=== PATIENT | female | born 1970 | race African-American/Black ===

== ENCOUNTER 2021-07-09 10:40 | Emergency (ER) | payer BC, SELFPAY ==
--- NOTE | ~2021-07-09 | XR_ITS ---
EXAMINATION: XR foot RT min 3V EXAM DATE: 07/09/2021 12:35 INDICATION: Right foot infection, medial pain. Pedicure 2 weeks ago. TECHNIQUE: Right foot dorsoplantar, lateral and oblique projections obtained and reviewed. There is no prior study for comparison. FINDINGS: Right metatarsal bones unremarkable. There are no bony erosions identified. There is mil d to moderate 1st metatarsophalangeal and interphalangeal primary osteoarthritis. There are no acute fractures or dislocations identified. There is no subcutaneous gas. There is soft tissue swelling ov er the foot and ankle. There are no radiopaque foreign bodies. IMPRESSION: 1. Right foot exam without acute osseous findings. 2. Soft tissue swelling. Reviewed, dictated and finalized at location A. 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
[2021-07-09 11:32] VITALS: BP 145/102; PULSE 76; RESP 18; TEMP 36.5; O2SAT 97
--- NOTE | 2021-07-09 12:27 | PC.NURSE ---
Patient to radiology.
[2021-07-09 12:55] LABS: Basophils Absolute Auto 0.1 K/mm3 (0.0-0.1); Basophils Percent Auto 1.1 % (0.2-1.2); Eosinophils Absolute Auto 0.2 K/mm3 (0-0.3); Eosinophils Percent Auto 2.8 % (0-4.4); Hemoglobin 15.2 g/dL (12.0-15.0); Immature Granulocyte Absolute 0.01 K/mm3 (0.00-0.031); Immature Granulocyte Percent A 0.2 % (0-0.5); Lymphocytes Absolute Auto 2.15 K/mm3 (0.9-3.2); Lymphocytes Percent Auto 40.3 % (18.3-44.2); Mean Corpuscular HGB Conc 36.2 g/dl (32-36); Mean Corpuscular Hemoglobin 36.9 pg (26-34); Mean Corpuscular Volume 101.9 fl (80-100); Mean Platelet Volume 10.5 fl (7.4-10.4); Monocytes Absolute Auto 0.3 K/mm3 (0.1-0.6); Monocytes Percent Auto 5.1 % (2.6-8.5); Neutrophils Absolute Auto 2.7 K/mm3 (1.3-6.7); Neutrophils Percent Auto 50.5 % (45.5-73.1); Platelet Count Result 171 k/mm3 (150-375); Red Blood Count 4.12 M/mm3 (4.2-5.4); Red Cell Distribution Width 12.2 % (11.5-14.5); White Blood Count 5.3 K/mm3 (4.5-10.0)
[2021-07-09 13:08] LABS: Alanine Aminotransferase 41 U/L (4-35); Albumin Level 4.4 g/dL (3.5-5.1); Alkaline Phosphatase 147 U/L (38-126); Anion Gap 14 mmol/L (8-16); Aspartate Amino Transferase 59 U/L (14-36); Bilirubin,Total 0.5 mg/dL (0.2-1.3); Blood Urea Nitrogen 3 mg/dL (7-17); Calcium 9.3 mg/dL (8.4-10.2); Carbon Dioxide 21 mmol/L (22-30); Chloride 101 mmol/L (98-107); Estimated CRCL calculation 113 ml/min; Estimated Glomerular Filt Rate > 60; Glucose 325 mg/dL (65-110); Potassium 3.5 mmol/L (3.4-5.0); Sodium 136 mmol/L (137-145); Uric Acid 9.3 mg/dL (2.5-7.5)
[2021-07-09 13:42] LABS: Add Urine Microscopic? YES; Appearance Urine Cloudy (Clear); Bacteria Urine Trace /hpf; Bilirubin Urine Negative (Negative); Blood Urine Negative (Negative); Color Urine Yellow (Yellow); Glucose Urine UA 3+ mg/dL (Negative); Ketones Urine Negative (Negative); Leukocyte Esterase Ur Negative LEU/UL (Negative); Mucus Urine Rare /lpf; Nitrate Urine Negative (Negative); Protein Urine Negative (Negative); Specific Grav Ur 1.015 (1.001-1.035); Squamous Epithelial Cell Urine Many /hpf (Few); Urobilinogen Urine Negative mg/dL (<2.0)
[2021-07-09 14:49] VITALS: BP 126/64; PULSE 74; RESP 16; TEMP 36.1; O2SAT 100
--- NOTE | 2021-07-09 15:23 | ED.GENADULT ---
HPI - General Adult General Chief complaint: Wound/Laceration Stated complaint: Infected foot. Time Seen by Provider: 07/09/21 11:44 Source: patient Mode of arrival: ambulatory Limitations: no limitations History of Present Illness HPI narrative: Patient is a 50-year-old female with medical history significant for diabetes type 2. Patient reports that she has had swelling and erythema in her right great toe since just before last Friday. Patient reports that she was seen at the urgent care last Friday and started on Keflex. Patient reports that she was told that if the swelling did not resolve by today that she needs to be reevaluated. Patient reports the redness and swelling has actually greatly improved. She does want to make sure that there are not any concerns. She reports very mild discomfort to the area. Patient reports she has not taken her home medications but denies any fever, chills, nausea, vomiting or abdominal pain. Related Data Home Medications Medication Instructions Recorded Confirmed folic acid 20 mg capsule 20 mg PO DAILY 11/22/19 06/26/21 furosemide 20 mg tablet 20 mg PO QAM 11/22/19 06/26/21 magnesium 250 mg tablet 250 mg PO BID tablet 11/22/19 06/26/21 multivitamin 1 cap PO DAILY 11/22/19 06/26/21 thiamine HCl (vitamin B1) 100 mg 100 mg PO DAILY 11/22/19 06/26/21 tablet pantoprazole 40 mg tablet,delayed tablet PO 06/26/21 06/26/21 release Allergies Allergy/AdvReac Type Severity Reaction Status Date / Time NSAIDS (Non-Steroidal Allergy Severe LIVER Verified 06/26/21 13:20 Anti-Inflamma CIRRHOSIS morphine Allergy Unknown Unknown Verified 06/26/21 13:20 Opioids - Morphine Analogues AdvReac Itching Verified 06/26/21 13:20 Review of Systems Review of Systems: CONSTITUTIONAL: Denies fever, chills, or sweats. EYES: Denies visual changes, redness, or discharge. ENT: Denies rhinorrhea, congestion, sore throat, or otalgia. CARDIOVASCULAR: Denies chest pain, palpitations, or edema. RESPIRATORY: Denies cough or dyspnea. GASTROINTESTINAL: Denies abdominal pain, nausea, vomiting, or diarrhea. GENITOURINARY: Denies dysuria or hematuria. SKIN: Denies rash or itching. MUSCULOSKELETAL: Reports swelling to right great denies back pain or myalgia. NEUROLOGIC: Denies headache, numbness, dizziness, or weakness. PSYCHIATRIC: Denies anxiety or depression. [facility] Past Medical History Medical History (Updated 07/09/21 @ 14:55 by Eloisa Gonzales PA-C) Alcohol use disorder Alcoholic liver disease Avascular necrosis (~2004) Rt hip Cervical cancer Chronic right hip pain COPD (chronic obstructive pulmonary disease) Mixed hyperlipidemia Peripheral neuropathy Tobacco use disorder Tobacco use disorder, severe, dependence Type 2 diabetes mellitus with diabetic neuropathy Surgical History Surgical History (Updated 06/26/21 @ 17:18 by Maria Del Carmen Lou NP) H/O esophagogastroduodenoscopy History of hip replacement (~2004) History of radical hysterectomy 2008 Social History Social History (Updated 06/26/21 @ 17:14 by Maria Del Carmen Lou NP) Smoking packs per day: 1 Smoking cigarettes per day: 20.0 Smoking status: Current every day smoker Tobacco type: cigarettes Additional smoking assessment comments: Started smoking at age 17 Alcohol intake: current Exam Narrative: GENERAL: Well-appearing, well-nourished, and in no acute distress. HEAD: Normocephalic, atraumatic. EYES: PERRLA and EOMI. CHEST: Clear to auscultation. No respiratory distress. No wheezes rales or rhonchi HEART: Regular rate and rhythm. No murmur heard. Normal peripheral pulses. EXTREMITIES: Swelling and erythema to right great toe MTP. No drainage or fluctuance noted. SKIN: Warm, dry, no rash. NEURO: No focal deficits. Alert and oriented x3. PSYCH: Normal mood and affect. Course Vital Signs Vital signs: Vital Signs Temperature 97.7 F 07/09/21 11:32 Pulse Rate 76 07/09/21 11:32 Respiratory Rate 18 07/09/21
[2021-07-09 15:32] LABS: Erythrocyte Sedimentation Rate 39 mm/hr (0-20)
== END 2021-07-09 15:20 | disposition home or self-care (01) ==
PROVIDERS: Physician Assistant; Emergency Provider Emergency Medicine; PCP Family Medicine
DX: M10.9 Gout, unspecified (principal); E11.42 Type 2 diabetes mellitus with diabetic polyneuropathy; J44.9 Chronic obstructive pulmonary disease, unspecified; E78.2 Mixed hyperlipidemia; K70.9 Alcoholic liver disease, unspecified; M87.9 Osteonecrosis, unspecified; F17.210 Nicotine dependence, cigarettes, uncomplicated; Z85.41 Personal history of malignant neoplasm of cervix uteri; Z96.649 Presence of unspecified artificial hip joint; Z79.84 Long term (current) use of oral hypoglycemic drugs
CPT/HCPCS: 36415; 73630; 80053; 81001; 84550; 85025; 85652; 86140; 99283

== ENCOUNTER 2022-01-09 10:49 | Emergency (ER) | payer BC, SELFPAY ==
--- NOTE | ~2022-01-09 | XR_ITS ---
EXAMINATION: XR hip RT min 2V DATE: 01/09/2022 11:45 INDICATION: Right hip pain. Fall. TECHNIQUE: 2 views of right hip were obtained. COMPARISON: Right hip radiographs 10/23/2005, 01/03/2005, CT abdomen and pelvis 06/22/2019 FINDINGS: There is a right hip hemiarthroplasty. There is lucency about the stem of the femoral compo nent with change in position from the postoperative radiograph, consistent with loosening. There is a fracture of right inferior pubic ramus. There is severe right hip osteoarthritis. Surgical clips ove rlie the pelvis. IMPRESSION: 1. Acute fracture of right inferior pubic ramus. 2. Right hip hemiarthroplasty with loosening of the femoral component. 3. Severe right hip osteoarthritis. Reviewed, dictated and finalized at location A.
[2022-01-09 11:15] VITALS: BP 109/57; PULSE 89; RESP 16; TEMP 36.1; O2SAT 100
--- NOTE | 2022-01-09 13:18 | ED.FALL ---
HPI - Fall General Chief Complaint: Fall Stated Complaint: fall/r hip pain Time Seen by Provider: 01/09/22 11:57 Source: patient Mode of arrival: ambulatory Limitations: no limitations History of Present Illness HPI Narrative: This is a 51 year old female who presents for evaluation of right hip pain. Patient states she accidentally slipped and fell down 4 steps 2 days ago. SHe states she fell onto her right hip. He denies hitting her head or LOC. She denies neck pain and back pain. She has been taking ibuprofen for her pain . She states her pain is improving. Her pain is located to her right groin. She denies leg weakness, numbness or tingling. She reports having right partial hip replacement [address] Caraballo. SHe has been told that she needs right hip revision. MD complaint: fall Onset (ago): day(s) (2) Fall from: standing Place fall occurred: home Loss of consciousness: none Related Data Home Medications Medication Instructions Recorded Confirmed folic acid 20 mg capsule 20 mg PO DAILY 11/22/19 06/26/21 furosemide 20 mg tablet 20 mg PO QAM 11/22/19 06/26/21 magnesium 250 mg tablet 250 mg PO BID 11/22/19 06/26/21 multivitamin 1 cap PO DAILY 11/22/19 06/26/21 thiamine HCl (vitamin B1) 100 mg 100 mg PO DAILY 11/22/19 06/26/21 tablet pantoprazole 40 mg tablet,delayed tablet PO 06/26/21 06/26/21 release Allergies Allergy/AdvReac Type Severity Reaction Status Date / Time NSAIDS (Non-Steroidal Allergy Severe LIVER Verified 01/09/22 11:27 Anti-Inflamma CIRRHOSIS morphine Allergy Unknown Unknown Verified 01/09/22 11:27 Opioids - Morphine Analogues AdvReac Itching Verified 01/09/22 11:27 Review of Systems Review of Systems: All systems reviewed & are unremarkable except as noted in HPI and below Constitutional: Constitutional: Denies chills and Denies fatigue ENT: Denies dizziness Cardiovascular: Cardiovascular: Denies chest pain Respiratory: Respiratory: Denies chest congestion and Reports wheezing Gastrointestinal: Gastrointestinal: Denies abdominal pain, Denies bloating and Denies constipation Musculoskeletal: Musculoskeletal: Denies back pain Neurologic: Denies numbness and Denies weakness [facility] Past Medical History Medical History Alcohol use disorder Alcoholic liver disease Avascular necrosis (~2004) Rt hip Cervical cancer Chronic right hip pain COPD (chronic obstructive pulmonary disease) Mixed hyperlipidemia Peripheral neuropathy Tobacco use disorder Tobacco use disorder, severe, dependence Type 2 diabetes mellitus with diabetic neuropathy Surgical History Surgical History H/O esophagogastroduodenoscopy History of hip replacement (~2004) History of radical hysterectomy 2008 Social History Social History (Updated 06/26/21 @ 17:14 by Maria Del Carmen Lou NP) Smoking packs per day: 1 Smoking cigarettes per day: 20.0 Smoking status: Current every day smoker Tobacco type: cigarettes Additional smoking assessment comments: Started smoking at age 17 Alcohol intake: current Exam Const: General: alert Orientation/consciousness: patient oriented x3 Limitations: no limitations HENMT: Head: normal to inspection Ears: external ears normal Face and sinus: normal facial exam Eyes: EOM: EOMs intact bilaterally Neck: Neck: normal visual inspection Chest: Chest palpation & inspection: normal inspection of the chest Resp: Effort & Inspection: normal respiratory effort, not labored, no retractions, not tachypneic and no use of accessory muscles Auscultation: wheezes Cardio: Rate: regular rate Rhythm: regular rhythm Heart sounds: no murmurs GI: GI Palp: Yes Soft to palpation, No Tenderness to palpation present (GI), No Guarding due to palpation present (GI) and No Rigid due to palpation Auscultation: normal bowel sounds Skin: General skin exam:
== END 2022-01-09 13:47 | disposition home or self-care (01) ==
PROVIDERS: Emergency Provider General Practice; PCP Family Medicine
DX: S32.591A Other specified fracture of right pubis, initial encounter for closed fracture (principal); J44.9 Chronic obstructive pulmonary disease, unspecified; E78.2 Mixed hyperlipidemia; E11.42 Type 2 diabetes mellitus with diabetic polyneuropathy; Z96.641 Presence of right artificial hip joint; F17.210 Nicotine dependence, cigarettes, uncomplicated; Z79.84 Long term (current) use of oral hypoglycemic drugs; M16.11 Unilateral primary osteoarthritis, right hip; W10.9XXA Fall (on) (from) unspecified stairs and steps, initial encounter
CPT/HCPCS: 73502; 99283

== ENCOUNTER 2022-02-01 08:18 | Outpatient (CLI) | payer BC, SELFPAY ==
--- NOTE | ~2022-02-01 | CT_ITS ---
EXAMINATION: CT hip RT wo con DATE: 02/01/2022 08:44 INDICATION: Painful prosthesis post right hip arthroplasty. TECHNIQUE: High resolution computed tomography (CT) of the right hip was performed without intravenou s contrast. Additional sagittal and coronal reconstructions were performed. Automated exposure contro l and iterative reconstruction technique were employed. The dose-length product was 285.18 mGy-cm. COMPARISON: Right hip radiographs dated 01/09/2022 and 10/23/[address] abdomen and pelvis dated 2018 and 04/23/2017 FINDINGS: Again seen are postoperative changes of a resurfacing type bipolar right hip hemiarthroplasty. Chroni c loosening and with subsidence of the femoral head component. There is been however no interval todd ge in positioning of the arthroplasty component when compared with CT dated 04/11/2017. Chronic osteoly sis and remodeling of the cephalad aspect of the right glenoid which also has not significantly esteban ed since 2017. Subacute nondisplaced fracture at the junction of the right superior pubic ramus and t he right acetabulum with subtle linear lucent fracture line extending into the anterior acetabulum. T here is subtle callus formation about the fracture consistent with early changes of healing additiona l minimally displaced subacute fracture with additional minimal callus formation at the central aspec t of the right inferior pubic ramus. Minimal right hip joint effusion. IMPRESSION: 1. Non to minimally displaced subacute fractures of the right superior and inferior pubic rami, the f ormer with intra-articular extension to involve the anterior right acetabulum. 2. Stable appearance of a resurfacing type bipolar right hip hemiarthroplasty with chronic loosening and subsidence and secondary osteolysis and remodeling of the cephalad right acetabulum. Reviewed, dictated and finalized at location B. IMPRESSION: 1. Non to minimally displaced subacute fractures of the right superior and infe rior pubic rami, the former with intra-articular extension to involve the anter ior right acetabulum. 2. Stable appearance of a resurfacing type bipolar right hip hemiarthroplasty w ith chronic loosening and subsidence and secondary osteolysis and remodeling of the cephalad right acetabulum.
== END 2022-02-01 08:19 | disposition home or self-care (01) ==
PROVIDERS: PCP Family Medicine; Visit Provider Orthopaedic Surgery
DX: S32.591A Other specified fracture of right pubis, initial encounter for closed fracture (principal); T84.84XA Pain due to internal orthopedic prosthetic devices, implants and grafts, initial encounter
CPT/HCPCS: 73700

== ENCOUNTER 2022-06-20 11:38 | Outpatient (CLI) | payer BC, SELFPAY ==
[2022-06-20 19:40] LABS: Basophils Absolute Auto 0.1 K/mm3 (0.0-0.1); Eosinophils Absolute Auto 0.1 K/mm3 (0-0.3); Eosinophils Percent Auto 2.7 % (0-4.4); Hematocrit 44.7 % (37.0-47.0); Hemoglobin 15.1 g/dL (12.0-15.0); Immature Granulocyte Absolute 0.02 K/mm3 (0.00-0.031); Immature Granulocyte Percent A 0.4 % (0-0.5); Lymphocytes Absolute Auto 1.76 K/mm3 (0.9-3.2); Lymphocytes Percent Auto 34.2 % (18.3-44.2); Mean Corpuscular HGB Conc 33.8 g/dl (32-36); Mean Corpuscular Hemoglobin 36.7 pg (26-34); Mean Corpuscular Volume 108.5 fl (80-100); Mean Platelet Volume 12.2 fl (7.4-10.4); Monocytes Absolute Auto 0.4 K/mm3 (0.1-0.6); Monocytes Percent Auto 7.8 % (2.6-8.5); Neutrophils Absolute Auto 2.8 K/mm3 (1.3-6.7); Neutrophils Percent Auto 53.9 % (45.5-73.1); Platelet Count Result 122 k/mm3 (150-375); Red Blood Count 4.12 M/mm3 (4.2-5.4); Red Cell Distribution Width 13.2 % (11.5-14.5); White Blood Count 5.1 K/mm3 (4.5-10.0)
[2022-06-20 19:44] LABS: Alanine Aminotransferase 73 U/L (6-35); Albumin Level 4.5 g/dL (3.5-5.1); Alkaline Phosphatase 167 U/L (38-126); Anion Gap 15 mmol/L (8-16); Aspartate Amino Transferase 112 U/L (14-36); Bilirubin,Total 1.1 mg/dL (0.2-1.3); Blood Urea Nitrogen 6 mg/dL (7-17); Calcium 9.4 mg/dL (8.4-10.2); Carbon Dioxide 25 mmol/L (22-30); Chloride 102 mmol/L (98-107); Cholesterol 291 mg/dL (0-200); Estimated Glomerular Filt Rate > 60; Glucose 155 mg/dL (65-110); HDL Direct 35 mg/dL; Magnesium 1.6 mg/dL (1.6-2.3); Potassium 4.4 mmol/L (3.4-5.0); Sodium 142 mmol/L (137-145); Triglycerides 189 mg/dL (<150); Uric Acid 6.9 mg/dL (2.5-7.5)
[2022-06-20 19:56] LABS: LDL Cholesterol Direct 188 mg/dL
[2022-06-20 20:03] LABS: Hemoglobin A1C 7.1 % (<5.7)
[2022-06-20 20:05] LABS: Creatinine Urine 139.3 mg/dL
[2022-06-20 20:06] LABS: MALB Creatinine Ratio 31.4 mg/g (0-30); Microalbumin Urine Random 43.8 mg/L (0-16.7)
[2022-06-20 20:14] LABS: Platelet Estimate Decreased (Adequate); Schistocytes None Seen (NORMAL)
[2022-06-20 20:15] LABS: Macrocytosis 1+ (NORMAL)
[2022-06-20 20:41] LABS: Vitamin D 25 Hydroxy < 12.8 ng/mL
== END 2022-06-20 11:39 | disposition home or self-care (01) ==
LOC: ANHGOSHLAB 11:41
PROVIDERS: PCP Family Medicine; Visit Provider Nurse Practitioner Family
DX: E78.2 Mixed hyperlipidemia (principal); E78.5 Hyperlipidemia, unspecified; Z00.00 Encounter for general adult medical examination without abnormal findings; E11.9 Type 2 diabetes mellitus without complications; E55.9 Vitamin D deficiency, unspecified; M79.676 Pain in unspecified toe(s)
CPT/HCPCS: 36415; 80053; 80061; 82043; 82306; 83036; 83735; 84443; 84550; 85025

== ENCOUNTER 2023-01-16 15:32 | Outpatient (CLI) | payer OTHER, SELFPAY ==
[2023-01-16 16:52] LABS: Hematocrit 38.2 % (37.0-47.0); Mean Corpuscular Hemoglobin 35.4 pg (26-34); Mean Corpuscular Volume 104.1 fl (80-100); Mean Platelet Volume 11.9 fl (7.4-10.4); Platelet Count Result 119 k/mm3 (150-375); Red Blood Count 3.67 M/mm3 (4.2-5.4); Red Cell Distribution Width 13.8 % (11.5-14.5); White Blood Count 4.1 K/mm3 (4.5-10.0)
[2023-01-16 17:05] LABS: INR 1.3; Prothrombin Time 16.5 Seconds (11.1-14.7)
[2023-01-16 17:08] LABS: Alanine Aminotransferase 69 U/L (6-35); Albumin Level 4.2 g/dL (3.5-5.1); Alkaline Phosphatase 123 U/L (38-126); Anion Gap 10 mmol/L (8-16); Aspartate Amino Transferase 116 U/L (14-36); Bilirubin,Total 1.1 mg/dL (0.2-1.3); Blood Urea Nitrogen 8 mg/dL (7-17); Calcium 9.1 mg/dL (8.4-10.2); Carbon Dioxide 26 mmol/L (22-30); Chloride 107 mmol/L (98-107); Estimated Glomerular Filt Rate > 60; Glucose 124 mg/dL (65-110); Potassium 4.5 mmol/L (3.4-5.0); Sodium 143 mmol/L (137-145)
[2023-01-27 13:53] LABS: Alpha Fetoprotein Tumor Marker 11.3 ng/mL (<6.1)
== END 2023-01-16 15:33 | disposition home or self-care (01) ==
LOC: ANHLAB 15:33
PROVIDERS: PCP Family Medicine; Visit Provider Nurse Practitioner Family
DX: K74.60 Unspecified cirrhosis of liver (principal)
CPT/HCPCS: 36415; 80053; 82105; 85027; 85610

== ENCOUNTER 2023-01-24 07:30 | Outpatient (CLI) | payer OTHER, SELFPAY ==
--- NOTE | ~2023-01-24 | US_ITS ---
US abdomen limited INDICATION: Cirrhosis PROCEDURE: Realtime right upper abdominal ultrasound. COMPARISON: No prior studies for comparison. FINDINGS: The pancreas is normal without focal mass or pancreatic ductal dilation. Liver echotexture is increased, consistent with fatty infiltration. Liver surface is nodular, suspicious for cirrhosis . Liver is enlarged. There is normal directional flow in the portal vein. The gallbladder is normal without stones, gallbladder wall thickening or pericholecystic fluid. Comm on bile duct measures 5 mm. No sonographic Zazueta's sign. IMPRESSION: 1: Cirrhosis of the liver with hepatomegaly. Reviewed, dictated and finalized at location []
== END 2023-01-24 07:31 | disposition home or self-care (01) ==
LOC: ANHIMG 07:33
PROVIDERS: PCP Nurse Practitioner Family; Visit Provider Nurse Practitioner Family
DX: K74.60 Unspecified cirrhosis of liver (principal)
CPT/HCPCS: 76705

== ENCOUNTER 2023-03-18 20:30 | Inpatient (IN) | payer OTHER, SELFPAY ==
[2023-03-18] VITALS (26 sets, daily range): BP systolic 128–163; BP diastolic 68–92; PULSE 76–179; RESP 13–26; TEMP 37.1; O2SAT 82–100
--- NOTE | 2023-03-18 20:32 | ECG_ITS ---
Measurements Intervals Athena Rate: 180 P: MI: 0 QRS: -49 QRSD: 98 T: 88 QT: 258 QTc: 447 Interpretive Statements SUPRAVENTRICULAR TACHYCARDIA LEFT ANTERIOR FASCICULAR BLOCK [QRS AXIS <= -45, QR IN I, RS IN II] LEFT VENTRICULAR HYPERTROPHY AND ST-T CHANGE [VOLTAGE CRITERIA PLUS ST/T ABNORMALITY] ABNORMAL ECG NO PREVIOUS ECG AVAILABLE FOR COMPARISON Electronically Signed On 03-19-2023 9:19:22 CDT by Kirill Barakat M.D.
[2023-03-18 20:50] LABS: Basophils Percent Auto 0.7 % (0.2-1.2); Eosinophils Absolute Auto 0.1 K/mm3 (0-0.3); Hematocrit 38.2 % (37.0-47.0); Hemoglobin 13.3 g/dL (12.0-15.0); Immature Platelet Fraction Pct 5.2 % (0.9-11.2); Lymphocytes Absolute Auto 1.61 K/mm3 (0.9-3.2); Lymphocytes Percent Auto 28.9 % (18.3-44.2); Mean Corpuscular HGB Conc 34.8 g/dl (32-36); Mean Corpuscular Hemoglobin 35.8 pg (26-34); Mean Corpuscular Volume 102.7 fl (80-100); Mean Platelet Volume 10.9 fl (7.4-10.4); Monocytes Absolute Auto 0.6 K/mm3 (0.1-0.6); Monocytes Percent Auto 9.9 % (2.6-8.5); Neutrophils Absolute Auto 3.3 K/mm3 (1.3-6.7); Neutrophils Percent Auto 58.5 % (45.5-73.1); Platelet Count Result 114 k/mm3 (150-375); Red Blood Count 3.72 M/mm3 (4.2-5.4); Red Cell Distribution Width 14.2 % (11.5-14.5); White Blood Count 5.6 K/mm3 (4.5-10.0)
[2023-03-18 20:58] LABS: INR 1.3; Prothrombin Time 16.6 Seconds (11.1-14.7)
[2023-03-18 21:00] LABS: Alanine Aminotransferase 46 U/L (6-35); Albumin Level 4.3 g/dL (3.5-5.1); Alkaline Phosphatase 214 U/L (38-126); Anion Gap 12 mmol/L (8-16); Aspartate Amino Transferase 97 U/L (14-36); Bilirubin,Total 3.2 mg/dL (0.2-1.3); Blood Urea Nitrogen 7 mg/dL (7-17); Calcium 9.1 mg/dL (8.4-10.2); Carbon Dioxide 22 mmol/L (22-30); Chloride 103 mmol/L (98-107); Estimated CRCL calculation 148 ml/min; Estimated Glomerular Filt Rate > 60; Glucose 259 mg/dL (65-110); Potassium 4.2 mmol/L (3.4-5.0); Sodium 137 mmol/L (137-145)
[2023-03-18] MEDS: ADENOSINE IV SOLN 6 MG/2 ML VIAL (21:07)
[2023-03-18 21:12] LABS: Troponin I 0.012 ng/mL (0.000-0.034)
[2023-03-18 21:38] LABS: Ethanol < 10 mg/dL (<10)
[2023-03-18 21:46] LABS: Amphetamine Screen Urine Negative (Negative); Barbiturate Screen Urine Negative (Negative); Benzodiazepines Screen Urine Negative (Negative); Cannabinoid Screen Urine Negative (Negative); Cocaine Screen Urine Negative (Negative); Methadone Screen Urine Negative (Negative); Opiate Screen Urine Negative (Negative); Phencyclidine Screen Urine Negative (Negative)
[2023-03-18] MEDS: ADENOSINE IV SOLN 6 MG/2 ML VIAL IV PUSH ×2 (22:24→22:27)
[2023-03-18] MEDS: dilTIAZem 100 MG/100 ML 100 MG/100 ML BAG IV CONT (22:27)
--- NOTE | 2023-03-18 22:37 | PC.NURSE ---
22:20 pt went bacck in SVT. notified 22:24 adensine given rapid ivp with at bedside 22:26 pt is back into NSR w/o ectopy noted. 22:30 dilt gtts started at 5ml/hr
--- NOTE | 2023-03-18 23:07 | PM.IMHP ---
H&P: HPI History of Present Illness Date/Time: 03/18/23 23:07 Chief Complaint: palpitations Narrative: This is a 52-year-old female with past medical history significant for COPD/ emphysema, tobacco dependence, patient smokes 1-1 and half packs of cigarettes daily, type 2 diabetes mellitus, orally controlled, alcohol dependence, cervical CA, liver cirrhosis, Peripheral neuropathy. patient presents to the emergency room due to palpitations this happened while at rest the day before patient had been binge drinking had 4 beers and 2 shots, patient denies any chest pain, no dizziness, no lightheadedness, no syncope or near syncope, she has a chronic cough, no sputum production, no fevers no rigors no chills, no nausea, no vomiting, no diarrhea, no abdominal pain, she normally has ankle swelling of bilateral lower extremities. patient states that she used her boyfriend's blood pressure machine to check her blood pressure and noticed that her heart rate was 180 try very since at home to make it go away had some water tried to rest however did not subside. In emergency room patient was found to have a heart rate of 160 was given Adenosine, which improved her heart rate to the 60s however after 1 hour it went back to 160s patient was started on Cardizem drip. Review of Systems Review of Systems: palpitations Constitutional: Constitutional: Denies chills, Denies daytime sleepiness, Denies fatigue, Denies fever(s), Denies malaise, Denies night sweats, Denies poor appetite and Denies weakness Eyes: Eyes: Denies change in vision ENT: Denies dysphagia, Denies vertigo, Denies dizziness and Denies odynophagia Cardiovascular: Cardiovascular: Denies chest pain, Denies syncope, Reports irregular heart rhythm, Denies leg edema, Denies lightheadedness, Denies radiating jaw, neck or arm pain, Reports palpitations, Denies orthopnea and Denies paroxysmal nocturnal dyspnea Respiratory: Respiratory: Reports cough, Denies excessive phlegm production and Denies dyspnea Gastrointestinal: Gastrointestinal: Denies abdominal pain, Denies dyspepsia, Denies heartburn, Denies diarrhea, Denies nausea and Denies vomiting Genitourinary: Genitourinary: Denies dysuria Musculoskeletal: Musculoskeletal: Denies myalgias, Denies neck pain and Denies numbness Integumentary/Breasts: Skin/Breast: Denies rash Neurologic: Denies focal weakness and Denies Sensory deficit (Neuro) Psychiatric: Psychiatric: Reports no additional psychiatric complaints and Reports as per HPI Endocrine: Endocrine: Denies cold intolerance, Denies fatigue, Denies flushing, Denies heat intolerance, Denies polyphagia, Denies polydipsia and Denies palpitations Hematologic/Lymphatic: Hematologic/Lymphatic: Reports no additional hematologic/lymphatic complaints and Reports as per HPI Allergic/Immunologic: Allergic/Immunologic: Reports no additional allergic/immunologic complaints and Reports as per HPI PMFSH Past Medical History Medical History (Updated 03/19/23 @ 03:42 by Mo Boyd MD) Alcohol use disorder Alcoholic liver disease Anxiety Avascular necrosis (~2004) Rt hip Cervical cancer Chronic right hip pain Cirrhosis of liver COPD (chronic obstructive pulmonary disease) Elevated AFP High cholesterol Mixed hyperlipidemia Peripheral neuropathy Tobacco use disorder Tobacco use disorder, severe, dependence Type 2 diabetes mellitus with diabetic neuropathy UTI (urinary tract infection) Vision changes Surgical History Surgical History H/O esophagogastroduodenoscopy History of ear surgery History of hip replacement (~2004) History of radical hysterectomy 2008 Family History Family History (Updated 03/19/23 @ 01:05 by Aleah Huggins RN) Other Unknown family medical history Social History Social History Smoking packs per day: 1.5 Smoking ciga
[2023-03-18] MEDS: SODIUM CHLORIDE 0.9% IV 1,000 ML 999 ML IV CONT (23:46)
[2023-03-19] VITALS (16 sets, daily range): BP systolic 130–166; BP diastolic 57–67; PULSE 64–76; RESP 12–20; TEMP 36–36.9; O2SAT 94–100; BMI 27.3
--- NOTE | 2023-03-19 00:03 | PC.NURSE ---
pt is resting. pt is still on the dilt gtts. pt is in NSR w/o no ectopy noted. abc are wnl nad. airway is patent,spontaneous and self maintained. pt denies pain,c/p and palpations. pt is waiting on room placement
--- NOTE | 2023-03-19 00:44 | ADMGEN ---
This patient, Rodríguez Alfaro, was admitted to IMU Room 210-01. Patient/family oriented to hospital policies and general routines including ID bracelet, bed and alarms, visiting hours, pain management, procedures, bathroom and other care routines, personal items, smoking policy, room service/diet, and visiting hours. Information on how to activate the Rapid Response Team has been discussed. Patient/Family are encouraged to report perceived risks to care and to ask questions if they do not understand what they are told or what they should do.
--- NOTE | 2023-03-19 01:12 | ED.ARRPALP ---
HPI - Arrhythmia/Palpitations General Chief Complaint: Arrhythmia/Palpitations Stated Complaint: my hear is racing, my heart rate is high Time Seen by Provider: 03/18/23 21:01 History of Present Illness HPI narrative: 52-year-old female with history of alcohol use disorder presents with sudden onset palpitations starting around 3 PM earlier, she has never had symptoms like this before. Related Data Home Medications Medication Instructions Recorded Confirmed thiamine HCl (vitamin B1) 100 mg 100 mg PO DAILY 11/22/19 03/19/23 tablet albuterol sulfate 90 mcg/actuation 1 inh inhalation Q4H PRN Shortness 03/19/23 03/19/23 aerosol inhaler (ProAir HFA) Of Breath Or Wheezing mecobalamin (vitamin B12) 1,000 1,000 mcg PO DAILY 03/19/23 03/19/23 mcg chewable tablet (B12 Active) Allergies Allergy/AdvReac Type Severity Reaction Status Date / Time NSAIDS (Non-Steroidal Allergy Severe LIVER Verified 03/18/23 20:39 Anti-Inflamma CIRRHOSIS morphine Allergy Unknown Unknown Verified 03/18/23 20:39 Opioids - Morphine Analogues AdvReac Itching Verified 03/18/23 20:39 Review of Systems Review of Systems: CONST: No fever. HEENT: No sore throat C/V: Palpitations RESP: No cough GI: No abdominal pain : No dysuria. M/S: No joint pain. SKIN: No rash. NEURO: [No headache or focal numbness or weakness] PSYCH: [No depression] PMFSH Past Medical History Medical History (Updated 03/19/23 @ 03:42 by Mo Boyd MD) Alcohol use disorder Alcoholic liver disease Anxiety Avascular necrosis (~2004) Rt hip Cervical cancer Chronic right hip pain Cirrhosis of liver COPD (chronic obstructive pulmonary disease) Elevated AFP High cholesterol Mixed hyperlipidemia Peripheral neuropathy Tobacco use disorder Tobacco use disorder, severe, dependence Type 2 diabetes mellitus with diabetic neuropathy UTI (urinary tract infection) Vision changes Surgical History Surgical History H/O esophagogastroduodenoscopy History of ear surgery History of hip replacement (~2004) History of radical hysterectomy 2009 Family History Family History (Updated 03/19/23 @ 01:05 by Aleah Huggins RN) Other Unknown family medical history Social History Social History Smoking packs per day: 1.5 Smoking cigarettes per day: 30.0 Years smoked: 30 Smoking pack-years: 45.00 Smoking status: Current every day smoker Tobacco type: cigarettes Additional smoking assessment comments: Started smoking at age 17 Alcohol intake: current Drinks per week: 35 Substance use: never Substance use type: does not use Lack of Transportation: No Lack of Food: Never True Current Housing: I Have Housing Concerned About Future Housing: No Difficulty Paying Gas/Electric Bills: No Difficulty Paying for Meds: No Currently Unemployed: No Education: High School Diploma/GED Difficulty w/ Childcare or Family Care: No Living arrangements: with family Occupation/Education: occupation Gender identity (if verbalized by the patient): Female Spiritual care concerns: No Agree to blood products: Yes Exam Narrative: EXAMINATION OF ORGAN SYSTEMS/BODY AREAS: Constitutional: Vital signs per nursing GENERAL: Appears anxious and uncomfortable in bed HEAD: Normal with no signs of head trauma. EYES: EOMI, conjunctiva normal ENT: Hearing grossly intact LUNGS: Nonlabored breathing. HEART: Tachycardic ABD: [Soft], [nontender to palpation] EXT: Normal range of motion SKIN: [No rashes or lesions.] NEURO: [Alert and oriented x 3. No gross focal sensory or strength deficits.] PSYCH: Anxious affect Course Vital Signs Vital signs: Vital Signs Temperature 98.7 F 03/18/23 20:40 Pulse Rate 179 H 03/18/23 20:40 Respiratory Rate 18 03/18/23 20:40 Blood Pressure 137/82 03/18/23 20:40
--- NOTE | 2023-03-19 06:00 | ECHO_ITS ---
Patient Info Name: Rodríguez Alfaro Age: 52 years : 1970 Gender: Female Ht: 72 in Wt: 200 lbs BSA: 2.16 m2 HR: 64 bpm BP: 145 / 63 mmHg Heart Rhythm: Sinus Rhythm Technical Quality: Good Exam Date: 03/19/2023 8:49 AM Exam Location: [facility] Patient Status: Inpatient Admit Date: 03/18/2023 Staff Ordering Physician: Amy Lopez MD Principal Biostatistician: Haley Becerril RDCS Attending Provider: Mo Boyd MD Exam Type: CA echo doppler color flow Study Info Indications - SVT Complete two-dimensional, color flow and Doppler transthoracic echocardiogram is performed. Summary 1. Complete two-dimensional, color flow and Doppler transthoracic echocardiogram is performed. 2. There is moderately increased left ventricular wall thickness. 3. Left ventricular chamber dimension is normal. 4. Left ventricular systolic function is normal, estimated at 65-70%. 5. The left ventricular diastolic function is grade II diastolic dysfunction. 6. There is mild mitral valve regurgitation. 7. There is mild tricuspid valve regurgitation. 8. There is mild pulmonic regurgitation. 9. The aortic root size at the sinus of Valsalva is mildly dilated. Left Ventricle Left ventricular chamber dimension is normal. Left ventricular systolic function is normal, estimated at 65-70%. There is moderately increased left ventricular wall thickness. The left ventricular diastolic function is grade II diastolic dysfunction. Right Ventricle Right ventricular chamber dimension is normal. Right ventricular systolic function is normal. Left Atria Left atrial chamber dimension is normal. Right Atria Right atrial chamber dimension is normal. Atrial Septum Intact interatrial septum visualized by color flow imaging. Aortic Valve The aortic valve is trileaflet. There is mild aortic valve sclerosis. There is no aortic valve stenosis. There is trace aortic valve regurgitation. Pulmonic Valve The pulmonic valve is normal. There is no pulmonic valve stenosis. There is mild pulmonic regurgitation. Mitral Valve The mitral valve has normal leaflets. There is no mitral valve stenosis. There is mild mitral valve regurgitation. Tricuspid Valve The tricuspid valve leaflets are normal. There is no significant tricuspid valve stenosis. There is mild tricuspid valve regurgitation. No pulmonary hypertension, estimated pulmonary arterial systolic pressure is 25 mmHg. Pericardium/Pleural The pericardium appears normal. There is no pericardial effusion. Inferior Vena Cava Normal inferior vena cava with >50% collapse upon inspiration consistent with normal right atrial pressure, 10 mmHg. Aorta The aortic root size at the sinus of Valsalva is mildly dilated. The abdominal aorta size is normal. There is mild aortic atherosclerosis. Left Ventricular Outflow Tract Name Value Normal LVOT 2D LVOT Diameter 2.1 cm LVOT Doppler LVOT Peak Gradient 5 mmHg LVOT Mean Gradient 3 mmHg LVOT VTI 28 cm LVOT VTI/AV VTI Ratio 0.8 LVOT Stroke Volume 95 ml LVOT CO
--- NOTE | 2023-03-19 06:43 | PC.NURSE ---
New order received from Dr. Boyd to [facility] Diltiazem.
[2023-03-19] MEDS: GABAPENTIN 100 MG CAPSULE 200 MG PO ×2 (06:47→14:36)
[2023-03-19] MEDS: chlordiazePOXIDE (*CRX) 25 MG CAPSULE 50 MG PO ×2 (06:47→12:45)
[2023-03-19 07:58] LABS: Glucose Point of Care 123 mg/dl (65-105)
[2023-03-19] MEDS: CHOLECALCIFEROL 1,000 UNITS TABLET 5000 UNITS PO (08:26)
[2023-03-19] MEDS: THIAMINE HCL 100 MG TABLET PO (08:27)
[2023-03-19] MEDS: FOLIC ACID 1 MG TABLET PO (08:27)
[2023-03-19] MEDS: CYANOCOBALAMIN 1,000 MCG TABLET 1000 MCG PO (08:27)
[2023-03-19] MEDS: ATORVASTATIN 20 MG TABLET PO (08:27)
[2023-03-19] MEDS: ENOXAPARIN 40 MG/0.4 ML SYRINGE SUB-Q (08:32)
--- NOTE | 2023-03-19 11:38 | PM.IMPN ---
Progress Note: A&P Assessment and Plan (1) SVT (supraventricular tachycardia): Code(s): I47.1 - Supraventricular tachycardia Status: Acute Assessment and Plan: admit to IMU on Cardizem drip cardiology consult supportive care (2) Atopic dermatitis: Code(s): L20.9 - Atopic dermatitis, unspecified Status: Acute Assessment and Plan: local care (3) Cirrhosis of liver: Code(s): K74.60 - Unspecified cirrhosis of liver Status: Acute Assessment and Plan: unchanged (4) Peripheral neuropathy: Qualifiers: Peripheral neuropathy type: polyneuropathy, unspecified Qualified Code(s): G62.9 - Polyneuropathy, unspecified Code(s): G62.9 - Polyneuropathy, unspecified Status: Acute Assessment and Plan: unchanged (5) Type 2 diabetes mellitus with diabetic neuropathy: Qualifiers: Diabetes mellitus custodial insulin use: without terminal supervisor use Qualified Code(s): E11.40 - Type 2 diabetes mellitus with diabetic neuropathy, unspecified Code(s): E11.40 - Type 2 diabetes mellitus with diabetic neuropathy, unspecified Status: Acute Assessment and Plan: seemingly diet control as patient on no meds (6) Chronic right hip pain: Code(s): M25.551 - Pain in right hip; G89.29 - Other chronic pain Status: Acute Assessment and Plan: Tylenol p.r.n. (7) COPD (chronic obstructive pulmonary disease): Qualifiers: COPD type: unspecified COPD Qualified Code(s): J44.9 - Chronic obstructive pulmonary disease, unspecified Code(s): J44.9 - Chronic obstructive pulmonary disease, unspecified Status: Chronic Assessment and Plan: stable (8) Tobacco dependence: Code(s): F17.200 - Nicotine dependence, unspecified, uncomplicated Status: Acute Assessment and Plan: nicotine patch as needed (9) Alcohol dependence: Code(s): F10.20 - Alcohol dependence, uncomplicated Status: Acute Assessment and Plan: referral to 12 step program in the outpatient setting [place] protocol as needed Subjective Date/time seen: 03/19/23 11:38 Interval history: Doing well Exam Narrative: patient is laying in a stretcher Const: General: comfortable ( well-appearing), no acute distress, well developed, alert, awake and average body habitus Nutritional Appearance: average body habitus Orientation/consciousness: patient oriented x3 HENMT: Head: normal to inspection, normocephalic and atraumatic Ears: hearing grossly normal bilaterally Face/Nose/Sinus: normal facial exam Face and sinus: normal facial exam Eyes: General: appearance normal, both eyes and all related structures Pupils: Equal, round and reactive pupils present EOM: EOMs intact bilaterally Neck: Neck: full ROM, no lymphadenopathy and no JVD Thyroid: thyroid normal Lymphatic: no lymphadenopathy noted Resp: Effort & Inspection: normal respiratory effort and able to speak in complete sentences Auscultation: clear to auscultation bilaterally Cardio: Jugular venous distension: no JVD Rate: regular rate Rhythm: regular rhythm Heart sounds: S1 normal heart sound present and S2 normal heart sound present : General: Yes deferred Skin: Rashes: no rashes Wounds: no wounds Neuro: General: patient oriented x3 and CN's II-XI intact bilaterally Cranial nerves: Yes CN's II-XII intact bilaterally and Yes Equal, round and reactive pupils present Cognition (Neuro): normal cognition Speech: normal speech Gait exam (Neuro): Normal gait present Motor exam (neuro): 5/5 motor strength present throughout Sensory Exam: No Sensory deficit (Neuro) Extrem: General: normal to inspection, full ROM, no joint enlargement and no pedal edema Objective Data Vital Signs Vital Signs: Vital Signs - 24 hr 03/18/23 20:40 03/18/23 20:50 03/18/23 21:03 Temperature 98.7 F 98.8 F Pulse Rate 179 H 172 H 175 H R
[2023-03-19 12:00] LABS: Glucose Point of Care 111 mg/dl (65-105)
--- NOTE | 2023-03-19 15:59 | PM.DS ---
DS: Admitting Diagnosis Discharge Date 03/19/23 Admitting Diagnosis svt DS: Discharge Diagnosis Discharge Diagnosis (1) SVT (supraventricular tachycardia): Code(s): I47.1 - Supraventricular tachycardia Status: Acute Assessment and Plan: admit to IMU on Cardizem drip cardiology consult supportive care (2) Atopic dermatitis: Code(s): L20.9 - Atopic dermatitis, unspecified Status: Acute Assessment and Plan: local care (3) Cirrhosis of liver: Code(s): K74.60 - Unspecified cirrhosis of liver Status: Acute Assessment and Plan: unchanged (4) Peripheral neuropathy: Qualifiers: Peripheral neuropathy type: polyneuropathy, unspecified Qualified Code(s): G62.9 - Polyneuropathy, unspecified Code(s): G62.9 - Polyneuropathy, unspecified Status: Acute Assessment and Plan: unchanged (5) Type 2 diabetes mellitus with diabetic neuropathy: Qualifiers: Diabetes mellitus usp insulin use: without intermodal customer service use Qualified Code(s): E11.40 - Type 2 diabetes mellitus with diabetic neuropathy, unspecified Code(s): E11.40 - Type 2 diabetes mellitus with diabetic neuropathy, unspecified Status: Acute Assessment and Plan: seemingly diet control as patient on no meds (6) Chronic right hip pain: Code(s): M25.551 - Pain in right hip; G89.29 - Other chronic pain Status: Acute Assessment and Plan: Tylenol p.r.n. (7) COPD (chronic obstructive pulmonary disease): Qualifiers: COPD type: unspecified COPD Qualified Code(s): J44.9 - Chronic obstructive pulmonary disease, unspecified Code(s): J44.9 - Chronic obstructive pulmonary disease, unspecified Status: Chronic Assessment and Plan: stable (8) Tobacco dependence: Code(s): F17.200 - Nicotine dependence, unspecified, uncomplicated Status: Acute Assessment and Plan: nicotine patch as needed (9) Alcohol dependence: Code(s): F10.20 - Alcohol dependence, uncomplicated Status: Acute Assessment and Plan: referral to 12 step program in the outpatient setting [facility] protocol as needed DS: Summary Hospital Course Hospital Course: admitted for brief episode of svt, workup negative. Has hx of this as well, ? related to etoh. Patient received cardizem gtt briefly, echo ok. Will dc on low dose bb and she can fu with her pcp for holter monitor as outpatient. Time Spent with Patient Time attestation: Total time spent providing and/or coordinating discharge services: Exam Narrative: patient is laying in a stretcher Const: General: comfortable ( well-appearing), no acute distress, well developed, alert, awake and average body habitus Nutritional Appearance: average body habitus Orientation/consciousness: patient oriented x3 HENMT: Head: normal to inspection, normocephalic and atraumatic Ears: hearing grossly normal bilaterally Face/Nose/Sinus: normal facial exam Face and sinus: normal facial exam Eyes: General: appearance normal, both eyes and all related structures Pupils: Equal, round and reactive pupils present EOM: EOMs intact bilaterally Neck: Neck: full ROM, no lymphadenopathy and no JVD Thyroid: thyroid normal Lymphatic: no lymphadenopathy noted Resp: Effort & Inspection: normal respiratory effort and able to speak in complete sentences Auscultation: clear to auscultation bilaterally Cardio: Jugular venous distension: no JVD Rate: regular rate Rhythm: regular rhythm Heart sounds: S1 normal heart sound present and S2 normal heart sound present : General: Yes deferred Skin: Rashes: no rashes Wounds: no wounds Neuro: General: patient oriented x3 and CN's II-XI intact bilaterally Cranial nerves: Yes CN's II-XII intact bilaterally and Yes Equal, round and reactive pupils present Cognition (Neuro): normal cognition Speech: normal speech Gait exam (Neuro
--- NOTE | 2023-03-19 21:04 | ECG_ITS ---
Measurements Intervals [place] Rate: 87 P: -37 MA: 128 QRS: -41 QRSD: 102 T: 48 QT: 352 QTc: 425 Interpretive Statements SINUS RHYTHM MARKED LEFT AXIS DEVIATION [QRS AXIS < -30] INCOMPLETE RIGHT BUNDLE BRANCH BLOCK [90+ ms QRS DURATION, TERMINAL R IN V1/V2, 40+ ms S IN I/aVL/V4/V5/V6] MODERATE VOLTAGE CRITERIA FOR LVH, CONSIDER NORMAL VARIANT [MEETS CRITERIA IN ONE OF: R(aVL), S(V1), R(V5), R(V5/V6)+S(V1)] COMPARED TO ECG 03/18/2023 20:35:12 SINUS RHYTHM NOW PRESENT INCOMPLETE RIGHT BUNDLE-BRANCH BLOCK NOW PRESENT Electronically Signed On 03-21-2023 8:50:01 CDT by Aris Jauregui M.D.
== END 2023-03-19 16:34 | disposition home or self-care (01) | DRG 201 ==
LOC: ANHED 22:04 → ANHIMU 03-19 00:10
PROVIDERS: Admitting Provider Internal Medicine; Emergency Provider Emergency Medicine; PCP Nurse Practitioner Family; Visit Provider Chiropractor
DX: I47.1 Supraventricular tachycardia (principal); E11.42 Type 2 diabetes mellitus with diabetic polyneuropathy; K74.60 Unspecified cirrhosis of liver; E78.2 Mixed hyperlipidemia; F17.210 Nicotine dependence, cigarettes, uncomplicated; F10.20 Alcohol dependence, uncomplicated; F41.9 Anxiety disorder, unspecified; G89.29 Other chronic pain; J43.9 Emphysema, unspecified; L20.9 Atopic dermatitis, unspecified; M25.551 Pain in right hip; Y90.0 Blood alcohol level of less than 20 mg/100 ml; Z85.41 Personal history of malignant neoplasm of cervix uteri; Z79.84 Long term (current) use of oral hypoglycemic drugs
CPT/HCPCS: 36415; 80053; 80307; 82948; 84443; 84484; 85025; 85055; 85610; 85730; 93005; 93306; 96374; 96375; 99285; A9270; J0153; J1650; J7030

== ENCOUNTER 2023-04-15 13:55 | Emergency (ER) | payer OTHER, SELFPAY ==
[2023-04-15 13:59] VITALS: BP 153/80; PULSE 73; RESP 14; TEMP 36.6; O2SAT 100
[2023-04-15 14:17] LABS: Basophils Percent Auto 0.8 % (0.2-1.2); Eosinophils Absolute Auto 0.2 K/mm3 (0-0.3); Eosinophils Percent Auto 3.1 % (0-4.4); Hematocrit 35.7 % (37.0-47.0); Hemoglobin 12.3 g/dL (12.0-15.0); Immature Granulocyte Absolute 0.01 K/mm3 (0.00-0.031); Immature Granulocyte Percent A 0.2 % (0-0.5); Immature Platelet Fraction Pct 6.7 % (0.9-11.2); Lymphocytes Absolute Auto 1.71 K/mm3 (0.9-3.2); Lymphocytes Percent Auto 35.8 % (18.3-44.2); Mean Corpuscular HGB Conc 34.5 g/dl (32-36); Mean Corpuscular Hemoglobin 35.8 pg (26-34); Mean Corpuscular Volume 103.8 fl (80-100); Mean Platelet Volume 11.2 fl (7.4-10.4); Monocytes Absolute Auto 0.4 K/mm3 (0.1-0.6); Monocytes Percent Auto 7.5 % (2.6-8.5); Neutrophils Absolute Auto 2.5 K/mm3 (1.3-6.7); Neutrophils Percent Auto 52.6 % (45.5-73.1); Red Blood Count 3.44 M/mm3 (4.2-5.4); Red Cell Distribution Width 13.6 % (11.5-14.5); White Blood Count 4.8 K/mm3 (4.5-10.0)
[2023-04-15 14:26] LABS: Alanine Aminotransferase 55 U/L (6-35); Albumin Level 4.2 g/dL (3.5-5.1); Alkaline Phosphatase 169 U/L (38-126); Anion Gap 13 mmol/L (8-16); Aspartate Amino Transferase 136 U/L (14-36); Bilirubin,Total 3.5 mg/dL (0.2-1.3); Blood Urea Nitrogen 9 mg/dL (7-17); Calcium 9.1 mg/dL (8.4-10.2); Carbon Dioxide 19 mmol/L (22-30); Chloride 106 mmol/L (98-107); Estimated CRCL calculation 96 ml/min; Estimated Glomerular Filt Rate > 60; Glucose 146 mg/dL (65-110); Lipase 827 U/L (23-300); Potassium 3.8 mmol/L (3.4-5.0); Sodium 138 mmol/L (137-145)
[2023-04-15 14:34] LABS: Platelet Count Result 83 k/mm3 (150-375)
== END 2023-04-15 14:15 | disposition left against medical advice (07) ==
PROVIDERS: Emergency Provider Preventive Medicine Aerospace Medicine; PCP Nurse Practitioner Family
DX: R11.2 Nausea with vomiting, unspecified (principal)
CPT/HCPCS: 36415; 80053; 83690; 85025; 85055; 99199

== ENCOUNTER 2023-05-07 16:01 | Outpatient (CLI) | payer OTHER, SELFPAY ==
--- NOTE | ~2023-05-07 | MR_ITS ---
MRI of the abdomen: Clinical indication: Cirrhosis. Technique: Coronal SSFSE ARC, WATER:coronal LAVA-FLEX, Coronal 2D FIESTA FatSat, Axial SSFSE BH ARC, Axial 3D DualEcho BH, Axial SSFSE-IR, Axial DWI b=500, Axial 2D FIESTA FatSat, pre and dynamic postco ntrast Axial LAVA ARC, postcontrast Coronal In and Opposed phase LAVA FLEX. Following intravenous adm inistration of 20 cc MultiHance gadolinium, T1-weighted fat-sat imaging was performed in the axial an d coronal planes. Findings: Questionable small gallstones. The common bile duct is nondilated. No filling defects are s een within the CBD. No evidence of intrahepatic biliary ductal dilatation. The pancreatic duct is nor mal in size. Liver demonstrates a somewhat nodular contour, compatible with cirrhotic change. No focal parenchymal lesion identified. The spleen, pancreas, adrenals, kidneys appear normal. The aorta and the paraaort ic regions appear normal. No ascites. Fat-containing ventral hernia noted. No suspicious postcontrast enhancement identified. Impression: Probable cirrhotic change of the liver, as detailed above. No focal hepatic mass seen. Fat-containing ventral hernia. Questionable small gallstones. Reviewed, dictated and finalized at location M. Impression: Probable cirrhotic change of the liver, as detailed above. No focal hepatic mas s seen. Fat-containing ventral hernia. Questionable small gallstones.
== END 2023-05-07 16:02 | disposition home or self-care (01) ==
PROVIDERS: PCP Family Medicine; Visit Provider Nurse Practitioner Family
DX: R77.2 Abnormality of alphafetoprotein (principal); K43.9 Ventral hernia without obstruction or gangrene; R93.5 Abnormal findings on diagnostic imaging of other abdominal regions, including retroperitoneum
CPT/HCPCS: 74183; A9577

== ENCOUNTER 2023-09-03 13:32 | Outpatient (CLI) | payer OTHER, SELFPAY ==
[2023-09-03 19:26] LABS: Basophils Percent Auto 0.8 % (0.2-1.2); Eosinophils Absolute Auto 0.1 K/mm3 (0-0.3); Eosinophils Percent Auto 2.7 % (0-4.4); Hematocrit 29.9 % (37.0-47.0); Hemoglobin 10.3 g/dL (12.0-15.0); Immature Granulocyte Absolute 0.01 K/mm3 (0.00-0.031); Immature Granulocyte Percent A 0.3 % (0-0.5); Immature Platelet Fraction Pct 8.5 % (0.9-11.2); Lymphocytes Absolute Auto 1.31 K/mm3 (0.9-3.2); Lymphocytes Percent Auto 34.7 % (18.3-44.2); Mean Corpuscular HGB Conc 34.4 g/dl (32-36); Mean Corpuscular Hemoglobin 36.7 pg (26-34); Mean Corpuscular Volume 106.4 fl (80-100); Mean Platelet Volume 11.9 fl (7.4-10.4); Monocytes Absolute Auto 0.3 K/mm3 (0.1-0.6); Monocytes Percent Auto 8.8 % (2.6-8.5); Neutrophils Percent Auto 52.7 % (45.5-73.1); Platelet Count Result 86 k/mm3 (150-375); Red Blood Count 2.81 M/mm3 (4.2-5.4); Red Cell Distribution Width 16.9 % (11.5-14.5); White Blood Count 3.8 K/mm3 (4.5-10.0)
[2023-09-03 19:49] LABS: Alanine Aminotransferase 42 U/L (6-35); Albumin Level 3.7 g/dL (3.5-5.1); Alkaline Phosphatase 238 U/L (38-126); Anion Gap 10 mmol/L (8-16); Aspartate Amino Transferase 96 U/L (14-36); Bilirubin,Total 2.4 mg/dL (0.2-1.3); Blood Urea Nitrogen 8 mg/dL (7-17); Calcium 8.9 mg/dL (8.4-10.2); Carbon Dioxide 21 mmol/L (22-30); Chloride 110 mmol/L (98-107); Estimated Glomerular Filt Rate > 60; Glucose 130 mg/dL (65-110); Potassium 4.1 mmol/L (3.4-5.0); Sodium 141 mmol/L (137-145)
[2023-09-03 20:09] LABS: Anisocytosis 2+ (NORMAL); Macrocytosis 1+ (NORMAL); Platelet Estimate Decreased (Adequate); Schistocytes None Seen (NORMAL)
[2023-09-03 21:14] LABS: Hemoglobin A1C 5.6 % (<5.7)
== END 2023-09-03 13:33 | disposition home or self-care (01) ==
LOC: ANHGOSHLAB 13:34
PROVIDERS: PCP Family Medicine; Visit Provider Nurse Practitioner Family
DX: E11.9 Type 2 diabetes mellitus without complications (principal); F10.20 Alcohol dependence, uncomplicated
CPT/HCPCS: 36415; 80053; 83036; 85025; 85055

== ENCOUNTER 2023-09-25 05:41 | Inpatient (IN) | payer OTHER, SELFPAY ==
[2023-09-25] VITALS (11 sets, daily range): BP systolic 137–197; BP diastolic 51–71; PULSE 72–91; RESP 14–20; TEMP 36.6–37.1; O2SAT 96–100; BMI 27.8
--- NOTE | 2023-09-25 07:15 | ED.GIBLEED ---
HPI - GI Bleed General Chief complaint: GI Bleed Stated complaint: nausea, fever and black stools Time Seen by Provider: 09/25/23 06:55 History of Present Illness HPI Narrative: Patient is a 52-year-old female with history of alcoholic liver cirrhosis here with flu-like symptoms and coffee-ground emesis and tarry stools. She notes that yesterday she began feeling which she was coming down with a sickness. Her symptoms at that time and included some nausea, body aches, generalized fatigue. She additionally had some subjective fever. She notes that yesterday she had minimal p.o. intake and had multiple episodes of coffee-ground emesis. She then began having some dark Tarry stools which were loose in consistency. She continues to occasionally drink alcohol, her last drink was approximately 2 days ago, history of alcohol withdrawal, no history of alcohol withdrawal seizures. She does feel as though she has been having some tremors consistent with mild alcohol withdrawal. No active chest pain. No abdominal pain. No cough or congestion. Last upper endoscopy was about 1-2 years ago, history of gastritis, no varices. No prior colonoscopies. She was previously taking pantoprazole, has ran out of refills. Does take ibuprofen with consistency given a prior bad hip replacement. Related Data Home Medications Medication Instructions Recorded Confirmed mecobalamin (vitamin B12) 1,000 1,000 mcg PO DAILY 03/19/23 09/03/23 mcg chewable tablet (B12 Active) multivitamin 1 tablet PO DAILY 09/03/23 09/03/23 Allergies Allergy/AdvReac Type Severity Reaction Status Date / Time NSAIDS (Non-Steroidal Allergy Severe LIVER Verified 09/03/23 12:55 Anti-Inflamma CIRRHOSIS morphine Allergy Unknown Unknown Verified 09/03/23 12:55 Opioids - Morphine Analogues AdvReac Itching Verified 09/03/23 12:55 Review of Systems Review of Systems: All systems reviewed & are unremarkable except as noted in HPI and below PMFSH Past Medical History Medical History Alcohol use disorder Alcoholic liver disease Anxiety Avascular necrosis (~2004) Rt hip Cervical cancer Chronic right hip pain Cirrhosis of liver COPD (chronic obstructive pulmonary disease) Elevated AFP High cholesterol Mixed hyperlipidemia Peripheral neuropathy Tobacco use disorder Tobacco use disorder, severe, dependence Type 2 diabetes mellitus with diabetic neuropathy UTI (urinary tract infection) Vision changes Surgical History Surgical History H/O esophagogastroduodenoscopy History of ear surgery History of hip replacement (~2004) History of radical hysterectomy 2008 Family History Family History Other Unknown family medical history Social History Social History (Updated 09/03/23 @ 13:00 by Simran Lyon) Social History: Caffeine-Soda Smoking packs per day: 1.5 Smoking cigarettes per day: 30.0 Years smoked: 30 Smoking pack-years: 45.00 Smoking status: Current every day smoker Tobacco type: cigarettes Additional smoking assessment comments: Started smoking at age 17 Alcohol intake: current Drinks per week: 35 Substance use: never Substance use type: does not use Lack of Transportation: No Lack of Food: Never True Current Housing: I Have Housing Concerned About Future Housing: No Difficulty Paying Gas/Electric Bills: No Difficulty Paying for Meds: No Currently Unemployed: No Education: High School Diploma/GED Difficulty w/ Childcare or Family Care: No Living arrangements: with family Occupation/Education: occupation Gender identity (if verbalized by the patient): Female Spiritual care concerns: No Agree to blood products: Yes Exam Narrative: GENERAL: Well-appearing, well-nourished, and in no acute distress. HEAD: Normocephalic, atraumatic. EYES: PERRLA and E
[2023-09-25] MEDS: SODIUM CHLORIDE 0.9% IV 1,000 ML 999 ML IV CONT (07:28)
[2023-09-25 07:29] LABS: Basophils Percent Auto 0.8 % (0.2-1.2); Eosinophils Absolute Auto 0.1 K/mm3 (0-0.3); Hemoglobin 9.4 g/dL (12.0-15.0); Immature Granulocyte Absolute 0.01 K/mm3 (0.00-0.031); Immature Granulocyte Percent A 0.2 % (0-0.5); Immature Platelet Fraction Pct 6.3 % (0.9-11.2); Lymphocytes Absolute Auto 1.22 K/mm3 (0.9-3.2); Lymphocytes Percent Auto 23.6 % (18.3-44.2); Mean Corpuscular HGB Conc 34.8 g/dl (32-36); Mean Corpuscular Hemoglobin 35.9 pg (26-34); Mean Corpuscular Volume 103.1 fl (80-100); Mean Platelet Volume 11.5 fl (7.4-10.4); Monocytes Absolute Auto 0.4 K/mm3 (0.1-0.6); Monocytes Percent Auto 6.9 % (2.6-8.5); Neutrophils Absolute Auto 3.5 K/mm3 (1.3-6.7); Neutrophils Percent Auto 67.5 % (45.5-73.1); Platelet Count Result 68 k/mm3 (150-375); Red Blood Count 2.62 M/mm3 (4.2-5.4); Red Cell Distribution Width 15.6 % (11.5-14.5); White Blood Count 5.2 K/mm3 (4.5-10.0)
[2023-09-25] MEDS: ONDANSETRON INJ 4 MG/2 ML VIAL IV PUSH (07:29)
[2023-09-25] MEDS: PANTOPRAZOLE SODIUM IV 40 MG VIAL 80 MG IV PUSH (07:29)
[2023-09-25 07:37] LABS: Alanine Aminotransferase 41 U/L (6-35); Albumin Level 3.6 g/dL (3.5-5.1); Alkaline Phosphatase 177 U/L (38-126); Anion Gap 9 mmol/L (8-16); Aspartate Amino Transferase 113 U/L (14-36); Blood Urea Nitrogen 26 mg/dL (7-17); Calcium 9.2 mg/dL (8.4-10.2); Carbon Dioxide 25 mmol/L (22-30); Chloride 107 mmol/L (98-107); Estimated CRCL calculation 96 ml/min; Estimated Glomerular Filt Rate > 60; Glucose 161 mg/dL (65-110); Lipase 390 U/L (23-300); Potassium 4.6 mmol/L (3.4-5.0); Sodium 141 mmol/L (137-145)
[2023-09-25 07:40] LABS: INR 1.7; Prothrombin Time 20.7 Seconds (11.1-14.7)
[2023-09-25 07:49] LABS: Hypochromasia 1+ (NORMAL); Platelet Estimate Decreased (Adequate); Schistocytes None Seen (NORMAL); Target Cells 1+ (NORMAL)
[2023-09-25 07:59] LABS: Lactic Acid Reflex 2.4 mmol/L (0.7-2.0)
[2023-09-25] MEDS: LORazepam INJ (*CRX) 2 MG/ML VIAL 1 MG IV PUSH (09:27)
[2023-09-25 09:40] LABS: Influenza A QL RT-PCR Negative (Negative); Influenza B QL RT-PCR Negative (Negative); RSV RNA, RT-PCR Negative (Negative); SARS-CoV-2 RNA PCR Negative (Negative)
[2023-09-25 10:44] LABS: Reflex Lactic Acid Yes or No Add Lactic
[2023-09-25] MEDS: MAGNESIUM SULF 2 GM/WATER 50ML 2 GM/50 ML BAG IVPB (11:05)
[2023-09-25 11:22] LABS: Lactic Acid 1.5 mmol/L (0.7-2.0)
[2023-09-25] MEDS: PANTOPRAZOLE SODIUM IV 80 MG in SODIUM CHLORIDE 0.9% IV 500 ML 50 MG IV CONT (11:39)
[2023-09-25 12:19] LABS: Glucose Point of Care 123 mg/dl (65-105)
--- NOTE | 2023-09-25 14:15 | PM.IMHP ---
H&P: HPI History of Present Illness Date/Time: 09/25/23 14:15 Chief Complaint: Abdominal pain, vomiting, and dark stools. Narrative: This is a 52-year-old female smoker with history of alcohol abuse, cirrhosis, hypertension, hyperlipidemia, and type 2 diabetes mellitus who presented to the emergency department via private vehicle from home for evaluation of abdominal pain, vomiting, and dark stools. The patient provides the following history. She gives a 24 hour history of epigastric abdominal discomfort, nausea, vomiting (suspected coffee-ground emesis), and loose, dark, and tarry stools x2. She had an upper endoscopy done within the last couple of years and reports gastritis but no known history of esophageal varices. She drinks a pt of vodka a day. She also takes ibuprofen on a consistent basis due to pain in her hip which has been ongoing since a replacement. She has not had alcohol for 2 days due to her nausea and vomiting reports having mild tremors at this time. Vital signs have been stable since arrival. Labs were significant for a hemoglobin of 9.4, platelets 68, PT 20.7, INR 1.7, PTT 43, BUN 26, lactic acid 2.4, total bilirubin 5.0, AST 113, ALT 41, alkaline phosphatase 177, lipase 390. She is being admitted in this setting for close monitoring and endoscopy per GI. At the time my evaluation she is resting comfortably. She is on scheduled chlordiazepoxide and has lorazepam p.r.n. and denies having any significant symptoms of withdrawal at this time. She has not had any episodes of emesis or dark stool since admission. Review of Systems Review of Systems: Twelve systems were reviewed and are negative except for as per HPI. [facility] Past Medical History Medical History Alcohol use disorder Alcoholic liver disease Anxiety Avascular necrosis of bone of right hip Cervical cancer Chronic obstructive pulmonary disease Chronic right hip pain Cirrhosis of liver Depression Elevated AFP Mixed hyperlipidemia Peripheral neuropathy Suicide attempt Tobacco use disorder Type 2 diabetes mellitus with diabetic neuropathy Surgical History Surgical History History of ear surgery History of esophagogastroduodenoscopy History of radical hysterectomy (2008) For cervical cancer. History of total right hip arthroplasty (2004) Secondary to avascular necrosis. Family History Family History Other Adopted Unknown family medical history Social History Social History Social History: Surrogate medical decision maker: Charis Alfaro, mother. Code status: Smoking packs per day: 1 Smoking cigarettes per day: 20.0 Years smoked: 35 Smoking pack-years: 35.00 Smoking status: Current every day smoker Tobacco type: cigarettes Additional smoking assessment comments: Started smoking at age 17 Alcohol intake: current Drinks per week: 20 Substance use: never Substance use type: does not use Do You Feel Safe in your Home?: Yes Lack of Transportation: No Lack of Food: Never True Current Housing: I Have Housing Concerned About Future Housing: No Difficulty Paying Gas/Electric Bills: No Difficulty Paying for Meds: No Currently Unemployed: YES Education: High School Diploma/GED Difficulty w/ Childcare or Family Care: No Living arrangements: with family Occupation/Education: occupation Spiritual care concerns: No Agree to blood products: Yes Meds Home Medications and Allergies Home Medications Medication Instructions Recorded Confirmed Type blood-glucose meter (Blood Glucose #1 ea 03/20/21 09/25/23 Rx Monitoring kit) blood sugar diagnostic (Truetest #100 ea 06/20/22 09/25/23 Rx Test Strips) lancets #100 ea 06/20/22 09/25/23 Rx mecobalamin (vitamin B12
[2023-09-25] MEDS: PHYTONADIONE 5 MG TABLET 10 MG PO (15:02)
[2023-09-25 15:11] LABS: Hematocrit 24.4 % (37.0-47.0); Hemoglobin 8.4 g/dL (12.0-15.0)
[2023-09-25 15:19] LABS: Fibrinogen 221 mg/dl (215-510); Magnesium 1.6 mg/dL (1.6-2.3)
[2023-09-25 15:23] LABS: D Dimer 2.32 ug/mL (<0.48)
--- NOTE | 2023-09-25 17:25 | ADMGEN ---
This patient, Rodríguez Alfaro, was admitted to IMU Room 204-01 on 09/25/23 at 1602. Patient/family oriented to hospital policies and general routines including ID bracelet, bed and alarms, visiting hours, pain management, procedures, bathroom and other care routines, personal items, smoking policy, room service/diet, and visiting hours. Information on how to activate the Rapid Response Team has been discussed. Patient/Family are encouraged to report perceived risks to care and to ask questions if they do not understand what they are told or what they should do.
[2023-09-25] MEDS: GABAPENTIN 100 MG CAPSULE 200 MG PO ×2 (17:40→23:40)
[2023-09-25 18:15] LABS: Glucose Point of Care 111 mg/dl (65-105)
[2023-09-25 18:30] LABS: Iron 164 ug/dL (37-170)
[2023-09-25 18:44] LABS: Percent Iron Saturation 93 % (20-50)
[2023-09-25 18:59] LABS: Hepatitis B Surface Antigen Negative (Negative)
[2023-09-25 19:04] LABS: HAV RESULT Negative (Negative); Hepatitis B Core IgM Result Negative (Negative)
[2023-09-25 19:16] LABS: Hepatitis C Virus Antibody Negative (Negative)
[2023-09-25 19:39] LABS: Folic Acid 4.6 ng/mL (2.76->20)
[2023-09-25 20:21] LABS: Hematocrit 25.3 % (37.0-47.0); Hemoglobin 8.6 g/dL (12.0-15.0)
[2023-09-25 21:31] LABS: Hepatitis A Antibody IgM 0.27 s/c; Hepatitis B Surface Antigen 0.03 S/C
[2023-09-25 21:32] LABS: Hepatitis B Core Antibody, IgM 0.05 S/C; Hepatitis C Virus Antibody 0.07 S/C
[2023-09-25 23:44] LABS: Glucose Point of Care 136 mg/dl (65-105)
[2023-09-26] VITALS (24 sets, daily range): BP systolic 114–155; BP diastolic 55–80; PULSE 58–81; RESP 12–20; TEMP 36.2–37.3; O2SAT 93–100
[2023-09-26] MEDS: chlordiazePOXIDE (*CRX) 25 MG CAPSULE PO ×5 (00:03→23:53)
[2023-09-26] MEDS: ACETAMINOPHEN 325 MG TABLET 650 MG PO (00:03)
[2023-09-26 03:18] LABS: Hematocrit 24.7 % (37.0-47.0); Hemoglobin 8.4 g/dL (12.0-15.0)
[2023-09-26] MEDS: GABAPENTIN 100 MG CAPSULE 200 MG PO ×4 (05:21→23:53)
[2023-09-26 06:51] LABS: Glucose Point of Care 127 mg/dl (65-105)
[2023-09-26 08:36] LABS: Basophils Percent Auto 0.8 % (0.2-1.2); Eosinophils Absolute Auto 0.1 K/mm3 (0-0.3); Eosinophils Percent Auto 3.2 % (0-4.4); Hematocrit 23.2 % (37.0-47.0); Hemoglobin 7.9 g/dL (12.0-15.0); Immature Granulocyte Absolute 0.01 K/mm3 (0.00-0.031); Immature Granulocyte Percent A 0.3 % (0-0.5); Immature Platelet Fraction Pct 7.3 % (0.9-11.2); Lymphocytes Absolute Auto 1.52 K/mm3 (0.9-3.2); Lymphocytes Percent Auto 40.4 % (18.3-44.2); Mean Corpuscular HGB Conc 34.1 g/dl (32-36); Mean Corpuscular Hemoglobin 35.9 pg (26-34); Mean Corpuscular Volume 105.5 fl (80-100); Mean Platelet Volume 11.9 fl (7.4-10.4); Monocytes Absolute Auto 0.3 K/mm3 (0.1-0.6); Monocytes Percent Auto 7.4 % (2.6-8.5); Neutrophils Absolute Auto 1.8 K/mm3 (1.3-6.7); Neutrophils Percent Auto 47.9 % (45.5-73.1); Platelet Count Result 54 k/mm3 (150-375); Red Cell Distribution Width 15.3 % (11.5-14.5); White Blood Count 3.8 K/mm3 (4.5-10.0)
[2023-09-26 08:41] LABS: INR 1.7; Prothrombin Time 20.5 Seconds (11.1-14.7)
[2023-09-26 08:42] LABS: Partial Thromboplastin Time 42.1 SECONDS (22.3-36.8)
[2023-09-26 09:01] LABS: Alanine Aminotransferase 38 U/L (6-35); Albumin Level 3.1 g/dL (3.5-5.1); Alkaline Phosphatase 118 U/L (38-126); Anion Gap 6 mmol/L (8-16); Aspartate Amino Transferase 118 U/L (14-36); Blood Urea Nitrogen 23 mg/dL (7-17); Calcium 8.5 mg/dL (8.4-10.2); Carbon Dioxide 27 mmol/L (22-30); Chloride 104 mmol/L (98-107); Estimated CRCL calculation 76 ml/min; Estimated Glomerular Filt Rate > 60; Glucose 125 mg/dL (65-110); Magnesium 1.5 mg/dL (1.6-2.3); Potassium 4.1 mmol/L (3.4-5.0); Sodium 137 mmol/L (137-145)
[2023-09-26 09:06] LABS: Anisocytosis 1+ (NORMAL); Macrocytosis 1+ (NORMAL); Platelet Estimate Decreased (Adequate); Target Cells 1+ (NORMAL)
[2023-09-26 09:07] LABS: Schistocytes None Seen (NORMAL)
[2023-09-26] MEDS: FUROSEMIDE 20 MG TABLET PO (09:40)
[2023-09-26] MEDS: ATORVASTATIN 20 MG TABLET PO (09:41)
[2023-09-26] MEDS: THIAMINE HCL 100 MG TABLET PO (09:41)
[2023-09-26] MEDS: CYANOCOBALAMIN 1,000 MCG TABLET 1000 MCG PO (09:42)
[2023-09-26] MEDS: METOPROLOL TARTRATE 12.5 MG TABLET PO ×2 (09:42→17:02)
[2023-09-26] MEDS: MAGNESIUM SULFATE 3GM/D5W100ML 3 GM/100 ML BAG IVPB (09:50)
[2023-09-26] MEDS: PANTOPRAZOLE SODIUM IV 40 MG VIAL IV PUSH ×2 (10:07→20:07)
[2023-09-26] MEDS: TUBING, BLOOD PLUM PUMP TUBING 1 EACH XX (10:07)
[2023-09-26] MEDS: PHYTONADIONE 5 MG TABLET PO (10:21)
--- NOTE | 2023-09-26 11:38 | PM.IMPN ---
Progress Note: A&P Assessment and Plan (1) Acute GI bleeding: Code(s): K92.2 - Gastrointestinal hemorrhage, unspecified Status: Acute (2) Macrocytic anemia: Code(s): D53.9 - Nutritional anemia, unspecified Status: Acute (3) Coagulopathy: Code(s): D68.9 - Coagulation defect, unspecified Status: Acute (4) Thrombocytopenia: Code(s): D69.6 - Thrombocytopenia, unspecified Status: Acute (5) Hypomagnesemia: Code(s): E83.42 - Hypomagnesemia Status: Acute (6) Alcoholic hepatitis: Code(s): K70.10 - Alcoholic hepatitis without ascites Status: Acute (7) Alcoholic cirrhosis: Qualifiers: Ascites presence: unspecified Qualified Code(s): K70.30 - Alcoholic cirrhosis of liver without ascites Code(s): K70.30 - Alcoholic cirrhosis of liver without ascites Status: Acute (8) Alcohol dependence: Qualifiers: Substance use status: alcohol-induced mood disorder Qualified Code(s): F10.24 - Alcohol dependence with alcohol-induced mood disorder Code(s): F10.20 - Alcohol dependence, uncomplicated Status: Acute (9) Tobacco dependence: Code(s): F17.200 - Nicotine dependence, unspecified, uncomplicated Status: Acute Plan EGD pending today by GI Continue octreotide drip and IV pantoprazole Noted pancytopenia with decreasing platelets. Transfuse 1 unit PRBCs due to drop below 8 with suspected active bleed Nicotine patch in place. Patient not in active alcohol withdrawal at time of assessment. IV magnesium ordered Scheduled Librium and p.r.n. Ativan Additional dose of vitamin K given this morning for INR 1.7 Time Spent With Patient Time with patient: Greater than 35 minutes Subjective Date/time seen: 09/26/23 11:38 Interval history: This is a 52-year-old female patient with history of chronic alcohol abuse admitted to the hospital due to emesis and black stools. Hemoccult positive. Patient was admitted pending EGD by Gastroenterology. She also has a past history of cirrhosis anxiety depression peripheral neuropathy type 2 diabetes. Hemoglobin and hematocrit were checked throughout the night slowly decreasing and hemoglobin was 7.9 this morning dropping nearly 2 points since arrival. Ordered 1 unit PRBCs. Patient received 10 mg of vitamin K oral yesterday for elevated INR. INR is still 1.7 this morning. Ordered additional 5 mg vitamin K oral. Platelets noted to be significantly decreased at 54 this morning which has also been trending down since admission. Patient denies history of alcohol withdrawal. She is on octreotide drip. Pantoprazole has been ordered 40 mg IV push BID. Patient notes some nausea but no vomiting. No additional BM since arrival. Review of Systems Review of Systems: All systems reviewed & are unremarkable except as noted in HPI and below Exam Narrative: General: Chronically ill-appearing female in the semi-Warren position in bed. HEENT: Normocephalic, atraumatic. PERRL, EOMI. Scleral icterus noted. Conjunctiva mildly injected. Moist mucous membranes. Neck: Supple. No JVD Respiratory: Lungs are clear to auscultation bilaterally. Cardiovascular: Regular rate and rhythm with S1-S2. Gastrointestinal: Abdomen is soft, protuberant, nontender to palpation. No guarding or rebound tenderness. Skin: Warm and dry. She has jaundice. Telangiectasias noted on the chest and throughout the face. Extremities: No cyanosis, clubbing, or significant edema. Radial and pedal pulses intact. Neurological: Alert and oriented x4. Cranial nerves 2-12 are grossly intact. No tremors. No asterixis. No tongue fasciculations. No gross focal deficits to casual conversation. Psychiatric: Pleasant and cooperative with appropriate mood and affect. Objective Data Vital Signs Vital Signs: Vital Signs - 24 hr 09/25/23 15:23 09/25/23 16:02 09/25/23 18:00 Temperature 36.6 C Pulse Rate 80 77
[2023-09-26] MEDS: SODIUM CHLORIDE 0.9% IV 250 ML 30 ML IV CONT (12:41)
--- NOTE | 2023-09-26 14:06 | PC.NURSE ---
Patient off the unit to EGD with blood products running. RN aware
[2023-09-26] MEDS: LACTATED RINGERS 1,000 ML 150 ML IV CONT (14:16)
[2023-09-26 14:21] LABS: Glucose Point of Care 143 mg/dl (65-105)
--- NOTE | 2023-09-26 14:30 | WPDGICN ---
Assessment and Plan Assessment and plan (1) Acute GI bleeding: Code(s): K92.2 - Gastrointestinal hemorrhage, unspecified Status: Acute Assessment and Plan: will proceed with urgent EGD, she could have EV, ulcer, etc history of cirrhosis and still active drinker started on iv octreotide, protonix, abx (2) Melena: Code(s): K92.1 - Melena Status: Acute Assessment and Plan: monitor for more signs fo bleeding getting blood transfusion (3) Cirrhosis of liver: Code(s): K74.60 - Unspecified cirrhosis of liver Status: Acute Assessment and Plan: alcohol related unfortunately still drinking high risk for withdrawal, ciwa protocol thiamine, nutrition support MELD score 21 she was referred to see hepatology in [facility] but she has not made an appointment yet (4) Alcoholic hepatitis: Code(s): K70.10 - Alcoholic hepatitis without ascites Status: Acute (5) Thrombocytopenia: Code(s): D69.6 - Thrombocytopenia, unspecified Status: Acute (6) Coagulopathy: Code(s): D68.9 - Coagulation defect, unspecified Status: Acute (7) Acute blood loss anemia: Code(s): D62 - Acute posthemorrhagic anemia Status: Acute (8) Alcohol dependence: Qualifiers: Substance use status: alcohol-induced mood disorder Qualified Code(s): F10.24 - Alcohol dependence with alcohol-induced mood disorder Code(s): F10.20 - Alcohol dependence, uncomplicated Status: Acute (9) Alcohol withdrawal: Qualifiers: Complication of substance-induced condition: uncomplicated Qualified Code(s): F10.930 - Alcohol use, unspecified with withdrawal, uncomplicated Code(s): F10.939 - Alcohol use, unspecified with withdrawal, unspecified Status: Acute GI Consult Note Consult date/time: 09/26/23 14:30 Reason for consult: cirrhosis, melena HPI: Rodríguez Alfaro is a 52 year old female with hx of history of diabetes, hyperlipidemia, COPD, peripheral neuropathy, and alcoholic cirrhosis. We have seen her in the office several months ago because of cirrhosis, unfortunately she is still keep drinking about 4 beers with 1/2 pint vodka daily. Last EGD about 2 years ago with small EV, no bleeding, no paracentesis. Here with new onset of epigastric abdominal discomfort, nausea and coffee-ground emesis with loose, dark, and tarry stools x2. She has not had alcohol for 2 days due to her nausea and vomiting reports having mild tremors at this time. Labs were significant for a hemoglobin of 9.4 (baseline 12), platelets 68, PT 20.7, INR 1.7, PTT 43, BUN 26, lactic acid 2.4, total bilirubin 5.0, AST 113, ALT 41, alkaline phosphatase 177, lipase 390. She is getting blood transfusion, octreotide gtt and protonix. NPO for EGD. Review of Systems Constitutional: Constitutional: Reports weakness Eyes: Eyes: Denies blurry vision ENT: Reports Normal hearing present Cardiovascular: Cardiovascular: Denies chest pain Respiratory: Respiratory: Denies cough Gastrointestinal: Gastrointestinal: Reports melena, Reports nausea, Reports vomiting and Reports hematemesis Genitourinary: Genitourinary: Denies flank pain Musculoskeletal: Musculoskeletal: Denies neck pain Integumentary/Breasts: Skin/Breast: Denies rash Neurologic: Denies Abnormal speech present Psychiatric: Psychiatric: Denies behavioral changes [facility] Past Medical History Medical History (Updated 09/26/23 @ 14:38 by Chalino Hess MD) Acute blood loss anemia Alcohol use disorder Alcoholic liver disease Anxiety Avascular necrosis of bone of right hip Cervical cancer Chronic obstructive pulmonary disease Chronic right hip pain Cirrhosis of liver Depression Elevated AFP Melena Mixed hyperlipidemia Peripheral neuropathy Suicide attempt Tobacco use disorder Type 2 diabetes mellitus with diabetic neuropathy Surgical History Surgical History (Reviewed 09/26/23 @ 00:31
--- NOTE | 2023-09-26 14:54 | WPDANESEPPF ---
Anes - Initial Pre Proc Eval Procedure: Operation Date: 09/26/23 15:30 Proposed Procedures p Esophagogastroduodenoscopy - Chalino Hess MD Date/Time: 09/26/23 14:54 Surgeon: Umesh Gonzáles MD Pre Op Diagnosis: gi bleed,liver cirrhosis Patient Data Age: 52 Gender: F Height: 1.85 m Weight: 95.5 kg Last Vital Signs Temp 97.9 F 09/26/23 14:13 Pulse 58 L 09/26/23 14:13 Resp 18 09/26/23 14:13 BP 134/74 09/26/23 14:13 Pulse Ox 100 09/26/23 14:13 O2 Del Method Room Air 09/26/23 14:13 Allergies Allergy/AdvReac Type Severity Reaction Status Date / Time NSAIDS (Non-Steroidal Allergy Severe LIVER Verified 09/25/23 11:10 Anti-Inflamma CIRRHOSIS morphine Allergy Unknown Unknown Verified 09/25/23 11:10 Opioids - Morphine Analogues AdvReac Itching Verified 09/25/23 11:10 Home Medications Medication Instructions Recorded Confirmed Type blood-glucose meter (Blood Glucose #1 ea 03/20/21 09/25/23 Rx Monitoring kit) blood sugar diagnostic (Truetest #100 ea 06/20/22 09/25/23 Rx Test Strips) lancets #100 ea 06/20/22 09/25/23 Rx mecobalamin (vitamin B12) 1,000 1,000 mcg PO DAILY 03/19/23 09/25/23 History mcg chewable tablet (B12 Active) folic acid 1 mg tablet 1 mg PO DAILY #90 tabs 06/09/23 09/25/23 Rx albuterol sulfate 90 mcg/actuation 1 inh inhalation Q4H PRN Shortness 09/03/23 09/25/23 Rx aerosol inhaler (ProAir HFA) Of Breath Or Wheezing #6.7 grams atorvastatin 20 mg tablet 20 mg PO DAILY #90 tabs 09/03/23 09/25/23 Rx furosemide 20 mg tablet 20 mg PO QAM #90 tabs 09/03/23 09/25/23 Rx gabapentin 100 mg capsule 200 mg PO .4x/day nerve pain #240 09/03/23 09/25/23 Rx caps metformin 500 mg tablet,extended 1,000 mg PO DAILY #180 tabs 09/03/23 09/25/23 Rx release 24 hr metoprolol tartrate 25 mg tablet 12.5 mg PO BID #90 tabs 09/03/23 09/25/23 Rx thiamine HCl (vitamin B1) 100 mg 100 mg PO DAILY #90 tabs 09/03/23 09/25/23 Rx tablet Laboratory Tests 09/25/23 09/25/23 09/25/23 07:21 07:22 15:02 WBC RBC Hgb 8.4 L g/dL (12.0-15.0) Hct 24.4 L % (37.0-47.0) MCV MCH MCHC RDW Plt Count MPV Immature Gran % (Auto) Neut % (Auto) Lymph % (Auto) Smith % (Auto) Eos % (Auto) Baso % (Auto) Lymph # (Auto) Smith # (Auto) Eos # (Auto) Baso # (Auto) Abs Immat Gran (auto) Absolute Neuts (auto) Absolute Nucleated RBC Nucleated RBC % Platelet Estimate % Immature Plt Fraction Anisocytosis Macrocytosis Target Cells Schistocytes PT INR APTT Fibrinogen 221 mg/dl (215-510) D-Dimer 2.32 H ug/mL (<0.48) Sodium Potassium Chloride Carbon Dioxide Anion Gap BUN Creatinine Estim Creat Clear Calc Estimated GFR Glucose POC Capillary Glucose Calcium Magnesium 1.6 mg/dL (1.6-2.3) Iron 164 ug/dL (37-170) TIBC 177 L ug/dL (261-462) % Saturation 93 H % (20-50) Ferritin 1520.00 H ng/mL (11.1-264) Total Bilirubin AST ALT Alkaline Phosphatase Total Protein Albumin Vitamin B12 814.0 pg/mL (239-931) Folate 4.6 ng/mL (2.76->20) TSH (Reflex) 0.900 uIU/mL (0.465-4.68) Hepatitis A IgM Ab Negative (Negative) Hep Bs Antigen Negative (Negative) Hep B Core IgM Ab Negative (Negative) Hepatitis C Ab Screen Negative (Ne
[2023-09-26 16:13] LABS: Glucose Point of Care 163 mg/dl (65-105)
[2023-09-26 17:42] LABS: Hematocrit 28.3 % (37.0-47.0); Hemoglobin 9.7 g/dL (12.0-15.0)
[2023-09-27] VITALS: BP 123/59; PULSE 60; PULSE 62; RESP 18; O2SAT 99
[2023-09-27] MEDS: ACETAMINOPHEN 325 MG TABLET 650 MG PO (00:30)
[2023-09-27 01:37] VITALS: PULSE 62
[2023-09-27 04:00] VITALS: BP 125/57; PULSE 65; PULSE 66; RESP 18; TEMP 36.8; O2SAT 96
[2023-09-27 05:03] LABS: Basophils Percent Auto 0.7 % (0.2-1.2); Eosinophils Absolute Auto 0.1 K/mm3 (0-0.3); Eosinophils Percent Auto 3.1 % (0-4.4); Hematocrit 25.6 % (37.0-47.0); Hemoglobin 8.6 g/dL (12.0-15.0); Immature Granulocyte Absolute 0.01 K/mm3 (0.00-0.031); Immature Granulocyte Percent A 0.2 % (0-0.5); Immature Platelet Fraction Pct 9.3 % (0.9-11.2); Lymphocytes Absolute Auto 1.28 K/mm3 (0.9-3.2); Mean Corpuscular HGB Conc 33.6 g/dl (32-36); Mean Corpuscular Hemoglobin 34.5 pg (26-34); Mean Corpuscular Volume 102.8 fl (80-100); Mean Platelet Volume 11.7 fl (7.4-10.4); Monocytes Absolute Auto 0.3 K/mm3 (0.1-0.6); Neutrophils Absolute Auto 2.8 K/mm3 (1.3-6.7); Platelet Count Result 56 k/mm3 (150-375); Red Blood Count 2.49 M/mm3 (4.2-5.4); Red Cell Distribution Width 17.3 % (11.5-14.5); White Blood Count 4.6 K/mm3 (4.5-10.0)
[2023-09-27 05:12] LABS: Alanine Aminotransferase 43 U/L (6-35); Albumin Level 3.2 g/dL (3.5-5.1); Alkaline Phosphatase 114 U/L (38-126); Anion Gap 3 mmol/L (8-16); Aspartate Amino Transferase 115 U/L (14-36); Blood Urea Nitrogen 21 mg/dL (7-17); Calcium 8.2 mg/dL (8.4-10.2); Carbon Dioxide 27 mmol/L (22-30); Chloride 106 mmol/L (98-107); Estimated CRCL calculation 76 ml/min; Estimated Glomerular Filt Rate > 60; Glucose 138 mg/dL (65-110); Magnesium 1.7 mg/dL (1.6-2.3); Potassium 3.7 mmol/L (3.4-5.0); Sodium 136 mmol/L (137-145)
[2023-09-27] MEDS: GABAPENTIN 100 MG CAPSULE 200 MG PO (05:14)
[2023-09-27] MEDS: chlordiazePOXIDE (*CRX) 25 MG CAPSULE PO (05:14)
[2023-09-27 05:15] LABS: INR 1.7; Prothrombin Time 20.5 Seconds (11.1-14.7)
[2023-09-27 05:16] LABS: Partial Thromboplastin Time 42.2 SECONDS (22.3-36.8)
[2023-09-27 05:27] VITALS: PULSE 67
[2023-09-27 08:00] VITALS: BP 111/61; PULSE 60; RESP 18; TEMP 36.5; O2SAT 95
[2023-09-27 08:56] LABS: IFOB Positive Control Positive; Immunochemical Fecal Occult Bl Negative (N)
--- NOTE | 2023-09-27 10:29 | PM.DS ---
DS: Admitting Diagnosis Discharge Date 09/27/2023 Admitting Diagnosis Acute GI bleeding, macrocytic anemia, coagulopathy, thrombocytopenia, hypomagnesemia, alcoholic hepatitis, alcoholic cirrhosis, alcohol dependence, tobacco dependence DS: Discharge Diagnosis Discharge Diagnosis (1) Acute GI bleeding: Code(s): K92.2 - Gastrointestinal hemorrhage, unspecified Status: Acute (2) Macrocytic anemia: Code(s): D53.9 - Nutritional anemia, unspecified Status: Acute (3) Coagulopathy: Code(s): D68.9 - Coagulation defect, unspecified Status: Acute (4) Thrombocytopenia: Code(s): D69.6 - Thrombocytopenia, unspecified Status: Acute (5) Hypomagnesemia: Code(s): E83.42 - Hypomagnesemia Status: Acute (6) Alcoholic hepatitis: Code(s): K70.10 - Alcoholic hepatitis without ascites Status: Acute (7) Alcoholic cirrhosis: Qualifiers: Ascites presence: unspecified Qualified Code(s): K70.30 - Alcoholic cirrhosis of liver without ascites Code(s): K70.30 - Alcoholic cirrhosis of liver without ascites Status: Acute (8) Alcohol dependence: Qualifiers: Substance use status: alcohol-induced mood disorder Qualified Code(s): F10.24 - Alcohol dependence with alcohol-induced mood disorder Code(s): F10.20 - Alcohol dependence, uncomplicated Status: Acute (9) Tobacco dependence: Code(s): F17.200 - Nicotine dependence, unspecified, uncomplicated Status: Acute DS: Summary Hospital Course Hospital Course: This is a 52-year-old female patient admitted for suspected GI bleed. Patient had been vomiting what appeared to be brown coffee-grounds as well as dark stools. She has a history of liver cirrhosis. Platelets and H&H decreased after admission. She received 1 unit PRBC transfusion. She also received vitamin K due to increased INR as result of her liver failure. Patient underwent EGD with findings of gastritis without evidence of bleed. She was able to advance her diet without nausea or vomiting. This morning labs have remained stable and occult stool sample is negative. Patient only complaint currently is right shoulder pain. I instructed her that she should take Tylenol due to liver dysfunction should take aspirin or NSAIDs due to coagulopathy and gastritis. Prescription for a few doses of tramadol written for severe pain only. Patient instructed to follow up with her liver specialist due to coagulopathy and low platelets. Status at Discharge Cognitive/behavioral status at discharge: Awake alert oriented and pleasant Functional status at discharge: independent ambulation Overall status at discharge: patient is progressing back to baseline Time Spent with Patient Time attestation: Total time spent providing and/or coordinating discharge services: 35 minutes Time spent: Greater than 30 minutes Exam Narrative: General: Chronically ill-appearing female in the semi-Warren position in bed. HEENT: Normocephalic, atraumatic. PERRL, EOMI. Scleral icterus noted. Conjunctiva mildly injected. Moist mucous membranes. Neck: Supple. No JVD Respiratory: Lungs are clear to auscultation bilaterally. Cardiovascular: Regular rate and rhythm with S1-S2. Gastrointestinal: Abdomen is soft, protuberant, nontender to palpation. No guarding or rebound tenderness. Skin: Warm and dry. She has jaundice. Telangiectasias noted on the chest and throughout the face. Extremities: No cyanosis, clubbing, or significant edema. Radial and pedal pulses intact. Neurological: Alert and oriented x4. Cranial nerves 2-12 are grossly intact. No tremors. No asterixis. No tongue fasciculations. No gross focal deficits to casual conversation. Psychiatric: Pleasant and cooperative with appropriate mood and affect. DS: Data Data Completed and Pending Labs on day of discharge: Labs from last 24 hours 09/27/23 09/27/23 09/26/23 07:00
== END 2023-09-27 10:54 | disposition home or self-care (01) | DRG 253 ==
LOC: ANHED 14:47 → ANHIMU 15:33
PROVIDERS: Internal Medicine Gastroenterology; Physician Assistant; Admitting Provider Internal Medicine; Emergency Provider Student in an Organized Health Care Education/Training Program; PCP Family Medicine; Visit Provider Nurse Practitioner
PROC: 0DJ08ZZ Inspection of Upper Intestinal Tract, Via Natural or Artificial Opening Endoscopic (ICD-10-PCS; CPT 43235; principal; 2023-09-26 15:30)
DX: K92.2 Gastrointestinal hemorrhage, unspecified (principal); D68.9 Coagulation defect, unspecified; K29.70 Gastritis, unspecified, without bleeding; E11.42 Type 2 diabetes mellitus with diabetic polyneuropathy; D53.9 Nutritional anemia, unspecified; D69.6 Thrombocytopenia, unspecified; E83.42 Hypomagnesemia; K70.10 Alcoholic hepatitis without ascites; K70.30 Alcoholic cirrhosis of liver without ascites; F10.24 Alcohol dependence with alcohol-induced mood disorder; F17.200 Nicotine dependence, unspecified, uncomplicated; J44.9 Chronic obstructive pulmonary disease, unspecified; E78.2 Mixed hyperlipidemia; D61.818 Other pancytopenia; D62 Acute posthemorrhagic anemia; Z96.649 Presence of unspecified artificial hip joint; Z20.822 Contact with and (suspected) exposure to COVID-19; Z90.710 Acquired absence of both cervix and uterus; Z85.41 Personal history of malignant neoplasm of cervix uteri; F10.239 Alcohol dependence with withdrawal, unspecified; G25.2 Other specified forms of tremor
CPT/HCPCS: 36415; 36430; 80053; 80074; 82274; 82607; 82728; 82746; 82948; 83540; 83550; 83605; 83690; 83735; 84443; 85014; 85018; 85025; 85055; 85380; 85384; 85610; 85730; 86850; 86900; 86901; 86920; 87637; 96361; 96374; 96375; 99285; A9270; C9113; J0696; J2001; J2060; J2354; J2405; J2704; J3411; J3475; J7030; J7040; J7050; J7120; P9016

== ENCOUNTER 2024-06-01 20:10 | Inpatient (IN) | payer OTHER, SELFPAY ==
[2024-06-01] VITALS (9 sets, daily range): BP systolic 97–118; BP diastolic 41–52; PULSE 66–72; RESP 14–18; TEMP 36.5–36.6; O2SAT 89–100
--- NOTE | ~2024-06-01 | US_ITS ---
EXAM: ABDOMEN ULTRASOUND HISTORY: cirrhosis, r/o portal vein thrombosis COMPARISON: 01/24/2023 FINDINGS: LIVER: The liver parenchyma is heterogeneous and increased in echogenicity. The liver is nodular in contour. Trace perihepatic fluid is present. The main portal vein is patent demonstrating hepatofugal flow. The left hepatic vein is patent demonstrating hepatofugal flow. GALLBLADDER: Layering sludge is identified within the gallbladder. No gallbladder wall thickening or pericholecystic fluid. BILE DUCTS: Common bile duct measures 5.5mm. PANCREAS: Limited evaluation of the pancreas secondary to overlying bowel gas SPLEEN: The spleen is heterogeneous in echogenicity and markedly increased in size measuring 16cm in longitudinal dimension. RIGHT KIDNEY: 13 cm. In length. No hydronephrosis or bulky renal calculi. LEFT KIDNEY: 12.3cm in length. No hydronephrosis or renal calculi. VASCULATURE : The abdominal aorta is nonaneurysmal. The IVC is patent. IMPRESSION: The portal vein (and left hepatic vein) demonstrates reversal of flow, without a filling defect to villaseñor ggest thrombus. Nodular contour to the liver with marked splenomegaly, consistent with patient's history of cirrhosis . Layering sludge within an otherwise unremarkable gallbladder Reviewed, dictated and finalized at location A. IMPRESSION: The portal vein (and left hepatic vein) demonstrates reversal of flow, without a filling defect to suggest thrombus. Nodular contour to the liver with marked splenomegaly, consistent with patient' s history of cirrhosis. Layering sludge within an otherwise unremarkable gallbladder
--- NOTE | ~2024-06-01 | XR_ITS ---
EXAMINATION: XR chest 2V DATE: 06/01/2024 21:04 INDICATION: Shortness of breath TECHNIQUE: frontal and lateral views of the chest were obtained. COMPARISON: Chest CT dated 06/11/2017 FINDINGS: Oblique bandlike opacity consistent with discoid atelectasis/scarring along one of the major fissures which projects over the lower lungs on the lateral projection. No definitive correlate on the fronta l projection to suggest whether this is left-sided or right-sided. No other airspace opacities, pulmo nary edema, pleural effusion or pneumothorax. The cardiomediastinal silhouette is within normal limit s for AP technique. Mild to moderate thoracic spondylosis. IMPRESSION: 1. Discoid atelectasis/scarring present along one of the major fissures, unclear whether left or righ t-sided no other acute cardiopulmonary disease. Reviewed, dictated and finalized at location A. IMPRESSION: 1. Discoid atelectasis/scarring present along one of the major fissures, unclea r whether left or right-sided no other acute cardiopulmonary disease.
--- NOTE | 2024-06-01 20:24 | ECG_ITS ---
Test Date: 2024-06-01 20:33:17 Measurements Intervals [place] Rate: 72 P: -57 [place]: 136 QRS: -31 QRSD: 103 T: 56 QT: 436 QTc: 480 Interpretive Statements SINUS RHYTHM WITH SINUS ARRHYTHMIA LEFT ANTERIOR FASCICULAR BLOCK PATTERN CONSISTENT WITH PULMONARY DISEASE MINIMAL VOLTAGE CRITERIA FOR LVH, CONSIDER NORMAL VARIANT [MEETS CRITERIA IN ONE OF: R(aVL), S(V1), R(V5), R(V5/V6)+S(V1)] ABNORMAL ECG No previous ECG available for comparison Electronically Signed On 06-02-2024 10:19:06 CDT by Kirill Barakat M.D.
--- NOTE | 2024-06-01 20:49 | ED_ITS ---
HPI - Dizziness General Chief Complaint: Dizziness Stated Complaint: dizziness Time Seen by Provider: 06/01/24 20:41 History of Present Illness HPI Narrative: Pt presents with dizziness prasanna she is going to pass out when she stands for the last few days. Pt has cirrhosis and has edema to her legs and had her diuretic increase recently and her PCP is concerned she may be dehydrated. Pt denies CP or fever or cough. Pt is a little SOB. Pt says he LE edema is chronic and unchanged. Pt has no Hx of CHF. Related Data Home Medications Medication Instructions Recorded Confirmed mecobalamin (vitamin B12) 1,000 1,000 mcg PO DAILY 03/19/23 05/31/24 mcg chewable tablet (B12 Active) fluticasone 100 mcg-salmeterol 50 1 inh inhalation Q12H 02/05/24 05/31/24 mcg/dose blistr powdr for inhalation (Advair Diskus) Allergies Allergy/AdvReac Type Severity Reaction Status Date / Time NSAIDS (Non-Steroidal Allergy Severe LIVER Verified 04/01/24 09:24 Anti-Inflamma CIRRHOSIS morphine AdvReac Itching Verified 06/01/24 20:11 Review of Systems Review of Systems: All systems reviewed & are unremarkable except as noted in HPI and below PMFSH Past Medical History Medical History Acute blood loss anemia Alcohol use disorder Alcoholic liver disease Anxiety Avascular necrosis of bone of right hip Cervical cancer Chronic obstructive pulmonary disease Chronic right hip pain Cirrhosis of liver Cold extremities Depression Elevated AFP Melena Mixed hyperlipidemia Peripheral neuropathy Subacromial bursitis Suicide attempt Tobacco use disorder Type 2 diabetes mellitus with diabetic neuropathy Surgical History Surgical History History of ear surgery History of esophagogastroduodenoscopy History of radical hysterectomy (2008) For cervical cancer. History of total right hip arthroplasty (2004) Secondary to avascular necrosis. Family History Family History Other Adopted Unknown family medical history Social History Social History Social History: Surrogate medical decision maker: Charis Alfaro, mother. Code status: Smoking packs per day: 1 Smoking cigarettes per day: 20.0 Years smoked: 35 Smoking pack-years: 35.00 Smoking status: Current every day smoker Tobacco type: cigarettes Additional smoking assessment comments: Started smoking at age 17 Alcohol intake: current Drinks per week: 20 Substance use: never Substance use type: does not use Do You Feel Safe in your Home?: Yes Lack of Transportation: No Lack of Food: Never True Current Housing: I Have Housing Concerned About Future Housing: No Difficulty Paying Gas/Electric Bills: No Difficulty Paying for Meds: No Currently Unemployed: YES Education: High School Diploma/GED Difficulty w/ Childcare or Family Care: No Living arrangements: with family Occupation/Education: occupation Spiritual care concerns: No Agree to blood products: Yes Exam Const: General: healthy appearing and no acute distress Nutritional Appearance: well nourished Orientation/consciousness: patient oriented x3 Limitations: no limitations Eyes: Conjunctivae: conjunctival abnormality (jaundiced) bilateral EOM: EOMs intact bilaterally Chest: Chest palpation & inspection: normal inspection of the chest Resp: Effort & Inspection: normal respiratory effort Auscultation: crackles Cardio: Rate: regular rate Rhythm: regular rhythm GI: Inspection: distended Auscultation: normal bowel sounds Rectal Exam: normal sphincter tone and heme positive stool Skin: General skin exam: jaundice Rashes: no rashes Wounds: no wounds Neuro: General: patient oriented x3, moves all extremities, no meningeal signs, no focal motor deficits and CN's II-XI intact bilaterally Cranial nerves: Yes Nystagmus not present Speech: normal speech Extrem: General: edema Psych: Mental Status: mental status grossly normal Affect: normal affect Attitude: cooperative Course Vital Signs Vital signs: Vital Signs Temperature 97.7 F 06/01/24 20:22 Pulse Rate 72 06/01/24 20:22 Respiratory Rate 16 06/01/24 20:22 Blood Pressure 97/41 L 06/01/24 20:22 Pulse Oximetry 89 L 06/01/24 20:22 Oxygen Delivery Room Air 06/01/24 20:22 Temperature 97.7 F 06/01/24 20:22 Pulse Rate 68 06/01/24 21:16 Respiratory Rate 18 06/01/24 21:16 Blood Pressure 116/46 L 06/01/24 20:50 Pulse Oximetry 100 06/01/24 20:50 Oxygen Delivery Room Air 06/01/24 20:49 MDM - Dizziness MDM Narrative Medical decision making narrative: Pt presents with diziness when standing. Pt had diuretic dose increase recently and may be dehydrated. could also be anemic. Pt has cirrhosis. will check labs and orthostatics and cxr and bnp to make sure not chf. will give neb and bolus of IV fluids. Pt BUN and cr are up so is a little dry will give a bouls of fluids. Pt quite anemic and heme positiv on rectal. will transfuse [address]bc. discussed with Dr Barrera will consult in am. discussed with dr rubi will admit to IMU Differential Diagnosis Differential diagnosis: Likely orthostatic hypotension and other (chf, anemia, electrolyte abnormality.) Lab Data 06/01/24 20:40 06/01/24 20:40 Labs: Lab Results 06/01/24 Range/Units 20:40 WBC 3.3 L (4.5-10.0) K/mm3 RBC 1.52 L (4.2-5.4) M/mm3 Hgb 6.3 L* (12.0-15.0) g/dL Hct 18.5 L* (37.0-47.0) % MCV 121.7 H (80-100) fl MCH 41.4 H (26-34) pg MCHC 34.1 (32-36) g/dl RDW 15.9 H (11.5-14.5) % Plt Count 51 L (150-375) k/mm3 MPV 11.9 H (7.4-10.4) fl Immature Gran % (Auto) Not Reportable Neut % (Auto) Not Reportable Lymph % (Auto) Not Reportable Russell % (Auto) Not Reportable Eos % (Auto) Not Reportable Baso % (Auto) Not Reportable Lymph # (Auto) Not Reportable Russell # (Auto) Not Reportable Eos # (Auto) Not Reportable Baso # (Auto) Not Reportable Abs Immat Gran (auto) Not Reportable Absolute Neuts (auto) Not Reportable Absolute Nucleated RBC Not Reportable Total Counted 100 Neutrophils % (Manual) 55 (46-73) % Band Neutrophils % 5 (0-6) % Lymphocytes % (Manual) 28 (18-44) % Monocytes % (Manual) 10 H (3-9) % Eosinophils % (Manual) 1 (0-4) % Basophils % (Manual) 1 (0-1) % Nucleated RBC % Not Reportable Abs Neuts (Manual) 1.98 (1.7-7.2) K/mm3 Abs Lymphs (Manual) 0.92 L (1.1-4.5) K/mm3 Abs Monocytes (Manual) 0.33 (0.1-0.90) K/mm3 Absolute Eos (Manual) 0.03 (0.02-0.50) K/mm3 Abs Basophils (Manual) 0.03 (0.0-0.1) K/mm3 Platelet Estimate Decreased (Adequate) % Immature Plt Fraction 7.5 (0.9-11.2) % Hypochromasia 1+ Target Cells 1+ Ovalocytes 1+ Acanthocytes (Spur) 1+ Schistocytes None seen Sodium 132 L (137-145) mmol/L Potassium 4.1 (3.4-5.0) mmol/L Chloride 102 (98-107) mmol/L Carbon Dioxide 17 L (22-30) mmol/L Anion Gap 13 H (4-12) mmol/L BUN 38 H D (7-17) mg/dL Creatinine 2.10 H (0.7-1.0) mg/dL Estim Creat Clear Calc 34 ml/min Estimated GFR 30 L (59 - ) Glucose 118 H (65-110) mg/dL Calcium 8.5 (8.4-10.2) mg/dL Total Bilirubin 8.3 H (0.2-1.3) mg/dL AST 79 H (14-36) U/L ALT 41 H (6-35) U/L Alkaline Phosphatase 131 H (38-126) U/L NT-Pro-B Natriuret Pep 785 H (19.9-100) pg/mL Total Protein 8.0 (6.3-8.2) g/dL Albumin 3.0 L (3.5-5.1) g/dL Discharge Plan Discharge Clinical Impression: GI (gastrointestinal bleed), Anemia, Acute dehydration, Cirrhosis Patient Disposition: Still a Patient Condition: Improved Prescriptions: No Action (DME) blood-glucose meter [Blood Glucose Monitoring] Kit See Rx Instructions .Route Qty: 1 0RF Rx Instructions: daily metformin 500 mg tablet extended release 24 hr 1,000 mg PO DAILY Qty: 180 1RF Rx Instructions: NEEDS APPOINTMENT FOR FURTHER REFILLS thiamine HCl (vitamin B1) 100 mg tablet 100 mg PO DAILY Qty: 90 2RF metoprolol tartrate 25 mg tablet 12.5 mg PO BID Qty: 90 2RF albuterol sulfate 90 mcg/actuation HFA aerosol inhaler 1 inh INHALATION Q4H PRN (Reason: Shortness Of Breath Or Wheezing) Qty: 9 2RF atorvastatin 20 mg tablet 20 mg PO DAILY Qty: 90 2RF (DME) Truetest Test Strips Strip 0 .ROUTE .MEDSUPPLY Qty: 100 1RF Rx Instructions: Use one strip bid to check glucose (DME) lancets Misc See Rx Instructions .ROUTE .MEDSUPPLY Qty: 100 1RF Rx Instructions: Use to check Blood Sugar up to 4 times a day folic acid 1 mg tablet 1 mg PO DAILY Qty: 90 3RF fluticasone propion-salmeterol [Advair Diskus] 100-50 mcg/dose blister with device 1 inh inhalation Q12H mecobalamin (vitamin B12) [B12 Active] 1,000 mcg Tablet,Chewable 1,000 mcg PO DAILY pantoprazole [Protonix] 40 mg tablet,delayed release (DR/EC) 40 mg PO QAM 56 Days Qty: 56 0RF furosemide 20 mg tablet 20 mg PO QAM Qty: 90 1RF gabapentin 300 mg capsule See Rx Instructions .ROUTE .COMPLEX Qty: 180 2RF Dose Instruction: TAKE 1 CAPSULE BY MOUTH EVERY 5 HOURS FOR NERVE PAIN Rx Instructions: TAKE 1 CAPSULE BY MOUTH EVERY 5 HOURS FOR NERVE PAIN tramadol 50 mg tablet 50 mg PO Q8H PRN (Reason: pain) Qty: 30 0RF spironolactone 100 mg tablet 100 mg PO DAILY Qty: 90 0RF Follow-up/Referrals: Chuckie Talley MD [Primary Care Provider] -
[2024-06-01 20:54] LABS: Immature Platelet Fraction Pct 7.5 % (0.9-11.2); Mean Corpuscular HGB Conc 34.1 g/dl (32-36); Mean Corpuscular Hemoglobin 41.4 pg (26-34); Mean Corpuscular Volume 121.7 fl (80-100); Mean Platelet Volume 11.9 fl (7.4-10.4); Platelet Count Result 51 k/mm3 (150-375); Red Blood Count 1.52 M/mm3 (4.2-5.4); Red Cell Distribution Width 15.9 % (11.5-14.5); White Blood Count 3.3 K/mm3 (4.5-10.0)
[2024-06-01] MEDS: IPRATROPIUM 0.5 MG/ALBUTEROL SULFATE 2.5 MG AMPUL.NEB 3 ML INHALATION (21:06)
[2024-06-01 21:08] LABS: Alanine Aminotransferase 41 U/L (6-35); Alkaline Phosphatase 131 U/L (38-126); Anion Gap 13 mmol/L (4-12); Aspartate Amino Transferase 79 U/L (14-36); Bilirubin,Total 8.3 mg/dL (0.2-1.3); Blood Urea Nitrogen 38 mg/dL (7-17); Calcium 8.5 mg/dL (8.4-10.2); Carbon Dioxide 17 mmol/L (22-30); Chloride 102 mmol/L (98-107); Estimated CRCL calculation 34 ml/min; Estimated Glomerular Filt Rate 30; Glucose 118 mg/dL (65-110); Potassium 4.1 mmol/L (3.4-5.0); Sodium 132 mmol/L (137-145)
[2024-06-01 21:17] LABS: NT Pro B Type Natriuretic Pept 785 pg/mL (19.9-100)
[2024-06-01 21:19] LABS: Hemoglobin 6.3 g/dL (12.0-15.0)
[2024-06-01 21:20] LABS: Hematocrit 18.5 % (37.0-47.0)
[2024-06-01 21:24] LABS: Platelet Estimate Decreased (Adequate); Total Cells Counted 100
[2024-06-01 21:25] LABS: Band Neutrophils Percent 5 % (0-6); Basophils Absolute Manual 0.03 K/mm3 (0.0-0.1); Basophils Percent Manual 1 % (0-1); Eosinophils Absolute Manual 0.03 K/mm3 (0.02-0.50); Eosinophils Percent Manual 1 % (0-4); Lymphocytes Absolute Manual 0.92 K/mm3 (1.1-4.5); Lymphocytes Percent Manual 28 % (18-44); Monocytes Absolute Manual 0.33 K/mm3 (0.1-0.90); Monocytes Percent Manual 10 % (3-9); Neutrophils Absolute Manual 1.98 K/mm3 (1.7-7.2); Neutrophils Percent Manual 55 % (46-73)
[2024-06-01 21:26] LABS: Acanthocytes 1+; Hypochromasia 1+; Ovalocytes 1+; Schistocytes None Seen
[2024-06-01 21:27] LABS: Target Cells 1+
--- NOTE | 2024-06-01 21:46 | P.HP_ITS ---
H&P: HPI History of Present Illness Date/Time: 06/01/24 21:46 Chief Complaint: dizziness Narrative: This is a 53-year-old female with past medical history significant for alcohol dependence, tobacco dependence, hepatic cirrhosis, COPD/emphysema, type diabetes mellitus, patient presents to the emergency room with complaints of dizziness, denies any melena, bright red blood per rectum no coffee-ground emesis or hematemesis states that has had good appetite noted worsening bilateral lower extremity edema, no fevers no rigors no chills no cough no sputum production. Preliminary workup was significant for hemoglobin of 6.3 hematocrit of 18 MCV 126, patient drinks 2 beers a day and 3 shots has cut down from 1 pt and 4 beers a day smokes 1 pack of cigarettes daily. EXAMINATION: XR chest 2V DATE: 06/01/2024 21:04 INDICATION: Shortness of breath TECHNIQUE: frontal and lateral views of the chest were obtained. COMPARISON: Chest CT dated 06/11/2017 FINDINGS: Oblique bandlike opacity consistent with discoid atelectasis/scarring along one of the major fissures which projects over the lower lungs on the lateral projection. No definitive correlate on the frontal projection to suggest whether this is left-sided or right-sided. No other airspace opacities, pulmonary edema, pleural effusion or pneumothorax. The cardiomediastinal silhouette is within normal limits for AP technique. Mild to moderate thoracic spondylosis. IMPRESSION: 1. Discoid atelectasis/scarring present along one of the major fissures, unclear whether left or right-sided no other acute cardiopulmonary disease. Review of Systems Review of Systems: Dizziness, bilateral lower extremity swelling PMFSH Past Medical History Medical History Acute blood loss anemia Alcohol use disorder Alcoholic liver disease Anxiety Avascular necrosis of bone of right hip Cervical cancer Chronic obstructive pulmonary disease Chronic right hip pain Cirrhosis of liver Cold extremities Depression Elevated AFP Melena Mixed hyperlipidemia Peripheral neuropathy Subacromial bursitis Suicide attempt Tobacco use disorder Type 2 diabetes mellitus with diabetic neuropathy Surgical History Surgical History History of ear surgery History of esophagogastroduodenoscopy History of radical hysterectomy (2008) For cervical cancer. History of total right hip arthroplasty (2004) Secondary to avascular necrosis. Family History Family History Other Adopted Unknown family medical history Social History Social History Social History: Surrogate medical decision maker: Charis Alfaro, mother. Code status: Smoking packs per day: 1 Smoking cigarettes per day: 20.0 Years smoked: 30 Smoking pack-years: 30.00 Smoking status: Current every day smoker Tobacco type: cigarettes Additional smoking assessment comments: Started smoking at age 17 Alcohol intake: current Drinks per week: 30 Substance use: never Substance use type: does not use Do You Feel Safe in your Home?: Yes Lack of Transportation: No Lack of Food: Never True Current Housing: I Have Housing Concerned About Future Housing: No Difficulty Paying Gas/Electric Bills: No Difficulty Paying for Meds: No Currently Unemployed: No Education: High School Diploma/GED Difficulty w/ Childcare or Family Care: No Living arrangements: with family Occupation/Education: occupation Spiritual care concerns: No Agree to blood products: Yes Meds Home Medications and Allergies Home Medications Medication Instructions Recorded Confirmed Type mecobalamin (vitamin B12) 1,000 1,000 mcg PO DAILY 03/19/23 06/01/24 History mcg chewable tablet (B12 Active) folic acid 1 mg tablet 1 mg PO DAILY #90 tabs 06/09/23 06/01/24 Rx metformin 500 mg tablet,extended 1,000 mg PO DAILY #180 tabs 09/03/23 06/01/24 Rx release 24 hr metoprolol tartrate 25 mg tablet 12.5 mg PO BID #90 tabs 09/03/23 06/01/24 Rx thiamine HCl (vitamin B1) 100 mg 100 mg PO DAILY #90 tabs 09/03/23 06/01/24 Rx tablet fluticasone 100 mcg-salmeterol 50 1 inh inhalation Q12H 02/05/24 06/01/24 History mcg/dose blistr powdr for inhalation (Advair Diskus) albuterol sulfate 90 mcg/actuation 1 inh inhalation Q4H PRN Shortness 03/03/24 06/01/24 Rx aerosol inhaler Of Breath Or Wheezing #9 grams atorvastatin 20 mg tablet 20 mg PO DAILY #90 tabs 03/03/24 06/01/24 Rx spironolactone 100 mg tablet 100 mg PO DAILY #90 tabs 05/31/24 06/01/24 Rx furosemide 20 mg tablet 40 mg PO QAM 06/01/24 06/01/24 History gabapentin 300 mg capsule 600 mg PO QID 06/01/24 06/01/24 History tramadol 50 mg tablet 50 mg PO Q8H PRN Pain (Scale Score 06/01/24 06/01/24 History 4-6) venlafaxine 37.5 mg 37.5 mg PO HS 06/01/24 06/01/24 History capsule,extended release 24 hr fluticasone 250 mcg-salmeterol 50 1 inh inhalation DAILY 06/02/24 06/02/24 Hi story mcg/dose blistr powdr for inhalation (Advair Diskus) Allergies Allergy/AdvReac Type Severity Reaction Status Date / Time NSAIDS (Non-Steroidal Allergy Severe LIVER Verified 04/01/24 09:24 Anti-Inflamma CIRRHOSIS morphine AdvReac Itching Verified 06/01/24 20:11 Vital Signs Vital Signs - 24 hr 06/01/24 20:22 06/01/24 20:49 06/01/24 20:50 Temperature 97.7 F Pulse Rate 72 71 Respiratory Rate 16 14 Blood Pressure 97/41 L 116/46 L Pulse Oximetry 89 L 100 Oxygen Delivery Room Air Room Air 06/01/24 21:06 06/01/24 21:16 Temperature Pulse Rate 70 68 Respiratory Rate 18 18 Blood Pressure Pulse Oximetry Oxygen Delivery Exam Narrative: patient is sitting Const: General: cooperative, comfortable, no acute distress, well developed, alert, awake, ill appearing and edematous Nutritional Appearance: average body habitus Orientation/consciousness: patient oriented x3 HENMT: Head: normal to inspection, normocephalic and atraumatic Ears: hearing grossly normal bilaterally Face/Nose/Sinus: normal facial exam Face and sinus: normal facial exam Eyes: General: appearance normal, both eyes and all related structures Sclera: scleral abnormality bilateral other ( icterus) Pupils: Equal, round and reactive pupils present EOM: EOMs intact bilaterally Neck: Neck: full ROM, no lymphadenopathy and no JVD Thyroid: thyroid normal Lymphatic: no lymphadenopathy noted Resp: Effort & Inspection: normal respiratory effort and able to speak in complete sentences Auscultation: clear to auscultation bilaterally Cardio: Jugular venous distension: no JVD Rate: regular rate Rhythm: regular rhythm Heart sounds: S1 normal heart sound present and S2 normal heart sound present GI: GI Palp: Yes Soft to palpation and Yes No hepatosplenomegaly present : General: Yes deferred Skin: Rashes: rashes noted Wounds: no wounds Other: patient has a rash in upper trunk face and limbs Neuro: General: patient oriented x3 and CN's II-XI intact bilaterally Cranial nerves: Yes CN's II-XII intact bilaterally and Yes Equal, round and reactive pupils present Cognition (Neuro): normal cognition Speech: normal speech Gait exam (Neuro): Normal gait present Motor exam (neuro): 5/5 motor strength present throughout Extrem: General: edema ( 3+) bilateral and pedal edema H&P: Results Labs Labs: Short CBC 06/01/24 Range/Units 20:40 WBC 3.3 L (4.5-10.0) K/mm3 Hgb 6.3 L* (12.0-15.0) g/dL Hct 18.5 L* (37.0-47.0) % Plt Count 51 L (150-375) k/mm3 BMP 06/01/24 20:40 Sodium 132 L Potassium 4.1 Chloride 102 Carbon Dioxide 17 L BUN 38 H D Creatinine 2.10 H Glucose 118 H Calcium 8.5 Liver Function 06/01/24 Range/Units 20:40 Total Bilirubin 8.3 H (0.2-1.3) mg/dL AST 79 H (14-36) U/L ALT 41 H (6-35) U/L Alkaline Phosphatase 131 H (38-126) U/L Albumin 3.0 L (3.5-5.1) g/dL Assessment and Plan Assessment and plan (1) Acute on chronic anemia: Code(s): D64.9 - Anemia, unspecified Status: Acute Assessment and Plan: admit to IMU occult blood was positive transfuse as needed GI consult (2) Cirrhosis of liver: Code(s): K74.60 - Unspecified cirrhosis of liver Status: Acute Assessment and Plan: patient is still a daily alcohol drinker (3) Atopic dermatitis: Code(s): L20.9 - Atopic dermatitis, unspecified Status: Acute Assessment and Plan: local care (4) Tobacco dependence: Code(s): F17.200 - Nicotine dependence, unspecified, uncomplicated Status: Acute Assessment and Plan: nicotine patch as needed (5) Alcohol dependence: Qualifiers: Substance use status: alcohol-induced mood disorder Qualified Code(s): F10.24 - Alcohol dependence with alcohol-induced mood disorder Code(s): F10.20 - Alcohol dependence, uncomplicated Status: Acute Assessment and Plan: CIWA as needed (6) Alcoholic cirrhosis: Qualifiers: Ascites presence: unspecified Qualified Code(s): K70.30 - Alcoholic cirrhosis of liver without ascites Code(s): K70.30 - Alcoholic cirrhosis of liver without ascites Status: Acute Assessment and Plan: patient has cut down her daily intake of alcohol (7) Chronic obstructive pulmonary disease: Code(s): J44.9 - Chronic obstructive pulmonary disease, unspecified Status: Acute Assessment and Plan: not actively wheezing Hospitalist MIPS Advance Care Plan I have confirmed that the patient's Advanced Care Plan is present, code status is documented, or surrogate decision maker is listed in patient medical record.: Yes Medication Reconciliation I have utilized all available resources to obtain, update and review the patien ts current medications (includes all prescriptions, OTC, herbals, cannabis, and nutritional supplements).: Yes
[2024-06-01] MEDS: SODIUM CHLORIDE 0.9% IV 1,000 ML 999 ML IV CONT (21:53)
[2024-06-01] MEDS: PANTOPRAZOLE SODIUM IV 40 MG VIAL IV PUSH (22:40)
--- NOTE | 2024-06-01 22:55 | PC.NURSE ---
Report called to DUNIA Heck. All questions answered. Anthony chief ophthalmic technician to transport pt to IMU via stretcher.
--- NOTE | 2024-06-01 23:35 | ADMGEN ---
This patient, Rodríguez Alfaro, was admitted to IMU Room 203-01. Patient/family oriented to hospital policies and general routines including ID bracelet, bed and alarms, visiting hours, pain management, procedures, bathroom and other care routines, personal items, smoking policy, room service/diet, and visiting hours. Information on how to activate the Rapid Response Team has been discussed. Patient/Family are encouraged to report perceived risks to care and to ask questions if they do not understand what they are told or what they should do.
[2024-06-02] VITALS (29 sets, daily range): BP systolic 98–119; BP diastolic 43–55; PULSE 63–100; RESP 18–20; TEMP 36.6–37.2; O2SAT 90–100
[2024-06-02] MEDS: SODIUM CHLORIDE 0.9% IV 250 ML 30 ML IV CONT (00:04)
[2024-06-02] MEDS: traMADol HCL (*CRX) 50 MG TABLET PO ×2 (01:11→12:29)
[2024-06-02 07:37] LABS: Glucose Point of Care 96 mg/dl (65-105)
[2024-06-02] MEDS: METOPROLOL TARTRATE 12.5 MG TABLET PO ×2 (07:59→20:26)
[2024-06-02] MEDS: FOLIC ACID 1 MG TABLET PO (07:59)
[2024-06-02] MEDS: CYANOCOBALAMIN 1,000 MCG TABLET 1000 MCG PO (07:59)
[2024-06-02] MEDS: GABAPENTIN 300 MG CAPSULE PO ×4 (07:59→20:26)
[2024-06-02] MEDS: THIAMINE HCL 100 MG TABLET PO (08:00)
--- NOTE | 2024-06-02 08:32 | P.CONGI_ITS ---
I have reviewed our nurse practitioner's note, examined the patient and pertinent laboratory data. We have discussed the plan extensively and agreed with was stated in the note. She reports she started feeling dizzy which started on Friday. She had an EGD with Dr. Long in September for coffee-ground emesis with gastritis and portal hypertension with no visible active bleeding. She is known to have alcoholic cirrhosis and was actively drinking beer and hard liquor until 48 hours ago. She presented to the ER room 06/01/2024 with complaints of feeling weak and dizzy. In the ER she was found to have a hemoglobin of 6.3, Heme positive stool and has received 2 units of PRBC. He was also found to be severely thrombocytopenic, with 51,000 platelets per cubic mm, and in this morning's control her platelet count is 45,000. He does not have overt GI bleeding. In addition, her anemia is macrocytic and her iron studies are normal. Even though she might eventually need a colonoscopy because of heme-positive stools and her age, her extremely low platelet count is risk factor for complications, including post biopsy bleeding or splenic rupture during colonoscopy maneuvers. Indeed, she is having epistaxis episodes secondary to nausea and retching. Will opt for conservative management at this moment and prescribe ondansetron on a p.r.n. basis. Importantly, the patient has worsening kidney function, Cr 2.1 at admission and 1.5 today. However in Februrary it was 0.9. Diuretics stopped and will administer Albumin 1 g/kg per day x 2 days, and monitor daily creatinine. Patient's volume status should be monitored daily. If it is not corrected after 48 hours will consider prednisone for the management of alcoholic hepatitis, for which she has evidence,and criteria for treatment given her current MELD score > 20. Suggest checking metabolic profile and CBC daily. Assessment and Plan Assessment and plan (1) Acute on chronic anemia: Code(s): D64.9 - Anemia, unspecified Status: Acute (2) Alcohol dependence: Qualifiers: Substance use status: alcohol-induced mood disorder Qualified Code(s): F10.24 - Alcohol dependence with alcohol-induced mood disorder Code(s): F10.20 - Alcohol dependence, uncomplicated Status: Acute Assessment and Plan: CIWA as needed (3) Alcoholic cirrhosis: Qualifiers: Ascites presence: unspecified Qualified Code(s): K70.30 - Alcoholic cirrhosis of liver without ascites Code(s): K70.30 - Alcoholic cirrhosis of liver without ascites Status: Acute Plan 1. Acute on Chronic Macrocytic Anemia/heme positive stool: Last EGD 09/26/2023 showed moderate gastritis with portal hypertensive changes, no mucosal bleeding or ulcers. Presented with dizziness and weakness starting Friday. Denies any visible blood in stools, melena, hematochezia, abdominal pain, nausea, vomiting, or bleeding. Hgb 6.3 on admission, previous hgb 09/2023 was 8.6. History of alcoholic cirrhosis-actively drinking. Has eceived 2 units PRBC with no follow hgb at this time. heme positive for blood in ER. Never has had colonoscopy. No signs or current GI bleed at this time. Will need to rule GI blood loss in setting of acute anemia and heme positive stool- This anemia is likely multifactorial due to secondary to cirrhosis as well. - Will arrange colonoscopy tomorrow to evaluate for source of bleeding if platelets and INR are stable - Repeat CBC to ensure counts have improved along with ferritin, iron, b12 and folate - Monitor for signs of active bleeding - Monitor H&H, transfuse as needed - Add PPI BID IV 2. Alcoholic cirrhosis/Elevated Liver Enzymes/Pancytopenia/Coagulopathy/Portal Gastropathy/Peripheral Edema: History of alcoholic cirrhosis. Last saw plant accountant Opal Benjamin in December/January 10- at [facility], was supposed to follow up for liver scan but delayed due to COVID. Currently drinking 2 beers and 3-4 shots per night, last drink Friday, has cut down from 4 beers per night. No history of ascites, paracentesis or SBP. No history of variceal bleeding. She is on metoprolol. Has peripheral edema and on Lasix 40 mg and Spironolactone 100 mg. MELD score 32 which is risk for high mortality rate. - Audit Consultant on importance of alcohol cessation - CIWA protocol - Thiamine, folic acid, and MVI daily recommended - Continue diuretics once kidneys improve - Monitor K with spironolactone - Abd US with doppler to rule out portal vein thrombosis and HCC - AFP for HCC screening. This report may have been done utilizing a voice recognition system. Attempts have been made to correct errors. However, there may be uncorrected grammatical, spelling, and recognition errors present. GI Consult Note Consult date/time: 06/02/24 08:32 Reason for consult: GI bleed HPI: This is a pleasant 53 year old female with a past medical history of diabetes, hyperlipidemia, COPD, peripheral neuropathy, and alcoholic cirrhosis. She presented to the ER room 06/01/2024 with complaints of feeling weak and dizzy. GI consulted for anemia and heme positive stool. In the ER she was found to have a hemoglobin of 6.3 and has received 2 units of PRBC. Hemoccult stool was positive in the ER. She reports she started feeling dizzy which started on Friday. She had an EGD with Dr. Long in September for coffee-ground emesis with gastritis and portal hypertension with no visible active bleeding. She has never had a colonoscopy. She has cut down on her alcohol intake from 4 beers a night to 2 beers and 3-4 shots a night. Her last drink was Friday night. She has never needed fluid drained off her belly before. She has had shortness of breath and fatigue since shortly after having COVID in May. She gets short of breath and has no energy when doing activities such as washing dishes. She has had swelling in her legs for a long time, but has been increasing more prominent on the left. She takes furosemide 40 mg and spironolactone 100 mg for the swelling prescribed by her plant accountant at [facility], which she saw in December. She last saw Opal Benjamin, a liver doctor, in December or January. She takes tramadol for pain and occasional Tylenol. She does not take any ibup rofen, Motrin, or naproxen. She does not have any stents in her heart or a pacemaker. She denies any chest pain. No cardiac history.Denies having recent imaging of the liver. Patient denies any change in bowel habits, constipation, diarrhea, melena, hematochezia, or abdominal pain. Patient denies any dysphagia, odynophagia, GERD, early satiety, weight loss, fevers, or appetite loss. Patient denies any visible blood in stools, black stools. She denies any nausea, vomiting, hematemesis, coffee grounds. She denies any abdominal pain or abdominal distention. She is adopted, unknown family history. Denies any recent hospital admissions. ENDOSCOPY HISTORY: EGD: 09/26/2023 (Dr. Long) for melena and anemia Moderate gastritis with portal hypertensive changes with no mucosal bleeding or ulcers COLONOSCOPY: Never had LABS AND STOOL STUDIES: WBC 3.3, HGB 6.3, HCT 18.5, MCV 121.7, platelets 74414, INR 1.7 Na 132, K 4.1, BUN 38, creatinine 2.10 Total bilirubin 8.3, AST 79, ALT 41, Alkaline Phosphate 131 Albumin 3.0 Stool study positive for blood MELD 3.0: 32 IMAGING: No recent GI imaging available This report may have been done utilizing a voice recognition system. Attempts have been made to correct errors. However, there may be uncorrected grammatical, spelling, and recognition errors present. [facility] Past Medical History Medical History Acute blood loss anemia Alcohol use disorder Alcoholic liver disease Anxiety Avascular necrosis of bone of right hip Cervical cancer Chronic obstructive pulmonary disease Chronic right hip pain Cirrhosis of liver Cold extremities Depression Elevated AFP Melena Mixed hyperlipidemia Peripheral neuropathy Subacromial bursitis Suicide attempt Tobacco use disorder Type 2 diabetes mellitus with diabetic neuropathy Surgical History Surgical History History of ear surgery History of esophagogastroduodenoscopy History of radical hysterectomy (2008) For cervical cancer. History of total right hip arthroplasty (2004) Secondary to avascular necrosis. Family History Family History Other Adopted Unknown family medical history Social History Social History Social History: Surrogate medical decision maker: Charis Alfaro, mother. Code status: Smoking packs per day: 1 Smoking cigarettes per day: 20.0 Years smoked: 30 Smoking pack-years: 30.00 Smoking status: Current every day smoker Tobacco type: cigarettes Additional smoking assessment comments: Started smoking at age 17 Alcohol intake: current Drinks per week: 30 Substance use: never Substance use type: does not use Do You Feel Safe in your Home?: Yes Lack of Transportation: No Lack of Food: Never True Current Housing: I Have Housing Concerned About Future Housing: No Difficulty Paying Gas/Electric Bills: No Difficulty Paying for Meds: No Currently Unemployed: No Education: High School Diploma/GED Difficulty w/ Childcare or Family Care: No Living arrangements: with family Occupation/Education: occupation Spiritual care concerns: No Agree to blood products: Yes Meds Home Medications and Allergies Home Medications Medication Instructions Recorded Confirmed Type mecobalamin (vitamin B12) 1,000 1,000 mcg PO DAILY 03/19/23 06/01/24 History mcg chewable tablet (B12 Active) folic acid 1 mg tablet 1 mg PO DAILY #90 tabs 06/09/23 06/01/24 Rx metformin 500 mg tablet,extended 1,000 mg PO DAILY #180 tabs 09/03/23 06/01/24 Rx release 24 hr metoprolol tartrate 25 mg tablet 12.5 mg PO BID #90 tabs 09/03/23 06/01/24 Rx thiamine HCl (vitamin B1) 100 mg 100 mg PO DAILY #90 tabs 09/03/23 06/01/24 Rx tablet fluticasone 100 mcg-salmeterol 50 1 inh inhalation Q12H 02/05/24 06/01/24 H istory mcg/dose blistr powdr for inhalation (Advair Diskus) albuterol sulfate 90 mcg/actuation 1 inh inhalation Q4H PRN Shortness 03/03/24 06/01/24 Rx aerosol inhaler Of Breath Or Wheezing #9 grams atorvastatin 20 mg tablet 20 mg PO DAILY #90 tabs 03/03/24 06/01/24 Rx spironolactone 100 mg tablet 100 mg PO DAILY #90 tabs 05/31/24 06/01/24 Rx furosemide 20 mg tablet 40 mg PO QAM 06/01/24 06/01/24 History gabapentin 300 mg capsule 600 mg PO QID 06/01/24 06/01/24 History tramadol 50 mg tablet 50 mg PO Q8H PRN Pain (Scale Score 06/01/24 06/01/24 History 4-6) venlafaxine 37.5 mg 37.5 mg PO HS 06/01/24 06/01/24 History capsule,extended release 24 hr fluticasone 250 mcg-salmeterol 50 inhalation 10/23/24 History mcg/dose blistr powdr for inhalation (Advair Diskus) Allergies Allergy/AdvReac Type Severity Reaction Status Date / Time NSAIDS (Non-Steroidal Allergy Severe LIVER Verified 04/01/24 09:24 Anti-Inflamma CIRRHOSIS morphine AdvReac Itching Verified 06/01/24 20:11 Vital Signs Vital Signs - 24 hr 06/01/24 20:22 06/01/24 20:49 06/01/24 20:50 Temperature 97.7 F Pulse Rate 72 71 Respiratory Rate 16 14 Blood Pressure 97/41 L 116/46 L Pulse Oximetry 89 L 100 Oxygen Delivery Room Air Room Air 06/01/24 21:06 06/01/24 21:16 06/01/24 21:59 Temperature Pulse Rate 70 68 69 Respiratory Rate 18 18 Blood Pressure 111/51 L Pulse Oximetry Oxygen Delivery 06/01/24 21:59 06/01/24 22:00 06/01/24 22:42 Temperature Pulse Rate 71 72 69 Respiratory Rate 16 Blood Pressure 111/48 L 100/44 L 113/52 L Pulse Oximetry 99 Oxygen Delivery 06/01/24 23:25 06/01/24 23:49 06/02/24 00:25 Temperature 97.9 F 97.9 F Pulse Rate 66 66 68 Respiratory Rate 18 20 Blood Pressure 118/47 L 116/49 L Pulse Oximetry 90 96 Oxygen Delivery 06/02/24 00:00 06/02/24 00:42 06/02/24 01:42 Temperature 97.8 F 98.1 F Pulse Rate 68 69 100 Respiratory Rate 20 20 Blood Pressure 107/47 L 103/48 L Pulse Oximetry 99 100 Oxygen Delivery 06/02/24 02:00 06/02/24 02:42 06/02/24 03:21 Temperature 98.2 F 98.5 F Pulse Rate 64 67 70 Respiratory Rate 20 18 Blood Pressure 98/43 L 104/47 L Pulse Oximetry 100 98 Oxygen Delivery 06/02/24 03:38 06/02/24 03:48 06/02/24 03:48 Temperature 98.2 F Pulse Rate 72 70 70 Respiratory Rate 18 18 Blood Pressure 105/51 L Pulse Oximetry 98 98 Oxygen Delivery Room Air 06/02/24 03:48 06/02/24 04:38 06/02/24 05:28 Temperature 98.2 F 98.3 F Pulse Rate 70 75 74 Respiratory Rate 18 18 Blood Pressure 105/51 L 101/46 L Pulse Oximetry 98 97 Oxygen Delivery 06/02/24 05:38 06/02/24 06:38 06/02/24 06:43 Temperature 98.2 F 98.9 F 98.8 F Pulse Rate 82 72 70 Respiratory Rate 18 18 20 Blood Pressure 119/55 L 109/46 L 107/49 L Pulse Oximetry 90 93 Oxygen Delivery 06/02/24 07:51 06/02/24 07:59 06/02/24 08:30 Temperature 99.0 F Pulse Rate 72 74 Respiratory Rate 18 Blood Pressure 107/46 L Pulse Oximetry 93 93 Oxygen Delivery Room Air Exam Const: General: comfortable and no acute distress Eyes: Other: Scleral icterus noted Neck: Neck: No no JVD Resp: Effort & Inspection: normal respiratory effort Cardio: Rate: regular rate Rhythm: regular rhythm GI: GI Palp: Yes Soft to palpation, No Tenderness to palpation present (GI) and Yes Hernia present ventral (This is reducible and nontender) 3-10 cm Auscultation: normal bowel sounds Other: No ascites noted. Skin: Other: She is jaundice with scleral icterus Neuro: Speech: normal speech Extrem: General: edema bilateral (Bilateral 1+ peripheral edema up to her knees) Psych: Mental Status: mental status grossly normal Affect: normal affect Results Labs 06/02/24 08:33 06/02/24 08:33 Labs: Short CBC 06/01/24 Range/Units 20:40 WBC 3.3 L (4.5-10.0) K/mm3 Hgb 6.3 L* (12.0-15.0) g/dL Hct 18.5 L* (37.0-47.0) % Plt Count 51 L (150-375) k/mm3 BMP 06/01/24 20:40 Sodium 132 L Potassium 4.1 Chloride 102 Carbon Dioxide 17 L BUN 38 H D Creatinine 2.10 H Glucose 118 H Calcium 8.5 Liver Function 06/01/24 Range/Units 20:40 Total Bilirubin 8.3 H (0.2-1.3) mg/dL AST 79 H (14-36) U/L ALT 41 H (6-35) U/L Alkaline Phosphatase 131 H (38-126) U/L Albumin 3.0 L (3.5-5.1) g/dL
[2024-06-02 08:50] LABS: Basophils Percent Auto 1.2 % (0.2-1.2); Eosinophils Absolute Auto 0.1 K/mm3 (0-0.3); Eosinophils Percent Auto 1.5 % (0-4.4); Hematocrit 21.6 % (37.0-47.0); Hemoglobin 7.3 g/dL (12.0-15.0); Immature Granulocyte Absolute 0.04 K/mm3 (0.00-0.031); Immature Granulocyte Percent A 1.2 % (0-0.5); Immature Platelet Fraction Pct 7.3 % (0.9-11.2); Lymphocytes Absolute Auto 0.97 K/mm3 (0.9-3.2); Lymphocytes Percent Auto 28.3 % (18.3-44.2); Mean Corpuscular HGB Conc 33.8 g/dl (32-36); Mean Corpuscular Hemoglobin 37.2 pg (26-34); Mean Corpuscular Volume 110.2 fl (80-100); Mean Platelet Volume 11.8 fl (7.4-10.4); Monocytes Absolute Auto 0.5 K/mm3 (0.1-0.6); Monocytes Percent Auto 13.7 % (2.6-8.5); Neutrophils Absolute Auto 1.9 K/mm3 (1.3-6.7); Neutrophils Percent Auto 54.1 % (45.5-73.1); Platelet Count Result 45 k/mm3 (150-375); Red Blood Count 1.96 M/mm3 (4.2-5.4); White Blood Count 3.4 K/mm3 (4.5-10.0)
[2024-06-02 09:09] LABS: Alanine Aminotransferase 37 U/L (6-35); Albumin Level 2.7 g/dL (3.5-5.1); Alkaline Phosphatase 135 U/L (38-126); Anion Gap 8 mmol/L (4-12); Aspartate Amino Transferase 69 U/L (14-36); Bilirubin Indirect 4.5 mg/dL (0-1.1); Bilirubin,Total 7.9 mg/dL (0.2-1.3); Blood Urea Nitrogen 37 mg/dL (7-17); Calcium 8.1 mg/dL (8.4-10.2); Carbon Dioxide 20 mmol/L (22-30); Chloride 106 mmol/L (98-107); Estimated CRCL calculation 47 ml/min; Estimated Glomerular Filt Rate 44; Glucose 105 mg/dL (65-110); Magnesium 1.2 mg/dL (1.6-2.3); Potassium 4.5 mmol/L (3.4-5.0); Sodium 134 mmol/L (137-145)
[2024-06-02 09:21] LABS: Anisocytosis 1+; Macrocytosis 1+ (NORMAL); Platelet Estimate Decreased (Adequate); Schistocytes None Seen
[2024-06-02 10:06] LABS: Iron 109 ug/dL (37-170)
[2024-06-02 10:15] LABS: Percent Iron Saturation 54 % (20-50)
[2024-06-02 10:35] LABS: INR 2.6; Prothrombin Time 28.8 Seconds (11.1-14.7)
[2024-06-02] MEDS: PANTOPRAZOLE SODIUM IV 40 MG VIAL IV PUSH ×2 (10:49→20:26)
[2024-06-02 11:16] LABS: Folic Acid 13.6 ng/mL (2.76->20); Vitamin B12 > 1000.0 pg/mL (239-931)
[2024-06-02 11:59] LABS: Glucose Point of Care 115 mg/dl (65-105)
--- NOTE | 2024-06-02 14:52 | P.PNIM_ITS ---
Progress Note: A&P Assessment and Plan (1) Acute on chronic anemia: Code(s): D64.9 - Anemia, unspecified Status: Acute Assessment and Plan: Patient presents with dizziness and found to have Hgb 6.3. She denies any acute blood loss. Rectal exam in ED showing heme positive stools. She has chronic anemia with Hgb running in 8 range. Suspect acute blood loss with underlying chronic anemia from her cirrhosis. She was transfused 2U PRBCs. GI consulted. PPI added. (2) WILLY (acute kidney injury): Code(s): N17.9 - Acute kidney failure, unspecified Status: Acute Assessment and Plan: Patient has a normal baseline Cr. Cr 2.1 on admission. She states her doctor just increased her Lasix and Spironolactone a few days prior to admission. She has metabolic acidosis but potassium okay. Better with IV fluids. Could be related to dehydration and/or meds and/or HoTN (causing the dizziness). Consider hepatorenal syndrome. Albumin given. Follow (3) Alcoholic cirrhosis: Qualifiers: Ascites presence: unspecified Qualified Code(s): K70.30 - Alcoholic cirrhosis of liver without ascites Code(s): K70.30 - Alcoholic cirrhosis of liver without ascites Status: Acute Assessment and Plan: LFTs noted. TB 8.3. Plt count chronically low at 40-50 range. INR 2.6. Albumin 3. Vascular US showing portal vein (and left hepatic vein) demonstrating reversal of flow, without a filling defect to suggest thrombus. Also with nodular contour to the liver with marked splenomegaly, consistent with patient's history of cirrhosis. Layering sludge within an otherwise unremarkable gallbladder. GI following She is current with [facility] Hepatology Alcohol cessation is extremely important (4) Alcohol dependence: Qualifiers: Substance use status: alcohol-induced mood disorder Qualified Code(s): F10.24 - Alcohol dependence with alcohol-induced mood disorder Code(s): F10.20 - Alcohol dependence, uncomplicated Status: Acute Assessment and Plan: Patient continues to drink alcholol. She denies hx of withdrawals. Start CIWA protocol. Continue Thiamine and Folate (5) Chronic obstructive pulmonary disease: Code(s): J44.9 - Chronic obstructive pulmonary disease, unspecified Status: Acute Assessment and Plan: Stable. Not actively wheezing Continue Advair (6) Tobacco dependence: Code(s): F17.200 - Nicotine dependence, unspecified, uncomplicated Status: Acute Assessment and Plan: Patieint was educated about the benefits of smoking cessation. Plan DVT prophylaxis - SCDs. Code status - full Subjective Date/time seen: 06/02/24 14:52 Interval history: 53yo female with alcohol abuse, tobacco abuse, cirrhosis, COPD, and DM here for dizziness. Assuming care. Chart reviewed. She slept okay. no CP or SOB. +HEREDIA. Nausea with vomiting this morning. She noted blood in the emesis but she felt it was related to posterior bleeding. no epistaxis. Exam Narrative: AF 98.5 106/49 63 20 96% ra Gen - NARD HEENT - scleral icterus Chest - CTA bilaterally, nml RR CV - RRR S1/S2. Tele showing no significant dysrhythmias. Abd - Soft, obese, hepatosplenomegaly Ext - 1+ pedal edema Neuro - Alert and appropriate Psych - Nml mood and affect Skin - Warm and dry. Patches of dry skin noted. Objective Data Vital Signs Vital Signs: Vital Signs - 24 hr 06/01/24 20:22 06/01/24 20:49 06/01/24 20:50 Temperature 97.7 F Pulse Rate 72 71 Respiratory Rate 16 14 Blood Pressure 97/41 L 116/46 L Pulse Oximetry 89 L 100 Oxygen Delivery Room Air Room Air 06/01/24 21:06 06/01/24 21:16 06/01/24 21:59 Temperature Pulse Rate 70 68 69 Respiratory Rate 18 18 Blood Pressure 111/51 L Pulse Oximetry Oxygen Delivery 06/01/24 21:59 06/01/24 22:00 06/01/24 22:42 Temperature Pulse Rate 71 72 69 Respiratory Rate 16 Blood Pressure 111/48 L 100/44 L 113/52 L Pulse Oximetry 99 Oxygen Delivery 06/01/24 23:25 06/01/24 23:49 06/02/24 00:25 Temperature 97.9 F 97.9 F Pulse Rate 66 66 68 Respiratory Rate 18 20 Blood Pressure 118/47 L 116/49 L Pulse Oximetry 90 96 Oxygen Delivery 06/02/24 00:00 06/02/24 00:42 06/02/24 01:42 Temperature 97.8 F 98.1 F Pulse Rate 68 69 100 Respiratory Rate 20 20 Blood Pressure 107/47 L 103/48 L Pulse Oximetry 99 100 Oxygen Delivery 06/02/24 02:00 06/02/24 02:42 06/02/24 03:21 Temperature 98.2 F 98.5 F Pulse Rate 64 67 70 Respiratory Rate 20 18 Blood Pressure 98/43 L 104/47 L Pulse Oximetry 100 98 Oxygen Delivery 06/02/24 03:38 06/02/24 03:48 06/02/24 03:48 Temperature 98.2 F Pulse Rate 72 70 70 Respiratory Rate 18 18 Blood Pressure 105/51 L Pulse Oximetry 98 98 Oxygen Delivery Room Air 06/02/24 03:48 06/02/24 04:38 06/02/24 05:28 Temperature 98.2 F 98.3 F Pulse Rate 70 75 74 Respiratory Rate 18 18 Blood Pressure 105/51 L 101/46 L Pulse Oximetry 98 97 Oxygen Delivery 06/02/24 05:38 06/02/24 06:38 06/02/24 06:43 Temperature 98.2 F 98.9 F 98.8 F Pulse Rate 82 72 70 Respiratory Rate 18 18 20 Blood Pressure 119/55 L 109/46 L 107/49 L Pulse Oximetry 90 93 Oxygen Delivery 06/02/24 07:51 06/02/24 07:59 06/02/24 08:30 Temperature 99.0 F Pulse Rate 72 74 Respiratory Rate 18 Blood Pressure 107/46 L Pulse Oximetry 93 93 Oxygen Delivery Room Air 06/02/24 08:00 06/02/24 10:00 06/02/24 11:49 Temperature 98.5 F Pulse Rate 76 66 63 Respiratory Rate 20 Blood Pressure 106/49 L Pulse Oximetry 96 Oxygen Delivery 06/02/24 12:00 Temperature Pulse Rate 63 Respiratory Rate Blood Pressure Pulse Oximetry Oxygen Delivery Intake/Output Intake/Output: Intake & Output 05/30/24 05/31/24 06/01/24 06/02/24 23:59 23:59 23:59 23:59 Intake Total 1180 Output Total 700 Balance 480 Meds/Results Medications: Active Medications Generic Name Dose Route Start Last Admin Trade Name Freq PRN Reason Stop Dose Admin Albuterol 1 puff 06/02/24 00:15 Albuterol Sulfate (*Sp) Aerosol 1 Puff INHALATION Q4HRT PRN Shortness Of Breath Or Wheezing Bisacodyl 20 mg 06/02/24 16:00 Bisacodyl 5 Mg Tablet Ec PO 06/02/24 16:01 ONCE ONE Cyanocobalamin 1,000 mcg 06/02/24 09:00 06/02/24 07:59 Cyanocobalamin 1,000 Mcg Tablet PO 07/02/24 08:59 1,000 mcg DAILY SRINIVASA Administration Folic Acid 1 mg 06/02/24 09:00 06/02/24 07:59 Folic Acid 1 Mg Tablet PO 1 mg DAILY SRINIVASA Administration Gabapentin 300 mg 06/02/24 09:00 06/02/24 12:27 Gabapentin 300 Mg Capsule PO 300 mg QID SRINIVASA Administration Magnesium Citrate 300 ml 06/03/24 03:00 Magnesium Citrate 300 Ml Btl PO 06/03/24 03:01 ONCE ONE Metoprolol Tartrate 12.5 mg 06/02/24 09:00 06/02/24 07:59 Metoprolol Tartrate 12.5 Mg Tablet PO 12.5 mg Q12HR SRINIVASA Administration Miscellaneous Information 0 each 06/02/24 00:01 06/02/24 10:41 Advair Clarify [facility] External Med Records Shows Pt Takes 250/50 XX 07/02/24 00:00 Not Given CLARIFY SRINIVASA Non-Formulary Medication 1 inhalation 06/02/24 00:15 Fluticasone Propion-Salmeterol [Advair Diskus] INHALATION 07/02/24 00:14 Q12H SRINIVASA Ondansetron HCl 4 mg 06/02/24 14:35 Ondansetron Hcl Odt 4 Mg Tablet PO Q6H PRN Nausea And Vomiting Pantoprazole Sodium 40 mg 06/02/24 09:00 06/02/24 10:49 Pantoprazole Sodium Iv 40 Mg Vial IV PUSH 40 mg Q12HR SRINIVASA Administration Polyethylene Glycol 238 gm 06/02/24 16:00 Polyethylene Glycol 3350 238 Gm Bottle PO 06/02/24 16:01 ONCE ONE Thiamine HCl 100 mg 06/02/24 09:00 06/02/24 08:00 Thiamine Hcl 100 Mg Tablet PO 100 mg DAILY SRINIVASA Administration Tramadol HCl 50 mg 06/02/24 00:15 06/02/24 12:29 Tramadol Hcl (*Crx) 50 Mg Tablet PO 50 mg Q8H PRN Administration Pain (Scale Score 4-6) Venlafaxine HCl 37.5 mg 06/02/24 21:00 Venlafaxine Hcl Xr 37.5 Mg Cap PO HS SRINIVASA Radiology Results: ITS Impressions Chest X-Ray 06/01/24 21:06 IMPRESSION: 1. Discoid atelectasis/scarring present along one of the major fissures, unclear whether left or right-sided no other acute cardiopulmonary disease. Vascular Ultrasound 06/02/24 11:59 IMPRESSION: The portal vein (and left hepatic vein) demonstrates reversal of flow, without a filling defect to suggest thrombus. Nodular contour to the liver with marked splenomegaly, consistent with patient's history of cirrhosis. Layering sludge within an otherwise unremarkable gallbladder Labs Labs: Laboratory Results - last 24 hr 06/01/24 06/01/24 06/02/24 20:40 22:11 07:32 WBC 3.3 L RBC 1.52 L Hgb 6.3 L* Hct 18.5 L* MCV 121.7 H MCH 41.4 H MCHC 34.1 RDW 15.9 H Plt Count 51 L MPV 11.9 H Immature Gran % (Auto) Not Reportable Neut % (Auto) Not Reportable Lymph % (Auto) Not Reportable [place] % (Auto) Not Reportable Eos % (Auto) Not Reportable Baso % (Auto) Not Reportable Lymph # (Auto) Not Reportable [place] # (Auto) Not Reportable Eos # (Auto) Not Reportable Baso # (Auto) Not Reportable Abs Immat Gran (auto) Not Reportable Absolute Neuts (auto) Not Reportable Absolute Nucleated RBC Not Reportable Total Counted 100 Neutrophils % (Manual) 55 Band Neutrophils % 5 Lymphocytes % (Manual) 28 Monocytes % (Manual) 10 H Eosinophils % (Manual) 1 Basophils % (Manual) 1 Nucleated RBC % Not Reportable Abs Neuts (Manual) 1.98 Abs Lymphs (Manual) 0.92 L Abs Monocytes (Manual) 0.33 Absolute Eos (Manual) 0.03 Abs Basophils (Manual) 0.03 Platelet Estimate Decreased % Immature Plt Fraction 7.5 Hypochromasia 1+ Anisocytosis Macrocytosis Target Cells 1+ Ovalocytes 1+ Acanthocytes (Spur) 1+ Schistocytes None seen PT INR Sodium 132 L Potassium 4.1 Chloride 102 Carbon Dioxide 17 L Anion Gap 13 H BUN 38 H D Creatinine 2.10 H Estim Creat Clear Calc 34 Estimated GFR 30 L Glucose 118 H POC Capillary Glucose 96 Calcium 8.5 Phosphorus Magnesium Iron TIBC % Saturation Ferritin Total Bilirubin 8.3 H Indirect Bilirubin AST 79 H ALT 41 H Alkaline Phosphatase 131 H NT-Pro-B Natriuret Pep 785 H Total Protein 8.0 Albumin 3.0 L Vitamin B12 Folate Blood Type B Positive Antibody Screen Negative Crossmatch See Detail 06/02/24 06/02/24 06/02/24 08:29 08:33 10:17 WBC 3.4 L RBC 1.96 L Hgb 7.3 L Hct 21.6 L MCV 110.2 H D MCH 37.2 H D MCHC 33.8 RDW TNP Plt Count 45 L MPV 11.8 H Immature Gran % (Auto) 1.2 H Neut % (Auto) 54.1 Lymph % (Auto) 28.3 [place] % (Auto) 13.7 H Eos % (Auto) 1.5 Baso % (Auto) 1.2 Lymph # (Auto) 0.97 [place] # (Auto) 0.5 Eos # (Auto) 0.1 Baso # (Auto) 0.0 Abs Immat Gran (auto) 0.04 H Absolute Neuts (auto) 1.9 Absolute Nucleated RBC 0.000 Total Counted Neutrophils % (Manual) Band Neutrophils % Lymphocytes % (Manual) Monocytes % (Manual) Eosinophils % (Manual) Basophils % (Manual) Nucleated RBC % 0.0 Abs Neuts (Manual) Abs Lymphs (Manual) Abs Monocytes (Manual) Absolute Eos (Manual) Abs Basophils (Manual) Platelet Estimate Decreased % Immature Plt Fraction 7.3 Hypochromasia Anisocytosis 1+ Macrocytosis 1+ Target Cells Ovalocytes Acanthocytes (Spur) Schistocytes None seen PT 28.8 H INR 2.6 Sodium 134 L Potassium 4.5 Chloride 106 Carbon Dioxide 20 L Anion Gap 8 BUN 37 H Creatinine 1.50 H Estim Creat Clear Calc 47 Estimated GFR 44 L Glucose 105 POC Capillary Glucose Calcium 8.1 L Phosphorus 4.0 Magnesium 1.2 L Iron 109 TIBC 203 L % Saturation 54 H Ferritin 823.00 H Total Bilirubin 7.9 H Indirect Bilirubin 4.5 H AST 69 H ALT 37 H Alkaline Phosphatase 135 H NT-Pro-B Natriuret Pep Total Protein 8.0 Albumin 2.7 L Vitamin B12 > 1000.0 H Folate 13.6 Blood Type Antibody Screen Crossmatch 06/02/24 11:44 WBC RBC Hgb Hct MCV MCH MCHC RDW Plt Count MPV Immature Gran % (Auto) Neut % (Auto) Lymph % (Auto) [place] % (Auto) Eos % (Auto) Baso % (Auto) Lymph # (Auto) [place] # (Auto) Eos # (Auto) Baso # (Auto) Abs Immat Gran (auto) Absolute Neuts (auto) Absolute Nucleated RBC Total Counted Neutrophils % (Manual) Band Neutrophils % Lymphocytes % (Manual) Monocytes % (Manual) Eosinophils % (Manual) Basophils % (Manual) Nucleated RBC % Abs Neuts (Manual) Abs Lymphs (Manual) Abs Monocytes (Manual) Absolute Eos (Manual) Abs Basophils (Manual) Platelet Estimate % Immature Plt Fraction Hypochromasia Anisocytosis Macrocytosis Target Cells Ovalocytes Acanthocytes (Spur) Schistocytes PT INR Sodium Potassium Chloride Carbon Dioxide Anion Gap BUN Creatinine Estim Creat Clear Calc Estimated GFR Glucose POC Capillary Glucose 115 H Calcium Phosphorus Magnesium Iron TIBC % Saturation Ferritin Total Bilirubin Indirect Bilirubin AST ALT Alkaline Phosphatase NT-Pro-B Natriuret Pep Total Protein Albumin Vitamin B12 Folate Blood Type Antibody Screen Crossmatch
[2024-06-02] MEDS: ONDANSETRON HCL ODT 4 MG TABLET PO (15:10)
[2024-06-02 16:20] LABS: Glucose Point of Care 150 mg/dl (65-105)
[2024-06-02] MEDS: ALBUMIN HUMAN 25% 25 GM/100 ML 100 ML IVPB ×3 (18:12→22:41)
[2024-06-02] MEDS: SODIUM CHLORIDE 0.9% IV 250 ML 10 ML (18:13)
[2024-06-02] MEDS: VENLAFAXINE HCL XR 37.5 MG CAP PO (20:26)
[2024-06-02] MEDS: chlordiazePOXIDE (*CRX) 25 MG CAPSULE PO (20:28)
[2024-06-03] VITALS (20 sets, daily range): BP systolic 107–129; BP diastolic 45–72; PULSE 64–76; RESP 16–24; TEMP 36.6–37; O2SAT 91–100
[2024-06-03 00:11] LABS: Glucose Point of Care 113 mg/dl (65-105)
[2024-06-03 05:09] LABS: Basophils Percent Auto 0.8 % (0.2-1.2); Eosinophils Absolute Auto 0.1 K/mm3 (0-0.3); Eosinophils Percent Auto 1.9 % (0-4.4); Immature Granulocyte Absolute 0.03 K/mm3 (0.00-0.031); Immature Granulocyte Percent A 1.1 % (0-0.5); Immature Platelet Fraction Pct 8.9 % (0.9-11.2); Lymphocytes Absolute Auto 0.85 K/mm3 (0.9-3.2); Lymphocytes Percent Auto 32.6 % (18.3-44.2); Mean Corpuscular HGB Conc 33.9 g/dl (32-36); Mean Corpuscular Hemoglobin 36.9 pg (26-34); Mean Corpuscular Volume 109.1 fl (80-100); Mean Platelet Volume 11.6 fl (7.4-10.4); Monocytes Absolute Auto 0.5 K/mm3 (0.1-0.6); Monocytes Percent Auto 17.2 % (2.6-8.5); Neutrophils Absolute Auto 1.2 K/mm3 (1.3-6.7); Neutrophils Percent Auto 46.4 % (45.5-73.1); Nucleated Red Blood Cells Perc 0.8 % (0.0-0.2); Platelet Count Result 42 k/mm3 (150-375); Red Blood Count 1.76 M/mm3 (4.2-5.4); White Blood Count 2.6 K/mm3 (4.5-10.0)
[2024-06-03 05:29] LABS: Alanine Aminotransferase 33 U/L (6-35); Albumin Level 3.2 g/dL (3.5-5.1); Alkaline Phosphatase 98 U/L (38-126); Anion Gap 6 mmol/L (4-12); Aspartate Amino Transferase 63 U/L (14-36); Bilirubin,Total 10.4 mg/dL (0.2-1.3); Blood Urea Nitrogen 34 mg/dL (7-17); Calcium 8.5 mg/dL (8.4-10.2); Carbon Dioxide 22 mmol/L (22-30); Chloride 105 mmol/L (98-107); Estimated CRCL calculation 58 ml/min; Estimated Glomerular Filt Rate 57; Glucose 91 mg/dL (65-110); Magnesium 1.2 mg/dL (1.6-2.3); Phosphorus 3.5 mg/dL (2.5-4.5); Potassium 4.1 mmol/L (3.4-5.0); Sodium 133 mmol/L (137-145)
[2024-06-03 05:46] LABS: Hemoglobin 6.5 g/dL (12.0-15.0)
[2024-06-03 05:47] LABS: Hematocrit 19.2 % (37.0-47.0); Platelet Estimate Decreased (Adequate)
[2024-06-03 05:48] LABS: Anisocytosis 1+; Burr Cells 1+; Macrocytosis 1+ (NORMAL); Schistocytes Rare
[2024-06-03] MEDS: SODIUM CHLORIDE 0.9% IV 250 ML 30 ML IV CONT (08:47)
[2024-06-03] MEDS: METOPROLOL TARTRATE 12.5 MG TABLET PO ×2 (08:49→20:24)
[2024-06-03] MEDS: FOLIC ACID 1 MG TABLET PO (08:49)
[2024-06-03] MEDS: THIAMINE HCL 100 MG TABLET PO (08:49)
[2024-06-03] MEDS: GABAPENTIN 300 MG CAPSULE PO ×3 (08:49→20:25)
[2024-06-03] MEDS: CYANOCOBALAMIN 1,000 MCG TABLET 1000 MCG PO (08:49)
[2024-06-03] MEDS: TUBING, BLOOD PLUM PUMP TUBING 1 EACH XX (08:53)
[2024-06-03] MEDS: PANTOPRAZOLE SODIUM IV 40 MG VIAL IV PUSH ×2 (08:53→20:26)
[2024-06-03] MEDS: MAGNESIUM SULF 2 GM/WATER 50ML 2 GM/50 ML BAG IVPB (08:54)
[2024-06-03] MEDS: ALBUMIN HUMAN 25% 25 GM/100 ML 100 ML IVPB ×3 (16:46→20:23)
--- NOTE | 2024-06-03 16:46 | P.PNIM_ITS ---
Progress Note: A&P Assessment and Plan (1) Acute on chronic anemia: Code(s): D64.9 - Anemia, unspecified Status: Acute Assessment and Plan: Patient presents with dizziness and found to have Hgb 6.3. She denies any acute blood loss. Rectal exam in ED showing heme positive stools. She has chronic anemia with Hgb running in 8 range. Suspect acute blood loss with underlying chronic anemia from her cirrhosis. She was transfused 2U PRBCs. GI consulted. Hgb climbed to 7.3 but now back down to 6.5 this morning. 1U PRBC ordered. Now having epistaxis. Continue PPI. Monitor HH and transfuse as needed. GI following (2) WILLY (acute kidney injury): Code(s): N17.9 - Acute kidney failure, unspecified Status: Acute Assessment and Plan: Patient has a normal baseline Cr. Cr 2.1 on admission. She states her doctor just increased her Lasix and Spironolactone a few days prior to admission. She also had metabolic acidosis but potassium okay. Could be related to dehydration and/or meds and/or HoTN (causing the dizziness). Consider hepatorenal syndrome as well. Cr better at 1.2 with IV fluids and blood transfusion. Albumin x3 bags and repeated again today. Potassium remains normal and metabolic acidosis resolved. Follow. (3) Alcoholic cirrhosis: Qualifiers: Ascites presence: unspecified Qualified Code(s): K70.30 - Alcoholic cirrhosis of liver without ascites Code(s): K70.30 - Alcoholic cirrhosis of liver without ascites Status: Acute Assessment and Plan: LFTs noted. TB 8.3. Plt count chronically low at 40-50K range (In Sep, plt count 50-60K range). INR 2.6. Albumin 3.2. She is current with [facility]. MELD 32 on admission. Vascular US showing portal vein (and left hepatic vein) demonstrating reversal of flow, without a filling defect to suggest thrombus. Also with nodular contour to the liver with marked splenomegaly, consistent with patient's history of cirrhosis. Layering sludge within an otherwise unremarkable gallbladder. GI following. Concern for acute alcoholic hepatitis with AST 2x >ALT and elevated INR, bili and ferritin but with leukopenia but also may be her baseline. Steroids being considered. Alcohol cessation is extremely important (4) Alcohol dependence: Qualifiers: Substance use status: alcohol-induced mood disorder Qualified Code(s): F10.24 - Alcohol dependence with alcohol-induced mood disorder Code(s): F10.20 - Alcohol dependence, uncomplicated Status: Acute Assessment and Plan: Patient continues to drink alcholol. She denies hx of withdrawals. CIWA running 3-7 range over the past 24 hours. Ativan and Librium available as needed for elevated CIWA Continue CIWA protocol. Continue Thiamine and Folate (5) Chronic obstructive pulmonary disease: Code(s): J44.9 - Chronic obstructive pulmonary disease, unspecified Status: Acute Assessment and Plan: Stable. Not actively wheezing Continue Advair (6) Tobacco dependence: Code(s): F17.200 - Nicotine dependence, unspecified, uncomplicated Status: Acute Assessment and Plan: Patieint was educated about the benefits of smoking cessation. Plan DVT prophylaxis - SCDs. Code status - full Diet - clear liquids; advance per GI instructions Subjective Date/time seen: 06/03/24 16:46 Interval history: 53yo female with alcohol abuse, tobacco abuse, cirrhosis, COPD, and DM here for dizziness. Epistaxis this morning. No CP or abd pain. No SOB. Nausea and vomiting this morning but no hematemesis. Exam Narrative: AF 98.3 129/54 76 20 100% ra Gen - NARD Chest - bibasilar inspiratory crackles. nml RR CV - RRR S1/S2. Tele showing no significant dysrhythmias. Abd - Soft, obese, hepatosplenomegaly Ext - 1-2+ pedal edema Neuro - Alert and appropriate Psych - Nml mood and affect Skin - Warm and dry. Patches of dry skin noted. Objective Data Vital Signs Vital Signs: Vital Signs - 24 hr 06/02/24 18:00 06/02/24 19:52 06/02/24 20:26 Temperature 98.1 F Pulse Rate 63 63 65 Pulse Rate [Pedal (Dorsalis Pedis)] Respiratory Rate 18 Blood Pressure 102/47 L Pulse Oximetry 92 Oxygen Delivery 06/02/24 20:00 06/02/24 20:00 06/02/24 20:00 Temperature Pulse Rate 65 Pulse Rate [Pedal (Dorsalis Pedis)] 64 Respiratory Rate Blood Pressure Pulse Oximetry Oxygen Delivery Room Air 06/02/24 23:53 06/02/24 23:53 06/03/24 00:00 Temperature 98.3 F Pulse Rate 67 Pulse Rate [Pedal (Dorsalis Pedis)] 67 Respiratory Rate 18 Blood Pressure 109/46 L Pulse Oximetry 94 Oxygen Delivery Room Air 06/03/24 00:00 06/03/24 04:00 06/03/24 04:00 Temperature Pulse Rate 64 Pulse Rate [Pedal (Dorsalis Pedis)] 69 Respiratory Rate Blood Pressure Pulse Oximetry Oxygen Delivery Room Air 06/03/24 04:00 06/03/24 04:00 06/03/24 07:45 Temperature 98.5 F 98.6 F Pulse Rate 68 68 70 Pulse Rate [Pedal (Dorsalis Pedis)] Respiratory Rate 18 16 Blood Pressure 107/54 L 109/45 L Pulse Oximetry 97 93 Oxygen Delivery 06/03/24 08:28 06/03/24 08:49 06/03/24 08:57 Temperature 98.0 F 98.0 F Pulse Rate 70 70 71 Pulse Rate [Pedal (Dorsalis Pedis)] Respiratory Rate 18 18 Blood Pressure 112/46 L 111/49 L Pulse Oximetry 98 91 Oxygen Delivery 06/03/24 09:24 06/03/24 09:57 06/03/24 10:57 Temperature 97.8 F 98.0 F 98.2 F Pulse Rate 73 68 69 Pulse Rate [Pedal (Dorsalis Pedis)] Respiratory Rate 20 24 H 20 Blood Pressure 109/72 107/47 L 116/46 L Pulse Oximetry 98 100 94 Oxygen Delivery 06/03/24 08:00 06/03/24 10:00 06/03/24 11:58 Temperature 98.0 F Pulse Rate 71 68 69 Pulse Rate [Pedal (Dorsalis Pedis)] Respiratory Rate 20 Blood Pressure 114/45 L Pulse Oximetry 94 Oxygen Delivery 06/03/24 12:00 06/03/24 15:49 06/03/24 14:00 Temperature 98.3 F Pulse Rate 68 76 73 Pulse Rate [Pedal (Dorsalis Pedis)] Respiratory Rate 20 Blood Pressure 129/54 L Pulse Oximetry 100 Oxygen Delivery Intake/Output Intake/Output: Intake & Output 05/31/24 06/01/24 06/02/24 06/03/24 23:59 23:59 23:59 23:59 Intake Total 1580 1240 Output Total 700 450 Balance 880 790 Meds/Results Medications: Active Medications Generic Name Dose Route Start Last Admin Trade Name Freq PRN Reason Stop Dose Admin Albuterol 1 puff 06/02/24 00:15 Albuterol Sulfate (*Sp) Aerosol 1 Puff INHALATION Q4HRT PRN Shortness Of Breath Or Wheezing Chlordiazepoxide HCl 25 mg 06/02/24 14:53 06/02/24 20:28 Chlordiazepoxide (*Crx) 25 Mg Capsule PO 25 mg Q6H PRN Administration Withdrawal Cyanocobalamin 1,000 mcg 06/02/24 09:00 06/03/24 08:49 Cyanocobalamin 1,000 Mcg Tablet PO 07/02/24 08:59 1,000 mcg DAILY SRINIVASA Administration Folic Acid 1 mg 06/02/24 09:00 06/03/24 08:49 Folic Acid 1 Mg Tablet PO 1 mg DAILY SRINIVASA Administration Gabapentin 300 mg 06/02/24 09:00 06/03/24 16:03 Gabapentin 300 Mg Capsule PO Not Given QID SRINIVASA Albumin Human 100 mls @ 60 mls/hr 06/03/24 17:00 Albutein IVPB 06/03/24 22:39 Q2H SRINIVASA Lorazepam 2 mg 06/02/24 14:53 Lorazepam Inj (*Crx) 2 Mg/Ml Vial IV PUSH Q2H PRN CIWA > 15 Metoprolol Tartrate 12.5 mg 06/02/24 09:00 06/03/24 08:49 Metoprolol Tartrate 12.5 Mg Tablet PO 12.5 mg Q12HR SRINIVASA Administration Miscellaneous Information 0 each 06/02/24 00:01 06/02/24 10:41 Advair Clarify [facility] External Med Records Shows Pt Takes 250/50 XX 07/02/24 00:00 Not Given CLARIFY SRINIVASA Non-Formulary Medication 1 inhalation 06/02/24 00:15 Fluticasone Propion-Salmeterol [Advair Diskus] INHALATION 07/02/24 00:14 Q12H SRINIVASA Ondansetron HCl 4 mg 06/02/24 14:35 06/02/24 15:10 Ondansetron Hcl Odt 4 Mg Tablet PO 4 mg Q6H PRN Administration Nausea And Vomiting Pantoprazole Sodium 40 mg 06/02/24 09:00 06/03/24 08:53 Pantoprazole Sodium Iv 40 Mg Vial IV PUSH 40 mg Q12HR SRINIVASA Administration Thiamine HCl 100 mg 06/02/24 09:00 06/03/24 08:49 Thiamine Hcl 100 Mg Tablet PO 100 mg DAILY SRINIVASA Administration Tramadol HCl 50 mg 06/02/24 00:15 06/02/24 12:29 Tramadol Hcl (*Crx) 50 Mg Tablet PO 50 mg Q8H PRN Administration Pain (Scale Score 4-6) Venlafaxine HCl 37.5 mg 06/02/24 21:00 06/02/24 20:26 Venlafaxine Hcl Xr 37.5 Mg Cap PO 37.5 mg HS SRINIVASA Administration Radiology Results: ITS Impressions Chest X-Ray 06/01/24 21:06 IMPRESSION: 1. Discoid atelectasis/scarring present along one of the major fissures, unclear whether left or right-sided no other acute cardiopulmonary disease. Vascular Ultrasound 06/02/24 11:59 IMPRESSION: The portal vein (and left hepatic vein) demonstrates reversal of flow, without a filling defect to suggest thrombus. Nodular contour to the liver with marked splenomegaly, consistent with patient's history of cirrhosis. Layering sludge within an otherwise unremarkable gallbladder Labs Labs: Laboratory Results - last 24 hr 06/01/24 06/03/24 06/03/24 22:11 00:09 04:34 WBC 2.6 L RBC 1.76 L Hgb 6.5 L* Hct 19.2 L* MCV 109.1 H MCH 36.9 H MCHC 33.9 RDW TNP Plt Count 42 L MPV 11.6 H Immature Gran % (Auto) 1.1 H Neut % (Auto) 46.4 Lymph % (Auto) 32.6 [place] % (Auto) 17.2 H Eos % (Auto) 1.9 Baso % (Auto) 0.8 Lymph # (Auto) 0.85 L [place] # (Auto) 0.5 Eos # (Auto) 0.1 Baso # (Auto) 0.0 Abs Immat Gran (auto) 0.03 Absolute Neuts (auto) 1.2 L Absolute Nucleated RBC 0.020 H Nucleated RBC % 0.8 H Platelet Estimate Decreased % Immature Plt Fraction 8.9 Anisocytosis 1+ Macrocytosis 1+ [place] Cells 1+ Schistocytes Rare Sodium 133 L Potassium 4.1 Chloride 105 Carbon Dioxide 22 Anion Gap 6 BUN 34 H Creatinine 1.20 H Estim Creat Clear Calc 58 Estimated GFR 57 L Glucose 91 POC Capillary Glucose 113 H Calcium 8.5 Phosphorus 3.5 Magnesium 1.2 L Total Bilirubin 10.4 H AST 63 H ALT 33 Alkaline Phosphatase 98 Total Protein 8.0 Albumin 3.2 L Blood Type B Positive Antibody Screen Negative Crossmatch See Detail
[2024-06-03] MEDS: SODIUM CHLORIDE 0.9% IV 250 ML 10 ML (16:47)
--- NOTE | 2024-06-03 17:29 | WPDGIPROGNO ---
Progress Note: A&P Assessment and Plan (1) WILLY (acute kidney injury): Code(s): N17.9 - Acute kidney failure, unspecified Status: Acute Assessment and Plan: The patient has ETOH cirrhosis, and severe pancytopenia of multifactorial origin. However, thrombocytopenia is out of proportion to what we expect for her degree of liver dysfunction. 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 However, kidney function seems to be improving with intravenous albumin and packed red blood cell transfusions. She is currently receiving her 2nd dose of albumin 75 g. This dose is less than the recommended, i.e., 1 gram/kilogram/d (in her case it would be almost 100 mg, the maximum dose) to avoid excess volume, given the fact that she is already receiving blood transfusions. This kidney injury is most likely pre renal secondary to recent diuretic use and increased dose and lack of oral intake. Does not have significant ascites to fullfill criteria for hepatorenal syndrome. Her recent increase in bilirubin level (10.9) is of concern, although blood transfusions may be also contributing to this. 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 Therefore, will closely follow up her creatinine and if the trend is favorable, we will start corticosteroids tomorrow, Prednisone 40 mg q.d.. we will apply the Lille score at days 4 and 7 to see if it is worth continuing for the recommended time of 4 weeks. Above all, alcohol cessation is the mainstay of the management. In addition, adequate caloric intake is also important in this setting. (2) Acute on chronic anemia: Code(s): D64.9 - Anemia, unspecified Status: Acute (3) Alcohol use disorder: Status: Acute (4) Alcoholic liver disease: Code(s): K70.9 - Alcoholic liver disease, unspecified Status: Acute Subjective Date/time seen: 06/03/24 17:30 Interval history: no evidence of GI bleeding, however hemoglobin went down to 6.9. 1 unit of packed red blood cells received. Objective Data Vital Signs Vital Signs: Vital Signs - 24 hr 06/02/24 18:00 06/02/24 19:52 06/02/24 20:26 Temperature 98.1 F Pulse Rate 63 63 65 Pulse Rate [Pedal (Dorsalis Pedis)] Respiratory Rate 18 Blood Pressure 102/47 L Pulse Oximetry 92 Oxygen Delivery 06/02/24 20:00 06/02/24 20:00 06/02/24 20:00 Temperature Pulse Rate 65 Pulse Rate [Pedal (Dorsalis Pedis)] 64 Respiratory Rate Blood Pressure Pulse Oximetry Oxygen Delivery Room Air 06/02/24 23:53 06/02/24 23:53 06/03/24 00:00 Temperature 98.3 F Pulse Rate 67 Pulse Rate [Pedal (Dorsalis Pedis)] 67 Respiratory Rate 18 Blood Pressure 109/46 L Pulse Oximetry 94 Oxygen Delivery Room Air 06/03/24 00:00 06/03/24 04:00 06/03/24 04:00 Temperature Pulse Rate 64 Pulse Rate [Pedal (Dorsalis Pedis)] 69 Respiratory Rate Blood Pressure Pulse Oximetry Oxygen Delivery Room Air 06/03/24 04:00 06/03/24 04:00 06/03/24 07:45 Temperature 98.5 F 98.6 F Pulse Rate 68 68 70 Pulse Rate [Pedal (Dorsalis Pedis)] Respiratory Rate 18 16 Blood Pressure 107/54 L 109/45 L Pulse Oximetry 97 93 Oxygen Delivery 06/03/24 08:28 06/03/24 08:49 06/03/24 08:57 Temperature 98.0 F 98.0 F Pulse Rate 70 70 71 Pulse Rate [Pedal (Dorsalis Pedis)] Respiratory Rate 18 18 Blood Pressure 112/46 L 111/49 L Pulse Oximetry 98 91 Oxygen Delivery 06/03/24 09:24 06/03/24 09:57 06/03/24 10:57 Temperature 97.8 F 98.0 F 98.2 F Pulse Rate 73 68 69 Pulse Rate [Pedal (Dorsalis Pedis)] Respiratory Rate 20 24 H 20 Blood Pressure 109/72 107/47 L 116/46 L Pulse Oximetry 98 100 94 Oxygen Delivery 06/03/24 08:00 06/03/24 10:00 06/03/24 11:58 Temperature 98.0 F Pulse Rate 71 68 69 Pulse Rate [Pedal (Dorsalis Pedis)] Respiratory Rate 20 Blood Pressure 114/45 L Pulse Oximetry 94 Oxygen Delivery 06/03/24 12:00 06/03/24 15:49 06/03/24 14:00 Temperature 98.3 F Pulse Rate 68 76 73 Pulse Rate [Pedal (Dorsalis Pedis)] Respiratory Rate 20 Blood Pressure 129/54 L Pulse Oximetry 100 Oxygen Delivery 06/03/24 16:00 06/03/24 17:03 Temperature Pulse Rate 72 Pulse Rate [Pedal (Dorsalis Pedis)] 72 Respiratory Rate Blood Pressure Pulse Oximetry Oxygen Delivery Intake/Output Intake/Output: Intake & Output 05/31/24 06/01/24 06/02/24 06/03/24 23:59 23:59 23:59 23:59 Intake Total 1580 1240 Output Total 700 450 Balance 880 790 Meds/Results Medications: Active Medications Generic Name Dose Route Start Last Admin Trade Name Freq PRN Reason Stop Dose Admin Albuterol 1 puff 06/02/24 00:15 Albuterol Sulfate (*Sp) Aerosol 1 Puff INHALATION Q4HRT PRN Shortness Of Breath Or Wheezing Chlordiazepoxide HCl 25 mg 06/02/24 14:53 06/02/24 20:28 Chlordiazepoxide (*Crx) 25 Mg Capsule PO 25 mg Q6H PRN Administration Withdrawal Cyanocobalamin 1,000 mcg 06/02/24 09:00 06/03/24 08:49 Cyanocobalamin 1,000 Mcg Tablet PO 07/02/24 08:59 1,000 mcg DAILY SRINIVASA Administration Folic Acid 1 mg 06/02/24 09:00 06/03/24 08:49 Folic Acid 1 Mg Tablet PO 1 mg DAILY SRINIVASA Administration Gabapentin 300 mg 06/02/24 09:00 06/03/24 16:46 Gabapentin 300 Mg Capsule PO 300 mg QID SRINIVASA Administration Albumin Human 100 mls @ 60 mls/hr 06/03/24 17:00 06/03/24 16:46 Albutein IVPB 06/03/24 22:39 60 mls/hr Q2H SRINIVASA Administration Lorazepam 2 mg 06/02/24 14:53 Lorazepam Inj (*Crx) 2 Mg/Ml Vial IV PUSH Q2H PRN CIWA > 15 Metoprolol Tartrate 12.5 mg 06/02/24 09:00 06/03/24 08:49 Metoprolol Tartrate 12.5 Mg Tablet PO 12.5 mg Q12HR SRINIVASA Administration Ondansetron HCl 4 mg 06/02/24 14:35 06/02/24 15:10 Ondansetron Hcl Odt 4 Mg Tablet PO 4 mg Q6H PRN Administration Nausea And Vomiting Pantoprazole Sodium 40 mg 06/02/24 09:00 06/03/24 08:53 Pantoprazole Sodium Iv 40 Mg Vial IV PUSH 40 mg Q12HR SRINIVASA Administration Fluticasone/Salmeterol 2 puff 06/03/24 20:00 Fluticasone/Salmeterol 115-21 Mcg Inhaler 1 Puff INHALATION Q12HRT SRINIVASA Thiamine HCl 100 mg 06/02/24 09:00 06/03/24 08:49 Thiamine Hcl 100 Mg Tablet PO 100 mg DAILY SRINIVASA Administration Tramadol HCl 50 mg 06/02/24 00:15 06/02/24 12:29 Tramadol Hcl (*Crx) 50 Mg Tablet PO 50 mg Q8H PRN Administration Pain (Scale Score 4-6) Venlafaxine HCl 37.5 mg 06/02/24 21:00 06/02/24 20:26 Venlafaxine Hcl Xr 37.5 Mg Cap PO 37.5 mg HS SRINIVASA Administration Radiology Results: ITS Impressions Chest X-Ray 06/01/24 21:06 IMPRESSION: 1. Discoid atelectasis/scarring present along one of the major fissures, unclear whether left or right-sided no other acute cardiopulmonary disease. Vascular Ultrasound 06/02/24 11:59 IMPRESSION: The portal vein (and left hepatic vein) demonstrates reversal of flow, without a filling defect to suggest thrombus. Nodular contour to the liver with marked splenomegaly, consistent with patient's history of cirrhosis. Layering sludge within an otherwise unremarkable gallbladder Labs Labs: Laboratory Results - last 24 hr 06/01/24 06/03/24 06/03/24 22:11 00:09 04:34 WBC 2.6 L RBC 1.76 L Hgb 6.5 L* Hct 19.2 L* MCV 109.1 H MCH 36.9 H MCHC 33.9 RDW TNP Plt Count 42 L MPV 11.6 H Immature Gran % (Auto) 1.1 H Neut % (Auto) 46.4 Lymph % (Auto) 32.6 [place] % (Auto) 17.2 H Eos % (Auto) 1.9 Baso % (Auto) 0.8 Lymph # (Auto) 0.85 L [place] # (Auto) 0.5 Eos # (Auto) 0.1 Baso # (Auto) 0.0 Abs Immat Gran (auto) 0.03 Absolute Neuts (auto) 1.2 L Absolute Nucleated RBC 0.020 H Nucleated RBC % 0.8 H Platelet Estimate Decreased % Immature Plt Fraction 8.9 Anisocytosis 1+ Macrocytosis 1+ Mg Cells 1+ Schistocytes Rare Sodium 133 L Potassium 4.1 Chloride 105 Carbon Dioxide 22 Anion Gap 6 BUN 34 H Creatinine 1.20 H Estim Creat Clear Calc 58 Estimated GFR 57 L Glucose 91 POC Capillary Glucose 113 H Calcium 8.5 Phosphorus 3.5 Magnesium 1.2 L Total Bilirubin 10.4 H AST 63 H ALT 33 Alkaline Phosphatase 98 Total Protein 8.0 Albumin 3.2 L Blood Type B Positive Antibody Screen Negative Crossmatch See Detail
[2024-06-03 18:46] LABS: Hematocrit 21.3 % (37.0-47.0); Hemoglobin 7.4 g/dL (12.0-15.0)
[2024-06-03] MEDS: VENLAFAXINE HCL XR 37.5 MG CAP PO (20:25)
[2024-06-03] MEDS: FLUTICASONE/SALMETEROL 115-21 MCG INHALER 1 PUFF 2 PUFF INHALATION (20:39)
[2024-06-04] VITALS (21 sets, daily range): BP systolic 112–138; BP diastolic 47–52; PULSE 61–87; RESP 18–24; TEMP 36.4–36.9; O2SAT 92–100
[2024-06-04 01:08] LABS: Hemoglobin 7.2 g/dL (12.0-15.0)
[2024-06-04 01:09] LABS: Hematocrit 20.6 % (37.0-47.0)
[2024-06-04 05:10] LABS: Eosinophils Percent Auto 0.7 % (0-4.4); Immature Granulocyte Absolute 0.05 K/mm3 (0.00-0.031); Immature Granulocyte Percent A 1.7 % (0-0.5); Immature Platelet Fraction Pct 7.2 % (0.9-11.2); Lymphocytes Absolute Auto 0.79 K/mm3 (0.9-3.2); Mean Corpuscular HGB Conc 34.7 g/dl (32-36); Mean Corpuscular Hemoglobin 36.6 pg (26-34); Mean Corpuscular Volume 105.8 fl (80-100); Mean Platelet Volume 11.9 fl (7.4-10.4); Monocytes Absolute Auto 0.4 K/mm3 (0.1-0.6); Neutrophils Absolute Auto 1.6 K/mm3 (1.3-6.7); Neutrophils Percent Auto 55.6 % (45.5-73.1); Red Blood Count 1.91 M/mm3 (4.2-5.4); White Blood Count 2.9 K/mm3 (4.5-10.0)
[2024-06-04 05:14] LABS: Hematocrit 20.2 % (37.0-47.0)
[2024-06-04 05:24] LABS: Alanine Aminotransferase 32 U/L (6-35); Albumin Level 3.6 g/dL (3.5-5.1); Alkaline Phosphatase 75 U/L (38-126); Anion Gap 9 mmol/L (4-12); Aspartate Amino Transferase 58 U/L (14-36); Bilirubin,Total 12.9 mg/dL (0.2-1.3); Blood Urea Nitrogen 29 mg/dL (7-17); Calcium 8.9 mg/dL (8.4-10.2); Carbon Dioxide 22 mmol/L (22-30); Chloride 105 mmol/L (98-107); Estimated CRCL calculation 76 ml/min; Estimated Glomerular Filt Rate > 60; Glucose 106 mg/dL (65-110); Magnesium 1.5 mg/dL (1.6-2.3); Phosphorus 3.1 mg/dL (2.5-4.5); Potassium 4.5 mmol/L (3.4-5.0); Sodium 136 mmol/L (137-145)
[2024-06-04 05:31] LABS: Platelet Count Result 41 k/mm3 (150-375)
[2024-06-04 05:32] LABS: Anisocytosis 1+; Hypochromasia 1+; Platelet Estimate Decreased (Adequate)
[2024-06-04 05:33] LABS: Burr Cells 1+; Macrocytosis 1+ (NORMAL); Schistocytes None Seen; Target Cells 1+
[2024-06-04] MEDS: FLUTICASONE/SALMETEROL 115-21 MCG INHALER 1 PUFF 2 PUFF INHALATION ×2 (06:56→20:58)
--- NOTE | 2024-06-04 07:11 | WPDGIPROGNO ---
Progress Note: A&P Assessment and Plan (1) Alcoholic hepatitis: Code(s): K70.10 - Alcoholic hepatitis without ascites Status: Acute Plan The patient's creatinine normalized with albumin administration. Given the severity of her picture (MELD > 20) corticosteroids are indicated. Prednisone 40 mg/d started. Will follow daily albumin, creatinine and INR to calculate Lille score at days 4 and 7 (best indicator of futility for steroids in alcoholic hepatitis). Will continue to follow. Subjective Date/time seen: 06/04/24 07:11 Objective Data Vital Signs Vital Signs: Vital Signs - 24 hr 06/03/24 07:45 06/03/24 08:28 06/03/24 08:49 Temperature 98.6 F 98.0 F Pulse Rate 70 70 70 Pulse Rate [Pedal (Dorsalis Pedis)] Respiratory Rate 16 18 Blood Pressure 109/45 L 112/46 L Pulse Oximetry 93 98 Oxygen Delivery 06/03/24 08:57 06/03/24 09:24 06/03/24 09:57 Temperature 98.0 F 97.8 F 98.0 F Pulse Rate 71 73 68 Pulse Rate [Pedal (Dorsalis Pedis)] Respiratory Rate 18 20 24 H Blood Pressure 111/49 L 109/72 107/47 L Pulse Oximetry 91 98 100 Oxygen Delivery 06/03/24 10:57 06/03/24 08:00 06/03/24 10:00 Temperature 98.2 F Pulse Rate 69 71 68 Pulse Rate [Pedal (Dorsalis Pedis)] Respiratory Rate 20 Blood Pressure 116/46 L Pulse Oximetry 94 Oxygen Delivery 06/03/24 11:58 06/03/24 12:00 06/03/24 15:49 Temperature 98.0 F 98.3 F Pulse Rate 69 68 76 Pulse Rate [Pedal (Dorsalis Pedis)] Respiratory Rate 20 20 Blood Pressure 114/45 L 129/54 L Pulse Oximetry 94 100 Oxygen Delivery 06/03/24 14:00 06/03/24 16:00 06/03/24 16:00 Temperature Pulse Rate 73 72 Pulse Rate [Pedal (Dorsalis Pedis)] 72 Respiratory Rate Blood Pressure Pulse Oximetry Oxygen Delivery 06/03/24 18:00 06/03/24 19:42 06/03/24 20:24 Temperature 98.2 F Pulse Rate 69 72 70 Pulse Rate [Pedal (Dorsalis Pedis)] Respiratory Rate 20 Blood Pressure 110/47 L Pulse Oximetry 95 Oxygen Delivery 06/03/24 20:00 06/03/24 20:00 06/03/24 20:00 Temperature Pulse Rate 69 Pulse Rate [Pedal (Dorsalis Pedis)] 73 Respiratory Rate Blood Pressure Pulse Oximetry Oxygen Delivery Room Air 06/04/24 00:07 06/04/24 00:00 06/04/24 00:00 Temperature 97.6 F Pulse Rate 87 Pulse Rate [Pedal (Dorsalis Pedis)] 77 Respiratory Rate 20 Blood Pressure 138/51 L Pulse Oximetry 98 Oxygen Delivery Room Air 06/04/24 00:00 06/04/24 04:00 06/04/24 04:00 Temperature Pulse Rate 77 Pulse Rate [Pedal (Dorsalis Pedis)] 74 Respiratory Rate Blood Pressure Pulse Oximetry Oxygen Delivery Room Air 06/04/24 05:26 06/04/24 04:00 Temperature 97.6 F Pulse Rate 75 76 Pulse Rate [Pedal (Dorsalis Pedis)] Respiratory Rate 20 Blood Pressure 118/47 L Pulse Oximetry 95 Oxygen Delivery Intake/Output Intake/Output: Intake & Output 06/01/24 06/02/24 06/03/24 06/04/24 23:59 23:59 23:59 23:59 Intake Total 1580 1548 100 Output Total 700 450 400 Balance 880 1098 -300 Meds/Results Medications: Active Medications Generic Name Dose Route Start Last Admin Trade Name Freq PRN Reason Stop Dose Admin Albuterol 1 puff 06/02/24 00:15 Albuterol Sulfate (*Sp) Aerosol 1 Puff INHALATION Q4HRT PRN Shortness Of Breath Or Wheezing Chlordiazepoxide HCl 25 mg 06/02/24 14:53 06/02/24 20:28 Chlordiazepoxide (*Crx) 25 Mg Capsule PO 25 mg Q6H PRN Administration Withdrawal Cyanocobalamin 1,000 mcg 06/02/24 09:00 06/03/24 08:49 Cyanocobalamin 1,000 Mcg Tablet PO 07/02/24 08:59 1,000 mcg DAILY SRINIVASA Administration Folic Acid 1 mg 06/02/24 09:00 06/03/24 08:49 Folic Acid 1 Mg Tablet PO 1 mg DAILY SRINIVASA Administration Gabapentin 300 mg 06/02/24 09:00 06/03/24 20:25 Gabapentin 300 Mg Capsule PO 300 mg QID SRINIVASA Administration Lorazepam 2 mg 06/02/24 14:53 Lorazepam Inj (*Crx) 2 Mg/Ml Vial IV PUSH Q2H PRN CIWA > 15 Metoprolol Tartrate 12.5 mg 06/02/24 09:00 06/03/24 20:24 Metoprolol Tartrate 12.5 Mg Tablet PO 12.5 mg Q12HR SRINIVASA Administration Ondansetron HCl 4 mg 06/02/24 14:35 06/02/24 15:10 Ondansetron Hcl Odt 4 Mg Tablet PO 4 mg Q6H PRN Administration Nausea And Vomiting Pantoprazole Sodium 40 mg 06/02/24 09:00 06/03/24 20:26 Pantoprazole Sodium Iv 40 Mg Vial IV PUSH 40 mg Q12HR SRINIVASA Administration Fluticasone/Salmeterol 2 puff 06/03/24 20:00 06/04/24 06:56 Fluticasone/Salmeterol 115-21 Mcg Inhaler 1 Puff INHALATION 2 puff Q12HRT SRINIVASA Administration Thiamine HCl 100 mg 06/02/24 09:00 06/03/24 08:49 Thiamine Hcl 100 Mg Tablet PO 100 mg DAILY SRINIVASA Administration Tramadol HCl 50 mg 06/02/24 00:15 06/02/24 12:29 Tramadol Hcl (*Crx) 50 Mg Tablet PO 50 mg Q8H PRN Administration Pain (Scale Score 4-6) Venlafaxine HCl 37.5 mg 06/02/24 21:00 06/03/24 20:25 Venlafaxine Hcl Xr 37.5 Mg Cap PO 37.5 mg HS SRINIVASA Administration Radiology Results: ITS Impressions Chest X-Ray 06/01/24 21:06 IMPRESSION: 1. Discoid atelectasis/scarring present along one of the major fissures, unclear whether left or right-sided no other acute cardiopulmonary disease. Vascular Ultrasound 06/02/24 11:59 IMPRESSION: The portal vein (and left hepatic vein) demonstrates reversal of flow, without a filling defect to suggest thrombus. Nodular contour to the liver with marked splenomegaly, consistent with patient's history of cirrhosis. Layering sludge within an otherwise unremarkable gallbladder Labs Labs: Laboratory Results - last 24 hr 06/01/24 06/03/24 06/04/24 22:11 18:38 00:53 WBC RBC Hgb 7.4 L 7.2 L Hct 21.3 L 20.6 L* MCV MCH MCHC RDW Plt Count MPV Immature Gran % (Auto) Neut % (Auto) Lymph % (Auto) [place] % (Auto) Eos % (Auto) Baso % (Auto) Lymph # (Auto) [place] # (Auto) Eos # (Auto) Baso # (Auto) Abs Immat Gran (auto) Absolute Neuts (auto) Absolute Nucleated RBC Nucleated RBC % Platelet Estimate % Immature Plt Fraction Hypochromasia Anisocytosis Macrocytosis Target Cells [place] Cells Schistocytes Sodium Potassium Chloride Carbon Dioxide Anion Gap BUN Creatinine Estim Creat Clear Calc Estimated GFR Glucose Calcium Phosphorus Magnesium Total Bilirubin AST ALT Alkaline Phosphatase Total Protein Albumin Blood Type B Positive Antibody Screen Negative Crossmatch See Detail 06/04/24 04:32 WBC 2.9 L RBC 1.91 L Hgb 7.0 L Hct 20.2 L* MCV 105.8 H MCH 36.6 H MCHC 34.7 RDW TNP Plt Count 41 L MPV 11.9 H Immature Gran % (Auto) 1.7 H Neut % (Auto) 55.6 Lymph % (Auto) 27.0 [place] % (Auto) 14.0 H Eos % (Auto) 0.7 Baso % (Auto) 1.0 Lymph # (Auto) 0.79 L [place] # (Auto) 0.4 Eos # (Auto) 0.0 Baso # (Auto) 0.0 Abs Immat Gran (auto) 0.05 H Absolute Neuts (auto) 1.6 Absolute Nucleated RBC 0.000 Nucleated RBC % 0.0 Platelet Estimate Decreased % Immature Plt Fraction 7.2 Hypochromasia 1+ Anisocytosis 1+ Macrocytosis 1+ Target Cells 1+ Mg Cells 1+ Schistocytes None seen Sodium 136 L Potassium 4.5 Chloride 105 Carbon Dioxide 22 Anion Gap 9 BUN 29 H Creatinine 0.90 Estim Creat Clear Calc 76 Estimated GFR > 60 Glucose 106 Calcium 8.9 Phosphorus 3.1 Magnesium 1.5 L Total Bilirubin 12.9 H AST 58 H ALT 32 Alkaline Phosphatase 75 Total Protein 8.0 Albumin 3.6 Blood Type Antibody Screen Crossmatch
[2024-06-04] MEDS: MAGNESIUM SULF 2 GM/WATER 50ML 2 GM/50 ML BAG IVPB (08:30)
[2024-06-04] MEDS: PANTOPRAZOLE SODIUM IV 40 MG VIAL IV PUSH ×2 (08:31→20:41)
[2024-06-04] MEDS: FOLIC ACID 1 MG TABLET PO (08:31)
[2024-06-04] MEDS: METOPROLOL TARTRATE 12.5 MG TABLET PO ×2 (08:31→20:41)
[2024-06-04] MEDS: THIAMINE HCL 100 MG TABLET PO (08:31)
[2024-06-04] MEDS: GABAPENTIN 300 MG CAPSULE PO ×3 (08:31→17:23)
[2024-06-04] MEDS: CYANOCOBALAMIN 1,000 MCG TABLET 1000 MCG PO (08:31)
[2024-06-04] MEDS: predniSONE 20 MG TABLET 40 MG PO (08:32)
[2024-06-04 08:44] LABS: Prothrombin Time 31.7 Seconds (11.1-14.7)
[2024-06-04 08:47] LABS: Alanine Aminotransferase 31 U/L (6-35); Albumin Level 3.5 g/dL (3.5-5.1); Alkaline Phosphatase 70 U/L (38-126); Anion Gap 10 mmol/L (4-12); Aspartate Amino Transferase 57 U/L (14-36); Bilirubin,Total 12.9 mg/dL (0.2-1.3); Blood Urea Nitrogen 30 mg/dL (7-17); Calcium 8.9 mg/dL (8.4-10.2); Carbon Dioxide 21 mmol/L (22-30); Chloride 108 mmol/L (98-107); Estimated CRCL calculation 84 ml/min; Estimated Glomerular Filt Rate > 60; Glucose 98 mg/dL (65-110); Potassium 4.5 mmol/L (3.4-5.0); Sodium 139 mmol/L (137-145)
[2024-06-04 12:52] LABS: Ammonia 98 umol/L (9-30)
--- NOTE | 2024-06-04 14:40 | P.PNIM_ITS ---
Progress Note: A&P Assessment and Plan (1) Acute on chronic anemia: Code(s): D64.9 - Anemia, unspecified Status: Acute Assessment and Plan: Patient presents with dizziness and found to have Hgb 6.3. She denies any acute blood loss. Rectal exam in ED showing heme positive stools. She has chronic anemia with Hgb running in 8 range. Suspect acute blood loss with underlying chronic anemia from her cirrhosis. She was transfused 2U PRBCs 06/02. GI consulted. Hgb climbed to 7.3 but now back down to 6.5 and received 1U PRBC on 06/03. Anemia possibly related to thrombocytopenia with small serosal bleeding and also with mild epistaxis. Continue PPI. Monitor HH and transfuse as needed. GI following (2) Alcoholic cirrhosis: Qualifiers: Ascites presence: unspecified Qualified Code(s): K70.30 - Alcoholic cirrhosis of liver without ascites Code(s): K70.30 - Alcoholic cirrhosis of liver without ascites Status: Acute Assessment and Plan: LFTs noted. TB 8.3. Plt count chronically low at 40-50K range (In Sep, plt count 50-60K range). INR 2.6. Albumin 3.2. She is current with [facility]. MELD 32 on admission. Vascular US showing portal vein (and left hepatic vein) demonstrating reversal of flow, without a filling defect to suggest thrombus. Also with nodular contour to the liver with marked splenomegaly, consistent with patient's history of cirrhosis. Layering sludge within an otherwise unremarkable gallbladder. GI following. Concern for acute alcoholic hepatitis with AST 2x >ALT and elevated INR, bili and ferritin but with leukopenia which may be her baseline. Steroids started. Alcohol cessation is extremely important Advance diet? (3) WILLY (acute kidney injury): Code(s): N17.9 - Acute kidney failure, unspecified Status: Acute Assessment and Plan: Patient has a normal baseline Cr. Cr was 2.1 on admission. She states her doctor just increased her Lasix and Spironolactone a few days prior to admission. She also had metabolic acidosis but potassium was okay. Could be related to dehydration and/or meds and/or HoTN (causing the dizziness). Consider hepatorenal syndrome as well. Cr better at 0.9 with IV fluids, albumin and blood transfusion. Potassium remains normal and metabolic acidosis resolved. Follow. (4) Pancytopenia: Code(s): D61.818 - Other pancytopenia Status: Acute Assessment and Plan: Patient with leukopenia on admission at 3300 and has remained low. This has been noted intermittently in the past. 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 Anemia as addressed above. Thrombocytopenia is chronic and slightly worse here. Baseline 50-60K earlier this years. Currently plt count running 40-50K range. 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 Follow counts and transfuse as needed (5) Alcohol dependence: Qualifiers: Substance use status: alcohol-induced mood disorder Qualified Code(s): F10.24 - Alcohol dependence with alcohol-induced mood disorder Code(s): F10.20 - Alcohol dependence, uncomplicated Status: Acute Assessment and Plan: Patient continues to drink alcholol. She denies hx of withdrawals. CIWA running 1-7 range over the past 24 hours. Ativan and Librium available as needed for elevated CIWA but only has had one dose of librium on 06/02 Having hallucinations this morning and mildly confused. Also with asterixis. Ammonia level 98. Continue Thiamine and Folate. Last BM 06/02. Add lactulose to treat hepatic encephalopathy. Stop benzodiazepines. (6) Chronic obstructive pulmonary disease: Code(s): J44.9 - Chronic obstructive pulmonary disease, unspecified Status: Acute Assessment and Plan: Stable. Not actively wheezing Continue Advair (7) Tobacco dependence: Code(s): F17.200 - Nicotine dependence, unspecified, uncomplicated Status: Acute Assessment and Plan: Patieint was educated about the benefits of smoking cessation. Plan DVT prophylaxis - SCDs. Code status - full Diet - clear liquids; advance per GI instructions Subjective Date/time seen: 06/04/24 14:40 Interval history: 53yo female with alcohol abuse, tobacco abuse, cirrhosis, COPD, and DM here for dizziness. No abdominal pain. No n/v. no CP or SOB. Has blood when blows nose. Not been out of bed much. RN sates patient was having hallucinations earlier this morning but patient denies. She is mostly oriented and RN states this is improved. Exam Narrative: AF 98.5 124/50 78 20 100% ra Gen - NARD Chest - L>R bibasilar inspiratory crackles. nml RR CV - RRR S1/S2. Tele showing no significant dysrhythmias. Abd - Soft, obese, hepatosplenomegaly Ext - no pedal edema Neuro - Alert, oriented x3 (not jesús name). +Asterixis. Skin - jaundiced. warm and dry. Objective Data Vital Signs Vital Signs: Vital Signs - 24 hr 06/03/24 15:49 06/03/24 16:00 06/03/24 16:00 Temperature 98.3 F Pulse Rate 76 72 Pulse Rate [Monitor] Pulse Rate [Pedal (Dorsalis Pedis)] 72 Respiratory Rate 20 Blood Pressure 129/54 L Pulse Oximetry 100 Oxygen Delivery 06/03/24 18:00 06/03/24 19:42 06/03/24 20:24 Temperature 98.2 F Pulse Rate 69 72 70 Pulse Rate [Monitor] Pulse Rate [Pedal (Dorsalis Pedis)] Respiratory Rate 20 Blood Pressure 110/47 L Pulse Oximetry 95 Oxygen Delivery 06/03/24 20:00 06/03/24 20:00 06/03/24 20:00 Temperature Pulse Rate 69 Pulse Rate [Monitor] Pulse Rate [Pedal (Dorsalis Pedis)] 73 Respiratory Rate Blood Pressure Pulse Oximetry Oxygen Delivery Room Air 06/04/24 00:07 06/04/24 00:00 06/04/24 00:00 Temperature 97.6 F Pulse Rate 87 Pulse Rate [Monitor] Pulse Rate [Pedal (Dorsalis Pedis)] 77 Respiratory Rate 20 Blood Pressure 138/51 L Pulse Oximetry 98 Oxygen Delivery Room Air 06/04/24 00:00 06/04/24 04:00 06/04/24 04:00 Temperature Pulse Rate 77 Pulse Rate [Monitor] Pulse Rate [Pedal (Dorsalis Pedis)] 74 Respiratory Rate Blood Pressure Pulse Oximetry Oxygen Delivery Room Air 06/04/24 05:26 06/04/24 04:00 06/04/24 06:58 Temperature 97.6 F Pulse Rate 75 76 76 Pulse Rate [Monitor] Pulse Rate [Pedal (Dorsalis Pedis)] Respiratory Rate 20 18 Blood Pressure 118/47 L Pulse Oximetry 95 95 Oxygen Delivery Room Air 06/04/24 06:58 06/04/24 07:32 06/04/24 08:00 Temperature 98.2 F Pulse Rate 76 79 Pulse Rate [Monitor] 79 Pulse Rate [Pedal (Dorsalis Pedis)] Respiratory Rate 18 24 H Blood Pressure 127/51 L Pulse Oximetry 95 Oxygen Delivery 06/04/24 08:31 06/04/24 08:00 06/04/24 08:00 Temperature Pulse Rate 80 78 Pulse Rate [Monitor] Pulse Rate [Pedal (Dorsalis Pedis)] Respiratory Rate Blood Pressure Pulse Oximetry Oxygen Delivery Room Air 06/04/24 11:02 06/04/24 10:00 06/04/24 11:38 Temperature 98.5 F Pulse Rate 66 63 Pulse Rate [Monitor] Pulse Rate [Pedal (Dorsalis Pedis)] Respiratory Rate 20 Blood Pressure 124/50 L Pulse Oximetry 100 Oxygen Delivery Room Air 06/04/24 12:00 06/04/24 12:00 06/04/24 13:40 Temperature Pulse Rate 78 Pulse Rate [Monitor] Pulse Rate [Pedal (Dorsalis Pedis)] Respiratory Rate Blood Pressure Pulse Oximetry Oxygen Delivery Room Air Room Air Intake/Output Intake/Output: Intake & Output 06/01/24 06/02/24 06/03/24 06/04/24 23:59 23:59 23:59 23:59 Intake Total 1580 1548 220 Output Total 700 450 400 Balance 880 1098 -180 Meds/Results Medications: Active Medications Generic Name Dose Route Start Last Admin Trade Name Freq PRN Reason Stop Dose Admin Albuterol 1 puff 06/02/24 00:15 Albuterol Sulfate (*Sp) Aerosol 1 Puff INHALATION Q4HRT PRN Shortness Of Breath Or Wheezing Chlordiazepoxide HCl 25 mg 06/02/24 14:53 06/02/24 20:28 Chlordiazepoxide (*Crx) 25 Mg Capsule PO 25 mg Q6H PRN Administration Withdrawal Cyanocobalamin 1,000 mcg 06/02/24 09:00 06/04/24 08:31 Cyanocobalamin 1,000 Mcg Tablet PO 07/02/24 08:59 1,000 mcg DAILY SRINIVASA Administration Folic Acid 1 mg 06/02/24 09:00 06/04/24 08:31 Folic Acid 1 Mg Tablet PO 1 mg DAILY SRINIVASA Administration Gabapentin 300 mg 06/02/24 09:00 06/04/24 12:55 Gabapentin 300 Mg Capsule PO 300 mg QID SRINIVASA Administration Lorazepam 2 mg 06/02/24 14:53 Lorazepam Inj (*Crx) 2 Mg/Ml Vial IV PUSH Q2H PRN CIWA > 15 Metoprolol Tartrate 12.5 mg 06/02/24 09:00 06/04/24 08:31 Metoprolol Tartrate 12.5 Mg Tablet PO 12.5 mg Q12HR SRINIVASA Administration Ondansetron HCl 4 mg 06/02/24 14:35 06/02/24 15:10 Ondansetron Hcl Odt 4 Mg Tablet PO 4 mg Q6H PRN Administration Nausea And Vomiting Pantoprazole Sodium 40 mg 06/02/24 09:00 06/04/24 08:31 Pantoprazole Sodium Iv 40 Mg Vial IV PUSH 40 mg Q12HR SRINIVASA Administration Prednisone 40 mg 06/04/24 08:00 06/04/24 08:32 Prednisone 20 Mg Tablet PO 40 mg DAILY@0800 SRINIVASA Administration Fluticasone/Salmeterol 2 puff 06/03/24 20:00 06/04/24 06:56 Fluticasone/Salmeterol 115-21 Mcg Inhaler 1 Puff INHALATION 2 puff Q12HRT SRINIVASA Administration Thiamine HCl 100 mg 06/02/24 09:00 06/04/24 08:31 Thiamine Hcl 100 Mg Tablet PO 100 mg DAILY SRINIVASA Administration Tramadol HCl 50 mg 06/02/24 00:15 06/02/24 12:29 Tramadol Hcl (*Crx) 50 Mg Tablet PO 50 mg Q8H PRN Administration Pain (Scale Score 4-6) Venlafaxine HCl 37.5 mg 06/02/24 21:00 06/03/24 20:25 Venlafaxine Hcl Xr 37.5 Mg Cap PO 37.5 mg HS SRINIVASA Administration Radiology Results: ITS Impressions Chest X-Ray 06/01/24 21:06 IMPRESSION: 1. Discoid atelectasis/scarring present along one of the major fissures, unclear whether left or right-sided no other acute cardiopulmonary disease. Vascular Ultrasound 06/02/24 11:59 IMPRESSION: The portal vein (and left hepatic vein) demonstrates reversal of flow, without a filling defect to suggest thrombus. Nodular contour to the liver with marked splenomegaly, consistent with patient's history of cirrhosis. Layering sludge within an otherwise unremarkable gallbladder Labs Labs: Laboratory Results - last 24 hr 06/03/24 06/04/24 06/04/24 18:38 00:53 04:32 WBC 2.9 L RBC 1.91 L Hgb 7.4 L 7.2 L 7.0 L Hct 21.3 L 20.6 L* 20.2 L* MCV 105.8 H MCH 36.6 H MCHC 34.7 RDW TNP Plt Count 41 L MPV 11.9 H Immature Gran % (Auto) 1.7 H Neut % (Auto) 55.6 Lymph % (Auto) 27.0 [place] % (Auto) 14.0 H Eos % (Auto) 0.7 Baso % (Auto) 1.0 Lymph # (Auto) 0.79 L [place] # (Auto) 0.4 Eos # (Auto) 0.0 Baso # (Auto) 0.0 Abs Immat Gran (auto) 0.05 H Absolute Neuts (auto) 1.6 Absolute Nucleated RBC 0.000 Nucleated RBC % 0.0 Platelet Estimate Decreased % Immature Plt Fraction 7.2 Hypochromasia 1+ Anisocytosis 1+ Macrocytosis 1+ Target Cells 1+ [place] Cells 1+ Schistocytes None seen PT INR Sodium 136 L Potassium 4.5 Chloride 105 Carbon Dioxide 22 Anion Gap 9 BUN 29 H Creatinine 0.90 Estim Creat Clear Calc 76 Estimated GFR > 60 Glucose 106 Calcium 8.9 Phosphorus 3.1 Magnesium 1.5 L Total Bilirubin 12.9 H AST 58 H ALT 32 Alkaline Phosphatase 75 Ammonia Total Protein 8.0 Albumin 3.6 06/04/24 06/04/24 08:22 12:31 WBC RBC Hgb Hct MCV MCH MCHC RDW Plt Count MPV Immature Gran % (Auto) Neut % (Auto) Lymph % (Auto) [place] % (Auto) Eos % (Auto) Baso % (Auto) Lymph # (Auto) [place] # (Auto) Eos # (Auto) Baso # (Auto) Abs Immat Gran (auto) Absolute Neuts (auto) Absolute Nucleated RBC Nucleated RBC % Platelet Estimate % Immature Plt Fraction Hypochromasia Anisocytosis Macrocytosis Target Cells Mg Cells Schistocytes PT 31.7 H INR 3.0 Sodium 139 Potassium 4.5 Chloride 108 H Carbon Dioxide 21 L Anion Gap 10 BUN 30 H Creatinine 0.80 Estim Creat Clear Calc 84 Estimated GFR > 60 Glucose 98 Calcium 8.9 Phosphorus Magnesium Total Bilirubin 12.9 H AST 57 H ALT 31 Alkaline Phosphatase 70 Ammonia 98 H Total Protein 8.0 Albumin 3.5
[2024-06-04] MEDS: LACTULOSE 20 GM/30 ML UDC PO (17:23)
[2024-06-04] MEDS: NICOTINE (*PBKC) 7 MG PATCH 1 PATCH TRANSDERM (17:57)
[2024-06-04] MEDS: VENLAFAXINE HCL XR 37.5 MG CAP PO (20:41)
[2024-06-05] VITALS (18 sets, daily range): BP systolic 90–127; BP diastolic 40–88; PULSE 64–105; RESP 16–24; TEMP 36.3–37.1; O2SAT 89–100
[2024-06-05 04:47] LABS: Basophils Percent Auto 0.3 % (0.2-1.2); Immature Granulocyte Absolute 0.04 K/mm3 (0.00-0.031); Immature Granulocyte Percent A 1.2 % (0-0.5); Lymphocytes Absolute Auto 0.46 K/mm3 (0.9-3.2); Lymphocytes Percent Auto 13.5 % (18.3-44.2); Mean Corpuscular HGB Conc 34.2 g/dl (32-36); Mean Corpuscular Hemoglobin 36.6 pg (26-34); Monocytes Absolute Auto 0.5 K/mm3 (0.1-0.6); Monocytes Percent Auto 13.7 % (2.6-8.5); Neutrophils Absolute Auto 2.4 K/mm3 (1.3-6.7); Neutrophils Percent Auto 71.3 % (45.5-73.1); Platelet Count Result 47 k/mm3 (150-375); Red Blood Count 1.86 M/mm3 (4.2-5.4); White Blood Count 3.4 K/mm3 (4.5-10.0)
[2024-06-05 04:53] LABS: Alanine Aminotransferase 34 U/L (6-35); Albumin Level 3.4 g/dL (3.5-5.1); Alkaline Phosphatase 65 U/L (38-126); Anion Gap 12 mmol/L (4-12); Aspartate Amino Transferase 60 U/L (14-36); Bilirubin,Total 12.9 mg/dL (0.2-1.3); Blood Urea Nitrogen 35 mg/dL (7-17); Calcium 9.4 mg/dL (8.4-10.2); Carbon Dioxide 20 mmol/L (22-30); Chloride 109 mmol/L (98-107); Estimated CRCL calculation 76 ml/min; Estimated Glomerular Filt Rate > 60; Glucose 123 mg/dL (65-110); Magnesium 1.7 mg/dL (1.6-2.3); Phosphorus 3.3 mg/dL (2.5-4.5); Potassium 4.7 mmol/L (3.4-5.0); Sodium 141 mmol/L (137-145)
[2024-06-05 05:14] LABS: Hematocrit 19.9 % (37.0-47.0); Hemoglobin 6.8 g/dL (12.0-15.0)
[2024-06-05 05:17] LABS: Anisocytosis 1+; Platelet Estimate Decreased (Adequate)
[2024-06-05 05:19] LABS: Hypochromasia 1+; Poikilocytosis 1+
[2024-06-05 05:20] LABS: Crenated RBC 1+; Schistocytes Rare
[2024-06-05] MEDS: FLUTICASONE/SALMETEROL 115-21 MCG INHALER 1 PUFF 2 PUFF INHALATION ×2 (07:40→20:34)
[2024-06-05] MEDS: LACTULOSE 20 GM/30 ML UDC PO ×2 (09:23→17:03)
[2024-06-05] MEDS: PANTOPRAZOLE SODIUM IV 40 MG VIAL IV PUSH (09:24)
[2024-06-05] MEDS: GABAPENTIN 300 MG CAPSULE PO ×4 (09:24→20:06)
[2024-06-05] MEDS: CYANOCOBALAMIN 1,000 MCG TABLET 1000 MCG PO (09:24)
[2024-06-05] MEDS: predniSONE 20 MG TABLET 40 MG PO (09:24)
[2024-06-05] MEDS: NICOTINE (*PBKC) 7 MG PATCH 1 PATCH TRANSDERM (09:24)
[2024-06-05] MEDS: THIAMINE HCL 100 MG TABLET PO (09:27)
[2024-06-05] MEDS: FOLIC ACID 1 MG TABLET PO (09:27)
--- NOTE | 2024-06-05 11:11 | WPDGIPROGNO ---
Progress Note: A&P Assessment and Plan (1) Pancytopenia: Code(s): D61.818 - Other pancytopenia Status: Acute (2) Alcohol use disorder: Status: Acute (3) Alcoholic liver disease: Code(s): K70.9 - Alcoholic liver disease, unspecified Status: Acute Assessment and Plan: The patient is in her 2nd day of prednisone 40 mg q.d. for the treatment of severe alcoholic hepatitis. She continues to have extremely low hemoglobin levels in the absence of overt GI bleeding although she is still heme-positive. However, her extremely low platelets are a contraindication for endoscopy or colonoscopy at this point, unless there is gross evidence of GI bleeding, in which case she might need platelet transfusion. We will obtain a new set of labs to calculate the [place] score on Friday, which will be day 4 to decide about continuation or stopping prednisone. Patient is currently getting a unit of packed red blood cells. Subjective Date/time seen: 06/05/24 11:11 Objective Data Vital Signs Vital Signs: Vital Signs - 24 hr 06/04/24 11:38 06/04/24 12:00 06/04/24 12:00 Temperature 98.5 F Pulse Rate 63 78 Respiratory Rate 20 Blood Pressure 124/50 L Pulse Oximetry 100 Oxygen Delivery Room Air 06/04/24 13:40 06/04/24 15:45 06/04/24 14:00 Temperature 98.3 F Pulse Rate 69 68 Respiratory Rate 24 H Blood Pressure 112/47 L Pulse Oximetry 97 Oxygen Delivery Room Air 06/04/24 16:00 06/04/24 18:00 06/04/24 16:00 Temperature Pulse Rate 67 71 Respiratory Rate Blood Pressure Pulse Oximetry Oxygen Delivery Room Air 06/04/24 20:00 06/04/24 20:41 06/04/24 21:01 Temperature Pulse Rate 68 71 75 Respiratory Rate 18 Blood Pressure Pulse Oximetry Oxygen Delivery 06/04/24 21:08 06/04/24 20:20 06/04/24 22:00 Temperature 98.2 F Pulse Rate 70 61 Respiratory Rate 24 H Blood Pressure 120/52 L Pulse Oximetry 100 Oxygen Delivery Room Air 06/04/24 23:18 06/04/24 23:26 06/05/24 00:00 Temperature 98.1 F Pulse Rate 65 65 Respiratory Rate 24 H Blood Pressure 114/51 L Pulse Oximetry 92 Oxygen Delivery Room Air 06/05/24 02:00 06/05/24 04:00 06/05/24 04:39 Temperature 97.6 F Pulse Rate 70 74 Respiratory Rate 24 H Blood Pressure 127/88 Pulse Oximetry 93 Oxygen Delivery Room Air 06/05/24 04:00 06/05/24 06:00 06/05/24 08:00 Temperature Pulse Rate 69 72 72 Respiratory Rate Blood Pressure Pulse Oximetry Oxygen Delivery 06/05/24 08:00 06/05/24 09:04 06/05/24 08:00 Temperature 97.9 F 97.9 F Pulse Rate 65 65 Respiratory Rate 24 H 20 Blood Pressure 90/40 L 102/47 L Pulse Oximetry 94 91 Oxygen Delivery Room Air 06/05/24 09:24 Temperature 97.4 F L Pulse Rate 67 Respiratory Rate 16 Blood Pressure 104/46 L Pulse Oximetry 89 L Oxygen Delivery Intake/Output Intake/Output: Intake & Output 06/02/24 06/03/24 06/04/24 06/05/24 23:59 23:59 23:59 23:59 Intake Total 1580 1548 420 Output Total 700 450 901 150 Balance 880 1098 -481 -150 Meds/Results Medications: Active Medications Generic Name Dose Route Start Last Admin Trade Name Freq PRN Reason Stop Dose Admin Albuterol 1 puff 06/02/24 00:15 Albuterol Sulfate (*Sp) Aerosol 1 Puff INHALATION Q4HRT PRN Shortness Of Breath Or Wheezing Cyanocobalamin 1,000 mcg 06/02/24 09:00 06/05/24 09:24 Cyanocobalamin 1,000 Mcg Tablet PO 07/02/24 08:59 1,000 mcg DAILY SRINIVASA Administration Folic Acid 1 mg 06/02/24 09:00 06/05/24 09:27 Folic Acid 1 Mg Tablet PO 1 mg DAILY SRINIVASA Administration Gabapentin 300 mg 06/02/24 09:00 06/05/24 09:24 Gabapentin 300 Mg Capsule PO 300 mg QID SRINIVASA Administration Sodium Chloride 250 mls @ 30 mls/hr 06/05/24 05:26 06/05/24 09:22 Normal Saline Iv IV CONT 06/05/24 13:45 Not Given .Q8H20M STA Lactulose 20 gm 06/04/24 17:00 06/05/24 09:23 Lactulose 20 Gm/30 Ml Udc PO 20 gm BID SRINIVASA Administration Metoprolol Tartrate 12.5 mg 06/02/24 09:00 06/04/24 20:41 Metoprolol Tartrate 12.5 Mg Tablet PO 12.5 mg Q12HR SRINIVASA Administration Nicotine 1 patch 06/04/24 17:42 06/05/24 09:24 Nicotine (*Pbkc) 7 Mg Patch TRANSDERM 1 patch DAILY SRINIVASA Administration Ondansetron HCl 4 mg 06/02/24 14:35 06/02/24 15:10 Ondansetron Hcl Odt 4 Mg Tablet PO 4 mg Q6H PRN Administration Nausea And Vomiting Pantoprazole Sodium 40 mg 06/05/24 09:00 06/05/24 09:24 Pantoprazole Sodium Iv 40 Mg Vial IV PUSH 40 mg Q12HR SRINIVASA Administration Prednisone 40 mg 06/04/24 08:00 06/05/24 09:24 Prednisone 20 Mg Tablet PO 40 mg DAILY@0800 SRINIVASA Administration Fluticasone/Salmeterol 2 puff 06/03/24 20:00 06/05/24 07:40 Fluticasone/Salmeterol 115-21 Mcg Inhaler 1 Puff INHALATION 2 puff Q12HRT SRINIVASA Administration Thiamine HCl 100 mg 06/02/24 09:00 06/05/24 09:27 Thiamine Hcl 100 Mg Tablet PO 100 mg DAILY SRINIVASA Administration Tramadol HCl 50 mg 06/02/24 00:15 06/02/24 12:29 Tramadol Hcl (*Crx) 50 Mg Tablet PO 50 mg Q8H PRN Administration Pain (Scale Score 4-6) Venlafaxine HCl 37.5 mg 06/02/24 21:00 06/04/24 20:41 Venlafaxine Hcl Xr 37.5 Mg Cap PO 37.5 mg HS SRINIVASA Administration Radiology Results: ITS Impressions Chest X-Ray 06/01/24 21:06 IMPRESSION: 1. Discoid atelectasis/scarring present along one of the major fissures, unclear whether left or right-sided no other acute cardiopulmonary disease. Vascular Ultrasound 06/02/24 11:59 IMPRESSION: The portal vein (and left hepatic vein) demonstrates reversal of flow, without a filling defect to suggest thrombus. Nodular contour to the liver with marked splenomegaly, consistent with patient's history of cirrhosis. Layering sludge within an otherwise unremarkable gallbladder Labs Labs: Laboratory Results - last 24 hr 06/01/24 06/04/24 06/05/24 22:11 12:31 04:20 WBC 3.4 L RBC 1.86 L Hgb 6.8 L* Hct 19.9 L* MCV 107.0 H MCH 36.6 H MCHC 34.2 RDW TNP Plt Count 47 L MPV 12.0 H Immature Gran % (Auto) 1.2 H Neut % (Auto) 71.3 Lymph % (Auto) 13.5 L [place] % (Auto) 13.7 H Eos % (Auto) 0.0 Baso % (Auto) 0.3 Lymph # (Auto) 0.46 L [place] # (Auto) 0.5 Eos # (Auto) 0.0 Baso # (Auto) 0.0 Abs Immat Gran (auto) 0.04 H Absolute Neuts (auto) 2.4 Absolute Nucleated RBC 0.000 Nucleated RBC % 0.0 Platelet Estimate Decreased % Immature Plt Fraction 8.0 Hypochromasia 1+ Poikilocytosis 1+ Anisocytosis 1+ Crenated Cell 1+ Schistocytes Rare Sodium 141 Potassium 4.7 Chloride 109 H Carbon Dioxide 20 L Anion Gap 12 BUN 35 H Creatinine 0.90 Estim Creat Clear Calc 76 Estimated GFR > 60 Glucose 123 H Calcium 9.4 Phosphorus 3.3 Magnesium 1.7 Total Bilirubin 12.9 H AST 60 H ALT 34 Alkaline Phosphatase 65 Ammonia 98 H Total Protein 8.0 Albumin 3.4 L Blood Type Antibody Screen Crossmatch See Detail 06/05/24 05:41 WBC RBC Hgb Hct MCV MCH MCHC RDW Plt Count MPV Immature Gran % (Auto) Neut % (Auto) Lymph % (Auto) [place] % (Auto) Eos % (Auto) Baso % (Auto) Lymph # (Auto) [place] # (Auto) Eos # (Auto) Baso # (Auto) Abs Immat Gran (auto) Absolute Neuts (auto) Absolute Nucleated RBC Nucleated RBC % Platelet Estimate % Immature Plt Fraction Hypochromasia Poikilocytosis Anisocytosis Crenated Cell Schistocytes Sodium Potassium Chloride Carbon Dioxide Anion Gap BUN Creatinine Estim Creat Clear Calc Estimated GFR Glucose Calcium Phosphorus Magnesium Total Bilirubin AST ALT Alkaline Phosphatase Ammonia Total Protein Albumin Blood Type B Positive Antibody Screen Negative Crossmatch See Detail
--- NOTE | 2024-06-05 15:34 | P.PNIM_ITS ---
Progress Note: A&P Assessment and Plan (1) Acute on chronic anemia: Code(s): D64.9 - Anemia, unspecified Status: Acute Assessment and Plan: Patient presents with dizziness and found to have Hgb 6.3. She denies any acute blood loss. Rectal exam in ED showing heme positive stools. She has chronic anemia with Hgb running in 8 range. Suspect acute blood loss with underlying chronic anemia from her cirrhosis/hypersplenism. Acute anemia possibly related to thrombocytopenia with small serosal bleeding and/or alcoholic gastritis and/or PUD; she also has mild epistaxis but don't feel contributing to her anemia. Consider hemolysis with rare schistocytes seen but Ab screen negative She was transfused 2U PRBCs 06/02. GI consulted. Hgb climbed to 7.3 but now back down to 6.5 and received 1U PRBC on 06/03. Hgb up to 7.4 but dropped again to 6.8 this morning. Transfused her 4th unit today Discussed with GI. [place] less likely GI bleed and more concerning for BM pathology causing the acute anemia. Will cut Protonix to daily use. Monitor HH and transfuse as needed. Consult Hematology Also okay to advance diet (2) Alcoholic cirrhosis: Qualifiers: Ascites presence: unspecified Qualified Code(s): K70.30 - Alcoholic cirrhosis of liver without ascites Code(s): K70.30 - Alcoholic cirrhosis of liver without ascites Status: Acute Assessment and Plan: LFTs noted. TB 8.3. Plt count chronically low at 40-50K range (In Fe, plt count 50-60K range). INR 2.6. Albumin 3.2. She is current with [facility]. MELD 32 on admission. Vascular US showing portal vein (and left hepatic vein) demonstrating reversal of flow, without a filling defect to suggest thrombus. Also with nodular contour to the liver with marked splenomegaly, consistent with patient's history of cirrhosis. Layering sludge within an otherwise unremarkable gallbladder. GI following. Concern for acute alcoholic hepatitis with AST 2x >ALT and elevated INR, bili and ferritin but with leukopenia which may be her baseline. Steroids started. Alcohol cessation is extremely important Advance diet (3) WILLY (acute kidney injury): Code(s): N17.9 - Acute kidney failure, unspecified Status: Acute Assessment and Plan: Patient has a normal baseline Cr. Cr was 2.1 on admission. She states her doctor just increased her Lasix and Spironolactone a few days prior to admission. She also had metabolic acidosis but potassium was okay. WILLY could be related to dehydration and/or meds and/or HoTN (causing the dizziness). Consider hepatorenal syndrome as well. Cr better at 0.9 with IV fluids, albumin and blood transfusion. Potassium remains normal and metabolic acidosis resolved. Resume lasix and follow closely. Follow. (4) Pancytopenia: Code(s): D61.818 - Other pancytopenia Status: Acute Assessment and Plan: Patient with leukopenia on admission at 3300 and has remained low. This has been noted intermittently in the past. [place] related to cirrhosis and hypersplenism. Anemia as addressed above. Thrombocytopenia is chronic and slightly worse here. Baseline 50-60K earlier this year. Currently plt count running 40-50K range and stable. Related to hypersplenism mostly but consider BM pathology. Follow counts and transfuse as needed. Hematology consult (5) Alcohol dependence: Qualifiers: Substance use status: alcohol-induced mood disorder Qualified Code(s): F10.24 - Alcohol dependence with alcohol-induced mood disorder Code(s): F10.20 - Alcohol dependence, uncomplicated Status: Acute Assessment and Plan: Patient continues to drink alcholol. She denies hx of withdrawals. CIWA running low so protocol stopped. Ativan and Librium was available as needed for elevated CIWA and only required one dose of librium on 06/02 She was having hallucinations and was mildly confused. Also with asterixis. Ammonia level 98. Suspected hepatic encephalopathy and less likely withdrawal. Lactulose started with benefit. Confusion better today. Continue Thiamine and Folate. (6) Chronic obstructive pulmonary disease: Code(s): J44.9 - Chronic obstructive pulmonary disease, unspecified Status: Acute Assessment and Plan: Stable. Not actively wheezing Continue Advair (7) Tobacco dependence: Code(s): F17.200 - Nicotine dependence, unspecified, uncomplicated Status: Acute Assessment and Plan: Patieint was educated about the benefits of smoking cessation. Plan DVT prophylaxis - SCDs. Code status - full Subjective Date/time seen: 06/05/24 15:34 Interval history: 53yo female with alcohol abuse, tobacco abuse, cirrhosis, COPD, and DM here for dizziness. Having BMs now. Feels less confused today. Still weak and needing assistance when getting up to the chair. No epistaxis. No Cp or abd pain. No sob. Exam Narrative: AF 98.0 112/61 71 16 100% ra Gen - NARD Chest - bibasilar inspiratory crackles with expiratory rhonchi. nml RR CV - RRR S1/S2. Tele showing no significant dysrhythmias. Abd - Soft, obese, hepatosplenomegaly Ext - trace-1+ pedal edema Neuro - AOx4. Skin - jaundiced. warm and dry. Objective Data Vital Signs Vital Signs: Vital Signs - 24 hr 06/04/24 15:45 06/04/24 16:00 06/04/24 18:00 Temperature 98.3 F Pulse Rate 69 67 71 Respiratory Rate 24 H Blood Pressure 112/47 L Pulse Oximetry 97 Oxygen Delivery 06/04/24 16:00 06/04/24 20:00 06/04/24 20:41 Temperature Pulse Rate 68 71 Respiratory Rate Blood Pressure Pulse Oximetry Oxygen Delivery Room Air 06/04/24 21:01 06/04/24 21:08 06/04/24 20:20 Temperature 98.2 F Pulse Rate 75 70 Respiratory Rate 18 24 H Blood Pressure 120/52 L Pulse Oximetry 100 Oxygen Delivery Room Air 06/04/24 22:00 06/04/24 23:18 06/04/24 23:26 Temperature 98.1 F Pulse Rate 61 65 Respiratory Rate 24 H Blood Pressure 114/51 L Pulse Oximetry 92 Oxygen Delivery Room Air 06/05/24 00:00 06/05/24 02:00 06/05/24 04:00 Temperature Pulse Rate 65 70 Respiratory Rate Blood Pressure Pulse Oximetry Oxygen Delivery Room Air 06/05/24 04:39 06/05/24 04:00 06/05/24 06:00 Temperature 97.6 F Pulse Rate 74 69 72 Respiratory Rate 24 H Blood Pressure 127/88 Pulse Oximetry 93 Oxygen Delivery 06/05/24 08:00 06/05/24 08:00 06/05/24 09:04 Temperature 97.9 F 97.9 F Pulse Rate 72 65 65 Respiratory Rate 24 H 20 Blood Pressure 90/40 L 102/47 L Pulse Oximetry 94 91 Oxygen Delivery 06/05/24 08:00 06/05/24 09:24 06/05/24 10:24 Temperature 97.4 F L 98.5 F Pulse Rate 67 64 Respiratory Rate 16 18 Blood Pressure 104/46 L 95/46 L Pulse Oximetry 89 L 100 Oxygen Delivery Room Air 06/05/24 11:24 06/05/24 12:00 06/05/24 12:00 Temperature 98.7 F 97.5 F L Pulse Rate 67 71 105 H Respiratory Rate 18 18 Blood Pressure 102/49 L 105/45 L Pulse Oximetry 98 95 Oxygen Delivery 06/05/24 12:20 Temperature 98 F Pulse Rate 71 Respiratory Rate 16 Blood Pressure 112/61 Pulse Oximetry 100 Oxygen Delivery Intake/Output Intake/Output: Intake & Output 06/02/24 06/03/24 06/04/24 06/05/24 23:59 23:59 23:59 23:59 Intake Total 1580 1548 420 590 Output Total 700 450 901 150 Balance 880 1098 -481 440 Meds/Results Medications: Active Medications Generic Name Dose Route Start Last Admin Trade Name Freq PRN Reason Stop Dose Admin Albuterol 1 puff 06/02/24 00:15 Albuterol Sulfate (*Sp) Aerosol 1 Puff INHALATION Q4HRT PRN Shortness Of Breath Or Wheezing Cyanocobalamin 1,000 mcg 06/02/24 09:00 06/05/24 09:24 Cyanocobalamin 1,000 Mcg Tablet PO 07/02/24 08:59 1,000 mcg DAILY SRINIVASA Administration Folic Acid 1 mg 06/02/24 09:00 06/05/24 09:27 Folic Acid 1 Mg Tablet PO 1 mg DAILY SRINIVASA Administration Gabapentin 300 mg 06/02/24 09:00 06/05/24 12:50 Gabapentin 300 Mg Capsule PO 300 mg QID SRINIVASA Administration Lactulose 20 gm 06/04/24 17:00 06/05/24 09:23 Lactulose 20 Gm/30 Ml Udc PO 20 gm BID SRINIVASA Administration Metoprolol Tartrate 12.5 mg 06/02/24 09:00 06/05/24 09:00 Metoprolol Tartrate 12.5 Mg Tablet PO Not Given Q12HR SRINIVASA Nicotine 1 patch 06/04/24 17:42 06/05/24 09:24 Nicotine (*Pbkc) 7 Mg Patch TRANSDERM 1 patch DAILY SRINIVASA Administration Ondansetron HCl 4 mg 06/02/24 14:35 06/02/24 15:10 Ondansetron Hcl Odt 4 Mg Tablet PO 4 mg Q6H PRN Administration Nausea And Vomiting Pantoprazole Sodium 40 mg 06/05/24 09:00 06/05/24 09:24 Pantoprazole Sodium Iv 40 Mg Vial IV PUSH 40 mg Q12HR SRINIVASA Administration Prednisone 40 mg 06/04/24 08:00 06/05/24 09:24 Prednisone 20 Mg Tablet PO 40 mg DAILY@0800 SRINIVASA Administration Fluticasone/Salmeterol 2 puff 06/03/24 20:00 06/05/24 07:40 Fluticasone/Salmeterol 115-21 Mcg Inhaler 1 Puff INHALATION 2 puff Q12HRT SRINIVASA Administration Thiamine HCl 100 mg 06/02/24 09:00 06/05/24 09:27 Thiamine Hcl 100 Mg Tablet PO 100 mg DAILY SRINIVASA Administration Tramadol HCl 50 mg 06/02/24 00:15 06/02/24 12:29 Tramadol Hcl (*Crx) 50 Mg Tablet PO 50 mg Q8H PRN Administration Pain (Scale Score 4-6) Venlafaxine HCl 37.5 mg 06/02/24 21:00 06/04/24 20:41 Venlafaxine Hcl Xr 37.5 Mg Cap PO 37.5 mg HS SRINIVASA Administration Radiology Results: ITS Impressions Chest X-Ray 06/01/24 21:06 IMPRESSION: 1. Discoid atelectasis/scarring present along one of the major fissures, unclear whether left or right-sided no other acute cardiopulmonary disease. Vascular Ultrasound 06/02/24 11:59 IMPRESSION: The portal vein (and left hepatic vein) demonstrates reversal of flow, without a filling defect to suggest thrombus. Nodular contour to the liver with marked splenomegaly, consistent with patient's history of cirrhosis. Layering sludge within an otherwise unremarkable gallbladder Labs Labs: Laboratory Results - last 24 hr 06/01/24 06/05/24 06/05/24 22:11 04:20 05:41 WBC 3.4 L RBC 1.86 L Hgb 6.8 L* Hct 19.9 L* MCV 107.0 H MCH 36.6 H MCHC 34.2 RDW TNP Plt Count 47 L MPV 12.0 H Immature Gran % (Auto) 1.2 H Neut % (Auto) 71.3 Lymph % (Auto) 13.5 L [place] % (Auto) 13.7 H Eos % (Auto) 0.0 Baso % (Auto) 0.3 Lymph # (Auto) 0.46 L [place] # (Auto) 0.5 Eos # (Auto) 0.0 Baso # (Auto) 0.0 Abs Immat Gran (auto) 0.04 H Absolute Neuts (auto) 2.4 Absolute Nucleated RBC 0.000 Nucleated RBC % 0.0 Platelet Estimate Decreased % Immature Plt Fraction 8.0 Hypochromasia 1+ Poikilocytosis 1+ Anisocytosis 1+ Crenated Cell 1+ Schistocytes Rare Sodium 141 Potassium 4.7 Chloride 109 H Carbon Dioxide 20 L Anion Gap 12 BUN 35 H Creatinine 0.90 Estim Creat Clear Calc 76 Estimated GFR > 60 Glucose 123 H Calcium 9.4 Phosphorus 3.3 Magnesium 1.7 Total Bilirubin 12.9 H AST 60 H ALT 34 Alkaline Phosphatase 65 Total Protein 8.0 Albumin 3.4 L Blood Type B Positive Antibody Screen Negative Crossmatch See Detail See Detail
[2024-06-05] MEDS: FUROSEMIDE 20 MG TABLET PO (17:03)
[2024-06-05] MEDS: VENLAFAXINE HCL XR 37.5 MG CAP PO (20:06)
[2024-06-06] VITALS (20 sets, daily range): BP systolic 107–121; BP diastolic 45–58; PULSE 67–79; RESP 16–20; TEMP 36.4–37.3; O2SAT 95–100
[2024-06-06 05:01] LABS: Basophils Percent Auto 0.3 % (0.2-1.2); Hematocrit 22.6 % (37.0-47.0); Hemoglobin 7.8 g/dL (12.0-15.0); Immature Granulocyte Absolute 0.04 K/mm3 (0.00-0.031); Immature Granulocyte Percent A 1.2 % (0-0.5); Lymphocytes Absolute Auto 0.36 K/mm3 (0.9-3.2); Lymphocytes Percent Auto 10.8 % (18.3-44.2); Mean Corpuscular HGB Conc 34.5 g/dl (32-36); Mean Corpuscular Hemoglobin 35.9 pg (26-34); Mean Corpuscular Volume 104.1 fl (80-100); Mean Platelet Volume 11.7 fl (7.4-10.4); Monocytes Absolute Auto 0.4 K/mm3 (0.1-0.6); Monocytes Percent Auto 12.3 % (2.6-8.5); Neutrophils Absolute Auto 2.5 K/mm3 (1.3-6.7); Neutrophils Percent Auto 75.4 % (45.5-73.1); Platelet Count Result 41 k/mm3 (150-375); Red Blood Count 2.17 M/mm3 (4.2-5.4); Red Cell Distribution Width 26.8 % (11.5-14.5); White Blood Count 3.3 K/mm3 (4.5-10.0)
[2024-06-06 05:14] LABS: Alanine Aminotransferase 43 U/L (6-35); Albumin Level 3.5 g/dL (3.5-5.1); Alkaline Phosphatase 65 U/L (38-126); Anion Gap 13 mmol/L (4-12); Aspartate Amino Transferase 63 U/L (14-36); Bilirubin,Total 11.8 mg/dL (0.2-1.3); Blood Urea Nitrogen 33 mg/dL (7-17); Calcium 9.5 mg/dL (8.4-10.2); Carbon Dioxide 19 mmol/L (22-30); Chloride 109 mmol/L (98-107); Estimated CRCL calculation 76 ml/min; Estimated Glomerular Filt Rate > 60; Glucose 133 mg/dL (65-110); Lactate Dehydrogenase 195 U/L (120-246); Magnesium 1.6 mg/dL (1.6-2.3); Phosphorus 3.9 mg/dL (2.5-4.5); Potassium 4.6 mmol/L (3.4-5.0); Sodium 141 mmol/L (137-145)
[2024-06-06 05:25] LABS: Platelet Estimate Decreased (Adequate)
[2024-06-06 05:28] LABS: Anisocytosis 1+; Hypochromasia 1+; Poikilocytosis 1+
[2024-06-06 05:29] LABS: Acanthocytes 1+; Macrocytosis 1+ (NORMAL); Schistocytes Rare
[2024-06-06] MEDS: FLUTICASONE/SALMETEROL 115-21 MCG INHALER 1 PUFF 2 PUFF INHALATION ×2 (07:32→19:43)
[2024-06-06] MEDS: NICOTINE (*PBKC) 7 MG PATCH 1 PATCH TRANSDERM (08:42)
[2024-06-06] MEDS: LACTULOSE 20 GM/30 ML UDC PO ×2 (08:42→17:05)
[2024-06-06] MEDS: PANTOPRAZOLE SODIUM IV 40 MG VIAL IV PUSH (08:43)
[2024-06-06] MEDS: predniSONE 20 MG TABLET 40 MG PO (08:44)
[2024-06-06] MEDS: FOLIC ACID 1 MG TABLET PO (08:44)
[2024-06-06] MEDS: CYANOCOBALAMIN 1,000 MCG TABLET 1000 MCG PO (08:44)
[2024-06-06] MEDS: METOPROLOL TARTRATE 12.5 MG TABLET PO ×2 (08:45→20:07)
[2024-06-06] MEDS: FUROSEMIDE 20 MG TABLET PO (08:45)
[2024-06-06] MEDS: GABAPENTIN 300 MG CAPSULE PO ×4 (08:45→20:07)
[2024-06-06] MEDS: THIAMINE HCL 100 MG TABLET PO (08:45)
--- NOTE | 2024-06-06 16:21 | PM.IMPN ---
Progress Note: A&P Assessment and Plan (1) Acute on chronic anemia: Code(s): D64.9 - Anemia, unspecified Status: Acute Assessment and Plan: Patient presents with dizziness and found to have Hgb 6.3. She denies any acute blood loss. Rectal exam in ED showing heme positive stools. She has chronic anemia with Hgb running in 8 range. Suspect acute blood loss with underlying chronic anemia from her cirrhosis/hypersplenism. Acute anemia possibly related to thrombocytopenia with small serosal bleeding and/or alcoholic gastritis and/or PUD; she also has mild epistaxis but don't feel contributing to her anemia. Consider hemolysis with rare schistocytes seen but Ab screen negative. GI consulted. She was transfused 2U PRBCs 06/02. Hgb climbed to 7.3 but now back down to 6.5 and received 1U PRBC on 06/03. Hgb up to 7.4 but dropped again to 6.8 this morning. Transfused her 4th unit yesterday. Hgb back up to 7.8 Discussed with GI: felt less likely GI bleed and more concerning for BM pathology causing the acute anemia. GI feels the risk of PPI too high for patient with cirrhosis and recommends stopping PPI altogether. Will stop Protonix per gi recommendations. Monitor HH and transfuse as needed. Hematology consulted. (2) Alcoholic cirrhosis: Qualifiers: Ascites presence: unspecified Qualified Code(s): K70.30 - Alcoholic cirrhosis of liver without ascites Code(s): K70.30 - Alcoholic cirrhosis of liver without ascites Status: Acute Assessment and Plan: LFTs noted. TB 8.3. Plt count chronically low at 40-50K range (In Sep, plt count 50-60K range). INR 2.6. Albumin 3.2. She is current with [facility]. MELD 32 on admission. Vascular US showing portal vein (and left hepatic vein) demonstrating reversal of flow, without a filling defect to suggest thrombus. Also with nodular contour to the liver with marked splenomegaly, consistent with patient's history of cirrhosis. Layering sludge within an otherwise unremarkable gallbladder. GI following. Concern for acute alcoholic hepatitis with AST 2x >ALT and elevated INR, bili and ferritin but with leukopenia which may be her baseline. Steroids started. Alcohol cessation is extremely important Advance diet (3) WILLY (acute kidney injury): Code(s): N17.9 - Acute kidney failure, unspecified Status: Acute Assessment and Plan: Patient has a normal baseline Cr (0.7-0.9 earlier this year). Cr was 2.1 on admission. She states her doctor just increased her Lasix and Spironolactone a few days prior to admission. She also had metabolic acidosis but potassium was okay. WILLY could be related to dehydration and/or meds and/or HoTN (causing the dizziness). Consider hepatorenal syndrome as well. Cr better at 0.9 with IV fluids, albumin and blood transfusion. Potassium remains normal and metabolic acidosis resolved. Resumed lasix at low dose but GI recommends starting Spironolactone first so will stop Lasix and start Spironolactone 50mg daily per their recommendation. (BP soft so will start out at 25mg and advance as tolerated) Continue to follow Cr, potassium closely. Spirono can also affect plt so monitor this as well. (4) Pancytopenia: Code(s): D61.818 - Other pancytopenia Status: Acute Assessment and Plan: Patient with leukopenia on admission at 3300 and has remained low. This has been noted intermittently in the past. [place] related to cirrhosis and hypersplenism. Anemia as addressed above. Thrombocytopenia is chronic and slightly worse here. Baseline 50-60K earlier this year. Currently plt count running 40-50K range and stable. Related to hypersplenism mostly but consider BM pathology. Follow counts and transfuse as needed. Hematology consulted (5) Alcohol dependence: Qualifiers: Substance use status: alcohol-induced mood disorder Qualified Code(s): F10.24 - Alcohol dependence with alcohol-induced mood disorder Code(s): F10.20 - Alcohol dependence, uncomplicated Status: Acute Assessment and Plan: Patient continues to drink alcholol. She denies hx of withdrawals. CIWA protocol started but scores were running low so protocol stopped. Ativan and Librium was available as needed for elevated CIWA and only required one dose of librium on 06/02. She was having hallucinations and was mildly confused. Also with asterixis. Ammonia level 98. Suspected hepatic encephalopathy and less likely withdrawal. Lactulose started with benefit. Confusion better Continue Thiamine and Folate. Continue Lactulose (6) Chronic obstructive pulmonary disease: Code(s): J44.9 - Chronic obstructive pulmonary disease, unspecified Status: Acute Assessment and Plan: Stable. Not actively wheezing Continue Advair (7) Tobacco dependence: Code(s): F17.200 - Nicotine dependence, unspecified, uncomplicated Status: Acute Assessment and Plan: Patieint was educated about the benefits of smoking cessation. Plan DVT prophylaxis - SCDs. Code status - full Subjective Date/time seen: 06/06/24 16:21 Interval history: 53yo female with alcohol abuse, tobacco abuse, cirrhosis, COPD, and DM here for dizziness. Feeling well. No problems overnight. No CP. no obvious blood loss. No epistaxis. Feels leg edema better. Exam Narrative: AF 98.1 121/58 72 20 98% ra Gen - NARD Chest - scattered expiratory rhonchi. nml RR CV - RRR S1/S2. Tele showing no significant dysrhythmias. Abd - Soft, obese, NT Ext - trace pedal edema Neuro - Alert and appropriate Skin - jaundiced. warm and dry. Objective Data Vital Signs Vital Signs: Vital Signs - 24 hr 06/05/24 18:00 06/05/24 20:00 06/05/24 20:00 Temperature 98.2 F Pulse Rate 67 70 Respiratory Rate 18 Blood Pressure 104/48 L Pulse Oximetry 100 Oxygen Delivery Room Air Fraction of Inspired Oxygen 06/05/24 20:00 06/05/24 21:59 06/06/24 00:00 Temperature Pulse Rate 70 71 Respiratory Rate Blood Pressure Pulse Oximetry Oxygen Delivery Room Air Fraction of Inspired Oxygen 06/06/24 00:00 06/06/24 00:00 06/06/24 02:00 Temperature 98.1 F Pulse Rate 74 74 76 Respiratory Rate 20 Blood Pressure 121/54 L Pulse Oximetry 100 Oxygen Delivery Fraction of Inspired Oxygen 06/06/24 04:00 06/06/24 04:00 06/06/24 04:00 Temperature 98.2 F Pulse Rate 75 76 Respiratory Rate 16 Blood Pressure 117/57 L Pulse Oximetry 100 Oxygen Delivery Room Air Fraction of Inspired Oxygen 06/06/24 06:00 06/06/24 07:32 06/06/24 07:33 Temperature 97.6 F Pulse Rate 74 74 Respiratory Rate 20 Blood Pressure 107/54 L Pulse Oximetry 98 99 Oxygen Delivery Room Air Fraction of Inspired Oxygen 21 06/06/24 08:45 06/06/24 08:00 06/06/24 10:00 Temperature Pulse Rate 77 77 71 Respiratory Rate Blood Pressure Pulse Oximetry Oxygen Delivery Fraction of Inspired Oxygen 06/06/24 12:16 06/06/24 12:00 06/06/24 14:00 Temperature 97.9 F Pulse Rate 67 67 69 Respiratory Rate 18 Blood Pressure 109/55 L Pulse Oximetry 98 Oxygen Delivery Fraction of Inspired Oxygen 06/06/24 15:31 06/06/24 16:00 Temperature 98.1 F Pulse Rate 70 72 Respiratory Rate 20 Blood Pressure 121/58 L Pulse Oximetry Oxygen Delivery Fraction of Inspired Oxygen Intake/Output Intake/Output: Intake & Output 06/03/24 06/04/24 06/05/24 06/06/24 23:59 23:59 23:59 23:59 Intake Total 5343 234 9986 970 Output Total 450 901 450 600 Balance 1098 -481 1100 370 Meds/Results Medications: Active Medications Generic Name Dose Route Start Last Admin Trade Name Freq PRN Reason Stop Dose Admin Albuterol 1 puff 06/02/24 00:15 Albuterol Sulfate (*Sp) Aerosol 1 Puff INHALATION Q4HRT PRN Shortness Of Breath Or Wheezing Cyanocobalamin 1,000 mcg 06/02/24 09:00 06/06/24 08:44 Cyanocobalamin 1,000 Mcg Tablet PO 07/02/24 08:59 1,000 mcg DAILY SRINIVASA Administration Folic Acid 1 mg 06/02/24 09:00 06/06/24 08:44 Folic Acid 1 Mg Tablet PO 1 mg DAILY SRINIVASA Administration Furosemide 20 mg 06/05/24 17:00 06/06/24 08:45 Furosemide 20 Mg Tablet PO 20 mg BID SRINIVASA Administration Gabapentin 300 mg 06/02/24 09:00 06/06/24 12:16 Gabapentin 300 Mg Capsule PO 300 mg QID SRINIVASA Administration Lactulose 20 gm 06/04/24 17:00 06/06/24 08:42 Lactulose 20 Gm/30 Ml Udc PO 20 gm BID SRINIVASA Administration Metoprolol Tartrate 12.5 mg 06/02/24 09:00 06/06/24 08:45 Metoprolol Tartrate 12.5 Mg Tablet PO 12.5 mg Q12HR SRINIVASA Administration Nicotine 1 patch 06/04/24 17:42 06/06/24 08:42 Nicotine (*Pbkc) 7 Mg Patch TRANSDERM 1 patch DAILY SRINIVASA Administration Ondansetron HCl 4 mg 06/02/24 14:35 06/02/24 15:10 Ondansetron Hcl Odt 4 Mg Tablet PO 4 mg Q6H PRN Administration Nausea And Vomiting Pantoprazole Sodium 40 mg 06/06/24 09:00 06/06/24 08:43 Pantoprazole Sodium Iv 40 Mg Vial IV PUSH 40 mg QAM SRINIVASA Administration Prednisone 40 mg 06/04/24 08:00 06/06/24 08:44 Prednisone 20 Mg Tablet PO 40 mg DAILY@0800 SRINIVASA Administration Fluticasone/Salmeterol 2 puff 06/03/24 20:00 06/06/24 07:32 Fluticasone/Salmeterol 115-21 Mcg Inhaler 1 Puff INHALATION 2 puff Q12HRT SRINIVASA Administration Thiamine HCl 100 mg 06/02/24 09:00 06/06/24 08:45 Thiamine Hcl 100 Mg Tablet PO 100 mg DAILY SRINIVASA Administration Tramadol HCl 50 mg 06/02/24 00:15 06/02/24 12:29 Tramadol Hcl (*Crx) 50 Mg Tablet PO 50 mg Q8H PRN Administration Pain (Scale Score 4-6) Venlafaxine HCl 37.5 mg 06/02/24 21:00 06/05/24 20:06 Venlafaxine Hcl Xr 37.5 Mg Cap PO 37.5 mg HS SRINIVASA Administration Radiology Results: ITS Impressions Chest X-Ray 06/01/24 21:06 IMPRESSION: 1. Discoid atelectasis/scarring present along one of the major fissures, unclear whether left or right-sided no other acute cardiopulmonary disease. Vascular Ultrasound 06/02/24 11:59 IMPRESSION: The portal vein (and left hepatic vein) demonstrates reversal of flow, without a filling defect to suggest thrombus. Nodular contour to the liver with marked splenomegaly, consistent with patient's history of cirrhosis. Layering sludge within an otherwise unremarkable gallbladder Labs Labs: Laboratory Results - last 24 hr 06/06/24 04:20 WBC 3.3 L RBC 2.17 L Hgb 7.8 L Hct 22.6 L MCV 104.1 H MCH 35.9 H MCHC 34.5 RDW 26.8 H Plt Count 41 L MPV 11.7 H Immature Gran % (Auto) 1.2 H Neut % (Auto) 75.4 H Lymph % (Auto) 10.8 L [place] % (Auto) 12.3 H Eos % (Auto) 0.0 Baso % (Auto) 0.3 Lymph # (Auto) 0.36 L [place] # (Auto) 0.4 Eos # (Auto) 0.0 Baso # (Auto) 0.0 Abs Immat Gran (auto) 0.04 H Absolute Neuts (auto) 2.5 Absolute Nucleated RBC 0.000 Nucleated RBC % 0.0 Platelet Estimate Decreased % Immature Plt Fraction 7.0 Hypochromasia 1+ Poikilocytosis 1+ Anisocytosis 1+ Macrocytosis 1+ Acanthocytes (Sp[place]) 1+ Schistocytes Rare Sodium 141 Potassium 4.6 Chloride 109 H Carbon Dioxide 19 L Anion Gap 13 H BUN 33 H Creatinine 0.90 Estim Creat Clear Calc 76 Estimated GFR > 60 Glucose 133 H Calcium 9.5 Phosphorus 3.9 Magnesium 1.6 Total Bilirubin 11.8 H AST 63 H ALT 43 H Alkaline Phosphatase 65 Lactate Dehydrogenase 195 Total Protein 8.0 Albumin 3.5
[2024-06-06] MEDS: VENLAFAXINE HCL XR 37.5 MG CAP PO (20:07)
[2024-06-07] VITALS (16 sets, daily range): BP systolic 104–119; BP diastolic 41–60; PULSE 57–78; RESP 16–20; TEMP 36.4–37.1; O2SAT 96–100
--- NOTE | 2024-06-07 02:38 | PC.NURSE ---
Opal Leyva RN took over care of this patient at 1900 on 06/06/24
[2024-06-07 05:01] LABS: Basophils Percent Auto 0.2 % (0.2-1.2); Eosinophils Percent Auto 0.2 % (0-4.4); Hematocrit 22.3 % (37.0-47.0); Hemoglobin 7.8 g/dL (12.0-15.0); Immature Granulocyte Absolute 0.08 K/mm3 (0.00-0.031); Immature Platelet Fraction Pct 7.8 % (0.9-11.2); Lymphocytes Percent Auto 12.5 % (18.3-44.2); Mean Corpuscular Hemoglobin 36.4 pg (26-34); Mean Corpuscular Volume 104.2 fl (80-100); Mean Platelet Volume 11.7 fl (7.4-10.4); Monocytes Absolute Auto 0.5 K/mm3 (0.1-0.6); Monocytes Percent Auto 12.5 % (2.6-8.5); Neutrophils Absolute Auto 2.9 K/mm3 (1.3-6.7); Neutrophils Percent Auto 72.6 % (45.5-73.1); Platelet Count Result 40 k/mm3 (150-375); Red Blood Count 2.14 M/mm3 (4.2-5.4); Red Cell Distribution Width 26.5 % (11.5-14.5)
[2024-06-07 05:14] LABS: Alanine Aminotransferase 55 U/L (6-35); Albumin Level 3.3 g/dL (3.5-5.1); Alkaline Phosphatase 81 U/L (38-126); Anion Gap 10 mmol/L (4-12); Aspartate Amino Transferase 72 U/L (14-36); Bilirubin,Total 11.1 mg/dL (0.2-1.3); Blood Urea Nitrogen 28 mg/dL (7-17); Calcium 9.5 mg/dL (8.4-10.2); Carbon Dioxide 21 mmol/L (22-30); Chloride 108 mmol/L (98-107); Estimated CRCL calculation 76 ml/min; Estimated Glomerular Filt Rate > 60; Glucose 179 mg/dL (65-110); Potassium 4.2 mmol/L (3.4-5.0); Sodium 139 mmol/L (137-145)
[2024-06-07 05:28] LABS: Anisocytosis 1+; Platelet Estimate Decreased (Adequate); Poikilocytosis 1+
[2024-06-07 05:29] LABS: Schistocytes Rare
[2024-06-07 05:30] LABS: Crenated RBC 1+
[2024-06-07 05:52] LABS: Prothrombin Time 31.5 Seconds (11.1-14.7)
[2024-06-07] MEDS: FLUTICASONE/SALMETEROL 115-21 MCG INHALER 1 PUFF 2 PUFF INHALATION ×2 (06:57→21:34)
[2024-06-07] MEDS: CYANOCOBALAMIN 1,000 MCG TABLET 1000 MCG PO (09:35)
[2024-06-07] MEDS: METOPROLOL TARTRATE 12.5 MG TABLET PO ×2 (09:35→20:48)
[2024-06-07] MEDS: GABAPENTIN 300 MG CAPSULE PO ×4 (09:35→20:47)
[2024-06-07] MEDS: FOLIC ACID 1 MG TABLET PO (09:35)
[2024-06-07] MEDS: predniSONE 20 MG TABLET 40 MG PO (09:35)
[2024-06-07] MEDS: THIAMINE HCL 100 MG TABLET PO (09:35)
[2024-06-07] MEDS: SPIRONOLACTONE 25 MG TABLET PO (09:35)
[2024-06-07] MEDS: LACTULOSE 20 GM/30 ML UDC PO ×2 (09:36→16:46)
[2024-06-07] MEDS: NICOTINE (*PBKC) 7 MG PATCH 1 PATCH TRANSDERM (09:36)
[2024-06-07] MEDS: ACETAMINOPHEN 325 MG TABLET 650 MG PO (10:53)
--- NOTE | 2024-06-07 11:30 | PCOTNOTE ---
Patient stated she can not participate at this time. Patint states she is still getting rid of her nose bleed and must stay still so it doesn't start again. Patient declined therapy this A.M.
--- NOTE | 2024-06-07 14:04 | P.PNIM_ITS ---
Progress Note: A&P Assessment and Plan (1) Acute on chronic anemia: Code(s): D64.9 - Anemia, unspecified Status: Acute Assessment and Plan: Patient presents with dizziness and found to have Hgb 6.3. She denies any acute blood loss. Rectal exam in ED showing heme positive stools. She has chronic anemia with Hgb running in 8 range. Suspect acute blood loss with underlying chronic anemia from her cirrhosis/hypersplenism. Acute anemia possibly related to thrombocytopenia with small serosal bleeding and/or alcoholic gastritis and/or PUD; she also has mild epistaxis but don't feel contributing to her anemia. Consider hemolysis with rare schistocytes seen but Ab screen negative. GI consulted. She was transfused 2U PRBCs 06/02. Hgb climbed to 7.3 but now back down to 6.5 and received 1U PRBC on 06/03. Hgb up to 7.4 but dropped again to 6.8 this morning. Transfused her 4th unit yesterday. Hgb back up to 7.8 and stable Discussed with GI: felt less likely GI bleed and more concerning for BM pathology causing the acute anemia. GI feels the risk of PPI too high for patient with cirrhosis and recommends stopping PPI altogether. PPI stopped 06/06. Monitor HH and transfuse as needed. Hematology consulted. GI recommended GCSF treatment. (2) Alcoholic cirrhosis: Qualifiers: Ascites presence: unspecified Qualified Code(s): K70.30 - Alcoholic cirrhosis of liver without ascites Code(s): K70.30 - Alcoholic cirrhosis of liver without ascites Status: Acute Assessment and Plan: LFTs noted. TB 8.3. Plt count chronically low at 40-50K range (In Sep, plt count 50-60K range). INR 2.6. Albumin 3.2. She is current with [facility]. MELD 32 on admission. Vascular US showing portal vein (and left hepatic vein) demonstrating reversal of flow, without a filling defect to suggest thrombus. Also with nodular contour to the liver with marked splenomegaly, consistent with patient's history of cirrhosis. Layering sludge within an otherwise unremarkable gallbladder. GI following. Concern for acute alcoholic hepatitis with AST 2x >ALT and elevated INR, bili and ferritin but with leukopenia which may be her baseline. Steroids started. Follow-up MELD 28 and Lille 0.19 showing some improvement wit steroids. Alcohol cessation is extremely important. Continue Steroids. (3) WILLY (acute kidney injury): Code(s): N17.9 - Acute kidney failure, unspecified Status: Acute Assessment and Plan: Patient has a normal baseline Cr (0.7-0.9 earlier this year). Cr was 2.1 on admission. She states her doctor just increased her Lasix and Spironolactone a few days prior to admission. She also had metabolic acidosis but potassium was okay. WILLY could be related to dehydration and/or meds and/or HoTN (causing the dizziness). Consider hepatorenal syndrome as well. Cr better at 0.9 with IV fluids, albumin and blood transfusion. Potassium remains normal and metabolic acidosis resolved. Resumed lasix at low dose but GI recommends starting Spironolactone first so Lasix stopped and Spironolactone 25mg started Continue to follow Cr, potassium closely. Spirono can also affect plt so monitor this as well. Advance to 50mg if labs remain stable (4) Pancytopenia: Code(s): D61.818 - Other pancytopenia Status: Acute Assessment and Plan: Patient with leukopenia on admission at 3300 and has remained low. This has been noted intermittently in the past. [place] related to cirrhosis and hypersplenism. Anemia as addressed above. Thrombocytopenia is chronic and slightly worse here. Baseline 50-60K earlier this year. Currently plt count running 40-50K range and stable. Related to hypersplenism mostly but consider BM pathology. Follow counts and transfuse as needed. Hematology consulted (5) Alcohol dependence: Qualifiers: Substance use status: alcohol-induced mood disorder Qualified Code(s): F10.24 - Alcohol dependence with alcohol-induced mood disorder Code(s): F10.20 - Alcohol dependence, uncomplicated Status: Acute Assessment and Plan: Patient continues to drink alcholol. She denies hx of withdrawals. CIWA protocol started but scores were running low so protocol stopped. Ativan and Librium was available as needed for elevated CIWA and only required one dose of librium on 06/02. She was having hallucinations and was mildly confused. Also with asterixis. Ammonia level 98. Suspected hepatic encephalopathy and less likely withdrawal. Lactulose started with benefit. Confusion better Continue Thiamine and Folate. Continue Lactulose (6) Chronic obstructive pulmonary disease: Code(s): J44.9 - Chronic obstructive pulmonary disease, unspecified Status: Acute Assessment and Plan: Stable. Not actively wheezing Continue Advair (7) Tobacco dependence: Code(s): F17.200 - Nicotine dependence, unspecified, uncomplicated Status: Acute Assessment and Plan: Patieint was educated about the benefits of smoking cessation. Plan DVT prophylaxis - SCDs. Code status - full Subjective Date/time seen: 06/07/24 14:04 Interval history: 53yo female with alcohol abuse, tobacco abuse, cirrhosis, COPD, and DM here for dizziness. No problems overnight. No dysuria or hematuria. No vaginal irritation. Not having periods. No CP or SOB. No abd pain. No back pain. Stands and walks to bedside commode. Exam Narrative: AF 98.1 121/58 72 20 98% ra Gen - NARD Chest - bibasilar crackles, nml RR CV - RRR S1/S2. Tele showing no significant dysrythmias Abd - Soft, obese, NT - Pure[employer] secured with blood tinged urine in canister. Ext - trace pedal edema Neuro - Alert and appropriate Skin - jaundiced. warm and dry. Objective Data Vital Signs Vital Signs: Vital Signs - 24 hr 06/06/24 15:31 06/06/24 16:00 06/06/24 18:00 Temperature 98.1 F Pulse Rate 70 72 72 Respiratory Rate 20 Blood Pressure 121/58 L Pulse Oximetry Oxygen Delivery 06/06/24 19:46 06/06/24 19:45 06/06/24 20:07 Temperature 99.1 F Pulse Rate 79 71 76 Respiratory Rate 18 18 Blood Pressure 116/45 L Pulse Oximetry 95 Oxygen Delivery 06/06/24 20:00 06/06/24 20:00 06/06/24 22:00 Temperature Pulse Rate 76 72 70 Respiratory Rate 18 Blood Pressure Pulse Oximetry 95 Oxygen Delivery Room Air 06/07/24 00:00 06/07/24 00:00 06/07/24 02:00 Temperature 98.7 F Pulse Rate 70 70 72 Respiratory Rate 18 Blood Pressure 107/49 L Pulse Oximetry 99 Oxygen Delivery 06/07/24 04:00 06/07/24 04:00 06/07/24 04:00 Temperature 98.1 F Pulse Rate 72 72 73 Respiratory Rate 18 20 Blood Pressure 113/57 L Pulse Oximetry 99 96 Oxygen Delivery Room Air 06/07/24 06:00 06/07/24 07:23 06/07/24 06:55 Temperature 98.3 F Pulse Rate 69 71 62 Respiratory Rate 18 18 Blood Pressure 110/54 L Pulse Oximetry 100 96 Oxygen Delivery Room Air 06/07/24 06:55 06/07/24 09:35 06/07/24 10:00 Temperature Pulse Rate 62 78 75 Respiratory Rate 18 Blood Pressure Pulse Oximetry Oxygen Delivery 06/07/24 11:44 Temperature 98.6 F Pulse Rate 77 Respiratory Rate 20 Blood Pressure 116/55 L Pulse Oximetry 99 Oxygen Delivery Intake/Output Intake/Output: Intake & Output 06/04/24 06/05/24 06/06/24 06/07/24 23:59 23:59 23:59 23:59 Intake Total 420 1550 1170 960 Output Total 773 723 8568 900 Balance -481 1100 70 60 Meds/Results Medications: Active Medications Generic Name Dose Route Start Last Admin Trade Name Freq PRN Reason Stop Dose Admin Albuterol 1 puff 06/02/24 00:15 Albuterol Sulfate (*Sp) Aerosol 1 Puff INHALATION Q4HRT PRN Shortness Of Breath Or Wheezing Cyanocobalamin 1,000 mcg 06/02/24 09:00 06/07/24 09:35 Cyanocobalamin 1,000 Mcg Tablet PO 07/02/24 08:59 1,000 mcg DAILY SRINIVASA Administration Folic Acid 1 mg 06/02/24 09:00 06/07/24 09:35 Folic Acid 1 Mg Tablet PO 1 mg DAILY SRINIVASA Administration Gabapentin 300 mg 06/02/24 09:00 06/07/24 12:38 Gabapentin 300 Mg Capsule PO 300 mg QID SRINIVASA Administration Lactulose 20 gm 06/04/24 17:00 06/07/24 09:36 Lactulose 20 Gm/30 Ml Udc PO 20 gm BID SRINIVASA Administration Metoprolol Tartrate 12.5 mg 06/02/24 09:00 06/07/24 09:35 Metoprolol Tartrate 12.5 Mg Tablet PO 12.5 mg Q12HR SRINIVASA Administration Nicotine 1 patch 06/04/24 17:42 06/07/24 09:36 Nicotine (*Pbkc) 7 Mg Patch TRANSDERM 1 patch DAILY SRINIVASA Administration Ondansetron HCl 4 mg 06/02/24 14:35 06/02/24 15:10 Ondansetron Hcl Odt 4 Mg Tablet PO 4 mg Q6H PRN Administration Nausea And Vomiting Prednisone 40 mg 06/04/24 08:00 06/07/24 09:35 Prednisone 20 Mg Tablet PO 40 mg DAILY@0800 SRINIVASA Administration Fluticasone/Salmeterol 2 puff 06/03/24 20:00 06/07/24 06:57 Fluticasone/Salmeterol 115-21 Mcg Inhaler 1 Puff INHALATION 2 puff Q12HRT SRINIVASA Administration Spironolactone 25 mg 06/07/24 09:00 06/07/24 09:35 Spironolactone 25 Mg Tablet PO 25 mg QAM SRINIVASA Administration Thiamine HCl 100 mg 06/02/24 09:00 06/07/24 09:35 Thiamine Hcl 100 Mg Tablet PO 100 mg DAILY SRINIVASA Administration Tramadol HCl 50 mg 06/02/24 00:15 06/02/24 12:29 Tramadol Hcl (*Crx) 50 Mg Tablet PO 50 mg Q8H PRN Administration Pain (Scale Score 4-6) Venlafaxine HCl 37.5 mg 06/02/24 21:00 06/06/24 20:07 Venlafaxine Hcl Xr 37.5 Mg Cap PO 37.5 mg HS SRINIVASA Administration Radiology Results: ITS Impressions Chest X-Ray 06/01/24 21:06 IMPRESSION: 1. Discoid atelectasis/scarring present along one of the major fissures, unclear whether left or right-sided no other acute cardiopulmonary disease. Vascular Ultrasound 06/02/24 11:59 IMPRESSION: The portal vein (and left hepatic vein) demonstrates reversal of flow, without a filling defect to suggest thrombus. Nodular contour to the liver with marked splenomegaly, consistent with patient's history of cirrhosis. Layering sludge within an otherwise unremarkable gallbladder Labs Labs: Laboratory Results - last 24 hr 06/07/24 04:53 WBC 4.0 L RBC 2.14 L Hgb 7.8 L Hct 22.3 L MCV 104.2 H MCH 36.4 H MCHC 35.0 RDW 26.5 H Plt Count 40 L MPV 11.7 H Immature Gran % (Auto) 2.0 H Neut % (Auto) 72.6 Lymph % (Auto) 12.5 L [place] % (Auto) 12.5 H Eos % (Auto) 0.2 Baso % (Auto) 0.2 Lymph # (Auto) 0.50 L [place] # (Auto) 0.5 Eos # (Auto) 0.0 Baso # (Auto) 0.0 Abs Immat Gran (auto) 0.08 H Absolute Neuts (auto) 2.9 Absolute Nucleated RBC 0.000 Nucleated RBC % 0.0 Platelet Estimate Decreased % Immature Plt Fraction 7.8 Poikilocytosis 1+ Anisocytosis 1+ Crenated Cell 1+ Schistocytes Rare PT 31.5 H INR 3.0 Sodium 139 Potassium 4.2 Chloride 108 H Carbon Dioxide 21 L Anion Gap 10 BUN 28 H Creatinine 0.90 Estim Creat Clear Calc 76 Estimated GFR > 60 Glucose 179 H Calcium 9.5 Total Bilirubin 11.1 H AST 72 H ALT 55 H Alkaline Phosphatase 81 Total Protein 8.0 Albumin 3.3 L
--- NOTE | 2024-06-07 15:51 | WPDGIPROGNO ---
Progress Note: A&P Assessment and Plan (1) Pancytopenia: Code(s): D61.818 - Other pancytopenia Status: Acute (2) Alcoholic liver disease: Code(s): K70.9 - Alcoholic liver disease, unspecified Status: Acute Assessment and Plan: The patient is currently on day 4 of prednisone 40 mg daily for alcohol-related hepatitis. Her bilirubin has improved from 12.9 to 11.1, and her [place] score is 0.189 (less than 0.45) . Therefore, we will continue administering prednisone and re-evaluate her [place] score in 3 days (on day 7). Regarding pancytopenia, she is awaiting consultation with Hematology. Alcohol-induced bone marrow suppression is a possibility, G-CSF as a potential off-label adjunctive therapy for [place] hepatitis and bone marrow stimulation, though platelet count is the primary concern at this time and G CSF will not contribute much to its improvement. . We will continue to monitor her condition. Her hemoglobin level has remained stable. Subjective Date/time seen: 06/07/24 15:51 Interval history: The patient has no abdominal pain, had non melanotic stools today. Exam Const: General: cooperative and healthy appearing Resp: Effort & Inspection: normal respiratory effort and able to speak in complete sentences Auscultation: clear to auscultation bilaterally Cardio: Rate: regular rate Rhythm: regular rhythm GI: Inspection: normal to inspection GI Palp: No No hepatosplenomegaly present Auscultation: normal bowel sounds Rectal Exam: deferred Skin: General skin exam: normal color Psych: Appearance: grossly normal Mental Status: mental status grossly normal Objective Data Vital Signs Vital Signs: Vital Signs - 24 hr 06/06/24 16:00 06/06/24 18:00 06/06/24 19:46 Temperature Pulse Rate 72 72 79 Respiratory Rate 18 Blood Pressure Pulse Oximetry Oxygen Delivery Fraction of Inspired Oxygen 06/06/24 19:45 06/06/24 20:07 06/06/24 20:00 Temperature 99.1 F Pulse Rate 71 76 76 Respiratory Rate 18 18 Blood Pressure 116/45 L Pulse Oximetry 95 95 Oxygen Delivery Room Air Fraction of Inspired Oxygen 06/06/24 20:00 06/06/24 22:00 06/07/24 00:00 Temperature 98.7 F Pulse Rate 72 70 70 Respiratory Rate 18 Blood Pressure 107/49 L Pulse Oximetry 99 Oxygen Delivery Fraction of Inspired Oxygen 06/07/24 00:00 06/07/24 02:00 06/07/24 04:00 Temperature Pulse Rate 70 72 72 Respiratory Rate 18 Blood Pressure Pulse Oximetry 99 Oxygen Delivery Room Air Fraction of Inspired Oxygen 06/07/24 04:00 06/07/24 04:00 06/07/24 06:00 Temperature 98.1 F Pulse Rate 72 73 69 Respiratory Rate 20 Blood Pressure 113/57 L Pulse Oximetry 96 Oxygen Delivery Fraction of Inspired Oxygen 06/07/24 07:23 06/07/24 06:55 06/07/24 06:55 Temperature 98.3 F Pulse Rate 71 62 62 Respiratory Rate 18 18 18 Blood Pressure 110/54 L Pulse Oximetry 100 96 Oxygen Delivery Room Air Fraction of Inspired Oxygen 06/07/24 09:35 06/07/24 10:00 06/07/24 11:44 Temperature 98.6 F Pulse Rate 78 75 77 Respiratory Rate 20 Blood Pressure 116/55 L Pulse Oximetry 99 Oxygen Delivery Fraction of Inspired Oxygen 06/07/24 14:00 06/07/24 12:00 Temperature Pulse Rate 68 68 Respiratory Rate 20 Blood Pressure Pulse Oximetry 99 Oxygen Delivery Room Air Fraction of Inspired Oxygen 21 Intake/Output Intake/Output: Intake & Output 06/04/24 06/05/24 06/06/24 06/07/24 23:59 23:59 23:59 23:59 Intake Total 420 1550 1170 960 Output Total 446 350 0196 900 Balance -481 1100 70 60 Meds/Results Medications: Active Medications Generic Name Dose Route Start Last Admin Trade Name Freq PRN Reason Stop Dose Admin Albuterol 1 puff 06/02/24 00:15 Albuterol Sulfate (*Sp) Aerosol 1 Puff INHALATION Q4HRT PRN Shortness Of Breath Or Wheezing Cyanocobalamin 1,000 mcg 06/02/24 09:00 06/07/24 09:35 Cyanocobalamin 1,000 Mcg Tablet PO 07/02/24 08:59 1,000 mcg DAILY SRINIVASA Administration Folic Acid 1 mg 06/02/24 09:00 06/07/24 09:35 Folic Acid 1 Mg Tablet PO 1 mg DAILY SRINIVASA Administration Gabapentin 300 mg 06/02/24 09:00 06/07/24 12:38 Gabapentin 300 Mg Capsule PO 300 mg QID SRINIVASA Administration Lactulose 20 gm 06/04/24 17:00 06/07/24 09:36 Lactulose 20 Gm/30 Ml Udc PO 20 gm BID SRINIVASA Administration Metoprolol Tartrate 12.5 mg 06/02/24 09:00 06/07/24 09:35 Metoprolol Tartrate 12.5 Mg Tablet PO 12.5 mg Q12HR SRINIVASA Administration Nicotine 1 patch 06/04/24 17:42 06/07/24 09:36 Nicotine (*Pbkc) 7 Mg Patch TRANSDERM 1 patch DAILY SRINIVASA Administration Ondansetron HCl 4 mg 06/02/24 14:35 06/02/24 15:10 Ondansetron Hcl Odt 4 Mg Tablet PO 4 mg Q6H PRN Administration Nausea And Vomiting Prednisone 40 mg 06/04/24 08:00 06/07/24 09:35 Prednisone 20 Mg Tablet PO 40 mg DAILY@0800 SRINIVASA Administration Fluticasone/Salmeterol 2 puff 06/03/24 20:00 06/07/24 06:57 Fluticasone/Salmeterol 115-21 Mcg Inhaler 1 Puff INHALATION 2 puff Q12HRT SRINIVASA Administration Spironolactone 25 mg 06/07/24 09:00 06/07/24 09:35 Spironolactone 25 Mg Tablet PO 25 mg QAM SRINIVASA Administration Thiamine HCl 100 mg 06/02/24 09:00 06/07/24 09:35 Thiamine Hcl 100 Mg Tablet PO 100 mg DAILY SRINIVASA Administration Tramadol HCl 50 mg 06/02/24 00:15 06/02/24 12:29 Tramadol Hcl (*Crx) 50 Mg Tablet PO 50 mg Q8H PRN Administration Pain (Scale Score 4-6) Venlafaxine HCl 37.5 mg 06/02/24 21:00 06/06/24 20:07 Venlafaxine Hcl Xr 37.5 Mg Cap PO 37.5 mg HS SRINIVASA Administration Radiology Results: ITS Impressions Chest X-Ray 06/01/24 21:06 IMPRESSION: 1. Discoid atelectasis/scarring present along one of the major fissures, unclear whether left or right-sided no other acute cardiopulmonary disease. Vascular Ultrasound 06/02/24 11:59 IMPRESSION: The portal vein (and left hepatic vein) demonstrates reversal of flow, without a filling defect to suggest thrombus. Nodular contour to the liver with marked splenomegaly, consistent with patient's history of cirrhosis. Layering sludge within an otherwise unremarkable gallbladder Labs Labs: Laboratory Results - last 24 hr 06/07/24 04:53 WBC 4.0 L RBC 2.14 L Hgb 7.8 L Hct 22.3 L MCV 104.2 H MCH 36.4 H MCHC 35.0 RDW 26.5 H Plt Count 40 L MPV 11.7 H Immature Gran % (Auto) 2.0 H Neut % (Auto) 72.6 Lymph % (Auto) 12.5 L [place] % (Auto) 12.5 H Eos % (Auto) 0.2 Baso % (Auto) 0.2 Lymph # (Auto) 0.50 L [place] # (Auto) 0.5 Eos # (Auto) 0.0 Baso # (Auto) 0.0 Abs Immat Gran (auto) 0.08 H Absolute Neuts (auto) 2.9 Absolute Nucleated RBC 0.000 Nucleated RBC % 0.0 Platelet Estimate Decreased % Immature Plt Fraction 7.8 Poikilocytosis 1+ Anisocytosis 1+ Crenated Cell 1+ Schistocytes Rare PT 31.5 H INR 3.0 Sodium 139 Potassium 4.2 Chloride 108 H Carbon Dioxide 21 L Anion Gap 10 BUN 28 H Creatinine 0.90 Estim Creat Clear Calc 76 Estimated GFR > 60 Glucose 179 H Calcium 9.5 Total Bilirubin 11.1 H AST 72 H ALT 55 H Alkaline Phosphatase 81 Total Protein 8.0 Albumin 3.3 L
--- NOTE | 2024-06-07 18:19 | PC.NURSE ---
This patient, Rodríguez Alfaro, was received from IMU on 06/07/24 at 1705. Patient/family oriented to unit policies and routines. Alarms on bed. Patient on RA A-O-4.
--- NOTE | 2024-06-07 18:32 | P.CONONC_ITS ---
HPI - Date of Consult Date/Time: 06/07/24 18:32 Requesting Physician: Mo Boyd MD Primary Care Provider: Elsa Talley MD - Consult Narrative Reason for consult: Pancytopenia Narrative: Rodríguez Alfaro is a 53 year old female with history of alcohol dependence liver cirrhosis, COPD, diabetes came into the hospital with generalized dizziness and lightheadedness as well as weakness in the legs. She denies any bleeding including melena hematochezia. She has been drinking 3-4 beers a day but in the past used to drink even heavier than this. Labs showed WBC count of 2.9 and hemoglobin [place] 7.0 [place] [id number]. She sees principal data architect at [facility]. Abdominal ultrasound done that showed portal vein reversal flow without a filling defect with nodular contour to the liver with marked splenomegaly consistent with liver cirrhosis. Review of Systems - Review of Systems All systems reviewed & are unremarkable except as noted in HPI and [facility] Medical History: Medical History (Last Reviewed 04/01/24 @ 09:25 by Krystal Fuller) Acute blood loss anemia Alcohol use disorder Alcoholic liver disease Anxiety Avascular necrosis of bone of right hip Cervical cancer Chronic obstructive pulmonary disease Chronic right hip pain Cirrhosis of liver Cold extremities Depression Elevated AFP Melena Mixed hyperlipidemia Peripheral neuropathy Subacromial bursitis Suicide attempt Tobacco use disorder Type 2 diabetes mellitus with diabetic neuropathy Surgical History: Surgical History (Last Reviewed 04/01/24 @ 09:25 by Krystal Fuller) History of ear surgery History of esophagogastroduodenoscopy History of radical hysterectomy Onset Date: 2008 For cervical cancer. History of total right hip arthroplasty Onset Date: 2004 Secondary to avascular necrosis. Family History: Family History (Last Reviewed 04/01/24 @ 09:25 by Krystal Fuller) Other Adopted Unknown family medical history - Social History Social History: Social History (Last Reviewed 04/01/24 @ 09:25 by Krystal Fuller) Alcohol Use: Alcohol intake: current Drinks per week: 30 Substance Use: Substance use: never Substance use type: does not use Others: Spiritual care concerns: No Agree to blood products: Yes Living Arrangements: Living arrangements: with family Oppucation/Education: Occupation/Education: occupation Smoking Status: Smoking status: Current every day smoker Tobacco type: cigarettes Smoking Pack-years: Smoking packs per day: 1 Smoking cigarettes per day: 20.0 Years smoked: 30 Smoking pack-years: 30.00 Comments: Additional smoking assessment comments: Started smoking at age 17 Social Determinants of Health: Do You Feel Safe in your Home?: Yes Has the Lack of Transportation Kept You From Medical Appointments or From Getting Medications?: No Within the Past 12 Months, Were You Worried Whether Your Food Would Run Out Before You Got Money to Buy More?: Never True What is Your Housing Situation Today?: I Have Housing Are You Worried That in the Next 2 Months, You May Not Have Your Own Housing to Live In?: No Do You Have Trouble Paying Your Heating Or Electricity Bill?: No Do You Have Trouble Paying For Medicines?: No Are You Currently Unemployed and Looking for Work?: No Highest Level of Education Completed: High School Diploma/GED Do You Have Trouble With Childcare or the Care of a Family Member?: No Exam - Vital Signs Vital Signs - 24 hr 06/06/24 19:46 06/06/24 19:45 06/06/24 20:07 Temperature 37.3 C Pulse Rate 79 71 76 Respiratory Rate 18 18 Blood Pressure 116/45 L Pulse Oximetry 95 Oxygen Delivery Fraction of Inspired Oxygen 06/06/24 20:00 06/06/24 20:00 06/06/24 22:00 Temperature Pulse Rate 76 72 70 Respiratory Rate 18 Blood Pressure Pulse Oximetry 95 Oxygen Delivery Room Air Fraction of Inspired Oxygen 06/07/24 00:00 06/07/24 00:00 06/07/24 02:00 Temperature 37.1 C Pulse Rate 70 70 72 Respiratory Rate 18 Blood Pressure 107/49 L Pulse Oximetry 99 Oxygen Delivery Fraction of Inspired Oxygen 06/07/24 04:00 06/07/24 04:00 06/07/24 04:00 Temperature 36.7 C Pulse Rate 72 72 73 Respiratory Rate 18 20 Blood Pressure 113/57 L Pulse Oximetry 99 96 Oxygen Delivery Room Air Fraction of Inspired Oxygen 06/07/24 06:00 06/07/24 07:23 06/07/24 06:55 Temperature 36.8 C Pulse Rate 69 71 62 Respiratory Rate 18 18 Blood Pressure 110/54 L Pulse Oximetry 100 96 Oxygen Delivery Room Air Fraction of Inspired Oxygen 06/07/24 06:55 06/07/24 09:35 06/07/24 10:00 Temperature Pulse Rate 62 78 75 Respiratory Rate 18 Blood Pressure Pulse Oximetry Oxygen Delivery Fraction of Inspired Oxygen 06/07/24 11:44 06/07/24 14:00 06/07/24 12:00 Temperature 37.0 C Pulse Rate 77 68 68 Respiratory Rate 20 20 Blood Pressure 116/55 L Pulse Oximetry 99 99 Oxygen Delivery Room Air Fraction of Inspired Oxygen 21 06/07/24 15:30 06/07/24 17:20 Temperature 36.9 C 36.4 C Pulse Rate 58 L 57 L Respiratory Rate 18 18 Blood Pressure 104/41 L 111/58 L Pulse Oximetry 99 100 Oxygen Delivery Fraction of Inspired Oxygen - Exam HEENT: EOMI, PERRLA, mucous membranes moist and pink Neck: supple Lungs: clear to auscultation, normal air movement Heart: no murmurs, gallops, or rubs, regular rhythm, regular rate Abdomen: abdomen soft, normal bowel sounds, distended Extremities: normal pulses Integumentary: no abnormalities Neurological: normal speech Psychological: mental status NL, mood NL - Lab Results Laboratory Last Values WBC 4.0 K/mm3 (4.5-10.0) L 06/07/24 04:53 RBC 2.14 M/mm3 (4.2-5.4) L 06/07/24 04:53 Hgb 7.8 g/dL (12.0-15.0) L 06/07/24 04:53 Hct 22.3 % (37.0-47.0) L 06/07/24 04:53 MCV 104.2 fl (80-100) H 06/07/24 04:53 MCH 36.4 pg (26-34) H 06/07/24 04:53 MCHC 35.0 g/dl (32-36) 06/07/24 04:53 RDW 26.5 % (11.5-14.5) H 06/07/24 04:53 Plt Count 40 k/mm3 (150-375) L 06/07/24 04:53 MPV 11.7 fl (7.4-10.4) H 06/07/24 04:53 Immature Gran % (Auto) 2.0 % (0-0.5) H 06/07/24 04:53 Neut % (Auto) 72.6 % (45.5-73.1) 06/07/24 04:53 Lymph % (Auto) 12.5 % (18.3-44.2) L 06/07/24 04:53 [place] % (Auto) 12.5 % (2.6-8.5) H 06/07/24 04:53 Eos % (Auto) 0.2 % (0-4.4) 06/07/24 04:53 Baso % (Auto) 0.2 % (0.2-1.2) 06/07/24 04:53 Lymph # (Auto) 0.50 K/mm3 (0.9-3.2) L 06/07/24 04:53 [place] # (Auto) 0.5 K/mm3 (0.1-0.6) 06/07/24 04:53 Eos # (Auto) 0.0 K/mm3 (0-0.3) 06/07/24 04:53 Baso # (Auto) 0.0 K/mm3 (0.0-0.1) 06/07/24 04:53 Abs Immat Gran (auto) 0.08 K/mm3 (0.00-0.031) H 06/07/24 04:53 Absolute Neuts (auto) 2.9 K/mm3 (1.3-6.7) 06/07/24 04:53 Absolute Nucleated RBC 0.000 K/mm3 (0.0-0.012) 06/07/24 04:53 Total Counted 100 06/01/24 20:40 Neutrophils % (Manual) 55 % (46-73) 06/01/24 20:40 Band Neutrophils % 5 % (0-6) 06/01/24 20:40 Lymphocytes % (Manual) 28 % (18-44) 06/01/24 20:40 Monocytes % (Manual) 10 % (3-9) H 06/01/24 20:40 Eosinophils % (Manual) 1 % (0-4) 06/01/24 20:40 Basophils % (Manual) 1 % (0-1) 06/01/24 20:40 Nucleated RBC % 0.0 % (0.0-0.2) 06/07/24 04:53 Abs Neuts (Manual) 1.98 K/mm3 (1.7-7.2) 06/01/24 20:40 Abs Lymphs (Manual) 0.92 K/mm3 (1.1-4.5) L 06/01/24 20:40 Abs Monocytes (Manual) 0.33 K/mm3 (0.1-0.90) 06/01/24 20:40 Absolute Eos (Manual) 0.03 K/mm3 (0.02-0.50) 06/01/24 20:40 Abs Basophils (Manual) 0.03 K/mm3 (0.0-0.1) 06/01/24 20:40 Platelet Estimate Decreased (Adequate) 06/07/24 04:53 % Immature Plt Fraction 7.8 % (0.9-11.2) 06/07/24 04:53 Hypochromasia 1+ 06/06/24 04:20 Poikilocytosis 1+ 06/07/24 04:53 Anisocytosis 1+ 06/07/24 04:53 Macrocytosis 1+ (NORMAL) 06/06/24 04:20 Target Cells 1+ 06/04/24 04:32 Ovalocytes 1+ 06/01/24 20:40 Mg Cells 1+ 06/04/24 04:32 Crenated Cell 1+ 06/07/24 04:53 Acanthocytes (Spur) 1+ 06/06/24 04:20 Schistocytes Rare 06/07/24 04:53 PT 31.5 Seconds (11.1-14.7) H 06/07/24 04:53 INR 3.0 06/07/24 04:53 Sodium 139 mmol/L (137-145) 06/07/24 04:53 Potassium 4.2 mmol/L (3.4-5.0) 06/07/24 04:53 Chloride 108 mmol/L (98-107) H 06/07/24 04:53 Carbon Dioxide 21 mmol/L (22-30) L 06/07/24 04:53 Anion Gap 10 mmol/L (4-12) 06/07/24 04:53 BUN 28 mg/dL (7-17) H 06/07/24 04:53 Creatinine 0.90 mg/dL (0.7-1.0) 06/07/24 04:53 Estim Creat Clear Calc 76 ml/min 06/07/24 04:53 Estimated GFR > 60 (59-) 06/07/24 04:53 Glucose 179 mg/dL (65-110) H 06/07/24 04:53 POC Capillary Glucose 113 mg/dl (65-105) H 06/03/24 00:09 Calcium 9.5 mg/dL (8.4-10.2) 06/07/24 04:53 Phosphorus 3.9 mg/dL (2.5-4.5) 06/06/24 04:20 Magnesium 1.6 mg/dL (1.6-2.3) 06/06/24 04:20 Iron 109 ug/dL (37-170) 06/02/24 08:33 TIBC 203 ug/dL (261-462) L 06/02/24 08:33 % Saturation 54 % (20-50) H 06/02/24 08:33 Ferritin 823.00 ng/mL (11.1-264) H 06/02/24 08:33 Total Bilirubin 11.1 mg/dL (0.2-1.3) H 06/07/24 04:53 Indirect Bilirubin 4.5 mg/dL (0-1.1) H 06/02/24 08:33 AST 72 U/L (14-36) H 06/07/24 04:53 ALT 55 U/L (6-35) H 06/07/24 04:53 Alkaline Phosphatase 81 U/L (38-126) 06/07/24 04:53 Ammonia 98 umol/L (9-30) H 06/04/24 12:31 Lactate Dehydrogenase 195 U/L (120-246) 06/06/24 04:20 NT-Pro-B Natriuret Pep 785 pg/mL (19.9-100) H 06/01/24 20:40 Total Protein 8.0 g/dL (6.3-8.2) 06/07/24 04:53 Albumin 3.3 g/dL (3.5-5.1) L 06/07/24 04:53 Vitamin B12 > 1000.0 pg/mL (239-931) H 06/02/24 08:29 Folate 13.6 ng/mL (2.76->20) 06/02/24 08:29 Blood Type B Positive 06/05/24 05:41 Antibody Screen Negative 06/05/24 05:41 Crossmatch See Detail 06/05/24 05:41 Meds Home Medications Medication Instructions Recorded Confirmed Type mecobalamin (vitamin B12) 1,000 1,000 mcg PO DAILY 03/19/23 06/01/24 History mcg chewable tablet (B12 Active) folic acid 1 mg tablet 1 mg PO DAILY #90 tabs 06/09/23 06/01/24 Rx metformin 500 mg tablet,extended 1,000 mg PO DAILY #180 tabs 09/03/23 06/01/24 Rx release 24 hr metoprolol tartrate 25 mg tablet 12.5 mg PO BID #90 tabs 09/03/23 06/01/24 Rx thiamine HCl (vitamin B1) 100 mg 100 mg PO DAILY #90 tabs 09/03/23 06/01/24 Rx tablet fluticasone 100 mcg-salmeterol 50 1 inh inhalation Q12H 02/05/24 06/01/24 History mcg/dose blistr powdr for inhalation (Advair Diskus) albuterol sulfate 90 mcg/actuation 1 inh inhalation Q4H PRN Shortness 03/03/24 06/01/24 Rx aerosol inhaler Of Breath Or Wheezing #9 grams atorvastatin 20 mg tablet 20 mg PO DAILY #90 tabs 03/03/24 06/01/24 Rx spironolactone 100 mg tablet 100 mg PO DAILY #90 tabs 05/31/24 06/01/24 Rx furosemide 20 mg tablet 40 mg PO QAM 06/01/24 06/01/24 History gabapentin 300 mg capsule 600 mg PO QID 06/01/24 06/01/24 History tramadol 50 mg tablet 50 mg PO Q8H PRN Pain (Scale Score 06/01/24 06/01/24 History 4-6) venlafaxine 37.5 mg 37.5 mg PO HS 06/01/24 06/01/24 History capsule,extended release 24 hr fluticasone 250 mcg-salmeterol 50 1 inh inhalation DAILY 06/02/24 06/02/24 History mcg/dose blistr powdr for inhalation (Advair Diskus) Allergies Allergy/AdvReac Type Severity Reaction Status Date / Time NSAIDS (Non-Steroidal Allergy Severe LIVER Verified 04/01/24 09:24 Anti-Inflamma CIRRHOSIS morphine AdvReac Itching Verified 06/01/24 20:11 Results - Labs CBC & Chem 7: 06/07/24 04:53 06/07/24 04:53 Labs: Short CBC 06/07/24 Range/Units 04:53 WBC 4.0 L (4.5-10.0) K/mm3 Hgb 7.8 L (12.0-15.0) g/dL Hct 22.3 L (37.0-47.0) % Plt Count 40 L (150-375) k/mm3 BMP 06/07/24 04:53 Sodium 139 Potassium 4.2 Chloride 108 H Carbon Dioxide 21 L BUN 28 H Creatinine 0.90 Glucose 179 H Calcium 9.5 Liver Function 06/07/24 Range/Units 04:53 Total Bilirubin 11.1 H (0.2-1.3) mg/dL AST 72 H (14-36) U/L ALT 55 H (6-35) U/L Alkaline Phosphatase 81 (38-126) U/L Albumin 3.3 L (3.5-5.1) g/dL Assessment and Plan - Additional Plan Pancytopenia. This is secondary to liver cirrhosis and marked splenomegaly. Patient is long-term alcoholic and used to drink heavily now drinks 3-4 beers a day. Labs showed pancytopenia. She denies any bleeding. WBC count has improved to 4000 with absolute neutrophil count of 2900. Hemoglobin remains low at 7.8. Other labs showed no elevated vitamin B12 and normal iron level. Have explained pathophysiology of alcohol induced pancytopenia that include bone marrow suppression as well as splenomegaly and liver cirrhosis leading to the pancytopenia with peripheral destruction of the blood cells. No need for Neupogen since ANC is stable. Continue supportive blood transfusion and platele t transfusion. No indication for bone marrow biopsy at this time. She decided to quit drinking after the discharge. I have provided her my office information for follow-up.
[2024-06-07] MEDS: VENLAFAXINE HCL XR 37.5 MG CAP PO (20:47)
[2024-06-07 23:24] LABS: Add Urine Microscopic? YES; Appearance Urine Cloudy (Clear); Bacteria Urine 4+ /hpf; Bilirubin Urine 1+ (Negative); Blood Urine Negative (Negative); Color Urine Dark Yellow (Yellow); Glucose Urine UA Negative (Negative); Ketones Urine Negative (Negative); Leukocyte Esterase Ur Trace LEU/UL (Negative); Nitrate Urine Negative (Negative); Non Pathogenic Casts 0-2; Protein Urine Negative (Negative); RBC Urine 0-2 /hpf (0-2); Specific Grav Ur 1.018 (1.001-1.035); Squamous Epithelial Cell Urine None Seen /hpf (Few); Urobilinogen Urine >=8.0 mg/dL (<2.0); WBC Urine 0-5 /hpf (0-3); pH Urine 7.5 (5.0-9.0)
[2024-06-08] VITALS (9 sets, daily range): BP systolic 105–120; BP diastolic 43–62; PULSE 65–80; RESP 18–20; TEMP 36.6–37.1; O2SAT 96–100
[2024-06-08 07:53] LABS: Alanine Aminotransferase 71 U/L (6-35); Albumin Level 3.2 g/dL (3.5-5.1); Alkaline Phosphatase 134 U/L (38-126); Anion Gap 12 mmol/L (4-12); Aspartate Amino Transferase 69 U/L (14-36); Bilirubin,Total 9.6 mg/dL (0.2-1.3); Blood Urea Nitrogen 24 mg/dL (7-17); Calcium 9.3 mg/dL (8.4-10.2); Carbon Dioxide 20 mmol/L (22-30); Chloride 109 mmol/L (98-107); Estimated CRCL calculation 84 ml/min; Estimated Glomerular Filt Rate > 60; Glucose 137 mg/dL (65-110); Magnesium 1.3 mg/dL (1.6-2.3); Phosphorus 3.4 mg/dL (2.5-4.5); Sodium 141 mmol/L (137-145)
[2024-06-08 08:20] LABS: Basophils Percent Auto 0.2 % (0.2-1.2); Eosinophils Percent Auto 0.4 % (0-4.4); Hematocrit 23.8 % (37.0-47.0); Immature Granulocyte Absolute 0.05 K/mm3 (0.00-0.031); Immature Platelet Fraction Pct 9.6 % (0.9-11.2); Lymphocytes Absolute Auto 0.52 K/mm3 (0.9-3.2); Lymphocytes Percent Auto 10.2 % (18.3-44.2); Mean Corpuscular HGB Conc 33.6 g/dl (32-36); Mean Corpuscular Hemoglobin 35.7 pg (26-34); Mean Corpuscular Volume 106.3 fl (80-100); Mean Platelet Volume 11.5 fl (7.4-10.4); Monocytes Absolute Auto 0.9 K/mm3 (0.1-0.6); Monocytes Percent Auto 16.6 % (2.6-8.5); Neutrophils Absolute Auto 3.7 K/mm3 (1.3-6.7); Neutrophils Percent Auto 71.6 % (45.5-73.1); Platelet Count Result 42 k/mm3 (150-375); Red Blood Count 2.24 M/mm3 (4.2-5.4); Red Cell Distribution Width 26.2 % (11.5-14.5); White Blood Count 5.1 K/mm3 (4.5-10.0)
[2024-06-08 08:27] LABS: Platelet Estimate Decreased (Adequate)
[2024-06-08 08:28] LABS: Acanthocytes 1+; Anisocytosis 2+; Burr Cells 1+; Hypochromasia 1+; Ovalocytes 1+; Poikilocytosis 1+; Schistocytes None Seen
[2024-06-08] MEDS: MAGNESIUM SULF 2 GM/WATER 50ML 2 GM/50 ML BAG IVPB (08:44)
[2024-06-08] MEDS: NICOTINE (*PBKC) 7 MG PATCH 1 PATCH TRANSDERM (08:49)
[2024-06-08] MEDS: FOLIC ACID 1 MG TABLET PO (08:50)
[2024-06-08] MEDS: THIAMINE HCL 100 MG TABLET PO (08:50)
[2024-06-08] MEDS: GABAPENTIN 300 MG CAPSULE PO ×3 (08:50→21:12)
[2024-06-08] MEDS: METOPROLOL TARTRATE 12.5 MG TABLET PO ×2 (08:50→21:12)
[2024-06-08] MEDS: LACTULOSE 20 GM/30 ML UDC PO ×2 (08:50→16:43)
[2024-06-08] MEDS: predniSONE 20 MG TABLET 40 MG PO (08:51)
[2024-06-08] MEDS: CYANOCOBALAMIN 1,000 MCG TABLET 1000 MCG PO (08:51)
[2024-06-08] MEDS: SPIRONOLACTONE 25 MG TABLET 50 MG PO (08:51)
[2024-06-08] MEDS: FLUTICASONE/SALMETEROL 115-21 MCG INHALER 1 PUFF 2 PUFF INHALATION ×2 (09:15→20:10)
--- NOTE | 2024-06-08 11:19 | PCNWS ---
Weekly nutritional screen. Patient is tolerating current 2gm Na diet with adequate intake 50-75%, reports good appetite and intake. No weight loss reported. No nutritional recommendations at this time.
--- NOTE | 2024-06-08 15:21 | PM.IMPN ---
Progress Note: A&P Assessment and Plan (1) Acute on chronic anemia: Code(s): D64.9 - Anemia, unspecified Status: Acute Assessment and Plan: Patient presents with dizziness and found to have Hgb 6.3. She denies any acute blood loss. Rectal exam in ED showing heme positive stools. She has chronic anemia with Hgb running in 8 range. Suspect acute blood loss with underlying chronic anemia from her cirrhosis/hypersplenism. Acute anemia possibly related to thrombocytopenia with small serosal bleeding and/or alcoholic gastritis and/or PUD; she also has mild epistaxis but don't feel contributing to her anemia. Consider hemolysis with rare schistocytes seen but Ab screen negative. GI consulted. She was transfused 2U PRBCs 06/02. Hgb climbed to 7.3 but now back down to 6.5 and received 1U PRBC on 06/03. Hgb up to 7.4 but dropped again to 6.8 this morning. Transfused her 4th unit 06/05. Hgb back up to 7.8 and stable. GI felt less likely GI bleed and more concerning for BM pathology causing the acute anemia; felt the risk of PPI too high for patient with cirrhosis and recommended stopping PPI which was done Monitor HH and transfuse as needed. Hematology consulted but did not have any further recommendations. (2) Alcoholic cirrhosis: Qualifiers: Ascites presence: unspecified Qualified Code(s): K70.30 - Alcoholic cirrhosis of liver without ascites Code(s): K70.30 - Alcoholic cirrhosis of liver without ascites Status: Acute Assessment and Plan: LFTs noted. TB 8.3. Plt count chronically low at 40-50K range (In Sep, plt count 50-60K range). INR 2.6. Albumin 3.2. She is current with [facility] Hepatology. MELD 32 on admission. Vascular US showing portal vein (and left hepatic vein) demonstrating reversal of flow, without a filling defect to suggest thrombus. Also with nodular contour to the liver with marked splenomegaly, consistent with patient's history of cirrhosis. Layering sludge within an otherwise unremarkable gallbladder. GI following. Concern for acute alcoholic hepatitis with AST 2x >ALT and elevated INR, bili and ferritin but with leukopenia which may be her baseline. Steroids started. Follow-up MELD 28 and [place] 0.19 showing some improvement with steroids. TB down to 9.6 today. Alcohol cessation is extremely important. Continue Steroids. (3) WILLY (acute kidney injury): Code(s): N17.9 - Acute kidney failure, unspecified Status: Acute Assessment and Plan: Patient has a normal baseline Cr (0.7-0.9 earlier this year). Cr was 2.1 on admission. She states her doctor just increased her Lasix and Spironolactone a few days prior to admission. She also had metabolic acidosis but potassium was okay. WILLY could be related to dehydration and/or meds and/or HoTN (causing the dizziness). Consider hepatorenal syndrome as well. Cr better at 0.9 with IV fluids, albumin and blood transfusion. Potassium remains normal and metabolic acidosis resolved. Spironolactone 25mg added back. Labs stable so will advance to 50mg daily. Continue to follow Cr, potassium closely. Add back low dose lasix if labs remain stable. (4) Pancytopenia: Code(s): D61.818 - Other pancytopenia Status: Acute Assessment and Plan: Patient with leukopenia on admission at 3300 and has remained low. This has been noted intermittently in the past. [place] related to cirrhosis and hypersplenism. Anemia as addressed above. Thrombocytopenia is chronic and slightly worse here. Baseline 50-60K earlier this year. Currently plt count running 40-50K range and stable. Related to hypersplenism mostly Follow counts and transfuse as needed. Hematology note reviewed. (5) Alcohol dependence: Qualifiers: Substance use status: alcohol-induced mood disorder Qualified Code(s): F10.24 - Alcohol dependence with alcohol-induced mood disorder Code(s): F10.20 - Alcohol dependence, uncomplicated Status: Acute Assessment and Plan: Patient continues to drink alcholol. She denies hx of withdrawals. CIWA protocol started but scores were running low so protocol stopped. Ativan and Librium was available as needed for elevated CIWA and only required one dose of librium on 06/02. She was having hallucinations and was mildly confused. Also with asterixis. Ammonia level 98. Suspected hepatic encephalopathy and less likely withdrawal. Lactulose started with benefit. Confusion better Alcohol cessation encouraged. Continue Thiamine and Folate. Continue Lactulose (6) Chronic obstructive pulmonary disease: Code(s): J44.9 - Chronic obstructive pulmonary disease, unspecified Status: Acute Assessment and Plan: Stable. Not actively wheezing Continue Advair (7) Tobacco dependence: Code(s): F17.200 - Nicotine dependence, unspecified, uncomplicated Status: Acute Assessment and Plan: Patieint was educated about the benefits of smoking cessation. Plan DVT prophylaxis - SCDs. Code status - full Subjective Date/time seen: 06/08/24 15:21 Interval history: 53yo female with alcohol abuse, tobacco abuse, cirrhosis, COPD, and DM here for dizziness. She slept well. Walking in halls. Requesting discharge. Exam Narrative: AF 98.0 112/55 71 20 100% ra Gen - NARD Chest - few bibasilar crackles but better, nml RR CV - RRR S1/S2 with occasional extra beat Abd - Soft, obese, NT, +BS, +HSM Ext - trace pedal edema Neuro - Alert and appropriate Skin - jaundiced. warm and dry. Objective Data Vital Signs Vital Signs: Vital Signs - 24 hr 06/07/24 15:30 06/07/24 17:20 06/07/24 20:00 Temperature 98.5 F 97.6 F 98.4 F Pulse Rate 58 L 57 L 68 Respiratory Rate 18 18 16 Blood Pressure 104/41 L 111/58 L 119/59 L Pulse Oximetry 99 100 100 Oxygen Delivery 06/07/24 20:48 06/07/24 23:32 06/08/24 04:00 Temperature 98.3 F 98.7 F Pulse Rate 69 65 73 Respiratory Rate 18 20 Blood Pressure 119/60 105/55 L Pulse Oximetry 100 100 Oxygen Delivery 06/08/24 08:00 06/08/24 08:50 06/08/24 09:17 Temperature 97.9 F Pulse Rate 75 80 Respiratory Rate 20 Blood Pressure 114/43 L Pulse Oximetry 100 96 Oxygen Delivery Room Air 06/08/24 09:17 06/08/24 12:00 Temperature 98.0 F Pulse Rate 70 71 Respiratory Rate 20 20 Blood Pressure 112/55 L Pulse Oximetry 100 Oxygen Delivery Intake/Output Intake/Output: Intake & Output 06/05/24 06/06/24 06/07/24 06/08/24 23:59 23:59 23:59 23:59 Intake Total 1550 1170 1200 318 Output Total 450 1100 1550 Balance 1100 70 -350 318 Meds/Results Medications: Active Medications Generic Name Dose Route Start Last Admin Trade Name Freq PRN Reason Stop Dose Admin Albuterol 1 puff 06/02/24 00:15 Albuterol Sulfate (*Sp) Aerosol 1 Puff INHALATION Q4HRT PRN Shortness Of Breath Or Wheezing Cyanocobalamin 1,000 mcg 06/02/24 09:00 06/08/24 08:51 Cyanocobalamin 1,000 Mcg Tablet PO 07/02/24 08:59 1,000 mcg DAILY SRINIVASA Administration Folic Acid 1 mg 06/02/24 09:00 06/07/24 09:35 Folic Acid 1 Mg Tablet PO 1 mg DAILY SRINIVASA Administration Gabapentin 300 mg 06/02/24 09:00 06/08/24 08:50 Gabapentin 300 Mg Capsule PO 300 mg QID SRINIVASA Administration Lactulose 20 gm 06/04/24 17:00 06/08/24 08:50 Lactulose 20 Gm/30 Ml Udc PO 20 gm BID SRINIVASA Administration Metoprolol Tartrate 12.5 mg 06/02/24 09:00 06/08/24 08:50 Metoprolol Tartrate 12.5 Mg Tablet PO 12.5 mg Q12HR SRINIVASA Administration Nicotine 1 patch 06/04/24 17:42 06/08/24 08:49 Nicotine (*Pbkc) 7 Mg Patch TRANSDERM 1 patch DAILY SRINIVASA Administration Ondansetron HCl 4 mg 06/02/24 14:35 06/02/24 15:10 Ondansetron Hcl Odt 4 Mg Tablet PO 4 mg Q6H PRN Administration Nausea And Vomiting Prednisone 40 mg 06/04/24 08:00 06/08/24 08:51 Prednisone 20 Mg Tablet PO 40 mg DAILY@0800 SRINIVASA Administration Fluticasone/Salmeterol 2 puff 06/03/24 20:00 06/08/24 09:15 Fluticasone/Salmeterol 115-21 Mcg Inhaler 1 Puff INHALATION 2 puff Q12HRT SRINIVASA Administration Spironolactone 50 mg 06/08/24 09:00 06/08/24 08:51 Spironolactone 25 Mg Tablet PO 50 mg QAM SRINIVASA Administration Thiamine HCl 100 mg 06/02/24 09:00 06/08/24 08:50 Thiamine Hcl 100 Mg Tablet PO 100 mg DAILY SRINIVASA Administration Tramadol HCl 50 mg 06/02/24 00:15 06/02/24 12:29 Tramadol Hcl (*Crx) 50 Mg Tablet PO 50 mg Q8H PRN Administration Pain (Scale Score 4-6) Venlafaxine HCl 37.5 mg 06/02/24 21:00 06/07/24 20:47 Venlafaxine Hcl Xr 37.5 Mg Cap PO 37.5 mg HS SRINIVASA Administration Radiology Results: ITS Impressions Chest X-Ray 06/01/24 21:06 IMPRESSION: 1. Discoid atelectasis/scarring present along one of the major fissures, unclear whether left or right-sided no other acute cardiopulmonary disease. Vascular Ultrasound 06/02/24 11:59 IMPRESSION: The portal vein (and left hepatic vein) demonstrates reversal of flow, without a filling defect to suggest thrombus. Nodular contour to the liver with marked splenomegaly, consistent with patient's history of cirrhosis. Layering sludge within an otherwise unremarkable gallbladder Labs Labs: Laboratory Results - last 24 hr 06/07/24 06/08/24 23:07 07:31 WBC 5.1 RBC 2.24 L Hgb 8.0 L Hct 23.8 L MCV 106.3 H MCH 35.7 H MCHC 33.6 RDW 26.2 H Plt Count 42 L MPV 11.5 H Immature Gran % (Auto) 1.0 H Neut % (Auto) 71.6 Lymph % (Auto) 10.2 L [place] % (Auto) 16.6 H Eos % (Auto) 0.4 Baso % (Auto) 0.2 Lymph # (Auto) 0.52 L [place] # (Auto) 0.9 H Eos # (Auto) 0.0 Baso # (Auto) 0.0 Abs Immat Gran (auto) 0.05 H Absolute Neuts (auto) 3.7 Absolute Nucleated RBC 0.000 Nucleated RBC % 0.0 Platelet Estimate Decreased % Immature Plt Fraction 9.6 Hypochromasia 1+ Poikilocytosis 1+ Anisocytosis 2+ Ovalocytes 1+ Mg Cells 1+ Acanthocytes (Spur) 1+ Schistocytes None seen Sodium 141 Potassium 4.0 Chloride 109 H Carbon Dioxide 20 L Anion Gap 12 BUN 24 H Creatinine 0.80 Estim Creat Clear Calc 84 Estimated GFR > 60 Glucose 137 H Calcium 9.3 Phosphorus 3.4 Magnesium 1.3 L Total Bilirubin 9.6 H AST 69 H ALT 71 H Alkaline Phosphatase 134 H Total Protein 8.0 Albumin 3.2 L Urine Color Dark yellow Urine Appearance Cloudy H Urine pH 7.5 Ur Specific [place] 1.018 Urine Protein Negative Urine Glucose (UA) Negative Urine Ketones Negative Ur Blood (Man) Negative Urine Nitrate Negative Urine Bilirubin 1+ H Urine Urobilinogen >=8.0 H Leukocyte Esterase Rfl Trace H Urine RBC 0-2 Urine WBC 0-5 Ur Squamous Epith Cells None seen Urine Bacteria 4+ Urine Casts 0-2
--- NOTE | 2024-06-08 15:54 | P.PNGI_ITS ---
Progress Note: A&P Assessment and Plan (1) Pancytopenia: Code(s): D61.818 - Other pancytopenia Status: Acute (2) Alcoholic liver disease: Code(s): K70.9 - Alcoholic liver disease, unspecified Status: Acute Assessment and Plan: The patient is improving from the alcohol related hepatitis standpoint. Total bilirubin has improved from 11.8-9.6 in 48 hours after prednisone 40 mg q.d. was started. In addition, her white count has also improved from 3.4-5.1 and her hemoglobin has stabilized at 8 g per dL over 48 hours. However, her platelet count still remains very low, 42 today. Her INR yesterday was 3.0. Hematology consultation appreciated, did not consider Neupogen was indicated. White count is improving spontaneously or may be due to the improvement of alcohol related hepatitis, By reducing inflammatory mediators. Magnesium level still low, will provide 4g intravenously now. Will continue to follow. Subjective Date/time seen: 06/08/24 15:54 Interval history: Patient feels well, tolerating oral intake, no signs of overt GI bleeding. Objective Data Vital Signs Vital Signs: Vital Signs - 24 hr 06/07/24 17:20 06/07/24 20:00 06/07/24 20:48 Temperature 97.6 F 98.4 F Pulse Rate 57 L 68 69 Respiratory Rate 18 16 Blood Pressure 111/58 L 119/59 L Pulse Oximetry 100 100 Oxygen Delivery 06/07/24 23:32 06/08/24 04:00 06/08/24 08:00 Temperature 98.3 F 98.7 F 97.9 F Pulse Rate 65 73 75 Respiratory Rate 18 20 20 Blood Pressure 119/60 105/55 L 114/43 L Pulse Oximetry 100 100 100 Oxygen Delivery 06/08/24 08:50 06/08/24 09:17 06/08/24 09:17 Temperature Pulse Rate 80 70 Respiratory Rate 20 Blood Pressure Pulse Oximetry 96 Oxygen Delivery Room Air 06/08/24 12:00 Temperature 98.0 F Pulse Rate 71 Respiratory Rate 20 Blood Pressure 112/55 L Pulse Oximetry 100 Oxygen Delivery Intake/Output Intake/Output: Intake & Output 06/05/24 06/06/24 06/07/24 06/08/24 23:59 23:59 23:59 23:59 Intake Total 1550 1170 1200 558 Output Total 450 1100 1550 Balance 1100 70 -350 558 Meds/Results Medications: Active Medications Generic Name Dose Route Start Last Admin Trade Name Freq PRN Reason Stop Dose Admin Albuterol 1 puff 06/02/24 00:15 Albuterol Sulfate (*Sp) Aerosol 1 Puff INHALATION Q4HRT PRN Shortness Of Breath Or Wheezing Cyanocobalamin 1,000 mcg 06/02/24 09:00 06/08/24 08:51 Cyanocobalamin 1,000 Mcg Tablet PO 07/02/24 08:59 1,000 mcg DAILY SRINIVASA Administration Folic Acid 1 mg 06/02/24 09:00 06/07/24 09:35 Folic Acid 1 Mg Tablet PO 1 mg DAILY SRINIVASA Administration Gabapentin 300 mg 06/02/24 09:00 06/08/24 08:50 Gabapentin 300 Mg Capsule PO 300 mg QID SRINIVASA Administration Lactulose 20 gm 06/04/24 17:00 06/08/24 08:50 Lactulose 20 Gm/30 Ml Udc PO 20 gm BID SRINIVASA Administration Metoprolol Tartrate 12.5 mg 06/02/24 09:00 06/08/24 08:50 Metoprolol Tartrate 12.5 Mg Tablet PO 12.5 mg Q12HR SRINIVASA Administration Nicotine 1 patch 06/04/24 17:42 06/08/24 08:49 Nicotine (*Pbkc) 7 Mg Patch TRANSDERM 1 patch DAILY SRINIVASA Administration Ondansetron HCl 4 mg 06/02/24 14:35 06/02/24 15:10 Ondansetron Hcl Odt 4 Mg Tablet PO 4 mg Q6H PRN Administration Nausea And Vomiting Prednisone 40 mg 06/04/24 08:00 06/08/24 08:51 Prednisone 20 Mg Tablet PO 40 mg DAILY@0800 SRINIVASA Administration Fluticasone/Salmeterol 2 puff 06/03/24 20:00 06/08/24 09:15 Fluticasone/Salmeterol 115-21 Mcg Inhaler 1 Puff INHALATION 2 puff Q12HRT SRINIVASA Administration Spironolactone 50 mg 06/08/24 09:00 06/08/24 08:51 Spironolactone 25 Mg Tablet PO 50 mg QAM SRINIVASA Administration Thiamine HCl 100 mg 06/02/24 09:00 06/08/24 08:50 Thiamine Hcl 100 Mg Tablet PO 100 mg DAILY SRINIVASA Administration Tramadol HCl 50 mg 06/02/24 00:15 06/02/24 12:29 Tramadol Hcl (*Crx) 50 Mg Tablet PO 50 mg Q8H PRN Administration Pain (Scale Score 4-6) Venlafaxine HCl 37.5 mg 06/02/24 21:00 06/07/24 20:47 Venlafaxine Hcl Xr 37.5 Mg Cap PO 37.5 mg HS SRINIVASA Administration Radiology Results: ITS Impressions Chest X-Ray 06/01/24 21:06 IMPRESSION: 1. Discoid atelectasis/scarring present along one of the major fissures, unclear whether left or right-sided no other acute cardiopulmonary disease. Vascular Ultrasound 06/02/24 11:59 IMPRESSION: The portal vein (and left hepatic vein) demonstrates reversal of flow, without a filling defect to suggest thrombus. Nodular contour to the liver with marked splenomegaly, consistent with patient's history of cirrhosis. Layering sludge within an otherwise unremarkable gallbladder Labs Labs: Laboratory Results - last 24 hr 06/07/24 06/08/24 23:07 07:31 WBC 5.1 RBC 2.24 L Hgb 8.0 L Hct 23.8 L MCV 106.3 H MCH 35.7 H MCHC 33.6 RDW 26.2 H Plt Count 42 L MPV 11.5 H Immature Gran % (Auto) 1.0 H Neut % (Auto) 71.6 Lymph % (Auto) 10.2 L [place] % (Auto) 16.6 H Eos % (Auto) 0.4 Baso % (Auto) 0.2 Lymph # (Auto) 0.52 L [place] # (Auto) 0.9 H Eos # (Auto) 0.0 Baso # (Auto) 0.0 Abs Immat Gran (auto) 0.05 H Absolute Neuts (auto) 3.7 Absolute Nucleated RBC 0.000 Nucleated RBC % 0.0 Platelet Estimate Decreased % Immature Plt Fraction 9.6 Hypochromasia 1+ Poikilocytosis 1+ Anisocytosis 2+ Ovalocytes 1+ Mg Cells 1+ Acanthocytes (Spur) 1+ Schistocytes None seen Sodium 141 Potassium 4.0 Chloride 109 H Carbon Dioxide 20 L Anion Gap 12 BUN 24 H Creatinine 0.80 Estim Creat Clear Calc 84 Estimated GFR > 60 Glucose 137 H Calcium 9.3 Phosphorus 3.4 Magnesium 1.3 L Total Bilirubin 9.6 H AST 69 H ALT 71 H Alkaline Phosphatase 134 H Total Protein 8.0 Albumin 3.2 L Urine Color Dark yellow Urine Appearance Cloudy H Urine pH 7.5 Ur Specific [place] 1.018 Urine Protein Negative Urine Glucose (UA) Negative Urine Ketones Negative Ur Blood (Man) Negative Urine Nitrate Negative Urine Bilirubin 1+ H Urine Urobilinogen >=8.0 H Leukocyte Esterase Rfl Trace H Urine RBC 0-2 Urine WBC 0-5 Ur Squamous Epith Cells None seen Urine Bacteria 4+ Urine Casts 0-2
--- NOTE | 2024-06-08 16:04 | P.PNGI_ITS ---
Progress Note: A&P Assessment and Plan (1) Hypomagnesemia: Code(s): E83.42 - Hypomagnesemia Status: Acute Assessment and Plan: Addendum to previous note: Hypo magnesemia was noticed and I mentioned that IV magnesium will be administered, but it was already done by hospitalist. Disregard previous comment. Subjective Date/time seen: 06/08/24 16:04 Objective Data Vital Signs Vital Signs: Vital Signs - 24 hr 06/07/24 17:20 06/07/24 20:00 06/07/24 20:48 Temperature 97.6 F 98.4 F Pulse Rate 57 L 68 69 Respiratory Rate 18 16 Blood Pressure 111/58 L 119/59 L Pulse Oximetry 100 100 Oxygen Delivery 06/07/24 23:32 06/08/24 04:00 06/08/24 08:00 Temperature 98.3 F 98.7 F 97.9 F Pulse Rate 65 73 75 Respiratory Rate 18 20 20 Blood Pressure 119/60 105/55 L 114/43 L Pulse Oximetry 100 100 100 Oxygen Delivery 06/08/24 08:50 06/08/24 09:17 06/08/24 09:17 Temperature Pulse Rate 80 70 Respiratory Rate 20 Blood Pressure Pulse Oximetry 96 Oxygen Delivery Room Air 06/08/24 12:00 Temperature 98.0 F Pulse Rate 71 Respiratory Rate 20 Blood Pressure 112/55 L Pulse Oximetry 100 Oxygen Delivery Intake/Output Intake/Output: Intake & Output 06/05/24 06/06/24 06/07/24 06/08/24 23:59 23:59 23:59 23:59 Intake Total 1550 1170 1200 558 Output Total 450 1100 1550 Balance 1100 70 -350 558 Meds/Results Medications: Active Medications Generic Name Dose Route Start Last Admin Trade Name Freq PRN Reason Stop Dose Admin Albuterol 1 puff 06/02/24 00:15 Albuterol Sulfate (*Sp) Aerosol 1 Puff INHALATION Q4HRT PRN Shortness Of Breath Or Wheezing Cyanocobalamin 1,000 mcg 06/02/24 09:00 06/08/24 08:51 Cyanocobalamin 1,000 Mcg Tablet PO 07/02/24 08:59 1,000 mcg DAILY SRINIVASA Administration Folic Acid 1 mg 06/02/24 09:00 06/07/24 09:35 Folic Acid 1 Mg Tablet PO 1 mg DAILY SRINIVASA Administration Gabapentin 300 mg 06/02/24 09:00 06/08/24 08:50 Gabapentin 300 Mg Capsule PO 300 mg QID SRINIVASA Administration Lactulose 20 gm 06/04/24 17:00 06/08/24 08:50 Lactulose 20 Gm/30 Ml Udc PO 20 gm BID SRINIVASA Administration Metoprolol Tartrate 12.5 mg 06/02/24 09:00 06/08/24 08:50 Metoprolol Tartrate 12.5 Mg Tablet PO 12.5 mg Q12HR SRINIVASA Administration Nicotine 1 patch 06/04/24 17:42 06/08/24 08:49 Nicotine (*Pbkc) 7 Mg Patch TRANSDERM 1 patch DAILY SRINIVASA Administration Ondansetron HCl 4 mg 06/02/24 14:35 06/02/24 15:10 Ondansetron Hcl Odt 4 Mg Tablet PO 4 mg Q6H PRN Administration Nausea And Vomiting Prednisone 40 mg 06/04/24 08:00 06/08/24 08:51 Prednisone 20 Mg Tablet PO 40 mg DAILY@0800 SRINIVASA Administration Fluticasone/Salmeterol 2 puff 06/03/24 20:00 06/08/24 09:15 Fluticasone/Salmeterol 115-21 Mcg Inhaler 1 Puff INHALATION 2 puff Q12HRT SRINIVASA Administration Spironolactone 50 mg 06/08/24 09:00 06/08/24 08:51 Spironolactone 25 Mg Tablet PO 50 mg QAM SRINIVASA Administration Thiamine HCl 100 mg 06/02/24 09:00 06/08/24 08:50 Thiamine Hcl 100 Mg Tablet PO 100 mg DAILY SRINIVASA Administration Tramadol HCl 50 mg 06/02/24 00:15 06/02/24 12:29 Tramadol Hcl (*Crx) 50 Mg Tablet PO 50 mg Q8H PRN Administration Pain (Scale Score 4-6) Venlafaxine HCl 37.5 mg 06/02/24 21:00 06/07/24 20:47 Venlafaxine Hcl Xr 37.5 Mg Cap PO 37.5 mg HS SRINIVASA Administration Radiology Results: ITS Impressions Chest X-Ray 06/01/24 21:06 IMPRESSION: 1. Discoid atelectasis/scarring present along one of the major fissures, unclear whether left or right-sided no other acute cardiopulmonary disease. Vascular Ultrasound 06/02/24 11:59 IMPRESSION: The portal vein (and left hepatic vein) demonstrates reversal of flow, without a filling defect to suggest thrombus. Nodular contour to the liver with marked splenomegaly, consistent with patient's history of cirrhosis. Layering sludge within an otherwise unremarkable gallbladder Labs Labs: Laboratory Results - last 24 hr 06/07/24 06/08/24 23:07 07:31 WBC 5.1 RBC 2.24 L Hgb 8.0 L Hct 23.8 L MCV 106.3 H MCH 35.7 H MCHC 33.6 RDW 26.2 H Plt Count 42 L MPV 11.5 H Immature Gran % (Auto) 1.0 H Neut % (Auto) 71.6 Lymph % (Auto) 10.2 L [place] % (Auto) 16.6 H Eos % (Auto) 0.4 Baso % (Auto) 0.2 Lymph # (Auto) 0.52 L [place] # (Auto) 0.9 H Eos # (Auto) 0.0 Baso # (Auto) 0.0 Abs Immat Gran (auto) 0.05 H Absolute Neuts (auto) 3.7 Absolute Nucleated RBC 0.000 Nucleated RBC % 0.0 Platelet Estimate Decreased % Immature Plt Fraction 9.6 Hypochromasia 1+ Poikilocytosis 1+ Anisocytosis 2+ Ovalocytes 1+ [place] Cells 1+ Acanthocytes (Spur) 1+ Schistocytes None seen Sodium 141 Potassium 4.0 Chloride 109 H Carbon Dioxide 20 L Anion Gap 12 BUN 24 H Creatinine 0.80 Estim Creat Clear Calc 84 Estimated GFR > 60 Glucose 137 H Calcium 9.3 Phosphorus 3.4 Magnesium 1.3 L Total Bilirubin 9.6 H AST 69 H ALT 71 H Alkaline Phosphatase 134 H Total Protein 8.0 Albumin 3.2 L Urine Color Dark yellow Urine Appearance Cloudy H Urine pH 7.5 Ur Specific [place] 1.018 Urine Protein Negative Urine Glucose (UA) Negative Urine Ketones Negative Ur Blood (Man) Negative Urine Nitrate Negative Urine Bilirubin 1+ H Urine Urobilinogen >=8.0 H Leukocyte Esterase Rfl Trace H Urine RBC 0-2 Urine WBC 0-5 Ur Squamous Epith Cells None seen Urine Bacteria 4+ Urine Casts 0-2
[2024-06-08] MEDS: VENLAFAXINE HCL XR 37.5 MG CAP PO (21:12)
[2024-06-09] VITALS (7 sets, daily range): BP systolic 109–119; BP diastolic 53–64; PULSE 71–74; RESP 16–18; TEMP 36.8–36.9; O2SAT 100
[2024-06-09 07:42] LABS: Basophils Percent Auto 0.2 % (0.2-1.2); Eosinophils Percent Auto 0.2 % (0-4.4); Hematocrit 24.8 % (37.0-47.0); Hemoglobin 8.2 g/dL (12.0-15.0); Immature Granulocyte Absolute 0.07 K/mm3 (0.00-0.031); Immature Granulocyte Percent A 1.5 % (0-0.5); Immature Platelet Fraction Pct 11.2 % (0.9-11.2); Lymphocytes Absolute Auto 0.47 K/mm3 (0.9-3.2); Lymphocytes Percent Auto 9.8 % (18.3-44.2); Mean Corpuscular HGB Conc 33.1 g/dl (32-36); Mean Corpuscular Hemoglobin 35.3 pg (26-34); Mean Corpuscular Volume 106.9 fl (80-100); Mean Platelet Volume 12.3 fl (7.4-10.4); Monocytes Absolute Auto 0.7 K/mm3 (0.1-0.6); Monocytes Percent Auto 13.5 % (2.6-8.5); Neutrophils Absolute Auto 3.6 K/mm3 (1.3-6.7); Neutrophils Percent Auto 74.8 % (45.5-73.1); Platelet Count Result 41 k/mm3 (150-375); Red Blood Count 2.32 M/mm3 (4.2-5.4); Red Cell Distribution Width 25.6 % (11.5-14.5); White Blood Count 4.8 K/mm3 (4.5-10.0)
[2024-06-09 07:54] LABS: Alpha Fetoprotein Tumor Marker 13.2 ng/mL
[2024-06-09 08:03] LABS: Alanine Aminotransferase 80 U/L (6-35); Alkaline Phosphatase 184 U/L (38-126); Anion Gap 7 mmol/L (4-12); Aspartate Amino Transferase 66 U/L (14-36); Bilirubin,Total 8.3 mg/dL (0.2-1.3); Blood Urea Nitrogen 21 mg/dL (7-17); Calcium 9.1 mg/dL (8.4-10.2); Carbon Dioxide 23 mmol/L (22-30); Chloride 108 mmol/L (98-107); Estimated CRCL calculation 95 ml/min; Estimated Glomerular Filt Rate > 60; Glucose 202 mg/dL (65-110); Magnesium 1.5 mg/dL (1.6-2.3); Potassium 4.2 mmol/L (3.4-5.0); Sodium 138 mmol/L (137-145)
[2024-06-09 08:42] LABS: Anisocytosis 1+; Hypochromasia 1+; Platelet Estimate Decreased (Adequate); Schistocytes None Seen
[2024-06-09 08:43] LABS: Burr Cells 1+
[2024-06-09] MEDS: FLUTICASONE/SALMETEROL 115-21 MCG INHALER 1 PUFF 2 PUFF INHALATION (08:50)
[2024-06-09] MEDS: METOPROLOL TARTRATE 12.5 MG TABLET PO ×2 (09:32→21:16)
[2024-06-09] MEDS: CYANOCOBALAMIN 1,000 MCG TABLET 1000 MCG PO (09:36)
[2024-06-09] MEDS: THIAMINE HCL 100 MG TABLET PO (09:36)
[2024-06-09] MEDS: SPIRONOLACTONE 25 MG TABLET 50 MG PO (09:36)
[2024-06-09] MEDS: FOLIC ACID 1 MG TABLET PO (09:36)
[2024-06-09] MEDS: predniSONE 20 MG TABLET 40 MG PO (09:36)
[2024-06-09] MEDS: LACTULOSE 20 GM/30 ML UDC PO ×2 (09:37→18:08)
[2024-06-09] MEDS: NICOTINE (*PBKC) 7 MG PATCH 1 PATCH TRANSDERM (09:37)
--- NOTE | 2024-06-09 10:19 | PM.IMPN ---
Progress Note: A&P Assessment and Plan (1) Pancytopenia: Code(s): D61.818 - Other pancytopenia Status: Acute (2) WILLY (acute kidney injury): Code(s): N17.9 - Acute kidney failure, unspecified Status: Acute (3) Acute on chronic anemia: Code(s): D64.9 - Anemia, unspecified Status: Acute (4) Mixed hyperlipidemia: Code(s): E78.2 - Mixed hyperlipidemia Status: Chronic (5) Alcohol use disorder: Status: Acute (6) History of hip replacement: Onset Date: ~2004 Qualifiers: Laterality: right Qualified Code(s): Z96.641 - Presence of right artificial hip joint Code(s): Z96.649 - Presence of unspecified artificial hip joint Status: Acute (7) Alcoholic liver disease: Code(s): K70.9 - Alcoholic liver disease, unspecified Status: Acute (8) COPD (chronic obstructive pulmonary disease): Qualifiers: COPD type: unspecified COPD Qualified Code(s): J44.9 - Chronic obstructive pulmonary disease, unspecified Code(s): J44.9 - Chronic obstructive pulmonary disease, unspecified Status: Chronic Plan (1) Acute on chronic anemia: Code(s): D64.9 - Anemia, unspecified Status: Acute Assessment and Plan: Patient presents with dizziness and found to have Hgb 6.3. She denies any acute blood loss. Rectal exam in ED showing heme positive stools. She has chronic anemia with Hgb running in 8 range. Suspect acute blood loss with underlying chronic anemia from her cirrhosis/hypersplenism. Acute anemia possibly related to thrombocytopenia with small serosal bleeding and/or alcoholic gastritis and/or PUD; she also has mild epistaxis but don't feel contributing to her anemia. Consider hemolysis with rare schistocytes seen but Ab screen negative. GI consulted. She was transfused 2U PRBCs 06/02. Hgb climbed to 7.3 but now back down to 6.5 and received 1U PRBC on 06/03. Hgb up to 7.4 but dropped again to 6.8 this morning. Transfused her 4th unit 06/05. Hgb back up to 7.8 and stable. GI felt less likely GI bleed and more concerning for BM pathology causing the acute anemia; felt the risk of PPI too high for patient with cirrhosis and recommended stopping PPI which was done Monitor HH and transfuse as needed. Hematology consulted but did not have any further recommendations. (2) Alcoholic cirrhosis: Qualifiers: Ascites presence: unspecified Qualified Code(s): K70.30 - Alcoholic cirrhosis of liver without ascites Code(s): K70.30 - Alcoholic cirrhosis of liver without ascites Status: Acute Assessment and Plan: LFTs noted. TB 8.3. Plt count chronically low at 40-50K range (In Fe, plt count 50-60K range). INR 2.6. Albumin 3.2. She is current with [facility]. MELD 32 on admission. Vascular US showing portal vein (and left hepatic vein) demonstrating reversal of flow, without a filling defect to suggest thrombus. Also with nodular contour to the liver with marked splenomegaly, consistent with patient's history of cirrhosis. Layering sludge within an otherwise unremarkable gallbladder. GI following. Concern for acute alcoholic hepatitis with AST 2x >ALT and elevated INR, bili and ferritin but with leukopenia which may be her baseline. Steroids started. Follow-up MELD 28 and [place] 0.19 showing some improvement with steroids. Alcohol cessation is extremely important. Continue prednisone p.o. for total 7 days (3) WILLY (acute kidney injury): Code(s): N17.9 - Acute kidney failure, unspecified Status: Acute Assessment and Plan: Patient has a normal baseline Cr (0.7-0.9 earlier this year). Cr was 2.1 on admission. She states her doctor just increased her Lasix and Spironolactone a few days prior to admission. She also had metabolic acidosis but potassium was okay. WILLY could be related to dehydration and/or meds and/or HoTN (causing the dizziness). Consider hepatorenal syndrome as well. Cr better at 0.9 with IV fluids, albumin and blood transfusion. Potassium remains normal and metabolic acidosis resolved. Spironolactone 25mg added back. Labs stable so will advance to 50mg daily. Continue to follow Cr, potassium closely. Add back low dose lasix if labs remain stable. (4) Pancytopenia: Code(s): D61.818 - Other pancytopenia Status: Acute Assessment and Plan: Patient with leukopenia on admission at 3300 and has remained low. This has been noted intermittently in the past. [place] related to cirrhosis and hypersplenism. Anemia as addressed above. Thrombocytopenia is chronic and slightly worse here. Baseline 50-60K earlier this year. Currently plt count running 40-50K range and stable. Related to hypersplenism mostly Follow counts and transfuse as needed. Hematology note reviewed. (5) Alcohol dependence: Qualifiers: Substance use status: alcohol-induced mood disorder Qualified Code(s): F10.24 - Alcohol dependence with alcohol-induced mood disorder Code(s): F10.20 - Alcohol dependence, uncomplicated Status: Acute Assessment and Plan: Patient continues to drink alcholol. She denies hx of withdrawals. CIWA protocol started but scores were running low so protocol stopped. Ativan and Librium was available as needed for elevated CIWA and only required one dose of librium on 06/02. She was having hallucinations and was mildly confused. Also with asterixis. Ammonia level 98. Suspected hepatic encephalopathy and less likely withdrawal. Lactulose started with benefit. Confusion better Alcohol cessation encouraged. Continue Thiamine and Folate. Continue Lactulose (6) Chronic obstructive pulmonary disease: Code(s): J44.9 - Chronic obstructive pulmonary disease, unspecified Status: Acute Assessment and Plan: Stable. Not actively wheezing Continue Advair (7) Tobacco dependence: Code(s): F17.200 - Nicotine dependence, unspecified, uncomplicated Status: Acute Assessment and Plan: Patieint was educated about the benefits of smoking cessation. Plan DVT prophylaxis - SCDs. Code status - full Subjective Date/time seen: 06/09/24 10:19 Interval history: Patient feels better today, denies nausea vomiting diarrhea, patient has general weakness, Labs reviewed, hemoglobin is trending up, platelet is still low, no improvement. Patient afebrile, blood pressure stable, Exam Narrative: GENERAL: Pleasant, in no acute distress. Well-nourished. - EYES: EOMI. Anicteric. - HENT: Moist mucous membranes. - LUNGS: Coarse breath sound bilateral base. - CARDIOVASCULAR: Regular rate and rhythm. No murmur. No JVD. - ABDOMEN: Soft, non-tender and non-distended. No palpable masses. - EXTREMITIES: No edema. Peripheral pulses 2+. Non-tender. - NEUROLOGIC: No focal neurological deficits. CN II-XII grossly intact. - PSYCHIATRIC: Awake, Alert and oriented x 3. Appropriate mood and affect. - SKIN: No rashes or lesions. Warm. - LYMPH: No cervical lymphadenopathy. Objective Data Vital Signs Vital Signs: Vital Signs - 24 hr 06/08/24 12:00 06/08/24 16:00 06/08/24 20:00 Temperature 98.0 F 98.5 F 98.8 F Pulse Rate 71 74 65 Respiratory Rate 20 20 18 Blood Pressure 112/55 L 108/51 L 120/62 Pulse Oximetry 100 99 99 06/08/24 20:13 06/08/24 21:12 06/09/24 05:02 Temperature 98.2 F Pulse Rate 70 72 73 Respiratory Rate 20 18 Blood Pressure 119/64 Pulse Oximetry 100 06/09/24 09:32 Temperature Pulse Rate 71 Respiratory Rate Blood Pressure Pulse Oximetry Intake/Output Intake/Output: Intake & Output 06/06/24 06/07/24 06/08/24 06/09/24 23:59 23:59 23:59 23:59 Intake Total 1170 1200 798 490 Output Total 1100 1550 Balance 70 -350 798 490 Meds/Results Medications: Active Medications Generic Name Dose Route Start Last Admin Trade Name Freq PRN Reason Stop Dose Admin Albuterol 1 puff 06/02/24 00:15 Albuterol Sulfate (*Sp) Aerosol 1 Puff INHALATION Q4HRT PRN Shortness Of Breath Or Wheezing Cyanocobalamin 1,000 mcg 06/02/24 09:00 06/09/24 09:36 Cyanocobalamin 1,000 Mcg Tablet PO 07/02/24 08:59 1,000 mcg DAILY SRINIVASA Administration Folic Acid 1 mg 06/02/24 09:00 06/09/24 09:36 Folic Acid 1 Mg Tablet PO 1 mg DAILY SRINIVASA Administration Gabapentin 300 mg 06/02/24 09:00 06/08/24 21:12 Gabapentin 300 Mg Capsule PO 300 mg QID SRINIVASA Administration Lactulose 20 gm 06/04/24 17:00 06/09/24 09:37 Lactulose 20 Gm/30 Ml Udc PO 20 gm BID SRINIVASA Administration Metoprolol Tartrate 12.5 mg 06/02/24 09:00 06/09/24 09:32 Metoprolol Tartrate 12.5 Mg Tablet PO 12.5 mg Q12HR SRINIVASA Administration Nicotine 1 patch 06/04/24 17:42 06/09/24 09:37 Nicotine (*Pbkc) 7 Mg Patch TRANSDERM 1 patch DAILY SRINIVASA Administration Ondansetron HCl 4 mg 06/02/24 14:35 06/02/24 15:10 Ondansetron Hcl Odt 4 Mg Tablet PO 4 mg Q6H PRN Administration Nausea And Vomiting Prednisone 40 mg 06/04/24 08:00 06/09/24 09:36 Prednisone 20 Mg Tablet PO 40 mg DAILY@0800 SRINIVASA Administration Fluticasone/Salmeterol 2 puff 06/03/24 20:00 06/09/24 08:50 Fluticasone/Salmeterol 115-21 Mcg Inhaler 1 Puff INHALATION 2 puff Q12HRT SRINIVASA Administration Spironolactone 50 mg 06/08/24 09:00 06/09/24 09:36 Spironolactone 25 Mg Tablet PO 50 mg QAM SRINIVASA Administration Thiamine HCl 100 mg 06/02/24 09:00 06/09/24 09:36 Thiamine Hcl 100 Mg Tablet PO 100 mg DAILY SRINIVASA Administration Tramadol HCl 50 mg 06/02/24 00:15 06/02/24 12:29 Tramadol Hcl (*Crx) 50 Mg Tablet PO 50 mg Q8H PRN Administration Pain (Scale Score 4-6) Venlafaxine HCl 37.5 mg 06/02/24 21:00 06/08/24 21:12 Venlafaxine Hcl Xr 37.5 Mg Cap PO 37.5 mg HS SRINIVASA Administration Radiology Results: ITS Impressions Chest X-Ray 06/01/24 21:06 IMPRESSION: 1. Discoid atelectasis/scarring present along one of the major fissures, unclear whether left or right-sided no other acute cardiopulmonary disease. Vascular Ultrasound 06/02/24 11:59 IMPRESSION: The portal vein (and left hepatic vein) demonstrates reversal of flow, without a filling defect to suggest thrombus. Nodular contour to the liver with marked splenomegaly, consistent with patient's history of cirrhosis. Layering sludge within an otherwise unremarkable gallbladder Labs Labs: Laboratory Results - last 24 hr 06/02/24 06/09/24 08:33 07:20 WBC 4.8 RBC 2.32 L Hgb 8.2 L Hct 24.8 L MCV 106.9 H MCH 35.3 H MCHC 33.1 RDW 25.6 H Plt Count 41 L MPV 12.3 H Immature Gran % (Auto) 1.5 H Neut % (Auto) 74.8 H Lymph % (Auto) 9.8 L [place] % (Auto) 13.5 H Eos % (Auto) 0.2 Baso % (Auto) 0.2 Lymph # (Auto) 0.47 L [place] # (Auto) 0.7 H Eos # (Auto) 0.0 Baso # (Auto) 0.0 Abs Immat Gran (auto) 0.07 H Absolute Neuts (auto) 3.6 Absolute Nucleated RBC 0.000 Nucleated RBC % 0.0 Platelet Estimate Decreased % Immature Plt Fraction 11.2 Hypochromasia 1+ Anisocytosis 1+ [place] Cells 1+ Schistocytes None seen Sodium 138 Potassium 4.2 Chloride 108 H Carbon Dioxide 23 Anion Gap 7 BUN 21 H Creatinine 0.70 Estim Creat Clear Calc 95 Estimated GFR > 60 Glucose 202 H Calcium 9.1 Magnesium 1.5 L Total Bilirubin 8.3 H AST 66 H ALT 80 H Alkaline Phosphatase 184 H Total Protein 7.0 Albumin 3.0 L Alpha Fetoprotein 13.2 H
[2024-06-09] MEDS: GABAPENTIN 300 MG CAPSULE PO ×3 (12:53→21:15)
--- NOTE | 2024-06-09 12:55 | WPDGIPROGNO ---
Progress Note: A&P Assessment and Plan (1) Hepatitis, alcoholic, acute: Code(s): K70.10 - Alcoholic hepatitis without ascites Status: Acute Assessment and Plan: the patient continued to do well. hemoglobin has stabilized and there is no signs of GI bleeding. Bilirubin continues to follow a favorable trend, therefore a she can be discharged with prednisone 40 mg q.d., which can be tapered after 4 weeks as an outpatient. Alcohol abstinence is strongly encouraged at discharge. Unfortunately, her platelet count is extremely low, as a consequence of hypersplenism and possible contribution of alcohol. She should return to GI clinic in 1 week to check CBC and CMP (please order). Case discussed with Mabel Shin APRN who will see her. I can see her in 1 month to start tapering prednisone. Subjective Date/time seen: 06/09/24 12:55 Objective Data Vital Signs Vital Signs: Vital Signs - 24 hr 06/08/24 16:00 06/08/24 20:00 06/08/24 20:13 Temperature 98.5 F 98.8 F Pulse Rate 74 65 70 Respiratory Rate 20 18 20 Blood Pressure 108/51 L 120/62 Pulse Oximetry 99 99 06/08/24 21:12 06/09/24 05:02 06/09/24 09:32 Temperature 98.2 F Pulse Rate 72 73 71 Respiratory Rate 18 Blood Pressure 119/64 Pulse Oximetry 100 Intake/Output Intake/Output: Intake & Output 06/06/24 06/07/24 06/08/24 06/09/24 23:59 23:59 23:59 23:59 Intake Total 1170 1200 798 490 Output Total 1100 1550 Balance 70 -350 798 490 Meds/Results Medications: Active Medications Generic Name Dose Route Start Last Admin Trade Name Freq PRN Reason Stop Dose Admin Albuterol 1 puff 06/02/24 00:15 Albuterol Sulfate (*Sp) Aerosol 1 Puff INHALATION Q4HRT PRN Shortness Of Breath Or Wheezing Cyanocobalamin 1,000 mcg 06/02/24 09:00 06/09/24 09:36 Cyanocobalamin 1,000 Mcg Tablet PO 07/02/24 08:59 1,000 mcg DAILY SRINIVASA Administration Folic Acid 1 mg 06/02/24 09:00 06/09/24 09:36 Folic Acid 1 Mg Tablet PO 1 mg DAILY SRINIVASA Administration Gabapentin 300 mg 06/02/24 09:00 06/09/24 12:53 Gabapentin 300 Mg Capsule PO 300 mg QID SRINIVASA Administration Lactulose 20 gm 06/04/24 17:00 06/09/24 09:37 Lactulose 20 Gm/30 Ml Udc PO 20 gm BID SRINIVASA Administration Metoprolol Tartrate 12.5 mg 06/02/24 09:00 06/09/24 09:32 Metoprolol Tartrate 12.5 Mg Tablet PO 12.5 mg Q12HR SRINIVASA Administration Nicotine 1 patch 06/04/24 17:42 06/09/24 09:37 Nicotine (*Pbkc) 7 Mg Patch TRANSDERM 1 patch DAILY SRINIVASA Administration Ondansetron HCl 4 mg 06/02/24 14:35 06/02/24 15:10 Ondansetron Hcl Odt 4 Mg Tablet PO 4 mg Q6H PRN Administration Nausea And Vomiting Prednisone 40 mg 06/04/24 08:00 06/09/24 09:36 Prednisone 20 Mg Tablet PO 40 mg DAILY@0800 SRINIVASA Administration Fluticasone/Salmeterol 2 puff 06/03/24 20:00 06/09/24 08:50 Fluticasone/Salmeterol 115-21 Mcg Inhaler 1 Puff INHALATION 2 puff Q12HRT SRINIVASA Administration Spironolactone 50 mg 06/08/24 09:00 06/09/24 09:36 Spironolactone 25 Mg Tablet PO 50 mg QAM SRINIVASA Administration Thiamine HCl 100 mg 06/02/24 09:00 06/09/24 09:36 Thiamine Hcl 100 Mg Tablet PO 100 mg DAILY SRINIVASA Administration Tramadol HCl 50 mg 06/02/24 00:15 06/02/24 12:29 Tramadol Hcl (*Crx) 50 Mg Tablet PO 50 mg Q8H PRN Administration Pain (Scale Score 4-6) Venlafaxine HCl 37.5 mg 06/02/24 21:00 06/08/24 21:12 Venlafaxine Hcl Xr 37.5 Mg Cap PO 37.5 mg HS SRINIVASA Administration Radiology Results: ITS Impressions Chest X-Ray 06/01/24 21:06 IMPRESSION: 1. Discoid atelectasis/scarring present along one of the major fissures, unclear whether left or right-sided no other acute cardiopulmonary disease. Vascular Ultrasound 06/02/24 11:59 IMPRESSION: The portal vein (and left hepatic vein) demonstrates reversal of flow, without a filling defect to suggest thrombus. Nodular contour to the liver with marked splenomegaly, consistent with patient's history of cirrhosis. Layering sludge within an otherwise unremarkable gallbladder Labs Labs: Laboratory Results - last 24 hr 06/02/24 06/09/24 08:33 07:20 WBC 4.8 RBC 2.32 L Hgb 8.2 L Hct 24.8 L MCV 106.9 H MCH 35.3 H MCHC 33.1 RDW 25.6 H Plt Count 41 L MPV 12.3 H Immature Gran % (Auto) 1.5 H Neut % (Auto) 74.8 H Lymph % (Auto) 9.8 L [place] % (Auto) 13.5 H Eos % (Auto) 0.2 Baso % (Auto) 0.2 Lymph # (Auto) 0.47 L [place] # (Auto) 0.7 H Eos # (Auto) 0.0 Baso # (Auto) 0.0 Abs Immat Gran (auto) 0.07 H Absolute Neuts (auto) 3.6 Absolute Nucleated RBC 0.000 Nucleated RBC % 0.0 Platelet Estimate Decreased % Immature Plt Fraction 11.2 Hypochromasia 1+ Anisocytosis 1+ Mg Cells 1+ Schistocytes None seen Sodium 138 Potassium 4.2 Chloride 108 H Carbon Dioxide 23 Anion Gap 7 BUN 21 H Creatinine 0.70 Estim Creat Clear Calc 95 Estimated GFR > 60 Glucose 202 H Calcium 9.1 Magnesium 1.5 L Total Bilirubin 8.3 H AST 66 H ALT 80 H Alkaline Phosphatase 184 H Total Protein 7.0 Albumin 3.0 L Alpha Fetoprotein 13.2 H
--- NOTE | 2024-06-09 14:47 | P.PNGI_ITS ---
Subjective Date/time seen: 06/06/24 14:47 Interval history: This note corresponds to the visit from 06/06. the patient has alcoholic hepatitis superimposed on [place] cirrhosis. Corticosteroids started, will wait for response to calculate [place] score at days 4 and 7 and see if it is worth continuing for 1 month. Hematology consultation awaited for severe pancytopenia . Objective Data Vital Signs Vital Signs: Vital Signs - 24 hr 06/08/24 16:00 06/08/24 20:00 06/08/24 20:13 Temperature 98.5 F 98.8 F Pulse Rate 74 65 70 Respiratory Rate 20 18 20 Blood Pressure 108/51 L 120/62 Pulse Oximetry 99 99 06/08/24 21:12 06/09/24 05:02 06/09/24 09:32 Temperature 98.2 F Pulse Rate 72 73 71 Respiratory Rate 18 Blood Pressure 119/64 Pulse Oximetry 100 06/09/24 14:00 Temperature 98.5 F Pulse Rate 71 Respiratory Rate 18 Blood Pressure 109/53 L Pulse Oximetry 100 Intake/Output Intake/Output: Intake & Output 06/06/24 06/07/24 06/08/24 06/09/24 23:59 23:59 23:59 23:59 Intake Total 1170 1200 798 730 Output Total 1100 1550 Balance 70 -350 798 730 Meds/Results Medications: Active Medications Generic Name Dose Route Start Last Admin Trade Name Freq PRN Reason Stop Dose Admin Albuterol 1 puff 06/02/24 00:15 Albuterol Sulfate (*Sp) Aerosol 1 Puff INHALATION Q4HRT PRN Shortness Of Breath Or Wheezing Cyanocobalamin 1,000 mcg 06/02/24 09:00 06/09/24 09:36 Cyanocobalamin 1,000 Mcg Tablet PO 07/02/24 08:59 1,000 mcg DAILY SRINIVASA Administration Folic Acid 1 mg 06/02/24 09:00 06/09/24 09:36 Folic Acid 1 Mg Tablet PO 1 mg DAILY SRINIVASA Administration Gabapentin 300 mg 06/02/24 09:00 06/09/24 12:53 Gabapentin 300 Mg Capsule PO 300 mg QID SRINIVASA Administration Lactulose 20 gm 06/04/24 17:00 06/09/24 09:37 Lactulose 20 Gm/30 Ml Udc PO 20 gm BID SRINIVASA Administration Metoprolol Tartrate 12.5 mg 06/02/24 09:00 06/09/24 09:32 Metoprolol Tartrate 12.5 Mg Tablet PO 12.5 mg Q12HR SRINIVASA Administration Nicotine 1 patch 06/04/24 17:42 06/09/24 09:37 Nicotine (*Pbkc) 7 Mg Patch TRANSDERM 1 patch DAILY SRINIVASA Administration Ondansetron HCl 4 mg 06/02/24 14:35 06/02/24 15:10 Ondansetron Hcl Odt 4 Mg Tablet PO 4 mg Q6H PRN Administration Nausea And Vomiting Prednisone 40 mg 06/04/24 08:00 06/09/24 09:36 Prednisone 20 Mg Tablet PO 40 mg DAILY@0800 SRINIVASA Administration Fluticasone/Salmeterol 2 puff 06/03/24 20:00 06/09/24 08:50 Fluticasone/Salmeterol 115-21 Mcg Inhaler 1 Puff INHALATION 2 puff Q12HRT SRINIVASA Administration Spironolactone 50 mg 06/08/24 09:00 06/09/24 09:36 Spironolactone 25 Mg Tablet PO 50 mg QAM SRINIVASA Administration Thiamine HCl 100 mg 06/02/24 09:00 06/09/24 09:36 Thiamine Hcl 100 Mg Tablet PO 100 mg DAILY SRINIVASA Administration Tramadol HCl 50 mg 06/02/24 00:15 06/02/24 12:29 Tramadol Hcl (*Crx) 50 Mg Tablet PO 50 mg Q8H PRN Administration Pain (Scale Score 4-6) Venlafaxine HCl 37.5 mg 06/02/24 21:00 06/08/24 21:12 Venlafaxine Hcl Xr 37.5 Mg Cap PO 37.5 mg HS SRINIVASA Administration Radiology Results: ITS Impressions Chest X-Ray 06/01/24 21:06 IMPRESSION: 1. Discoid atelectasis/scarring present along one of the major fissures, unclear whether left or right-sided no other acute cardiopulmonary disease. Vascular Ultrasound 06/02/24 11:59 IMPRESSION: The portal vein (and left hepatic vein) demonstrates reversal of flow, without a filling defect to suggest thrombus. Nodular contour to the liver with marked splenomegaly, consistent with patient's history of cirrhosis. Layering sludge within an otherwise unremarkable gallbladder Labs Labs: Laboratory Results - last 24 hr 06/02/24 06/09/24 08:33 07:20 WBC 4.8 RBC 2.32 L Hgb 8.2 L Hct 24.8 L MCV 106.9 H MCH 35.3 H MCHC 33.1 RDW 25.6 H Plt Count 41 L MPV 12.3 H Immature Gran % (Auto) 1.5 H Neut % (Auto) 74.8 H Lymph % (Auto) 9.8 L [place] % (Auto) 13.5 H Eos % (Auto) 0.2 Baso % (Auto) 0.2 Lymph # (Auto) 0.47 L [facility] # (Auto) 0.7 H Eos # (Auto) 0.0 Baso # (Auto) 0.0 Abs Immat Gran (auto) 0.07 H Absolute Neuts (auto) 3.6 Absolute Nucleated RBC 0.000 Nucleated RBC % 0.0 Platelet Estimate Decreased % Immature Plt Fraction 11.2 Hypochromasia 1+ Anisocytosis 1+ [place] Cells 1+ Schistocytes None seen Sodium 138 Potassium 4.2 Chloride 108 H Carbon Dioxide 23 Anion Gap 7 BUN 21 H Creatinine 0.70 Estim Creat Clear Calc 95 Estimated GFR > 60 Glucose 202 H Calcium 9.1 Magnesium 1.5 L Total Bilirubin 8.3 H AST 66 H ALT 80 H Alkaline Phosphatase 184 H Total Protein 7.0 Albumin 3.0 L Alpha Fetoprotein 13.2 H
[2024-06-09] MEDS: VENLAFAXINE HCL XR 37.5 MG CAP PO (21:15)
[2024-06-10 05:25] VITALS: BP 107/53; PULSE 71; RESP 16; TEMP 37.1; O2SAT 100
[2024-06-10 07:08] VITALS: PULSE 73; RESP 18; O2SAT 99
[2024-06-10] MEDS: FLUTICASONE/SALMETEROL 115-21 MCG INHALER 1 PUFF 2 PUFF INHALATION (07:13)
[2024-06-10 09:20] VITALS: O2SAT 99
[2024-06-10] MEDS: CYANOCOBALAMIN 1,000 MCG TABLET 1000 MCG PO (09:20)
[2024-06-10] MEDS: FOLIC ACID 1 MG TABLET PO (09:20)
[2024-06-10] MEDS: LACTULOSE 20 GM/30 ML UDC PO (09:20)
[2024-06-10] MEDS: predniSONE 20 MG TABLET 40 MG PO (09:20)
[2024-06-10 09:21] VITALS: PULSE 68
[2024-06-10] MEDS: METOPROLOL TARTRATE 12.5 MG TABLET PO (09:21)
[2024-06-10] MEDS: GABAPENTIN 300 MG CAPSULE PO ×2 (09:21→12:25)
[2024-06-10] MEDS: THIAMINE HCL 100 MG TABLET PO (09:21)
[2024-06-10] MEDS: NICOTINE (*PBKC) 7 MG PATCH 1 PATCH TRANSDERM (09:21)
[2024-06-10] MEDS: SPIRONOLACTONE 25 MG TABLET 50 MG PO (09:21)
--- NOTE | 2024-06-10 13:18 | P.DS_ITS ---
DS: Admitting Diagnosis Discharge Date 06/10/2024 Admitting Diagnosis GI bleed DS: Discharge Diagnosis Discharge Diagnosis (1) Pancytopenia: Code(s): D61.818 - Other pancytopenia Status: Acute (2) WILLY (acute kidney injury): Code(s): N17.9 - Acute kidney failure, unspecified Status: Acute (3) Acute on chronic anemia: Code(s): D64.9 - Anemia, unspecified Status: Acute (4) Mixed hyperlipidemia: Code(s): E78.2 - Mixed hyperlipidemia Status: Chronic (5) Alcohol use disorder: Status: Acute (6) History of hip replacement: Onset Date: ~2004 Qualifiers: Laterality: right Qualified Code(s): Z96.641 - Presence of right artificial hip joint Code(s): Z96.649 - Presence of unspecified artificial hip joint Status: Acute (7) Alcoholic liver disease: Code(s): K70.9 - Alcoholic liver disease, unspecified Status: Acute (8) COPD (chronic obstructive pulmonary disease): Qualifiers: COPD type: unspecified COPD Qualified Code(s): J44.9 - Chronic obstructive pulmonary disease, unspecified Code(s): J44.9 - Chronic obstructive pulmonary disease, unspecified Status: Chronic DS: Summary Hospital Course Hospital Course: # Acute on chronic anemia: Patient presents with dizziness and found to have Hgb 6.3. She denies any acute blood loss. Rectal exam in ED showing heme positive stools. She has chronic anemia with Hgb running in 8 range. Suspect acute blood loss with underlying chronic anemia from her cirrhosis/hypersplenism. Acute anemia possibly related to thrombocytopenia with small serosal bleeding and/or alcoholic gastritis and/or PUD; she also has mild epistaxis but don't feel contributing to her anemia. Consider hemolysis with rare schistocytes seen but Ab screen negative. GI consulted. She was transfused 2U PRBCs 06/02. Hgb climbed to 7.3 but now back down to 6.5 and received 1U PRBC on 06/03. Hgb up to 7.4 but dropped again to 6.8. Transfused her 4th unit 06/05. Hgb back up to 7.8 and stable. Patient hemoglobin remained stable since then. GI felt less likely GI bleed and more concerning for BM pathology causing the acute anemia; felt the risk of PPI too high for patient with cirrhosis and recommended stopping PPI which was done Monitor HH and transfuse as needed. Hematology consulted but did not have any further recommendations. Anemia likely related to underlying liver cirrhosis and marked splenomegaly. She continues to drink follow-up with oncology as outpatient basis # Alcoholic cirrhosis: LFTs noted. TB 8.3. Plt count chronically low at 40-50K range (In Feb, plt count 50-60K range). INR 2.6. Albumin 3.2. She is current with [facility]. MELD 32 on admission. Vascular US showing portal vein (and left hepatic vein) demonstrating reversal of flow, without a filling defect to suggest thrombus. Also with nodular contour to the liver with marked splenomegaly, consistent with patient's history of cirrhosis. Layering sludge within an otherwise unremarkable gallbladder. GI following. Concern for acute alcoholic hepatitis with AST 2x >ALT and elevated INR, bili and ferritin but with leukopenia which may be her baseline. Steroids started. Follow-up MELD 28 and [place] 0.19 showing some improvement with steroids. Alcohol cessation is extremely important which was also emphasized again. Continue prednisone p.o. 40 mg daily as suggested by GI until follow-up with him. # WILLY (acute kidney injury): Patient has a normal baseline Cr (0.7-0.9 earlier this year). Cr was 2.1 on admission. She states her doctor just increased her Lasix and Spironolactone a few days prior to admission. She also had metabolic acidosis but potassium was okay. WILLY could be related to dehydration and/or meds and/or HoTN (causing the dizziness). Consider hepatorenal syndrome as well. Cr better at 0.9 with IV fluids, albumin and blood transfusion. Potassium remains normal and metabolic acidosis resolved. Spironolactone 25mg added back. Labs stable so will advance to 50mg daily. Continue to follow Cr, potassium closely. Add back low dose lasix if labs remain stable. # Pancytopenia: Patient with leukopenia on admission at 3300 and has remained low. This has been noted intermittently in the past. [place] related to cirrhosis and hypersplenism. Anemia as addressed above. Thrombocytopenia is chronic and slightly worse here. Baseline 50-60K earlier this year. Currently plt count running 40-50K range and stable. Related to hypersplenism mostly Follow counts and transfuse as needed. Hematology note reviewed. # Alcohol dependence: Patient continues to drink alcholol. She denies hx of withdrawals. CIWA protocol started but scores were running low so protocol stopped. Ativan and Librium was available as needed for elevated CIWA and only required one dose of librium on 06/02. She was having hallucinations and was mildly confused. Also with asterixis. Ammonia level 98. Suspected hepatic encephalopathy and less likely withdrawal. Lactulose started with benefit. Confusion better Alcohol cessation encouraged. Continue Thiamine and Folate. Continue Lactulose # Chronic obstructive pulmonary disease: Stable. Not actively wheezing Continue Advair # Tobacco dependence: Patieint was educated about the benefits of smoking cessation. # DVT prophylaxis - SCDs. 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 Well-nourished. - EYES: EOMI. Anicteric. - HENT: Moist mucous membranes. - LUNGS: Coarse breath sound bilateral base. - CARDIOVASCULAR: Regular rate and rhyth m. No murmur. No JVD. - ABDOMEN: Soft, non-tender and non-dist ended. No palpable masses. - EXTREMITIES: No edema. Peripheral puls es 2+. Non-tender. - NEUROLOGIC: No focal neurological defi cits. CN II-XII grossly intact. - PSYCHIATRIC: Awake, Alert and oriented x 3. Appropriate mood and affect. - SKIN: No rashes or lesions. Warm. - LYMPH: No cervical lymphadenopathy. DS: Data Imaging Radiologist's impression: ITS Impressions Chest X-Ray 06/01/24 21:06 IMPRESSION: 1. Discoid atelectasis/scarring present along one of the major fissures, unclear whether left or right-sided no other acute cardiopulmonary disease. Vascular Ultrasound 06/02/24 11:59 IMPRESSION: The portal vein (and left hepatic vein) demonstrates reversal of flow, without a filling defect to suggest thrombus. Nodular contour to the liver with marked splenomegaly, consistent with patient's history of cirrhosis. Layering sludge within an otherwise unremarkable gallbladder Discharge Plan Discharge Attending physician on discharge: Neto Tiwari Consulting providers: Rah Coles Discharging Clinician: Neto Tiwari Anticipated Discharge Date/Time: 06/10/24 13:24 Patient Disposition: Home, Self-Care Activity: as tolerated Diet: heart healthy Patient Instructions: Antibiotic Form, Heart Failure (GEN), How to Stop Smoking (DC), Cirrhosis of the Liver (DC), Abuse of Alcohol (DC), Thrombocytopenia (DC), Alcoholic Hepatitis (DC) Stand Alone Forms: General Discharge Information Follow-up/Referrals: Rah Coles MD [Physician] - 2 Weeks Chuckie Talley MD [Primary Care Provider] - 1 Week Watson Deras MD [Physician] - 4 Weeks Mabel Shin APRN [Advanced Practice Nurse] - 1 Week Discharge Medications: New prednisone 20 mg Tablet 40 mg PO DAILY@0800 Qty: 60 0RF lactulose 20 gram/30 mL Solution 20 g PO BID Qty: 1200 0RF nicotine 7 mg/24 hr Patch 24 Hour 1 patch transdermal DAILY Qty: 30 0RF gabapentin [Neurontin] 300 mg Capsule 300 mg PO QID Qty: 120 0RF spironolactone 25 mg Tablet 50 mg PO QAM Qty: 60 0RF Continued metformin 500 mg tablet extended release 24 hr 1,000 mg PO DAILY Qty: 180 1RF Rx Instructions: NEEDS APPOINTMENT FOR FURTHER REFILLS thiamine HCl (vitamin B1) 100 mg tablet 100 mg PO DAILY Qty: 90 2RF metoprolol tartrate 25 mg tablet 12.5 mg PO BID Qty: 90 2RF albuterol sulfate 90 mcg/actuation HFA aerosol inhaler 1 inh INHALATION Q4H PRN (Reason: Shortness Of Breath Or Wheezing) Qty: 9 2RF folic acid 1 mg tablet 1 mg PO DAILY Qty: 90 3RF fluticasone propion-salmeterol [Advair Diskus] 100-50 mcg/dose blister with device 1 inh inhalation Q12H mecobalamin (vitamin B12) [B12 Active] 1,000 mcg Tablet,Chewable 1,000 mcg PO DAILY venlafaxine 37.5 mg capsule,extended release 24hr 37.5 mg PO HS tramadol 50 mg tablet 50 mg PO Q8H PRN (Reason: Pain (Scale Score 4-6)) fluticasone propion-salmeterol [Advair Diskus] 250-50 mcg/dose blister with device 1 inh INHALATION DAILY Patient Comments: Patient rarely uses this. furosemide 20 mg tablet 20 mg PO QAM Qty: 30 0RF Discontinued atorvastatin 20 mg tablet 20 mg PO DAILY Qty: 90 2RF gabapentin 300 mg capsule 600 mg PO QID spironolactone 100 mg tablet 100 mg PO DAILY Qty: 90 0RF Other Ambulatory Orders: Complete Blood Count with Diff (Routine) Timeframe: 1 Week Location: Determined by Patient Ordered By: Neto Tiwari Comprehensive Metabolic Panel (Routine) Timeframe: 1 Week Location: Determined by Patient Ordered By: Neto Tiwari Date of admission: 06/01/24 22:42 Primary Care Provider: Chuckie Talley Admitting Provider: Mo Boyd V. Attending physician on admission: Mo Boyd V. Condition: Improved
== END 2024-06-10 15:50 | disposition home health service (06) | DRG 280 ==
LOC: ANHED 21:32 → ANHIMU 22:48 → ANH3MEDSUR 06-07 16:59
PROVIDERS: Emergency Medicine; Internal Medicine; Internal Medicine Gastroenterology; Nurse Practitioner; Admitting Provider Internal Medicine; Emergency Provider Emergency Medicine; PCP Family Medicine; Visit Provider Internal Medicine
DX: K70.30 Alcoholic cirrhosis of liver without ascites (principal); K70.10 Alcoholic hepatitis without ascites; F10.20 Alcohol dependence, uncomplicated; N17.9 Acute kidney failure, unspecified; D62 Acute posthemorrhagic anemia; D63.8 Anemia in other chronic diseases classified elsewhere; D61.818 Other pancytopenia; E86.0 Dehydration; K76.6 Portal hypertension; J44.9 Chronic obstructive pulmonary disease, unspecified; E83.42 Hypomagnesemia; E78.2 Mixed hyperlipidemia; E11.42 Type 2 diabetes mellitus with diabetic polyneuropathy; F41.9 Anxiety disorder, unspecified; F32.A Depression, unspecified; Z96.641 Presence of right artificial hip joint; Z85.41 Personal history of malignant neoplasm of cervix uteri
CPT/HCPCS: 36415; 36430; 71046; 80053; 81001; 82105; 82140; 82607; 82728; 82746; 82948; 83540; 83550; 83615; 83735; 83880; 84100; 85014; 85018; 85025; 85055; 85610; 86850; 86900; 86901; 86923; 93005; 93978; 94640; 96374; 97110; 97116; 97161; 97165; 97530; 97535; 99285; A9270; J2470; J3475; J7030; J7050; J7512; P9016; P9047

== ENCOUNTER 2024-06-17 14:07 | Outpatient (NON) | payer OTHER, SELFPAY ==
[2024-06-17 14:39] LABS: Hematocrit 26.3 % (37.0-47.0); Immature Platelet Fraction Pct 13.9 % (0.9-11.2); Mean Corpuscular HGB Conc 34.2 g/dl (32-36); Mean Corpuscular Hemoglobin 36.7 pg (26-34); Mean Corpuscular Volume 107.3 fl (80-100); Mean Platelet Volume 12.7 fl (7.4-10.4); Platelet Count Result 42 k/mm3 (150-375); Red Blood Count 2.45 M/mm3 (4.2-5.4); Red Cell Distribution Width 23.7 % (11.5-14.5); White Blood Count 7.4 K/mm3 (4.5-10.0)
[2024-06-17 14:59] LABS: Platelet Estimate Decreased (Adequate)
[2024-06-17 15:00] LABS: Anisocytosis 1+
[2024-06-17 15:01] LABS: Hypochromasia 1+
[2024-06-17 15:02] LABS: Acanthocytes 1+; Burr Cells 1+; Ovalocytes 1+; Schistocytes None Seen
[2024-06-17 15:07] LABS: Band Neutrophils Percent 3 % (0-6); Basophils Percent Manual 0 % (0-1); Eosinophils Percent Manual 0 % (0-4); Lymphocytes Absolute Manual 0.14 K/mm3 (1.1-4.5); Lymphocytes Percent Manual 2 % (18-44); Monocytes Absolute Manual 0.74 K/mm3 (0.1-0.90); Monocytes Percent Manual 10 % (3-9); Neutrophils Absolute Manual 6.51 K/mm3 (1.7-7.2); Neutrophils Percent Manual 85 % (46-73); Nucleated Red Blood Cells 1 %; Total Cells Counted 100
[2024-06-18 13:26] LABS: Alanine Aminotransferase 247 U/L (6-35); Alkaline Phosphatase 284 U/L (38-126); Anion Gap 11 mmol/L (4-12); Aspartate Amino Transferase 247 U/L (14-36); Bilirubin,Total 8.3 mg/dL (0.2-1.3); Blood Urea Nitrogen 27 mg/dL (7-17); Calcium 8.9 mg/dL (8.4-10.2); Carbon Dioxide 18 mmol/L (22-30); Chloride 102 mmol/L (98-107); Estimated Glomerular Filt Rate > 60; Glucose 279 mg/dL (65-110); Potassium 4.3 mmol/L (3.4-5.0); Sodium 131 mmol/L (137-145)
== END 2024-06-17 14:08 | disposition home or self-care (01) ==
LOC: HOME HLTH 14:09
PROVIDERS: PCP Family Medicine; Visit Provider Internal Medicine
DX: D61.818 Other pancytopenia (principal); K70.9 Alcoholic liver disease, unspecified
CPT/HCPCS: 80053; 85025; 85055

== ENCOUNTER 2024-06-25 10:58 | Outpatient (NON) | payer OTHER, SELFPAY ==
[2024-06-25 11:42] LABS: Basophils Percent Auto 0.2 % (0.2-1.2); Eosinophils Percent Auto 0.3 % (0-4.4); Hematocrit 24.8 % (37.0-47.0); Hemoglobin 8.7 g/dL (12.0-15.0); Immature Granulocyte Absolute 0.05 K/mm3 (0.00-0.031); Immature Granulocyte Percent A 0.8 % (0-0.5); Immature Platelet Fraction Pct 10.5 % (0.9-11.2); Lymphocytes Absolute Auto 0.42 K/mm3 (0.9-3.2); Lymphocytes Percent Auto 6.8 % (18.3-44.2); Mean Corpuscular HGB Conc 35.1 g/dl (32-36); Mean Corpuscular Hemoglobin 37.5 pg (26-34); Mean Corpuscular Volume 106.9 fl (80-100); Mean Platelet Volume 11.9 fl (7.4-10.4); Monocytes Absolute Auto 0.5 K/mm3 (0.1-0.6); Monocytes Percent Auto 8.1 % (2.6-8.5); Neutrophils Absolute Auto 5.2 K/mm3 (1.3-6.7); Neutrophils Percent Auto 83.8 % (45.5-73.1); Red Blood Count 2.32 M/mm3 (4.2-5.4); Red Cell Distribution Width 21.9 % (11.5-14.5); White Blood Count 6.2 K/mm3 (4.5-10.0)
[2024-06-25 12:05] LABS: Alanine Aminotransferase 160 U/L (6-35); Albumin Level 2.9 g/dL (3.5-5.1); Alkaline Phosphatase 225 U/L (38-126); Anion Gap 11 mmol/L (4-12); Aspartate Amino Transferase 56 U/L (14-36); Bilirubin,Total 13.8 mg/dL (0.2-1.3); Blood Urea Nitrogen 39 mg/dL (7-17); Carbon Dioxide 17 mmol/L (22-30); Chloride 104 mmol/L (98-107); Estimated Glomerular Filt Rate 57; Glucose 281 mg/dL (65-110); Potassium 4.5 mmol/L (3.4-5.0); Sodium 132 mmol/L (137-145)
[2024-06-25 12:28] LABS: Platelet Count Result 25 k/mm3 (150-375)
[2024-06-25 12:32] LABS: Anisocytosis 2+; Platelet Estimate Decreased (Adequate)
[2024-06-25 12:33] LABS: Burr Cells 2+; Macrocytosis 1+ (NORMAL)
[2024-06-25 12:34] LABS: Acanthocytes 1+; Schistocytes None Seen
== END 2024-06-25 10:59 | disposition home or self-care (01) ==
LOC: HOME HLTH 11:02
PROVIDERS: PCP Family Medicine; Visit Provider Internal Medicine
DX: K70.9 Alcoholic liver disease, unspecified (principal); D64.9 Anemia, unspecified; K74.60 Unspecified cirrhosis of liver
CPT/HCPCS: 80053; 85025; 85055

== ENCOUNTER 2024-06-25 18:59 | Inpatient (IN) | payer OTHER, SELFPAY ==
[2024-06-25] VITALS (7 sets, daily range): BP systolic 111–115; BP diastolic 48–59; PULSE 56–73; RESP 12–20; TEMP 36.4–36.6; O2SAT 98–100
--- NOTE | ~2024-06-25 | US_ITS ---
EXAMINATION: US venous doppler LE DATE: 06/26/2024 08:58 INDICATION: Lower limb edema. TECHNIQUE: Grayscale ultrasound images without and with compression and Doppler ultrasound images of the bilateral lower extremity veins were obtained. COMPARISON: None. FINDINGS: The visualized portions of right profunda (deep) femoral vein, femoral vein, popliteal vein, peroneal veins, posterior tibial veins, and greater saphenous vein outflow are patent. The visualized portions of left common femoral vein, profunda femoral vein, femoral vein, popliteal v ein, peroneal veins, posterior tibial veins, and greater saphenous vein outflow are patent. There is a small Sun's cyst. IMPRESSION: 1. No deep venous thrombosis. 2. Small left Sun's cyst. Reviewed, dictated and finalized at location A. 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
--- NOTE | 2024-06-25 19:06 | ED_ITS ---
HPI - Recheck/Abnormal Lab/Rx General Chief Complaint: Recheck/Abnormal Lab/Rx <Jeri Rascon PA-C - Last Filed: 07/05/24 21:18> Stated Complaint: low platelets <Jeir Rascon PA-C - Last Filed: 07/05/24 21:18> Time Seen by Provider: 06/25/24 19:06 <Jeri Rascon PA-C - Last Filed: 07/05/24 21:18> Focused HPI: This is a 53 year old female that presents to the ER for abnormal outpatient blood work. Reports she was called and told her platelets were 25. She has history of cirrhosis. GENERAL: Chronically ill-appearing, well-nourished, and in no acute distress. HEAD: Normocephalic, atraumatic. Scleral icterus CHEST: Clear to auscultation. ?No respiratory distress. HEART: Regular rate and rhythm.? NEURO: ?Alert and oriented x3. Patient screened in triage and initial orders placed.? ?Additional care and disposition to be based upon?diagnostic testing and treatment. <Jeri Rascon PA-C - Last Filed: 07/05/24 21:18> History of Present Illness HPI narrative: patient 53-year-old female presents emergency department with chief complaint of abnormal labs. Patient was just in the hospital for cirrhosis and thrombocytopenia and anemia the patient reports that she had outpatient labs today that showed that her platelet count was down to 25 patient reports she just feels weak and run down but denies bleeding <Jose Casiano MD - Last Filed: 06/25/24 23:51> Related Data Home Medications: Home Medications Medication Instructions Recorded Confirmed mecobalamin (vitamin B12) 1,000 1,000 mcg PO DAILY 03/19/23 06/26/24 mcg chewable tablet (B12 Active) tramadol 50 mg tablet 50 mg PO Q8H PRN Pain (Scale Score 06/01/24 06/26/24 4-6) venlafaxine 37.5 mg 37.5 mg PO HS 06/01/24 06/26/24 capsule,extended release 24 hr fluticasone 250 mcg-salmeterol 50 1 inh inhalation Q12H 06/02/24 06/26/24 mcg/dose blistr powdr for inhalation (Advair Diskus) furosemide 20 mg tablet 20 mg PO QAM 06/26/24 06/26/24 gabapentin 300 mg capsule 300 mg PO Q5H 06/26/24 06/26/24 (Neurontin) lactulose 20 gram/30 mL oral 20 g PO Q12H 06/26/24 06/26/24 solution <Jeri Rascon PA-C - Last Filed: 07/05/24 21:18> Allergies/Adverse Reactions: Allergies Allergy/AdvReac Type Severity Reaction Status Date / Time NSAIDS (Non-Steroidal Allergy Severe LIVER Verified 06/21/24 10:08 Anti-Inflamma CIRRHOSIS morphine AdvReac Itching Verified 06/21/24 10:08 <Jeri Rascon PA-C - Last Filed: 07/05/24 21:18> Review of Systems Review of Systems: A 10 system review of systems was completed on the patient and is negative except for what is stated in the HPI. Nursing and ancillary documentation was reviewed. <Jose Casiano MD - Last Filed: 06/25/24 23:51> [facility] Past Medical History Medical History: Medical History Alcohol use disorder abstained since May 2024 Anxiety Avascular necrosis of bone of right hip Cervical cancer Chronic obstructive pulmonary disease Chronic right hip pain Chronic venous insufficiency of lower extremity Cirrhosis of liver Depression Mixed hyperlipidemia Suicide attempt Tobacco use disorder Type 2 diabetes mellitus with diabetic neuropathy <Jeri Rascon PA-C - Last Filed: 07/05/24 21:18> Surgical History Surgical History: Surgical History History of ear surgery History of esophagogastroduodenoscopy History of radical hysterectomy (2008) for cervical cancer History of total right hip arthroplasty (2004) secondary to avascular necrosis <Jeri Rascon PA-C - Last Filed: 07/05/24 21:18> Family History Family History: Family History Other Adopted Unknown family medical history <Jeri Rascon PA-C - Last Filed: 07/05/24 21:18> Social History Social History: Social History Social History: Surrogate medical decision maker: Charis Alfaro, mother. Code status: Smoking packs per day: 0.5 Smoking cigarettes per day: 10.0 Years smoked: 30 Smoking pack-years: 15.00 Smoking status: Current every day smoker Tobacco type: cigarettes Additional smoking assessment comments: Started smoking at age 17 Alcohol intake: current Drinks per week: 30 Substance use: never Substance use type: does not use Do You Feel Safe in your Home?: Yes Lack of Transportation: No Lack of Food: Never True Current Housing: I Have Housing Concerned About Future Housing: No Difficulty Paying Gas/Electric Bills: No Difficulty Paying for Meds: No Currently Unemployed: YES Education: Associate Degree Difficulty w/ Childcare or Family Care: No Living arrangements: with family Occupation/Education: occupation Spiritual care concerns: No Agree to blood products: Yes <Jeri Rascon PA-C - Last Filed: 07/05/24 21:18> Exam Narrative: GENERAL: Well-appearing, well-nourished, and in no acute distress. HEAD: Normocephalic, atraumatic. EYES: PERRLA and EOMI. scleral icterus present ENT: Nares clear, no rhinorrhea or epistaxis. Mucous membranes moist. NECK: Supple. CHEST: Clear to auscultation. No respiratory distress. HEART: Regular rate and rhythm. No murmur heard. Normal peripheral pulses. ABDOMEN: Soft, nontender, nondistended, normal active bowel sounds. EXTREMITIES: Normal range of motion. No edema. SKIN: Warm, dry, no rash. NEURO: No focal deficits. Alert and oriented x3. PSYCH: Normal mood and affect. <Jose Casiano MD - Last Filed: 06/25/24 23:51> Course Vital Signs Vital signs: Vital Signs Temperature 97.9 F 06/25/24 19:02 Pulse Rate 73 06/25/24 19:02 Respiratory Rate 16 06/25/24 19:02 Blood Pressure 111/59 L 06/25/24 19:02 Pulse Oximetry 100 06/25/24 19:02 Oxygen Delivery Room Air 06/25/24 19:02 Temperature 97.0 F L 06/29/24 14:00 Pulse Rate 73 06/29/24 14:00 Respiratory Rate 16 06/29/24 14:00 Blood Pressure 117/50 L 06/29/24 14:00 Pulse Oximetry 92 06/29/24 14:00 Oxygen Delivery Room Air 06/29/24 09:29 Fraction of Inspired Oxygen 21 06/26/24 08:26 <Jeri Rascon PA-C - Last Filed: 07/05/24 21:18> Vital Signs Temperature 97.9 F 06/25/24 19:02 Pulse Rate 73 06/25/24 19:02 Respiratory Rate 16 06/25/24 19:02 Blood Pressure 111/59 L 06/25/24 19:02 Pulse Oximetry 100 06/25/24 19:02 Oxygen Delivery Room Air 06/25/24 19:02 Temperature 97.0 F L 06/29/24 14:00 Pulse Rate 73 06/29/24 14:00 Respiratory Rate 16 06/29/24 14:00 Blood Pressure 117/50 L 06/29/24 14:00 Pulse Oximetry 92 06/29/24 14:00 Oxygen Delivery Room Air 06/29/24 09:29 Fraction of Inspired Oxygen 21 06/26/24 08:26 <Jose Casiano MD - Last Filed: 06/25/24 23:51> MDM - Recheck/Abnormal Lab/Rx MDM Narrative Medical decision making narrative: differential diagnosis includes thrombocytopenia renal failure, electrolyte abnormality laboratory studies were obtained on the patient which did show a magnesium that was 1.3 platelet count was 25 earlier today and repeat is 23 case was discussed with hospitalist plan will be to admit the patient for observation <Jose Casiano MD - Last Filed: 06/25/24 23:51> Lab Data Result diagrams: 06/29/24 06:20 06/29/24 16:50 <Jeri Rascon PA-C - Last Filed: 07/05/24 21:18> Labs: Lab Results 06/25/24 06/26/24 06/26/24 Range/Units 19:52 01:42 05:20 WBC 5.1 (4.5-10.0) K/mm3 RBC 2.48 L (4.2-5.4) M/mm3 Hgb 9.2 L (12.0-15.0) g/dL Hct 26.6 L (37.0-47.0) % MCV 107.3 H (80-100) fl MCH 37.1 H (26-34) pg MCHC 34.6 (32-36) g/dl RDW 21.8 H (11.5-14.5) % Plt Count 23 L* (150-375) k/mm3 MPV 13.1 H (7.4-10.4) fl Immature Gran % (Auto) 0.8 H (0-0.5) % Neut % (Auto) 89.2 H (45.5-73.1) % Lymph % (Auto) 3.3 L (18.3-44.2) % [place] % (Auto) 6.5 (2.6-8.5) % Eos % (Auto) 0.0 (0-4.4) % Baso % (Auto) 0.2 (0.2-1.2) % Lymph # (Auto) 0.17 L (0.9-3.2) K/mm3 [place] # (Auto) 0.3 (0.1-0.6) K/mm3 Eos # (Auto) 0.0 (0-0.3) K/mm3 Baso # (Auto) 0.0 (0.0-0.1) K/mm3 Abs Immat Gran (auto) 0.04 H (0.00-0.031) K/mm3 Absolute Neuts (auto) 4.6 (1.3-6.7) K/mm3 Absolute Nucleated RBC 0.000 (0.0-0.012) K/mm3 Nucleated RBC % 0.0 (0.0-0.2) % Platelet Estimate Decreased (Adequate) % Immature Plt Fraction 11.7 H (0.9-11.2) % Poikilocytosis 1+ Anisocytosis 2+ Microcytosis 1+ (NORMAL) Macrocytosis (NORMAL) Mg Cells 2+ Crenated Cell Acanthocytes (Spur) Schistocytes Rare PT 29.7 H (11.1-14.7) Seconds INR 2.8 APTT 41.2 H (22.3-36.8) Seconds Sodium 133 L (137-145) mmol/L Potassium 4.3 (3.4-5.0) mmol/L Chloride 101 (98-107) mmol/L Carbon Dioxide 19 L (22-30) mmol/L Anion Gap 13 H (4-12) mmol/L BUN 36 H (7-17) mg/dL Creatinine 1.20 H (0.7-1.0) mg/dL Estim Creat Clear Calc 58 ml/min Estimated GFR 57 L (59 - ) Glucose 349 H (65-110) mg/dL POC Capillary Glucose 421 H (65-105) mg/dl Hemoglobin A1c 5.6 (<5.7) % Calcium 9.4 (8.4-10.2) mg/dL Magnesium 1.3 L (1.6-2.3) mg/dL Iron 128 (37-170) ug/dL TIBC 175 L (261-462) ug/dL % Saturation 73 H (20-50) % Ferritin 1050.00 H (11.1-264) ng/mL Total Bilirubin 15.1 H (0.2-1.3) mg/dL AST 61 H (14-36) U/L ALT 171 H (6-35) U/L Alkaline Phosphatase 251 H (38-126) U/L Total Protein 8.0 (6.3-8.2) g/dL Albumin 3.2 L (3.5-5.1) g/dL Vitamin B12 > 1000.0 H (239-931) pg/mL Folate 12.5 (2.76->20) ng/mL 06/26/24 06/26/24 06/26/24 Range/Units 05:27 05:27 08:59 WBC 4.9 (4.5-10.0) K/mm3 RBC 2.27 L (4.2-5.4) M/mm3 Hgb 8.5 L (12.0-15.0) g/dL Hct 24.1 L (37.0-47.0) % MCV 106.2 H (80-100) fl MCH 37.4 H (26-34) pg MCHC 35.3 (32-36) g/dl RDW 21.3 H (11.5-14.5) % Plt Count 21 L* (150-375) k/mm3 MPV 12.9 H (7.4-10.4) fl Immature Gran % (Auto) 0.4 (0-0.5) % Neut % (Auto) 86.9 H (45.5-73.1) % Lymph % (Auto) 3.5 L (18.3-44.2) % [place] % (Auto) 9.2 H (2.6-8.5) % Eos % (Auto) 0.0 (0-4.4) % Baso % (Auto) 0.0 L (0.2-1.2) % Lymph # (Auto) 0.17 L (0.9-3.2) K/mm3 [place] # (Auto) 0.5 (0.1-0.6) K/mm3 Eos # (Auto) 0.0 (0-0.3) K/mm3 Baso # (Auto) 0.0 (0.0-0.1) K/mm3 Abs Immat Gran (auto) 0.02 (0.00-0.031) K/mm3 Absolute Neuts (auto) 4.2 (1.3-6.7) K/mm3 Absolute Nucleated RBC 0.000 (0.0-0.012) K/mm3 Nucleated RBC % 0.0 (0.0-0.2) % Platelet Estimate Decreased (Adequate) % Immature Plt Fraction 9.8 (0.9-11.2) % Poikilocytosis Anisocytosis Microcytosis (NORMAL) Macrocytosis 1+ (NORMAL) Mg Cells Crenated Cell 2+ Acanthocytes (Spur) 1+ Schistocytes None seen PT (11.1-14.7) Seconds INR APTT (22.3-36.8) Seconds Sodium 133 L (137-145) mmol/L Potassium 4.4 (3.4-5.0) mmol/L Chloride 106 (98-107) mmol/L Carbon Dioxide 20 L (22-30) mmol/L Anion Gap 7 (4-12) mmol/L BUN 36 H (7-17) mg/dL Creatinine 1.10 H (0.7-1.0) mg/dL Estim Creat Clear Calc 61 ml/min Estimated GFR > 60 (59 - ) Glucose 330 H (65-110) mg/dL POC Capillary Glucose 257 H (65-105) mg/dl Hemoglobin A1c (<5.7) % Calcium 8.9 (8.4-10.2) mg/dL Magnesium 1.7 Cancelled (1.6-2.3) mg/dL Iron (37-170) ug/dL TIBC (261-462) ug/dL % Saturation (20-50) % Ferritin (11.1-264) ng/mL Total Bilirubin 13.7 H (0.2-1.3) mg/dL AST 51 H (14-36) U/L ALT 148 H (6-35) U/L Alkaline Phosphatase 241 H (38-126) U/L Total Protein 7.0 (6.3-8.2) g/dL Albumin 2.7 L (3.5-5.1) g/dL Vitamin B12 (239-931) pg/mL Folate (2.76->20) ng/mL 06/26/24 06/26/24 06/26/24 Range/Units 11:54 16:10 17:17 WBC 6.7 (4.5-10.0) K/mm3 RBC 2.20 L (4.2-5.4) M/mm3 Hgb 8.3 L (12.0-15.0) g/dL Hct 23.2 L (37.0-47.0) % MCV 105.5 H (80-100) fl MCH 37.7 H (26-34) pg MCHC 35.8 (32-36) g/dl RDW 21.2 H (11.5-14.5) % Plt Count 23 L* (150-375) k/mm3 MPV 10.9 H (7.4-10.4) fl Immature Gran % (Auto) (0-0.5) % Neut % (Auto) (45.5-73.1) % Lymph % (Auto) (18.3-44.2) % [place] % (Auto) (2.6-8.5) % Eos % (Auto) (0-4.4) % Baso % (Auto) (0.2-1.2) % Lymph # (Auto) (0.9-3.2) K/mm3 [place] # (Auto) (0.1-0.6) K/mm3 Eos # (Auto) (0-0.3) K/mm3 Baso # (Auto) (0.0-0.1) K/mm3 Abs Immat Gran (auto) (0.00-0.031) K/mm3 Absolute Neuts (auto) (1.3-6.7) K/mm3 Absolute Nucleated RBC (0.0-0.012) K/mm3 Nucleated RBC % (0.0-0.2) % Platelet Estimate (Adequate) % Immature Plt Fraction 8.9 (0.9-11.2) % Poikilocytosis Anisocytosis Microcytosis (NORMAL) Macrocytosis (NORMAL) [place] Cells Crenated Cell Acanthocytes (Spur) Schistocytes PT (11.1-14.7) Seconds INR APTT (22.3-36.8) Seconds Sodium (137-145) mmol/L Potassium (3.4-5.0) mmol/L Chloride (98-107) mmol/L Carbon Dioxide (22-30) mmol/L Anion Gap (4-12) mmol/L BUN (7-17) mg/dL Creatinine (0.7-1.0) mg/dL Estim Creat Clear Calc ml/min Estimated GFR (59 - ) Glucose (65-110) mg/dL POC Capillary Glucose 298 H 303 H (65-105) mg/dl Hemoglobin A1c (<5.7) % Calcium (8.4-10.2) mg/dL Magnesium (1.6-2.3) mg/dL Iron (37-170) ug/dL TIBC (261-462) ug/dL % Saturation (20-50) % Ferritin (11.1-264) ng/mL Total Bilirubin (0.2-1.3) mg/dL AST (14-36) U/L ALT (6-35) U/L Alkaline Phosphatase (38-126) U/L Total Protein (6.3-8.2) g/dL Albumin (3.5-5.1) g/dL Vitamin B12 (239-931) pg/mL Folate (2.76->20) ng/mL 06/26/24 06/27/24 06/27/24 Range/Units 20:06 05:34 08:34 WBC 6.2 (4.5-10.0) K/mm3 RBC 2.14 L (4.2-5.4) M/mm3 Hgb 8.1 L (12.0-15.0) g/dL Hct 22.8 L (37.0-47.0) % MCV 106.5 H (80-100) fl MCH 37.9 H (26-34) pg MCHC 35.5 (32-36) g/dl RDW 21.0 H (11.5-14.5) % Plt Count 21 L* (150-375) k/mm3 MPV TNP (7.4-10.4) fl Immature Gran % (Auto) 1.3 H (0-0.5) % Neut % (Auto) 83.6 H (45.5-73.1) % Lymph % (Auto) 5.2 L (18.3-44.2) % [place] % (Auto) 9.7 H (2.6-8.5) % Eos % (Auto) 0.0 (0-4.4) % Baso % (Auto) 0.2 (0.2-1.2) % Lymph # (Auto) 0.32 L (0.9-3.2) K/mm3 [place] # (Auto) 0.6 (0.1-0.6) K/mm3 Eos # (Auto) 0.0 (0-0.3) K/mm3 Baso # (Auto) 0.0 (0.0-0.1) K/mm3 Abs Immat Gran (auto) 0.08 H (0.00-0.031) K/mm3 Absolute Neuts (auto) 5.2 (1.3-6.7) K/mm3 Absolute Nucleated RBC 0.000 (0.0-0.012) K/mm3 Nucleated RBC % 0.0 (0.0-0.2) % Platelet Estimate Decreased (Adequate) % Immature Plt Fraction 9.7 (0.9-11.2) % Poikilocytosis Anisocytosis Microcytosis (NORMAL) Macrocytosis 1+ (NORMAL) [place] Cells Crenated Cell 2+ Acanthocytes (Spur) 1+ Schistocytes None seen PT (11.1-14.7) Seconds INR APTT (22.3-36.8) Seconds Sodium 134 L (137-145) mmol/L Potassium 4.7 (3.4-5.0) mmol/L Chloride 105 (98-107) mmol/L Carbon Dioxide 20 L (22-30) mmol/L Anion Gap 9 (4-12) mmol/L BUN 37 H (7-17) mg/dL Creatinine 1.10 H (0.7-1.0) mg/dL Estim Creat Clear Calc 61 ml/min Estimated GFR > 60 (59 - ) Glucose 294 H (65-110) mg/dL POC Capillary Glucose 334 H 294 H (65-105) mg/dl Hemoglobin A1c (<5.7) % Calcium 9.3 (8.4-10.2) mg/dL Magnesium 1.6 (1.6-2.3) mg/dL Iron (37-170) ug/dL TIBC (261-462) ug/dL % Saturation (20-50) % Ferritin (11.1-264) ng/mL Total Bilirubin 13.0 H (0.2-1.3) mg/dL AST 47 H (14-36) U/L ALT 127 H (6-35) U/L Alkaline Phosphatase 253 H (38-126) U/L Total Protein 7.0 (6.3-8.2) g/dL Albumin 2.5 L (3.5-5.1) g/dL Vitamin B12 (239-931) pg/mL Folate (2.76->20) ng/mL 06/27/24 06/27/24 06/27/24 Range/Units 12:15 16:42 21:01 WBC (4.5-10.0) K/mm3 RBC (4.2-5.4) M/mm3 Hgb (12.0-15.0) g/dL Hct (37.0-47.0) % MCV (80-100) fl MCH (26-34) pg MCHC (32-36) g/dl RDW (11.5-14.5) % Plt Count (150-375) k/mm3 MPV (7.4-10.4) fl Immature Gran % (Auto) (0-0.5) % Neut % (Auto) (45.5-73.1) % Lymph % (Auto) (18.3-44.2) % [place] % (Auto) (2.6-8.5) % Eos % (Auto) (0-4.4) % Baso % (Auto) (0.2-1.2) % Lymph # (Auto) (0.9-3.2) K/mm3 [place] # (Auto) (0.1-0.6) K/mm3 Eos # (Auto) (0-0.3) K/mm3 Baso # (Auto) (0.0-0.1) K/mm3 Abs Immat Gran (auto) (0.00-0.031) K/mm3 Absolute Neuts (auto) (1.3-6.7) K/mm3 Absolute Nucleated RBC (0.0-0.012) K/mm3 Nucleated RBC % (0.0-0.2) % Platelet Estimate (Adequate) % Immature Plt Fraction (0.9-11.2) % Poikilocytosis Anisocytosis Microcytosis (NORMAL) Macrocytosis (NORMAL) Mg Cells Crenated Cell Acanthocytes (Spur) Schistocytes PT (11.1-14.7) Seconds INR APTT (22.3-36.8) Seconds Sodium (137-145) mmol/L Potassium (3.4-5.0) mmol/L Chloride (98-107) mmol/L Carbon Dioxide (22-30) mmol/L Anion Gap (4-12) mmol/L BUN (7-17) mg/dL Creatinine (0.7-1.0) mg/dL Estim Creat Clear Calc ml/min Estimated GFR (59 - ) Glucose (65-110) mg/dL POC Capillary Glucose 329 H 375 H 351 H (65-105) mg/dl Hemoglobin A1c (<5.7) % Calcium (8.4-10.2) mg/dL Magnesium (1.6-2.3) mg/dL Iron (37-170) ug/dL TIBC (261-462) ug/dL % Saturation (20-50) % Ferritin (11.1-264) ng/mL Total Bilirubin (0.2-1.3) mg/dL AST (14-36) U/L ALT (6-35) U/L Alkaline Phosphatase (38-126) U/L Total Protein (6.3-8.2) g/dL Albumin (3.5-5.1) g/dL Vitamin B12 (239-931) pg/mL Folate (2.76->20) ng/mL 06/28/24 06/28/24 06/28/24 Range/Units 08:15 10:13 11:51 WBC 6.7 (4.5-10.0) K/mm3 RBC 2.30 L (4.2-5.4) M/mm3 Hgb 8.8 L (12.0-15.0) g/dL Hct 24.7 L (37.0-47.0) % MCV 107.4 H (80-100) fl MCH 38.3 H (26-34) pg MCHC 35.6 (32-36) g/dl RDW 20.9 H (11.5-14.5) % Plt Count 23 L* (150-375) k/mm3 MPV 12.7 H (7.4-10.4) fl Immature Gran % (Auto) (0-0.5) % Neut % (Auto) (45.5-73.1) % Lymph % (Auto) (18.3-44.2) % [place] % (Auto) (2.6-8.5) % Eos % (Auto) (0-4.4) % Baso % (Auto) (0.2-1.2) % Lymph # (Auto) (0.9-3.2) K/mm3 [place] # (Auto) (0.1-0.6) K/mm3 Eos # (Auto) (0-0.3) K/mm3 Baso # (Auto) (0.0-0.1) K/mm3 Abs Immat Gran (auto) (0.00-0.031) K/mm3 Absolute Neuts (auto) (1.3-6.7) K/mm3 Absolute Nucleated RBC (0.0-0.012) K/mm3 Nucleated RBC % (0.0-0.2) % Platelet Estimate (Adequate) % Immature Plt Fraction 10.3 (0.9-11.2) % Poikilocytosis Anisocytosis Microcytosis (NORMAL) Macrocytosis (NORMAL) [place] Cells Crenated Cell Acanthocytes (Spur) Schistocytes PT (11.1-14.7) Seconds INR APTT (22.3-36.8) Seconds Sodium 133 L (137-145) mmol/L Potassium 4.9 (3.4-5.0) mmol/L Chloride 103 (98-107) mmol/L Carbon Dioxide 21 L (22-30) mmol/L Anion Gap 9 (4-12) mmol/L BUN 37 H (7-17) mg/dL Creatinine 1.20 H (0.7-1.0) mg/dL Estim Creat Clear Calc 64 ml/min Estimated GFR 57 L (59 - ) Glucose 321 H (65-110) mg/dL POC Capillary Glucose 352 H 343 H (65-105) mg/dl Hemoglobin A1c (<5.7) % Calcium 9.7 (8.4-10.2) mg/dL Magnesium (1.6-2.3) mg/dL Iron (37-170) ug/dL TIBC (261-462) ug/dL % Saturation (20-50) % Ferritin (11.1-264) ng/mL Total Bilirubin 14.7 H (0.2-1.3) mg/dL AST 46 H (14-36) U/L ALT 135 H (6-35) U/L Alkaline Phosphatase 304 H (38-126) U/L Total Protein 7.0 (6.3-8.2) g/dL Albumin 2.9 L (3.5-5.1) g/dL Vitamin B12 (239-931) pg/mL Folate (2.76->20) ng/mL 06/28/24 Range/Units 16:44 WBC (4.5-10.0) K/mm3 RBC (4.2-5.4) M/mm3 Hgb (12.0-15.0) g/dL Hct (37.0-47.0) % MCV (80-100) fl MCH (26-34) pg MCHC (32-36) g/dl RDW (11.5-14.5) % Plt Count (150-375) k/mm3 MPV (7.4-10.4) fl Immature Gran % (Auto) (0-0.5) % Neut % (Auto) (45.5-73.1) % Lymph % (Auto) (18.3-44.2) % [place] % (Auto) (2.6-8.5) % Eos % (Auto) (0-4.4) % Baso % (Auto) (0.2-1.2) % Lymph # (Auto) (0.9-3.2) K/mm3 [place] # (Auto) (0.1-0.6) K/mm3 Eos # (Auto) (0-0.3) K/mm3 Baso # (Auto) (0.0-0.1) K/mm3 Abs Immat Gran (auto) (0.00-0.031) K/mm3 Absolute Neuts (auto) (1.3-6.7) K/mm3 Absolute Nucleated RBC (0.0-0.012) K/mm3 Nucleated RBC % (0.0-0.2) % Platelet Estimate (Adequate) % Immature Plt Fraction (0.9-11.2) % Poikilocytosis Anisocytosis Microcytosis (NORMAL) Macrocytosis (NORMAL) [place] Cells Crenated Cell Acanthocytes (Spur) Schistocytes PT (11.1-14.7) Seconds INR APTT (22.3-36.8) Seconds Sodium (137-145) mmol/L Potassium (3.4-5.0) mmol/L Chloride (98-107) mmol/L Carbon Dioxide (22-30) mmol/L Anion Gap (4-12) mmol/L BUN (7-17) mg/dL Creatinine (0.7-1.0) mg/dL Estim Creat Clear Calc ml/min Estimated GFR (59 - ) Glucose (65-110) mg/dL POC Capillary Glucose 370 H (65-105) mg/dl Hemoglobin A1c (<5.7) % Calcium (8.4-10.2) mg/dL Magnesium (1.6-2.3) mg/dL Iron (37-170) ug/dL TIBC (261-462) ug/dL % Saturation (20-50) % Ferritin (11.1-264) ng/mL Total Bilirubin (0.2-1.3) mg/dL AST (14-36) U/L ALT (6-35) U/L Alkaline Phosphatase (38-126) U/L Total Protein (6.3-8.2) g/dL Albumin (3.5-5.1) g/dL Vitamin B12 (239-931) pg/mL Folate (2.76->20) ng/mL <Jeri Rascon PA-C - Last Filed: 07/05/24 21:18> Lab Results 06/25/24 06/26/24 06/26/24 Range/Units 19:52 01:42 05:20 WBC 5.1 (4.5-10.0) K/mm3 RBC 2.48 L (4.2-5.4) M/mm3 Hgb 9.2 L (12.0-15.0) g/dL Hct 26.6 L (37.0-47.0) % MCV 107.3 H (80-100) fl MCH 37.1 H (26-34) pg MCHC 34.6 (32-36) g/dl RDW 21.8 H (11.5-14.5) % Plt Count 23 L* (150-375) k/mm3 MPV 13.1 H (7.4-10.4) fl Immature Gran % (Auto) 0.8 H (0-0.5) % Neut % (Auto) 89.2 H (45.5-73.1) % Lymph % (Auto) 3.3 L (18.3-44.2) % [place] % (Auto) 6.5 (2.6-8.5) % Eos % (Auto) 0.0 (0-4.4) % Baso % (Auto) 0.2 (0.2-1.2) % Lymph # (Auto) 0.17 L (0.9-3.2) K/mm3 [place] # (Auto) 0.3 (0.1-0.6) K/mm3 Eos # (Auto) 0.0 (0-0.3) K/mm3 Baso # (Auto) 0.0 (0.0-0.1) K/mm3 Abs Immat Gran (auto) 0.04 H (0.00-0.031) K/mm3 Absolute Neuts (auto) 4.6 (1.3-6.7) K/mm3 Absolute Nucleated RBC 0.000 (0.0-0.012) K/mm3 Nucleated RBC % 0.0 (0.0-0.2) % Platelet Estimate Decreased (Adequate) % Immature Plt Fraction 11.7 H (0.9-11.2) % Poikilocytosis 1+ Anisocytosis 2+ Microcytosis 1+ (NORMAL) Macrocytosis (NORMAL) Mg Cells 2+ Crenated Cell Acanthocytes (Spur) Schistocytes Rare PT 29.7 H (11.1-14.7) Seconds INR 2.8 APTT 41.2 H (22.3-36.8) Seconds Sodium 133 L (137-145) mmol/L Potassium 4.3 (3.4-5.0) mmol/L Chloride 101 (98-107) mmol/L Carbon Dioxide 19 L (22-30) mmol/L Anion Gap 13 H (4-12) mmol/L BUN 36 H (7-17) mg/dL Creatinine 1.20 H (0.7-1.0) mg/dL Estim Creat Clear Calc 58 ml/min Estimated GFR 57 L (59 - ) Glucose 349 H (65-110) mg/dL POC Capillary Glucose 421 H (65-105) mg/dl Hemoglobin A1c 5.6 (<5.7) % Calcium 9.4 (8.4-10.2) mg/dL Magnesium 1.3 L (1.6-2.3) mg/dL Iron 128 (37-170) ug/dL TIBC 175 L (261-462) ug/dL % Saturation 73 H (20-50) % Ferritin 1050.00 H (11.1-264) ng/mL Total Bilirubin 15.1 H (0.2-1.3) mg/dL AST 61 H (14-36) U/L ALT 171 H (6-35) U/L Alkaline Phosphatase 251 H (38-126) U/L Total Protein 8.0 (6.3-8.2) g/dL Albumin 3.2 L (3.5-5.1) g/dL Vitamin B12 > 1000.0 H (239-931) pg/mL Folate 12.5 (2.76->20) ng/mL 06/26/24 06/26/24 06/26/24 Range/Units 05:27 05:27 08:59 WBC 4.9 (4.5-10.0) K/mm3 RBC 2.27 L (4.2-5.4) M/mm3 Hgb 8.5 L (12.0-15.0) g/dL Hct 24.1 L (37.0-47.0) % MCV 106.2 H (80-100) fl MCH 37.4 H (26-34) pg MCHC 35.3 (32-36) g/dl RDW 21.3 H (11.5-14.5) % Plt Count 21 L* (150-375) k/mm3 MPV 12.9 H (7.4-10.4) fl Immature Gran % (Auto) 0.4 (0-0.5) % Neut % (Auto) 86.9 H (45.5-73.1) % Lymph % (Auto) 3.5 L (18.3-44.2) % [place] % (Auto) 9.2 H (2.6-8.5) % Eos % (Auto) 0.0 (0-4.4) % Baso % (Auto) 0.0 L (0.2-1.2) % Lymph # (Auto) 0.17 L (0.9-3.2) K/mm3 [place] # (Auto) 0.5 (0.1-0.6) K/mm3 Eos # (Auto) 0.0 (0-0.3) K/mm3 Baso # (Auto) 0.0 (0.0-0.1) K/mm3 Abs Immat Gran (auto) 0.02 (0.00-0.031) K/mm3 Absolute Neuts (auto) 4.2 (1.3-6.7) K/mm3 Absolute Nucleated RBC 0.000 (0.0-0.012) K/mm3 Nucleated RBC % 0.0 (0.0-0.2) % Platelet Estimate Decreased (Adequate) % Immature Plt Fraction 9.8 (0.9-11.2) % Poikilocytosis Anisocytosis Microcytosis (NORMAL) Macrocytosis 1+ (NORMAL) [place] Cells Crenated Cell 2+ Acanthocytes (Spur) 1+ Schistocytes None seen PT (11.1-14.7) Seconds INR APTT (22.3-36.8) Seconds Sodium 133 L (137-145) mmol/L Potassium 4.4 (3.4-5.0) mmol/L Chloride 106 (98-107) mmol/L Carbon Dioxide 20 L (22-30) mmol/L Anion Gap 7 (4-12) mmol/L BUN 36 H (7-17) mg/dL Creatinine 1.10 H (0.7-1.0) mg/dL Estim Creat Clear Calc 61 ml/min Estimated GFR > 60 (59 - ) Glucose 330 H (65-110) mg/dL POC Capillary Glucose 257 H (65-105) mg/dl Hemoglobin A1c (<5.7) % Calcium 8.9 (8.4-10.2) mg/dL Magnesium 1.7 Cancelled (1.6-2.3) mg/dL Iron (37-170) ug/dL TIBC (261-462) ug/dL % Saturation (20-50) % Ferritin (11.1-264) ng/mL Total Bilirubin 13.7 H (0.2-1.3) mg/dL AST 51 H (14-36) U/L ALT 148 H (6-35) U/L Alkaline Phosphatase 241 H (38-126) U/L Total Protein 7.0 (6.3-8.2) g/dL Albumin 2.7 L (3.5-5.1) g/dL Vitamin B12 (239-931) pg/mL Folate (2.76->20) ng/mL 06/26/24 06/26/24 06/26/24 Range/Units 11:54 16:10 17:17 WBC 6.7 (4.5-10.0) K/mm3 RBC 2.20 L (4.2-5.4) M/mm3 Hgb 8.3 L (12.0-15.0) g/dL Hct 23.2 L (37.0-47.0) % MCV 105.5 H (80-100) fl MCH 37.7 H (26-34) pg MCHC 35.8 (32-36) g/dl RDW 21.2 H (11.5-14.5) % Plt Count 23 L* (150-375) k/mm3 MPV 10.9 H (7.4-10.4) fl Immature Gran % (Auto) (0-0.5) % Neut % (Auto) (45.5-73.1) % Lymph % (Auto) (18.3-44.2) % [place] % (Auto) (2.6-8.5) % Eos % (Auto) (0-4.4) % Baso % (Auto) (0.2-1.2) % Lymph # (Auto) (0.9-3.2) K/mm3 [place] # (Auto) (0.1-0.6) K/mm3 Eos # (Auto) (0-0.3) K/mm3 Baso # (Auto) (0.0-0.1) K/mm3 Abs Immat Gran (auto) (0.00-0.031) K/mm3 Absolute Neuts (auto) (1.3-6.7) K/mm3 Absolute Nucleated RBC (0.0-0.012) K/mm3 Nucleated RBC % (0.0-0.2) % Platelet Estimate (Adequate) % Immature Plt Fraction 8.9 (0.9-11.2) % Poikilocytosis Anisocytosis Microcytosis (NORMAL) Macrocytosis (NORMAL) [place] Cells Crenated Cell Acanthocytes (Spur) Schistocytes PT (11.1-14.7) Seconds INR APTT (22.3-36.8) Seconds Sodium (137-145) mmol/L Potassium (3.4-5.0) mmol/L Chloride (98-107) mmol/L Carbon Dioxide (22-30) mmol/L Anion Gap (4-12) mmol/L BUN (7-17) mg/dL Creatinine (0.7-1.0) mg/dL Estim Creat Clear Calc ml/min Estimated GFR (59 - ) Glucose (65-110) mg/dL POC Capillary Glucose 298 H 303 H (65-105) mg/dl Hemoglobin A1c (<5.7) % Calcium (8.4-10.2) mg/dL Magnesium (1.6-2.3) mg/dL Iron (37-170) ug/dL TIBC (261-462) ug/dL % Saturation (20-50) % Ferritin (11.1-264) ng/mL Total Bilirubin (0.2-1.3) mg/dL AST (14-36) U/L ALT (6-35) U/L Alkaline Phosphatase (38-126) U/L Total Protein (6.3-8.2) g/dL Albumin (3.5-5.1) g/dL Vitamin B12 (239-931) pg/mL Folate (2.76->20) ng/mL 06/26/24 06/27/24 06/27/24 Range/Units 20:06 05:34 08:34 WBC 6.2 (4.5-10.0) K/mm3 RBC 2.14 L (4.2-5.4) M/mm3 Hgb 8.1 L (12.0-15.0) g/dL Hct 22.8 L (37.0-47.0) % MCV 106.5 H (80-100) fl MCH 37.9 H (26-34) pg MCHC 35.5 (32-36) g/dl RDW 21.0 H (11.5-14.5) % Plt Count 21 L* (150-375) k/mm3 MPV TNP (7.4-10.4) fl Immature Gran % (Auto) 1.3 H (0-0.5) % Neut % (Auto) 83.6 H (45.5-73.1) % Lymph % (Auto) 5.2 L (18.3-44.2) % Milam % (Auto) 9.7 H (2.6-8.5) % Eos % (Auto) 0.0 (0-4.4) % Baso % (Auto) 0.2 (0.2-1.2) % Lymph # (Auto) 0.32 L (0.9-3.2) K/mm3 Milam # (Auto) 0.6 (0.1-0.6) K/mm3 Eos # (Auto) 0.0 (0-0.3) K/mm3 Baso # (Auto) 0.0 (0.0-0.1) K/mm3 Abs Immat Gran (auto) 0.08 H (0.00-0.031) K/mm3 Absolute Neuts (auto) 5.2 (1.3-6.7) K/mm3 Absolute Nucleated RBC 0.000 (0.0-0.012) K/mm3 Nucleated RBC % 0.0 (0.0-0.2) % Platelet Estimate Decreased (Adequate) % Immature Plt Fraction 9.7 (0.9-11.2) % Poikilocytosis Anisocytosis Microcytosis (NORMAL) Macrocytosis 1+ (NORMAL) Mg Cells Crenated Cell 2+ Acanthocytes (Spur) 1+ Schistocytes None seen PT (11.1-14.7) Seconds INR APTT (22.3-36.8) Seconds Sodium 134 L (137-145) mmol/L Potassium 4.7 (3.4-5.0) mmol/L Chloride 105 (98-107) mmol/L Carbon Dioxide 20 L (22-30) mmol/L Anion Gap 9 (4-12) mmol/L BUN 37 H (7-17) mg/dL Creatinine 1.10 H (0.7-1.0) mg/dL Estim Creat Clear Calc 61 ml/min Estimated GFR > 60 (59 - ) Glucose 294 H (65-110) mg/dL POC Capillary Glucose 334 H 294 H (65-105) mg/dl Hemoglobin A1c (<5.7) % Calcium 9.3 (8.4-10.2) mg/dL Magnesium 1.6 (1.6-2.3) mg/dL Iron (37-170) ug/dL TIBC (261-462) ug/dL % Saturation (20-50) % Ferritin (11.1-264) ng/mL Total Bilirubin 13.0 H (0.2-1.3) mg/dL AST 47 H (14-36) U/L ALT 127 H (6-35) U/L Alkaline Phosphatase 253 H (38-126) U/L Total Protein 7.0 (6.3-8.2) g/dL Albumin 2.5 L (3.5-5.1) g/dL Vitamin B12 (239-931) pg/mL Folate (2.76->20) ng/mL 06/27/24 06/27/24 06/27/24 Range/Units 12:15 16:42 21:01 WBC (4.5-10.0) K/mm3 RBC (4.2-5.4) M/mm3 Hgb (12.0-15.0) g/dL Hct (37.0-47.0) % MCV (80-100) fl MCH (26-34) pg MCHC (32-36) g/dl RDW (11.5-14.5) % Plt Count (150-375) k/mm3 MPV (7.4-10.4) fl Immature Gran % (Auto) (0-0.5) % Neut % (Auto) (45.5-73.1) % Lymph % (Auto) (18.3-44.2) % Milam % (Auto) (2.6-8.5) % Eos % (Auto) (0-4.4) % Baso % (Auto) (0.2-1.2) % Lymph # (Auto) (0.9-3.2) K/mm3 Milam # (Auto) (0.1-0.6) K/mm3 Eos # (Auto) (0-0.3) K/mm3 Baso # (Auto) (0.0-0.1) K/mm3 Abs Immat Gran (auto) (0.00-0.031) K/mm3 Absolute Neuts (auto) (1.3-6.7) K/mm3 Absolute Nucleated RBC (0.0-0.012) K/mm3 Nucleated RBC % (0.0-0.2) % Platelet Estimate (Adequate) % Immature Plt Fraction (0.9-11.2) % Poikilocytosis Anisocytosis Microcytosis (NORMAL) Macrocytosis (NORMAL) [place] Cells Crenated Cell Acanthocytes (Spur) Schistocytes PT (11.1-14.7) Seconds INR APTT (22.3-36.8) Seconds Sodium (137-145) mmol/L Potassium (3.4-5.0) mmol/L Chloride (98-107) mmol/L Carbon Dioxide (22-30) mmol/L Anion Gap (4-12) mmol/L BUN (7-17) mg/dL Creatinine (0.7-1.0) mg/dL Estim Creat Clear Calc ml/min Estimated GFR (59 - ) Glucose (65-110) mg/dL POC Capillary Glucose 329 H 375 H 351 H (65-105) mg/dl Hemoglobin A1c (<5.7) % Calcium (8.4-10.2) mg/dL Magnesium (1.6-2.3) mg/dL Iron (37-170) ug/dL TIBC (261-462) ug/dL % Saturation (20-50) % Ferritin (11.1-264) ng/mL Total Bilirubin (0.2-1.3) mg/dL AST (14-36) U/L ALT (6-35) U/L Alkaline Phosphatase (38-126) U/L Total Protein (6.3-8.2) g/dL Albumin (3.5-5.1) g/dL Vitamin B12 (239-931) pg/mL Folate (2.76->20) ng/mL 06/28/24 06/28/24 06/28/24 Range/Units 08:15 10:13 11:51 WBC 6.7 (4.5-10.0) K/mm3 RBC 2.30 L (4.2-5.4) M/mm3 Hgb 8.8 L (12.0-15.0) g/dL Hct 24.7 L (37.0-47.0) % MCV 107.4 H (80-100) fl MCH 38.3 H (26-34) pg MCHC 35.6 (32-36) g/dl RDW 20.9 H (11.5-14.5) % Plt Count 23 L* (150-375) k/mm3 MPV 12.7 H (7.4-10.4) fl Immature Gran % (Auto) (0-0.5) % Neut % (Auto) (45.5-73.1) % Lymph % (Auto) (18.3-44.2) % Milam % (Auto) (2.6-8.5) % Eos % (Auto) (0-4.4) % Baso % (Auto) (0.2-1.2) % Lymph # (Auto) (0.9-3.2) K/mm3 Milam # (Auto) (0.1-0.6) K/mm3 Eos # (Auto) (0-0.3) K/mm3 Baso # (Auto) (0.0-0.1) K/mm3 Abs Immat Gran (auto) (0.00-0.031) K/mm3 Absolute Neuts (auto) (1.3-6.7) K/mm3 Absolute Nucleated RBC (0.0-0.012) K/mm3 Nucleated RBC % (0.0-0.2) % Platelet Estimate (Adequate) % Immature Plt Fraction 10.3 (0.9-11.2) % Poikilocytosis Anisocytosis Microcytosis (NORMAL) Macrocytosis (NORMAL) Mg Cells Crenated Cell Acanthocytes (Spur) Schistocytes PT (11.1-14.7) Seconds INR APTT (22.3-36.8) Seconds Sodium 133 L (137-145) mmol/L Potassium 4.9 (3.4-5.0) mmol/L Chloride 103 (98-107) mmol/L Carbon Dioxide 21 L (22-30) mmol/L Anion Gap 9 (4-12) mmol/L BUN 37 H (7-17) mg/dL Creatinine 1.20 H (0.7-1.0) mg/dL Estim Creat Clear Calc 64 ml/min Estimated GFR 57 L (59 - ) Glucose 321 H (65-110) mg/dL POC Capillary Glucose 352 H 343 H (65-105) mg/dl Hemoglobin A1c (<5.7) % Calcium 9.7 (8.4-10.2) mg/dL Magnesium (1.6-2.3) mg/dL Iron (37-170) ug/dL TIBC (261-462) ug/dL % Saturation (20-50) % Ferritin (11.1-264) ng/mL Total Bilirubin 14.7 H (0.2-1.3) mg/dL AST 46 H (14-36) U/L ALT 135 H (6-35) U/L Alkaline Phosphatase 304 H (38-126) U/L Total Protein 7.0 (6.3-8.2) g/dL Albumin 2.9 L (3.5-5.1) g/dL Vitamin B12 (239-931) pg/mL Folate (2.76->20) ng/mL 06/28/24 Range/Units 16:44 WBC (4.5-10.0) K/mm3 RBC (4.2-5.4) M/mm3 Hgb (12.0-15.0) g/dL Hct (37.0-47.0) % MCV (80-100) fl MCH (26-34) pg MCHC (32-36) g/dl RDW (11.5-14.5) % Plt Count (150-375) k/mm3 MPV (7.4-10.4) fl Immature Gran % (Auto) (0-0.5) % Neut % (Auto) (45.5-73.1) % Lymph % (Auto) (18.3-44.2) % Milam % (Auto) (2.6-8.5) % Eos % (Auto) (0-4.4) % Baso % (Auto) (0.2-1.2) % Lymph # (Auto) (0.9-3.2) K/mm3 Milam # (Auto) (0.1-0.6) K/mm3 Eos # (Auto) (0-0.3) K/mm3 Baso # (Auto) (0.0-0.1) K/mm3 Abs Immat Gran (auto) (0.00-0.031) K/mm3 Absolute Neuts (auto) (1.3-6.7) K/mm3 Absolute Nucleated RBC (0.0-0.012) K/mm3 Nucleated RBC % (0.0-0.2) % Platelet Estimate (Adequate) % Immature Plt Fraction (0.9-11.2) % Poikilocytosis Anisocytosis Microcytosis (NORMAL) Macrocytosis (NORMAL) Mg Cells Crenated Cell Acanthocytes (Spur) Schistocytes PT (11.1-14.7) Seconds INR APTT (22.3-36.8) Seconds Sodium (137-145) mmol/L Potassium (3.4-5.0) mmol/L Chloride (98-107) mmol/L Carbon Dioxide (22-30) mmol/L Anion Gap (4-12) mmol/L BUN (7-17) mg/dL Creatinine (0.7-1.0) mg/dL Estim Creat Clear Calc ml/min Estimated GFR (59 - ) Glucose (65-110) mg/dL POC Capillary Glucose 370 H (65-105) mg/dl Hemoglobin A1c (<5.7) % Calcium (8.4-10.2) mg/dL Magnesium (1.6-2.3) mg/dL Iron (37-170) ug/dL TIBC (261-462) ug/dL % Saturation (20-50) % Ferritin (11.1-264) ng/mL Total Bilirubin (0.2-1.3) mg/dL AST (14-36) U/L ALT (6-35) U/L Alkaline Phosphatase (38-126) U/L Total Protein (6.3-8.2) g/dL Albumin (3.5-5.1) g/dL Vitamin B12 (239-931) pg/mL Folate (2.76->20) ng/mL <Jose Casiano MD - Last Filed: 06/25/24 23:51> Critical Care Time Critical Care Time Critical Care Time: No <Jeri Rascon PA-C - Last Filed: 07/05/24 21:18> Discharge Plan Discharge Clinical Impression: Thrombocytopenia, Hypomagnesemia <Jeri Rascon PA-C - Last Filed: 07/05/24 21:18> Patient Disposition: Still a Patient <Jeri Rascon PA-C - Last Filed: 07/05/24 21:18> Condition: Stable <Jeri Rascon PA-C - Last Filed: 07/05/24 21:18> Time of Disposition: 23:51 <Jeri Rascon PA-C - Last Filed: 07/05/24 21:18> 23:51 <Jose Casiano MD - Last Filed: 06/25/24 23:51>
[2024-06-25 20:17] LABS: INR 2.8; Partial Thromboplastin Time 41.2 Seconds (22.3-36.8); Prothrombin Time 29.7 Seconds (11.1-14.7)
[2024-06-25 22:55] LABS: Basophils Percent Auto 0.2 % (0.2-1.2); Hematocrit 26.6 % (37.0-47.0); Hemoglobin 9.2 g/dL (12.0-15.0); Immature Granulocyte Absolute 0.04 K/mm3 (0.00-0.031); Immature Granulocyte Percent A 0.8 % (0-0.5); Immature Platelet Fraction Pct 11.7 % (0.9-11.2); Lymphocytes Absolute Auto 0.17 K/mm3 (0.9-3.2); Lymphocytes Percent Auto 3.3 % (18.3-44.2); Mean Corpuscular HGB Conc 34.6 g/dl (32-36); Mean Corpuscular Hemoglobin 37.1 pg (26-34); Mean Corpuscular Volume 107.3 fl (80-100); Mean Platelet Volume 13.1 fl (7.4-10.4); Monocytes Absolute Auto 0.3 K/mm3 (0.1-0.6); Monocytes Percent Auto 6.5 % (2.6-8.5); Neutrophils Absolute Auto 4.6 K/mm3 (1.3-6.7); Neutrophils Percent Auto 89.2 % (45.5-73.1); Red Blood Count 2.48 M/mm3 (4.2-5.4); Red Cell Distribution Width 21.8 % (11.5-14.5); White Blood Count 5.1 K/mm3 (4.5-10.0)
[2024-06-25 23:00] LABS: Platelet Count Result 23 k/mm3 (150-375)
[2024-06-25 23:14] LABS: Platelet Estimate Decreased (Adequate)
[2024-06-25 23:15] LABS: Anisocytosis 2+; Poikilocytosis 1+
[2024-06-25 23:16] LABS: Microcytosis 1+ (NORMAL)
[2024-06-25 23:17] LABS: Burr Cells 2+; Schistocytes Rare
[2024-06-25 23:24] LABS: Alanine Aminotransferase 171 U/L (6-35); Albumin Level 3.2 g/dL (3.5-5.1); Alkaline Phosphatase 251 U/L (38-126); Anion Gap 13 mmol/L (4-12); Aspartate Amino Transferase 61 U/L (14-36); Bilirubin,Total 15.1 mg/dL (0.2-1.3); Blood Urea Nitrogen 36 mg/dL (7-17); Calcium 9.4 mg/dL (8.4-10.2); Carbon Dioxide 19 mmol/L (22-30); Chloride 101 mmol/L (98-107); Estimated CRCL calculation 58 ml/min; Estimated Glomerular Filt Rate 57; Glucose 349 mg/dL (65-110); Magnesium 1.3 mg/dL (1.6-2.3); Potassium 4.3 mmol/L (3.4-5.0); Sodium 133 mmol/L (137-145)
[2024-06-25] MEDS: MAGNESIUM SULF 2 GM/WATER 50ML 2 GM/50 ML BAG IVPB (23:37)
[2024-06-26] VITALS (9 sets, daily range): BP systolic 103–117; BP diastolic 44–68; PULSE 57–82; RESP 16–20; TEMP 36.1–36.6; O2SAT 97–100; BMI 27.8; BMI 27.3
--- NOTE | 2024-06-26 01:45 | P.HP_ITS ---
H&P: HPI History of Present Illness Date/Time: 06/26/24 01:45 Chief Complaint: Low platelet count. 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 The patient provides the following history. She is known to the hospitalist service from a recent admission with acute kidney injury, alcoholic hepatitis, and pancytopenia. Kidney function improved with holding diuretics, IV fluids, albumin, and blood transfusion. She was started on steroids for the hepatitis and remains on [address] Coles saw the patient regarding her pancytopenia and he felt this was all related to her longstanding history of alcohol abuse. She has not had a drop of alcohol since that hospitalization and is doing well in that regard. She saw her primary care provider in follow-up on Friday and reported that she was still feeling fatigued and he ordered outpatient labs which were drawn on Friday morning. She received a call that her platelets were low and that she needed to come to the hospital. She has not had any recent falls and denies new bruising, epistaxis, gingival bleeding, hemoptysis, hematemesis, melena, hematochezia, and hematuria. She also denies fever, chills, sweats, cold and flu symptoms, chest pain, shortness of breath, cough, abdominal pain, nausea, vomiting, diarrhea, and dysuria. In the ED: Her vital signs were stable on arrival. Labs were significant for a WBC count of 5.1, hemoglobin 9.2, platelet 23, PT 29.7, INR 2.8, PTT 41.2, sodium 133, BUN 36, creatinine 1.20, glucose 349, magnesium 1.3, total bilirubin 15.1, AST 61, ALT 171, alkaline phosphatase 251, albumin 3.2. She was given magnesium sulfate 2 g and is being admitted in this setting for monitoring and GI and hematology consultations regarding continued drop in platelets. Review of Systems Review of Systems: 12 systems were reviewed and are negative except for as per HPI. [facility] Past Medical History Medical History Alcohol use disorder abstained since May 2024 Anxiety Avascular necrosis of bone of right hip Cervical cancer Chronic obstructive pulmonary disease Chronic right hip pain Chronic venous insufficiency of lower extremity Cirrhosis of liver Depression Mixed hyperlipidemia Suicide attempt Tobacco use disorder Type 2 diabetes mellitus with diabetic neuropathy Surgical History Surgical History History of ear surgery History of esophagogastroduodenoscopy History of radical hysterectomy (2008) for cervical cancer History of total right hip arthroplasty (2004) secondary to avascular necrosis Family History Family History Other Adopted Unknown family medical history Social History Social History Social History: Surrogate medical decision maker: Charis Alfaro, mother. Code status: Smoking packs per day: 0.5 Smoking cigarettes per day: 10.0 Years smoked: 30 Smoking pack-years: 15.00 Smoking status: Current every day smoker Tobacco type: cigarettes Additional smoking assessment comments: Started smoking at age 17 Alcohol intake: current Drinks per week: 30 Substance use: never Substance use type: does not use Do You Feel Safe in your Home?: Yes Lack of Transportation: No Lack of Food: Never True Current Housing: I Have Housing Concerned About Future Housing: No Difficulty Paying Gas/Electric Bills: No Difficulty Paying for Meds: No Currently Unemployed: YES Education: Associate Degree Difficulty w/ Childcare or Family Care: No Living arrangements: with family Occupation/Education: occupation Spiritual care concerns: No Agree to blood products: Yes Meds Home Medications and Allergies Home Medications Medication Instructions Recorded Confirmed Type mecobalamin (vitamin B12) 1,000 1,000 mcg PO DAILY 03/19/23 06/26/24 History mcg chewable tablet (B12 Active) folic acid 1 mg tablet 1 mg PO DAILY #90 tabs 06/09/23 06/26/24 Rx metformin 500 mg tablet,extended 1,000 mg PO DAILY #180 tabs 09/03/23 06/26/24 Rx release 24 hr metoprolol tartrate 25 mg tablet 12.5 mg PO BID #90 tabs 09/03/23 06/26/24 Rx thiamine HCl (vitamin B1) 100 mg 100 mg PO DAILY #90 tabs 09/03/23 06/26/24 Rx tablet albuterol sulfate 90 mcg/actuation 1 inh inhalation Q4H PRN Shortness 03/03/24 06/26/24 Rx aerosol inhaler Of Breath Or Wheezing #9 grams tramadol 50 mg tablet 50 mg PO Q8H PRN Pain (Scale Score 06/01/24 06/26/24 History 4-6) venlafaxine 37.5 mg 37.5 mg PO HS 06/01/24 06/26/24 History capsule,extended release 24 hr fluticasone 250 mcg-salmeterol 50 1 inh inhalation Q12H 06/02/24 06/26/24 History mcg/dose blistr powdr for inhalation (Advair Diskus) prednisone 20 mg tablet 40 mg PO DAILY@0800 #60 tabs 06/10/24 06/26/24 Rx spironolactone 25 mg tablet 50 mg PO QAM #60 tabs 06/10/24 06/26/24 Rx furosemide 20 mg tablet 20 mg PO QAM 06/26/24 06/26/24 History gabapentin 300 mg capsule 300 mg PO Q5H 06/26/24 06/26/24 History (Neurontin) lactulose 20 gram/30 mL oral 20 g PO Q12H 06/26/24 06/26/24 History solution Allergies Allergy/AdvReac Type Severity Reaction Status Date / Time NSAIDS (Non-Steroidal Allergy Severe LIVER Verified 06/21/24 10:08 Anti-Inflamma CIRRHOSIS morphine AdvReac Itching Verified 06/21/24 10:08 Vital Signs Vital Signs - 24 hr 06/25/24 19:02 06/25/24 21:11 06/25/24 21:15 Temperature 97.9 F 97.5 F L Pulse Rate 73 57 L 58 L Respiratory Rate 16 20 14 Blood Pressure 111/59 L 115/48 L 115/48 L Pulse Oximetry 100 100 100 Oxygen Delivery Room Air 06/25/24 22:03 06/25/24 22:15 06/25/24 22:30 Temperature Pulse Rate 56 L 58 L 58 L Respiratory Rate 12 12 12 Blood Pressure Pulse Oximetry 98 Oxygen Delivery 06/25/24 22:45 Temperature Pulse Rate 61 Respiratory Rate 15 Blood Pressure Pulse Oximetry 100 Oxygen Delivery Exam Narrative: General: Chronically ill-appearing female in the semi-Warren position in bed in no acute distress. Weight: 91.3 kg. BMI: 27.3. HEENT: PERRL, EOMI. Positive scleral icterus. Conjunctiva mildly injected. Oral mucosa moist. Neck: Supple. Respiratory: Lungs are clear to auscultation bilaterally. Cardiovascular: Regular rate and rhythm with S1-S2. Gastrointestinal: Abdomen is soft and slightly distended with positive bowel sounds. Liver feels enlarged. No guarding or rebound tenderness. Skin: Warm and dry. Spider angiomas on the trunk. She is jaundiced. Extremities: No cyanosis or clubbing. Bilateral pedal edema softening towards the mid shins. No palpable knots or cords. Negative Julieta sign bilaterally. Radial and pedal pulses intact. Neurological: Alert. Cranial nerves 2-12 are grossly intact. No gross focal deficits to casual conversation. Psychiatric: Pleasant and cooperative with appropriate mood and affect. H&P: Results Labs Labs: Short CBC 06/25/24 Range/Units 19:52 WBC 5.1 (4.5-10.0) K/mm3 Hgb 9.2 L (12.0-15.0) g/dL Hct 26.6 L (37.0-47.0) % Plt Count 23 L* (150-375) k/mm3 BMP 06/25/24 19:52 Sodium 133 L Potassium 4.3 Chloride 101 Carbon Dioxide 19 L BUN 36 H Creatinine 1.20 H Glucose 349 H Calcium 9.4 Liver Function 06/25/24 Range/Units 19:52 Total Bilirubin 15.1 H (0.2-1.3) mg/dL AST 61 H (14-36) U/L ALT 171 H (6-35) U/L Alkaline Phosphatase 251 H (38-126) U/L Albumin 3.2 L (3.5-5.1) g/dL Assessment and Plan Assessment and plan (1) Thrombocytopenia: Code(s): D69.6 - Thrombocytopenia, unspecified Status: Acute (2) Hypomagnesemia: Code(s): E83.42 - Hypomagnesemia Status: Acute (3) Alcoholic cirrhosis: Qualifiers: Ascites presence: unspecified Qualified Code(s): K70.30 - Alcoholic cirrhosis of liver without ascites Code(s): K70.30 - Alcoholic cirrhosis of liver without ascites Status: Acute (4) Alcoholic hepatitis: Qualifiers: Ascites presence: unspecified Qualified Code(s): K70.10 - Alcoholic hepatitis without ascites Code(s): K70.10 - Alcoholic hepatitis without ascites Status: Acute (5) Chronic obstructive pulmonary disease: Code(s): J44.9 - Chronic obstructive pulmonary disease, unspecified Status: Acute (6) Type 2 diabetes mellitus with hyperglycemia: Code(s): E11.65 - Type 2 diabetes mellitus with hyperglycemia Status: Acute Plan The patient presented to the emergency department for evaluation after she was found to have low platelets on labs drawn yesterday as detailed in HPI. Labs, imaging, EKG, and all reports were personally reviewed. Platelets have gone down steadily over the last month or so in she was seen by Dr. Coles during her last visit who thought it was related to her longstanding history of alcohol abuse with bone marrow suppression as well as platelet sequestration due to splenomegaly. This is likely still the case. She has not had heparin products and reports no history of ITP. She has no signs of bleeding thus will hold on platelet transfusion at this time. We will ask Dr. Coles to see her again in consult to see if and when he transfusion would be appropriate and his input is appreciated. She remains on prednisone for alcoholic cirrhosis and seems to be stable. Glucose was greater than 300 in the patient admits that she has started to eat more sweets since she is not drinking alcohol. Initiate sliding scale insulin, Accu-Cheks, and hypoglycemic protocol. Check hemoglobin A1c. Magnesium will be replaced and monitored. Her medications will be reviewed and resumed as appropriate. Findings and treatment plan were discussed with the patient. Questions were solicited and answered to satisfaction. The patient's medical management will be taken over by the hospitalist team in a.m. Quality VTE Prophylaxis VTE prophylaxis: mechanical ordered If No VTE Prophylaxis Answer both mechanical and pharmacologic: Reason no pharmacologic proph: medical contraindication coagulation disorder and thrombocytopenia The patient has been admitted under observation status. Hospitalist MIPS Advance Care Plan I have confirmed that the patient's Advanced Care Plan is present, code status is documented, or surrogate decision maker is listed in patient medical record.: Yes Medication Reconciliation I have utilized all available resources to obtain, update and review the patients current medications (includes all prescriptions, OTC, herbals, cannabis, and nutritional supplements).: Yes
[2024-06-26 02:13] LABS: Hemoglobin A1C 5.6 % (<5.7)
[2024-06-26 02:22] LABS: Glucose Point of Care 421 mg/dl (65-105)
[2024-06-26] MEDS: INSULIN ASPART (*BKC) 100 UNITS/ML 12 UNITS SUB-Q (02:26)
[2024-06-26 05:49] LABS: Hematocrit 24.1 % (37.0-47.0); Hemoglobin 8.5 g/dL (12.0-15.0); Immature Granulocyte Absolute 0.02 K/mm3 (0.00-0.031); Immature Granulocyte Percent A 0.4 % (0-0.5); Immature Platelet Fraction Pct 9.8 % (0.9-11.2); Lymphocytes Absolute Auto 0.17 K/mm3 (0.9-3.2); Lymphocytes Percent Auto 3.5 % (18.3-44.2); Mean Corpuscular HGB Conc 35.3 g/dl (32-36); Mean Corpuscular Hemoglobin 37.4 pg (26-34); Mean Corpuscular Volume 106.2 fl (80-100); Mean Platelet Volume 12.9 fl (7.4-10.4); Monocytes Absolute Auto 0.5 K/mm3 (0.1-0.6); Monocytes Percent Auto 9.2 % (2.6-8.5); Neutrophils Absolute Auto 4.2 K/mm3 (1.3-6.7); Neutrophils Percent Auto 86.9 % (45.5-73.1); Red Blood Count 2.27 M/mm3 (4.2-5.4); Red Cell Distribution Width 21.3 % (11.5-14.5); White Blood Count 4.9 K/mm3 (4.5-10.0)
[2024-06-26 05:58] LABS: Alanine Aminotransferase 148 U/L (6-35); Albumin Level 2.7 g/dL (3.5-5.1); Alkaline Phosphatase 241 U/L (38-126); Anion Gap 7 mmol/L (4-12); Aspartate Amino Transferase 51 U/L (14-36); Bilirubin,Total 13.7 mg/dL (0.2-1.3); Blood Urea Nitrogen 36 mg/dL (7-17); Calcium 8.9 mg/dL (8.4-10.2); Carbon Dioxide 20 mmol/L (22-30); Chloride 106 mmol/L (98-107); Estimated CRCL calculation 61 ml/min; Estimated Glomerular Filt Rate > 60; Glucose 330 mg/dL (65-110); Magnesium 1.7 mg/dL (1.6-2.3); Potassium 4.4 mmol/L (3.4-5.0); Sodium 133 mmol/L (137-145)
[2024-06-26] MEDS: NICOTINE (*PBKC) 21 MG PATCH 1 PATCH TRANSDERM (06:25)
[2024-06-26] MEDS: GABAPENTIN 300 MG CAPSULE PO ×4 (06:26→22:47)
[2024-06-26 07:27] LABS: Platelet Count Result 21 k/mm3 (150-375)
[2024-06-26 07:29] LABS: Acanthocytes 1+; Crenated RBC 2+; Macrocytosis 1+ (NORMAL); Platelet Estimate Decreased (Adequate)
[2024-06-26 07:31] LABS: Schistocytes None Seen
[2024-06-26 09:09] LABS: Glucose Point of Care 257 mg/dl (65-105)
[2024-06-26] MEDS: THIAMINE HCL 100 MG TABLET PO (09:17)
[2024-06-26] MEDS: FOLIC ACID 1 MG TABLET PO (09:17)
[2024-06-26] MEDS: predniSONE 20 MG TABLET 40 MG PO (09:17)
[2024-06-26] MEDS: metFORMIN HCL XR 500 MG TAB.SR.24H 1000 MG PO (09:17)
[2024-06-26] MEDS: METOPROLOL TARTRATE 12.5 MG TABLET PO ×2 (09:18→22:46)
[2024-06-26] MEDS: SPIRONOLACTONE 25 MG TABLET 50 MG PO (09:18)
[2024-06-26] MEDS: CYANOCOBALAMIN 1,000 MCG TABLET 1000 MCG PO (09:18)
[2024-06-26] MEDS: FUROSEMIDE 20 MG TABLET PO (09:18)
[2024-06-26] MEDS: LACTULOSE 20 GM/30 ML UDC PO ×2 (09:18→22:47)
[2024-06-26] MEDS: INSULIN ASPART (*BKC) 100 UNITS/ML SUB-Q ×4 (09:19→22:47)
[2024-06-26 09:33] LABS: Iron 128 ug/dL (37-170)
[2024-06-26 09:42] LABS: Percent Iron Saturation 73 % (20-50)
[2024-06-26 12:01] LABS: Glucose Point of Care 298 mg/dl (65-105)
--- NOTE | 2024-06-26 15:58 | P.PNIM_ITS ---
Progress Note: A&P Assessment and Plan (1) Thrombocytopenia: Code(s): D69.6 - Thrombocytopenia, unspecified Status: Acute Assessment and Plan: patient has pancytopenia likely from bone marrow suppression from alcohol abuse and Liver cirrhosis WBC 2.27, Hb 8.5, and Plts 21 Monitor closely will need platelets transfusion if any signs of bleeding or plts below 10 (2) Hypomagnesemia: Code(s): E83.42 - Hypomagnesemia Status: Acute Assessment and Plan: replaced and monitor replace as appropriate (3) Alcoholic cirrhosis: Qualifiers: Ascites presence: unspecified Qualified Code(s): K70.30 - Alcoholic cirrhosis of liver without ascites Code(s): K70.30 - Alcoholic cirrhosis of liver without ascites Status: Acute Assessment and Plan: continue monitoring (4) Alcoholic hepatitis: Qualifiers: Ascites presence: unspecified Qualified Code(s): K70.10 - Alcoholic he patitis without ascites Code(s): K70.10 - Alcoholic hepatitis without ascites Status: Acute (5) Chronic obstructive pulmonary disease: Code(s): J44.9 - Chronic obstructive pulmonary disease, unspecified Status: Acute Assessment and Plan: continue home bronchodilators (6) Type 2 diabetes mellitus with hyperglycemia: Code(s): E11.65 - Type 2 diabetes mellitus with hyperglycemia Status: Acute Assessment and Plan: SSI with accucheks adjust with clinical course Plan DVT prophylaxis on SCDs Subjective Date/time seen: 06/26/24 15:58 Interval history: Comfortable at bedside Review of Systems Review of Systems: 12 systems were reviewed and are negative except for as per HPI. Exam Narrative: General: Chronically ill-appearing female in the semi-Warren position in bed in no acute distress. Weight: 91.3 kg. BMI: 27.3. HEENT: PERRL, EOMI. Positive scleral icterus. Conjunctiva mildly injected. Oral mucosa moist. Neck: Supple. Respiratory: Lungs are clear to auscultation bilaterally. Cardiovascular: Regular rate and rhythm with S1-S2. Gastrointestinal: Abdomen is soft and slightly distended with positive bowel sounds. Liver feels enlarged. No guarding or rebound tenderness. Skin: Warm and dry. Spider angiomas on the trunk. She is jaundiced. Extremities: No cyanosis or clubbing. Bilateral pedal edema softening towards the mid shins. No palpable knots or cords. Negative Julieta sign bilaterally. Radial and pedal pulses intact. Neurological: Alert. Cranial nerves 2-12 are grossly intact. No gross focal deficits to casual conversation. Psychiatric: Pleasant and cooperative with appropriate mood and affect. Objective Data Vital Signs Vital Signs: Vital Signs - 24 hr 06/25/24 19:02 06/25/24 21:11 06/25/24 21:15 Temperature 97.9 F 97.5 F L Pulse Rate 73 57 L 58 L Respiratory Rate 16 20 14 Blood Pressure 111/59 L 115/48 L 115/48 L Pulse Oximetry 100 100 100 Oxygen Delivery Room Air Fraction of Inspired Oxygen 06/25/24 22:03 06/25/24 22:15 06/25/24 22:30 Temperature Pulse Rate 56 L 58 L 58 L Respiratory Rate 12 12 12 Blood Pressure Pulse Oximetry 98 Oxygen Delivery Fraction of Inspired Oxygen 06/25/24 22:45 06/26/24 02:46 06/26/24 03:18 Temperature 97.0 F L Pulse Rate 61 57 L Respiratory Rate 15 20 Blood Pressure 113/48 L Pulse Oximetry 100 100 Oxygen Delivery Room Air Fraction of Inspired Oxygen 06/26/24 06:00 06/26/24 08:26 06/26/24 09:18 Temperature 97.0 F L Pulse Rate 57 L 57 L Respiratory Rate 20 Blood Pressure 117/68 Pulse Oximetry 98 99 Oxygen Delivery Autopap Fraction of Inspired Oxygen 06/26/24 09:19 06/26/24 15:43 Temperature 97.9 F Pulse Rate 69 Respiratory Rate 16 Blood Pressure 103/44 L Pulse Oximetry 99 Oxygen Delivery Room Air Fraction of Inspired Oxygen Intake/Output Intake/Output: Intake & Output 06/23/24 06/24/24 06/25/24 06/26/24 23:59 23:59 23:59 23:59 Intake Total 480 Balance 480 Meds/Results Medications: Active Medications Generic Name Dose Route Start Last Admin Trade Name Freq PRN Reason Stop Dose Admin Albuterol 1 puff 06/26/24 05:56 Albuterol Sulfate (*Sp) Aerosol 1 Puff INHALATION Q4HRT PRN Shortness Of Breath Or Wheezing Cyanocobalamin 1,000 mcg 06/26/24 09:00 06/26/24 09:18 Cyanocobalamin 1,000 Mcg Tablet PO 1,000 mcg QAM SRINIVASA Administration Dextrose 12.5 gm 06/26/24 01:47 Dextrose 50% 25 Gm/50 Ml Syringe IV PUSH PRN PRN Hypoglycemia Protocol Folic Acid 1 mg 06/26/24 09:00 06/26/24 09:17 Folic Acid 1 Mg Tablet PO 1 mg DAILY SRINIVASA Administration Furosemide 20 mg 06/26/24 09:00 06/26/24 09:18 Furosemide 20 Mg Tablet PO 20 mg QAM SRINIVASA Administration Gabapentin 300 mg 06/26/24 06:00 06/26/24 13:14 Gabapentin 300 Mg Capsule PO 300 mg Q5H SRINIVASA Administration Glucagon 1 mg 06/26/24 01:47 Glucagon For Inj 1 Mg Vial IM PRN PRN Hypoglycemia Protocol Glucose 15 gm 06/26/24 01:47 Glucose Oral Gel 15 Gm Of Glucse In 37.5 Gm Tube PO PRN PRN Hypoglycemia Protocol Dextrose 1,000 mls @ 100 mls/hr 06/26/24 01:47 Dextrose 5% 1,000 Ml IVPB PRN PRN Hypoglycemia Protocol Insulin Aspart 1 - 3 units 06/26/24 21:00 Insulin Aspart (*Bkc) 100 Units/Ml SUB-Q HS SRINIVASA Protocol Insulin Aspart 3 - 6 units 06/26/24 08:00 06/26/24 13:14 Insulin Aspart (*Bkc) 100 Units/Ml SUB-Q 4 units TIDWM SRINIVASA Administration Protocol Lactulose 20 gm 06/26/24 09:00 06/26/24 09:18 Lactulose 20 Gm/30 Ml Udc PO 20 gm Q12HR SRINIVASA Administration Metformin HCl 1,000 mg 06/26/24 08:00 06/26/24 09:17 Metformin Hcl Xr 500 Mg Tab.Sr.24h PO 1,000 mg DAILY@0800 SRINIVASA Administration Metoprolol Tartrate 12.5 mg 06/26/24 09:00 06/26/24 09:18 Metoprolol Tartrate 12.5 Mg Tablet PO 12.5 mg Q12HR SRINIVASA Administration Nicotine 1 patch 06/26/24 05:55 06/26/24 06:25 Nicotine (*Pbkc) 21 Mg Patch TRANSDERM 1 patch DAILY SRINIVASA Administration Prednisone 40 mg 06/26/24 08:00 06/26/24 09:17 Prednisone 20 Mg Tablet PO 40 mg DAILY@0800 SRINIVASA Administration Fluticasone/Salmeterol 2 puff 06/26/24 08:00 06/26/24 13:36 Fluticasone/Salmeterol 115-21 Mcg Inhaler 1 Puff INHALATION Not Given Q12HRT [facility] Spironolactone 50 mg 06/26/24 09:00 06/26/24 09:18 Spironolactone 25 Mg Tablet PO 50 mg QAM SRINIVASA Administration Thiamine HCl 100 mg 06/26/24 09:00 06/26/24 09:17 Thiamine Hcl 100 Mg Tablet PO 100 mg DAILY SRINIVASA Administration Tramadol HCl 50 mg 06/26/24 05:56 Tramadol Hcl (*Crx) 50 Mg Tablet PO Q8H PRN Pain (Scale Score 4-6) Venlafaxine HCl 37.5 mg 06/26/24 21:00 Venlafaxine Hcl Xr 37.5 Mg Cap PO HS [facility] Radiology Results: ITS Impressions Venous Doppler Study 06/26/24 09:18 IMPRESSION: 1. No deep venous thrombosis. 2. Small left Sun's cyst. Labs Labs: Laboratory Results - last 24 hr 06/25/24 06/26/24 06/26/24 19:52 01:42 05:20 WBC 5.1 RBC 2.48 L Hgb 9.2 L Hct 26.6 L MCV 107.3 H MCH 37.1 H MCHC 34.6 RDW 21.8 H Plt Count 23 L* MPV 13.1 H Immature Gran % (Auto) 0.8 H Neut % (Auto) 89.2 H Lymph % (Auto) 3.3 L [place] % (Auto) 6.5 Eos % (Auto) 0.0 Baso % (Auto) 0.2 Lymph # (Auto) 0.17 L [place] # (Auto) 0.3 Eos # (Auto) 0.0 Baso # (Auto) 0.0 Abs Immat Gran (auto) 0.04 H Absolute Neuts (auto) 4.6 Absolute Nucleated RBC 0.000 Nucleated RBC % 0.0 Platelet Estimate Decreased % Immature Plt Fraction 11.7 H Poikilocytosis 1+ Anisocytosis 2+ Microcytosis 1+ Macrocytosis Mg Cells 2+ Crenated Cell Acanthocytes (Spur) Schistocytes Rare PT 29.7 H INR 2.8 APTT 41.2 H Sodium 133 L Potassium 4.3 Chloride 101 Carbon Dioxide 19 L Anion Gap 13 H BUN 36 H Creatinine 1.20 H Estim Creat Clear Calc 58 Estimated GFR 57 L Glucose 349 H POC Capillary Glucose 421 H Hemoglobin A1c 5.6 Calcium 9.4 Magnesium 1.3 L Iron 128 TIBC 175 L % Saturation 73 H Total Bilirubin 15.1 H AST 61 H ALT 171 H Alkaline Phosphatase 251 H Total Protein 8.0 Albumin 3.2 L 06/26/24 06/26/24 06/26/24 05:27 05:27 08:59 WBC 4.9 RBC 2.27 L Hgb 8.5 L Hct 24.1 L MCV 106.2 H MCH 37.4 H MCHC 35.3 RDW 21.3 H Plt Count 21 L* MPV 12.9 H Immature Gran % (Auto) 0.4 Neut % (Auto) 86.9 H Lymph % (Auto) 3.5 L [place] % (Auto) 9.2 H Eos % (Auto) 0.0 Baso % (Auto) 0.0 L Lymph # (Auto) 0.17 L [place] # (Auto) 0.5 Eos # (Auto) 0.0 Baso # (Auto) 0.0 Abs Immat Gran (auto) 0.02 Absolute Neuts (auto) 4.2 Absolute Nucleated RBC 0.000 Nucleated RBC % 0.0 Platelet Estimate Decreased % Immature Plt Fraction 9.8 Poikilocytosis Anisocytosis Microcytosis Macrocytosis 1+ Mg Cells Crenated Cell 2+ Acanthocytes (Spur) 1+ Schistocytes None seen PT INR APTT Sodium 133 L Potassium 4.4 Chloride 106 Carbon Dioxide 20 L Anion Gap 7 BUN 36 H Creatinine 1.10 H Estim Creat Clear Calc 61 Estimated GFR > 60 Glucose 330 H POC Capillary Glucose 257 H Hemoglobin A1c Calcium 8.9 Magnesium 1.7 Cancelled Iron TIBC % Saturation Total Bilirubin 13.7 H AST 51 H ALT 148 H Alkaline Phosphatase 241 H Total Protein 7.0 Albumin 2.7 L 06/26/24 11:54 WBC RBC Hgb Hct MCV MCH MCHC RDW Plt Count MPV Immature Gran % (Auto) Neut % (Auto) Lymph % (Auto) [place] % (Auto) Eos % (Auto) Baso % (Auto) Lymph # (Auto) [place] # (Auto) Eos # (Auto) Baso # (Auto) Abs Immat Gran (auto) Absolute Neuts (auto) Absolute Nucleated RBC Nucleated RBC % Platelet Estimate % Immature Plt Fraction Poikilocytosis Anisocytosis Microcytosis Macrocytosis [place] Cells Crenated Cell Acanthocytes (Spur) Schistocytes PT INR APTT Sodium Potassium Chloride Carbon Dioxide Anion Gap BUN Creatinine Estim Creat Clear Calc Estimated GFR Glucose POC Capillary Glucose 298 H Hemoglobin A1c Calcium Magnesium Iron TIBC % Saturation Total Bilirubin AST ALT Alkaline Phosphatase Total Protein Albumin Quality VTE Prophylaxis VTE prophylaxis: mechanical ordered
[2024-06-26 16:16] LABS: Hematocrit 23.2 % (37.0-47.0); Hemoglobin 8.3 g/dL (12.0-15.0); Immature Platelet Fraction Pct 8.9 % (0.9-11.2); Mean Corpuscular HGB Conc 35.8 g/dl (32-36); Mean Corpuscular Hemoglobin 37.7 pg (26-34); Mean Corpuscular Volume 105.5 fl (80-100); Mean Platelet Volume 10.9 fl (7.4-10.4); Red Cell Distribution Width 21.2 % (11.5-14.5); White Blood Count 6.7 K/mm3 (4.5-10.0)
[2024-06-26 16:24] LABS: Platelet Count Result 23 k/mm3 (150-375)
[2024-06-26 17:30] LABS: Glucose Point of Care 303 mg/dl (65-105)
[2024-06-26] MEDS: FLUTICASONE/SALMETEROL 115-21 MCG INHALER 1 PUFF 2 PUFF INHALATION (20:32)
[2024-06-26] MEDS: VENLAFAXINE HCL XR 37.5 MG CAP PO (22:47)
[2024-06-27] VITALS (7 sets, daily range): BP systolic 106–115; BP diastolic 40–52; PULSE 60–72; RESP 16–20; TEMP 36–36.6; O2SAT 97–100
[2024-06-27] MEDS: GABAPENTIN 300 MG CAPSULE PO ×5 (02:43→21:28)
[2024-06-27 05:48] LABS: Basophils Percent Auto 0.2 % (0.2-1.2); Hematocrit 22.8 % (37.0-47.0); Hemoglobin 8.1 g/dL (12.0-15.0); Immature Granulocyte Absolute 0.08 K/mm3 (0.00-0.031); Immature Granulocyte Percent A 1.3 % (0-0.5); Immature Platelet Fraction Pct 9.7 % (0.9-11.2); Lymphocytes Absolute Auto 0.32 K/mm3 (0.9-3.2); Lymphocytes Percent Auto 5.2 % (18.3-44.2); Mean Corpuscular HGB Conc 35.5 g/dl (32-36); Mean Corpuscular Hemoglobin 37.9 pg (26-34); Mean Corpuscular Volume 106.5 fl (80-100); Monocytes Absolute Auto 0.6 K/mm3 (0.1-0.6); Monocytes Percent Auto 9.7 % (2.6-8.5); Neutrophils Absolute Auto 5.2 K/mm3 (1.3-6.7); Neutrophils Percent Auto 83.6 % (45.5-73.1); Red Blood Count 2.14 M/mm3 (4.2-5.4); White Blood Count 6.2 K/mm3 (4.5-10.0)
[2024-06-27 05:53] LABS: Alanine Aminotransferase 127 U/L (6-35); Albumin Level 2.5 g/dL (3.5-5.1); Alkaline Phosphatase 253 U/L (38-126); Anion Gap 9 mmol/L (4-12); Aspartate Amino Transferase 47 U/L (14-36); Blood Urea Nitrogen 37 mg/dL (7-17); Calcium 9.3 mg/dL (8.4-10.2); Carbon Dioxide 20 mmol/L (22-30); Chloride 105 mmol/L (98-107); Estimated CRCL calculation 61 ml/min; Estimated Glomerular Filt Rate > 60; Glucose 294 mg/dL (65-110); Magnesium 1.6 mg/dL (1.6-2.3); Potassium 4.7 mmol/L (3.4-5.0); Sodium 134 mmol/L (137-145)
[2024-06-27 06:24] LABS: Glucose Point of Care 334 mg/dl (65-105)
[2024-06-27 07:30] LABS: Platelet Count Result 21 k/mm3 (150-375)
[2024-06-27 07:31] LABS: Acanthocytes 1+; Crenated RBC 2+; Macrocytosis 1+ (NORMAL); Platelet Estimate Decreased (Adequate); Schistocytes None Seen
[2024-06-27] MEDS: FLUTICASONE/SALMETEROL 115-21 MCG INHALER 1 PUFF 2 PUFF INHALATION ×2 (08:15→20:56)
[2024-06-27 08:42] LABS: Glucose Point of Care 294 mg/dl (65-105)
[2024-06-27] MEDS: predniSONE 20 MG TABLET 40 MG PO (09:35)
[2024-06-27] MEDS: INSULIN ASPART (*BKC) 100 UNITS/ML SUB-Q ×4 (09:35→21:31)
[2024-06-27] MEDS: SPIRONOLACTONE 25 MG TABLET 50 MG PO (09:36)
[2024-06-27] MEDS: LACTULOSE 20 GM/30 ML UDC PO ×2 (09:36→21:29)
[2024-06-27] MEDS: FUROSEMIDE 20 MG TABLET PO (09:36)
[2024-06-27] MEDS: FOLIC ACID 1 MG TABLET PO (09:36)
[2024-06-27] MEDS: THIAMINE HCL 100 MG TABLET PO (09:36)
[2024-06-27] MEDS: CYANOCOBALAMIN 1,000 MCG TABLET 1000 MCG PO (09:36)
[2024-06-27] MEDS: metFORMIN HCL XR 500 MG TAB.SR.24H 1000 MG PO (09:36)
[2024-06-27] MEDS: METOPROLOL TARTRATE 12.5 MG TABLET PO ×2 (09:36→21:28)
[2024-06-27] MEDS: NICOTINE (*PBKC) 21 MG PATCH 1 PATCH TRANSDERM (09:36)
--- NOTE | 2024-06-27 12:26 | PM.IMPN ---
Progress Note: A&P Assessment and Plan (1) Thrombocytopenia: Code(s): D69.6 - Thrombocytopenia, unspecified Status: Acute Assessment and Plan: patient has pancytopenia likely from bone marrow suppression from alcohol abuse and Liver cirrhosis WBC 2.27, Hb 8.5, and Plts 23 plts still 21 this morning Isat 73, iron replete Monitor closely will need platelets transfusion if any signs of bleeding or plts below 10 (2) Hypomagnesemia: Code(s): E83.42 - Hypomagnesemia Status: Acute Assessment and Plan: replaced and monitor replace as appropriate (3) Alcoholic cirrhosis: Qualifiers: Ascites presence: unspecified Qualified Code(s): K70.30 - Alcoholic cirrhosis of liver without ascites Code(s): K70.30 - Alcoholic cirrhosis of liver without ascites Status: Acute Assessment and Plan: Continue home diuretics and lactulose (4) Alcoholic hepatitis: Qualifiers: Ascites presence: unspecified Qualified Code(s): K70.10 - Alcoholic hepatitis without ascites Code(s): K70.10 - Alcoholic hepatitis without ascites Status: Acute (5) Chronic obstructive pulmonary disease: Code(s): J44.9 - Chronic obstructive pulmonary disease, unspecified Status: Acute Assessment and Plan: continue home bronchodilators (6) Type 2 diabetes mellitus with hyperglycemia: Code(s): E11.65 - Type 2 diabetes mellitus with hyperglycemia Status: Acute Assessment and Plan: SSI with accucheks adjust with clinical course Plan DVT prophylaxis on SCDs, no AC due to thrombocytopenia Subjective Date/time seen: 06/27/24 12:26 Interval history: Comfortable at bedside Platelets 21 down from 23 monitor Review of Systems Review of Systems: 12 systems were reviewed and are negative except for as per HPI. Exam Narrative: General: Chronically ill-appearing female in the semi-Warren position in bed in no acute distress. Weight: 91.3 kg. BMI: 27.3. HEENT: PERRL, EOMI. Positive scleral icterus. Conjunctiva mildly injected. Oral mucosa moist. Neck: Supple. Respiratory: Lungs are clear to auscultation bilaterally. Cardiovascular: Regular rate and rhythm with S1-S2. Gastrointestinal: Abdomen is soft and slightly distended with positive bowel sounds. Liver feels enlarged. No guarding or rebound tenderness. Skin: Warm and dry. Spider angiomas on the trunk. She is jaundiced. Extremities: No cyanosis or clubbing. Bilateral pedal edema softening towards the mid shins. No palpable knots or cords. Negative Julieta sign bilaterally. Radial and pedal pulses intact. Neurological: Alert. Cranial nerves 2-12 are grossly intact. No gross focal deficits to casual conversation. Psychiatric: Pleasant and cooperative with appropriate mood and affect. Objective Data Vital Signs Vital Signs: Vital Signs - 24 hr 06/26/24 15:43 06/26/24 20:32 06/26/24 20:34 Temperature 97.9 F Pulse Rate 69 77 Respiratory Rate 16 18 Blood Pressure 103/44 L Pulse Oximetry 99 99 Oxygen Delivery Room Air 06/26/24 21:50 06/26/24 22:46 06/26/24 20:00 Temperature 97.9 F Pulse Rate 78 82 Respiratory Rate 18 Blood Pressure 104/49 L Pulse Oximetry 97 Oxygen Delivery Room Air 06/27/24 06:00 06/27/24 08:18 06/27/24 09:36 Temperature 97.5 F L Pulse Rate 72 62 Respiratory Rate 20 Blood Pressure 115/52 L Pulse Oximetry 98 97 Oxygen Delivery Room Air 06/27/24 09:35 Temperature Pulse Rate Respiratory Rate Blood Pressure Pulse Oximetry Oxygen Delivery Room Air Intake/Output Intake/Output: Intake & Output 06/24/24 06/25/24 06/26/24 06/27/24 23:59 23:59 23:59 23:59 Intake Total 1120 740 Balance 1120 740 Meds/Results Medications: Active Medications Generic Name Dose Route Start Last Admin Trade Name Freq PRN Reason Stop Dose Admin Albuterol 1 puff 06/26/24 05:56 Albuterol Sulfate (*Sp) Aerosol 1 Puff INHALATION Q4HRT PRN Shortness Of Breath Or Wheezing Cyanocobalamin 1,000 mcg 06/26/24 09:00 06/27/24 09:36 Cyanocobalamin 1,000 Mcg Tablet PO 1,000 mcg QAM SRINIVASA Administration Dextrose 12.5 gm 06/26/24 01:47 Dextrose 50% 25 Gm/50 Ml Syringe IV PUSH PRN PRN Hypoglycemia Protocol Folic Acid 1 mg 06/26/24 09:00 06/27/24 09:36 Folic Acid 1 Mg Tablet PO 1 mg DAILY SRINIVASA Administration Furosemide 20 mg 06/26/24 09:00 06/27/24 09:36 Furosemide 20 Mg Tablet PO 20 mg QAM SRINIVASA Administration Gabapentin 300 mg 06/26/24 06:00 06/27/24 06:43 Gabapentin 300 Mg Capsule PO 300 mg Q5H SRINIVASA Administration Glucagon 1 mg 06/26/24 01:47 Glucagon For Inj 1 Mg Vial IM PRN PRN Hypoglycemia Protocol Glucose 15 gm 06/26/24 01:47 Glucose Oral Gel 15 Gm Of Glucse In 37.5 Gm Tube PO PRN PRN Hypoglycemia Protocol Dextrose 1,000 mls @ 100 mls/hr 06/26/24 01:47 Dextrose 5% 1,000 Ml IVPB PRN PRN Hypoglycemia Protocol Insulin Aspart 1 - 3 units 06/26/24 21:00 06/26/24 22:47 Insulin Aspart (*Bkc) 100 Units/Ml SUB-Q 2 units HS SRINIVASA Administration Protocol Insulin Aspart 3 - 6 units 06/26/24 08:00 06/27/24 09:35 Insulin Aspart (*Bkc) 100 Units/Ml SUB-Q 4 units TIDWM SRINIVASA Administration Protocol Lactulose 20 gm 06/26/24 09:00 06/27/24 09:36 Lactulose 20 Gm/30 Ml Udc PO 20 gm Q12HR SRINIVASA Administration Metformin HCl 1,000 mg 06/26/24 08:00 06/27/24 09:36 Metformin Hcl Xr 500 Mg Tab.Sr.24h PO 1,000 mg DAILY@0800 SRINIVASA Administration Metoprolol Tartrate 12.5 mg 06/26/24 09:00 06/27/24 09:36 Metoprolol Tartrate 12.5 Mg Tablet PO 12.5 mg Q12HR SRINIVASA Administration Nicotine 1 patch 06/26/24 05:55 06/27/24 09:36 Nicotine (*Pbkc) 21 Mg Patch TRANSDERM 1 patch DAILY SRINIVASA Administration Prednisone 40 mg 06/26/24 08:00 06/27/24 09:35 Prednisone 20 Mg Tablet PO 40 mg DAILY@0800 SRINIVASA Administration Fluticasone/Salmeterol 2 puff 06/26/24 08:00 06/27/24 08:15 Fluticasone/Salmeterol 115-21 Mcg Inhaler 1 Puff INHALATION 2 puff Q12HRT SRINIVASA Administration Spironolactone 50 mg 06/26/24 09:00 06/27/24 09:36 Spironolactone 25 Mg Tablet PO 50 mg QAM SRINIVASA Administration Thiamine HCl 100 mg 06/26/24 09:00 06/27/24 09:36 Thiamine Hcl 100 Mg Tablet PO 100 mg DAILY SRINIVASA Administration Tramadol HCl 50 mg 06/26/24 05:56 Tramadol Hcl (*Crx) 50 Mg Tablet PO Q8H PRN Pain (Scale Score 4-6) Venlafaxine HCl 37.5 mg 06/26/24 21:00 06/26/24 22:47 Venlafaxine Hcl Xr 37.5 Mg Cap PO 37.5 mg HS SRINIVASA Administration Radiology Results: ITS Impressions Venous Doppler Study 06/26/24 09:18 IMPRESSION: 1. No deep venous thrombosis. 2. Small left Sun's cyst. Labs Labs: Laboratory Results - last 24 hr 06/26/24 06/26/24 06/26/24 16:10 17:17 20:06 WBC 6.7 RBC 2.20 L Hgb 8.3 L Hct 23.2 L MCV 105.5 H MCH 37.7 H MCHC 35.8 RDW 21.2 H Plt Count 23 L* MPV 10.9 H Immature Gran % (Auto) Neut % (Auto) Lymph % (Auto) [place] % (Auto) Eos % (Auto) Baso % (Auto) Lymph # (Auto) [place] # (Auto) Eos # (Auto) Baso # (Auto) Abs Immat Gran (auto) Absolute Neuts (auto) Absolute Nucleated RBC Nucleated RBC % Platelet Estimate % Immature Plt Fraction 8.9 Macrocytosis Crenated Cell Acanthocytes (Spur) Schistocytes Sodium Potassium Chloride Carbon Dioxide Anion Gap BUN Creatinine Estim Creat Clear Calc Estimated GFR Glucose POC Capillary Glucose 303 H 334 H Calcium Magnesium Total Bilirubin AST ALT Alkaline Phosphatase Total Protein Albumin 06/27/24 06/27/24 05:34 08:34 WBC 6.2 RBC 2.14 L Hgb 8.1 L Hct 22.8 L MCV 106.5 H MCH 37.9 H MCHC 35.5 RDW 21.0 H Plt Count 21 L* MPV TNP Immature Gran % (Auto) 1.3 H Neut % (Auto) 83.6 H Lymph % (Auto) 5.2 L [place] % (Auto) 9.7 H Eos % (Auto) 0.0 Baso % (Auto) 0.2 Lymph # (Auto) 0.32 L [place] # (Auto) 0.6 Eos # (Auto) 0.0 Baso # (Auto) 0.0 Abs Immat Gran (auto) 0.08 H Absolute Neuts (auto) 5.2 Absolute Nucleated RBC 0.000 Nucleated RBC % 0.0 Platelet Estimate Decreased % Immature Plt Fraction 9.7 Macrocytosis 1+ Crenated Cell 2+ Acanthocytes (Spur) 1+ Schistocytes None seen Sodium 134 L Potassium 4.7 Chloride 105 Carbon Dioxide 20 L Anion Gap 9 BUN 37 H Creatinine 1.10 H Estim Creat Clear Calc 61 Estimated GFR > 60 Glucose 294 H POC Capillary Glucose 294 H Calcium 9.3 Magnesium 1.6 Total Bilirubin 13.0 H AST 47 H ALT 127 H Alkaline Phosphatase 253 H Total Protein 7.0 Albumin 2.5 L Quality VTE Prophylaxis VTE prophylaxis: mechanical ordered
[2024-06-27 12:28] LABS: Glucose Point of Care 329 mg/dl (65-105)
[2024-06-27 17:02] LABS: Glucose Point of Care 375 mg/dl (65-105)
[2024-06-27] MEDS: VENLAFAXINE HCL XR 37.5 MG CAP PO (21:28)
[2024-06-27] MEDS: CALCIUM CARBONATE (TUMS) 500 MG (200 MG ELEMENTAL) PO (21:58)
[2024-06-28] MEDS: GABAPENTIN 300 MG CAPSULE PO ×5 (02:39→22:05)
[2024-06-28 04:55] LABS: Glucose Point of Care 351 mg/dl (65-105)
[2024-06-28 06:00] VITALS: BP 108/52; PULSE 75; RESP 20; TEMP 36.3; O2SAT 100
[2024-06-28] MEDS: FLUTICASONE/SALMETEROL 115-21 MCG INHALER 1 PUFF 2 PUFF INHALATION (07:40)
[2024-06-28 08:21] LABS: Glucose Point of Care 352 mg/dl (65-105)
[2024-06-28] MEDS: INSULIN ASPART (*BKC) 100 UNITS/ML SUB-Q ×4 (08:55→22:05)
[2024-06-28] MEDS: predniSONE 20 MG TABLET 40 MG PO (08:59)
[2024-06-28] MEDS: FOLIC ACID 1 MG TABLET PO (08:59)
[2024-06-28] MEDS: CYANOCOBALAMIN 1,000 MCG TABLET 1000 MCG PO (09:00)
[2024-06-28] MEDS: metFORMIN HCL XR 500 MG TAB.SR.24H 1000 MG PO (09:00)
[2024-06-28] MEDS: LACTULOSE 20 GM/30 ML UDC PO ×2 (09:00→22:04)
[2024-06-28] MEDS: SPIRONOLACTONE 25 MG TABLET 50 MG PO (09:00)
[2024-06-28] MEDS: NICOTINE (*PBKC) 21 MG PATCH 1 PATCH TRANSDERM (09:00)
[2024-06-28 09:02] VITALS: PULSE 82
[2024-06-28] MEDS: METOPROLOL TARTRATE 12.5 MG TABLET PO ×2 (09:02→22:05)
[2024-06-28] MEDS: FUROSEMIDE 20 MG TABLET PO (09:03)
[2024-06-28 10:27] LABS: Hematocrit 24.7 % (37.0-47.0); Hemoglobin 8.8 g/dL (12.0-15.0); Immature Platelet Fraction Pct 10.3 % (0.9-11.2); Mean Corpuscular HGB Conc 35.6 g/dl (32-36); Mean Corpuscular Hemoglobin 38.3 pg (26-34); Mean Corpuscular Volume 107.4 fl (80-100); Mean Platelet Volume 12.7 fl (7.4-10.4); Red Cell Distribution Width 20.9 % (11.5-14.5); White Blood Count 6.7 K/mm3 (4.5-10.0)
[2024-06-28 10:37] LABS: Platelet Count Result 23 k/mm3 (150-375)
[2024-06-28 10:58] LABS: Alanine Aminotransferase 135 U/L (6-35); Albumin Level 2.9 g/dL (3.5-5.1); Alkaline Phosphatase 304 U/L (38-126); Anion Gap 9 mmol/L (4-12); Aspartate Amino Transferase 46 U/L (14-36); Bilirubin,Total 14.7 mg/dL (0.2-1.3); Blood Urea Nitrogen 37 mg/dL (7-17); Calcium 9.7 mg/dL (8.4-10.2); Carbon Dioxide 21 mmol/L (22-30); Chloride 103 mmol/L (98-107); Estimated CRCL calculation 64 ml/min; Estimated Glomerular Filt Rate 57; Glucose 321 mg/dL (65-110); Potassium 4.9 mmol/L (3.4-5.0); Sodium 133 mmol/L (137-145)
[2024-06-28] MEDS: THIAMINE HCL 100 MG TABLET PO (11:35)
[2024-06-28 11:56] LABS: Glucose Point of Care 343 mg/dl (65-105)
[2024-06-28 14:00] VITALS: BP 108/51; PULSE 62; RESP 16; TEMP 35.9; O2SAT 100
--- NOTE | 2024-06-28 14:10 | PC.NURSE ---
RN called Sanket via telephone to confirm that he would see the patient today 06/28/2024. Sanket verbalized he would see patient later this evening on 06/28/2024.
[2024-06-28 16:48] LABS: Glucose Point of Care 370 mg/dl (65-105)
--- NOTE | 2024-06-28 17:10 | P.PNIM_ITS ---
Progress Note: A&P Assessment and Plan (1) Thrombocytopenia: Code(s): D69.6 - Thrombocytopenia, unspecified Status: Acute Assessment and Plan: patient has pancytopenia likely from bone marrow suppression from alcohol abuse and Liver cirrhosis WBC 2.27-->6.7, Hb 8.5-->8.8, and Plts 23-->23 plts still 21 this morning Isat 73, iron replete Monitor closely will need platelets transfusion if any signs of bleeding or plts below 10 hematology consulted, awaiting eval (2) Hypomagnesemia: Code(s): E83.42 - Hypomagnesemia Status: Acute Assessment and Plan: replaced and monitor replace as appropriate (3) Alcoholic cirrhosis: Qualifiers: Ascites presence: unspecified Qualified Code(s): K70.30 - Alcoholic cirrhosis of liver without ascites Code(s): K70.30 - Alcoholic cirrhosis of liver without ascites Status: Acute Assessment and Plan: Continue home diuretics and lactulose (4) Alcoholic hepatitis: Qualifiers: Ascites presence: unspecified Qualified Code(s): K70.10 - Alcoholic hepatitis without ascites Code(s): K70.10 - Alcoholic hepatitis without ascites Status: Acute (5) Chronic obstructive pulmonary disease: Code(s): J44.9 - Chronic obstructive pulmonary disease, unspecified Status: Acute Assessment and Plan: continue home bronchodilators (6) Type 2 diabetes mellitus with hyperglycemia: Code(s): E11.65 - Type 2 diabetes mellitus with hyperglycemia Status: Acute Assessment and Plan: SSI with accucheks adjust with clinical course Plan DVT prophylaxis on SCDs, no AC due to thrombocytopenia Subjective Date/time seen: 06/28/24 17:10 Interval history: Comfortable at bedside Platelets 23 today, monitor Review of Systems Review of Systems: 12 systems were reviewed and are negative except for as per HPI. Exam Narrative: General: Chronically ill-appearing female in the semi-Warren position in bed in no acute distress. Weight: 91.3 kg. BMI: 27.3. HEENT: PERRL, EOMI. Positive scleral icterus. Conjunctiva mildly injected. Oral mucosa moist. Neck: Supple. Respiratory: Lungs are clear to auscultation bilaterally. Cardiovascular: Regular rate and rhythm with S1-S2. Gastrointestinal: Abdomen is soft and slightly distended with positive bowel so unds. Liver feels enlarged. No guarding or rebound tenderness. Skin: Warm and dry. Spider angiomas on the trunk. She is jaundiced. Extremities: No cyanosis or clubbing. Bilateral pedal edema softening towards the mid shins. No palpable knots or cords. Negative Julieta sign bilaterally. Radial and pedal pulses intact. Neurological: Alert. Cranial nerves 2-12 are grossly intact. No gross focal deficits to casual conversation. Psychiatric: Pleasant and cooperative with appropriate mood and affect. Objective Data Vital Signs Vital Signs: Vital Signs - 24 hr 06/27/24 21:00 06/27/24 21:28 06/27/24 22:00 Temperature 97.8 F Pulse Rate 69 69 69 Respiratory Rate 18 Blood Pressure 109/49 L Pulse Oximetry 97 97 Oxygen Delivery Room Air 06/28/24 06:00 06/28/24 09:02 06/28/24 08:55 Temperature 97.3 F L Pulse Rate 75 82 Respiratory Rate 20 Blood Pressure 108/52 L Pulse Oximetry 100 Oxygen Delivery Room Air 06/28/24 14:00 Temperature 96.6 F L Pulse Rate 62 Respiratory Rate 16 Blood Pressure 108/51 L Pulse Oximetry 100 Oxygen Delivery Intake/Output Intake/Output: Intake & Output 06/25/24 06/26/24 06/27/24 06/28/24 23:59 23:59 23:59 23:59 Intake Total 1120 1800 880 Balance 1120 1800 880 Meds/Results Medications: Active Medications Generic Name Dose Route Start Last Admin Trade Name Freq PRN Reason Stop Dose Admin Albuterol 1 puff 06/26/24 05:56 Albuterol Sulfate (*Sp) Aerosol 1 Puff INHALATION Q4HRT PRN Shortness Of Breath Or Wheezing Calcium Carbonate 200 mg 06/27/24 21:47 06/27/24 21:58 Calcium Carbonate (Tums) 500 Mg (200 Mg Elemental) PO 200 mg Q6H PRN Administration Indigestion Cyanocobalamin 1,000 mcg 06/26/24 09:00 06/28/24 09:00 Cyanocobalamin 1,000 Mcg Tablet PO 1,000 mcg QAM SRINIVASA Administration Dextrose 12.5 gm 06/26/24 01:47 Dextrose 50% 25 Gm/50 Ml Syringe IV PUSH PRN PRN Hypoglycemia Protocol Folic Acid 1 mg 06/26/24 09:00 06/28/24 08:59 Folic Acid 1 Mg Tablet PO 1 mg DAILY SRINIVASA Administration Furosemide 20 mg 06/26/24 09:00 06/28/24 09:03 Furosemide 20 Mg Tablet PO 20 mg QAM SRINIVASA Administration Gabapentin 300 mg 06/26/24 06:00 06/28/24 12:47 Gabapentin 300 Mg Capsule PO 300 mg Q5H SRINIVASA Administration Glucagon 1 mg 06/26/24 01:47 Glucagon For Inj 1 Mg Vial IM PRN PRN Hypoglycemia Protocol Glucose 15 gm 06/26/24 01:47 Glucose Oral Gel 15 Gm Of Glucse In 37.5 Gm Tube PO PRN PRN Hypoglycemia Protocol Dextrose 1,000 mls @ 100 mls/hr 06/26/24 01:47 Dextrose 5% 1,000 Ml IVPB PRN PRN Hypoglycemia Protocol Insulin Aspart 1 - 3 units 06/26/24 21:00 06/27/24 21:31 Insulin Aspart (*Bkc) 100 Units/Ml SUB-Q 3 units HS SRINIVASA Administration Protocol Insulin Aspart 3 - 6 units 06/26/24 08:00 06/28/24 12:47 Insulin Aspart (*Bkc) 100 Units/Ml SUB-Q 5 units TIDWM SRINIVASA Administration Protocol Lactulose 20 gm 06/26/24 09:00 06/28/24 09:00 Lactulose 20 Gm/30 Ml Udc PO 20 gm Q12HR SRINIVASA Administration Metformin HCl 1,000 mg 06/26/24 08:00 06/28/24 09:00 Metformin Hcl Xr 500 Mg Tab.Sr.24h PO 1,000 mg DAILY@0800 SRINIVASA Administration Metoprolol Tartrate 12.5 mg 06/26/24 09:00 06/28/24 09:02 Metoprolol Tartrate 12.5 Mg Tablet PO 12.5 mg Q12HR SRINIVASA Administration Nicotine 1 patch 06/26/24 05:55 06/28/24 09:00 Nicotine (*Pbkc) 21 Mg Patch TRANSDERM 1 patch DAILY SRINIVASA Administration Prednisone 40 mg 06/26/24 08:00 06/28/24 08:59 Prednisone 20 Mg Tablet PO 40 mg DAILY@0800 SRINIVASA Administration Fluticasone/Salmeterol 2 puff 06/26/24 08:00 06/28/24 07:40 Fluticasone/Salmeterol 115-21 Mcg Inhaler 1 Puff INHALATION 2 puff Q12HRT SRINIVASA Administration Spironolactone 50 mg 06/26/24 09:00 06/28/24 09:00 Spironolactone 25 Mg Tablet PO 50 mg QAM SRINIVASA Administration Thiamine HCl 100 mg 06/26/24 09:00 06/28/24 11:35 Thiamine Hcl 100 Mg Tablet PO 100 mg DAILY SRINIVASA Administration Tramadol HCl 50 mg 06/26/24 05:56 Tramadol Hcl (*Crx) 50 Mg Tablet PO Q8H PRN Pain (Scale Score 4-6) Venlafaxine HCl 37.5 mg 06/26/24 21:00 06/27/24 21:28 Venlafaxine Hcl Xr 37.5 Mg Cap PO 37.5 mg HS SRINIVASA Administration Radiology Results: ITS Impressions Venous Doppler Study 06/26/24 09:18 IMPRESSION: 1. No deep venous thrombosis. 2. Small left Sun's cyst. Labs Labs: Laboratory Results - last 24 hr 06/27/24 06/28/24 06/28/24 21:01 08:15 10:13 WBC 6.7 RBC 2.30 L Hgb 8.8 L Hct 24.7 L MCV 107.4 H MCH 38.3 H MCHC 35.6 RDW 20.9 H Plt Count 23 L* MPV 12.7 H % Immature Plt Fraction 10.3 Sodium 133 L Potassium 4.9 Chloride 103 Carbon Dioxide 21 L Anion Gap 9 BUN 37 H Creatinine 1.20 H Estim Creat Clear Calc 64 Estimated GFR 57 L Glucose 321 H POC Capillary Glucose 351 H 352 H Calcium 9.7 Total Bilirubin 14.7 H AST 46 H ALT 135 H Alkaline Phosphatase 304 H Total Protein 7.0 Albumin 2.9 L 06/28/24 06/28/24 11:51 16:44 WBC RBC Hgb Hct MCV MCH MCHC RDW Plt Count MPV % Immature Plt Fraction Sodium Potassium Chloride Carbon Dioxide Anion Gap BUN Creatinine Estim Creat Clear Calc Estimated GFR Glucose POC Capillary Glucose 343 H 370 H Calcium Total Bilirubin AST ALT Alkaline Phosphatase Total Protein Albumin Quality VTE Prophylaxis VTE prophylaxis: mechanical ordered
[2024-06-28 17:16] LABS: Folic Acid 12.5 ng/mL (2.76->20); Vitamin B12 > 1000.0 pg/mL (239-931)
--- NOTE | 2024-06-28 18:59 | PDONCCN ---
HPI - Date of Consult Date/Time: 06/28/24 19:00 Requesting Physician: Neto Tiwari MD Primary Care Provider: Elsa Talley MD - Consult Narrative Reason for consult: Thrombocytopenia Narrative: Rodríguez Alfaro is a 53 year old female with history of liver cirrhosis due to alcohol abuse along with history of type 2 diabetes peripheral neuropathy hyperlipidemia and COPD came into the hospital with the low platelet count. She has some bruising in the right upper extremity but denies any bleeding. She quit drinking since the admission to the hospital. Patient has a long history of drinking alcohol on a daily basis. She has appointment with the chemical lab supervisor at [facility]. [place] labs [place] [address] with hemoglobin of 9.2. Patient had previously MRI abdomen done that showed liver cirrhosis. She denies any other new complaints. Review of Systems - Review of Systems All systems reviewed & are unremarkable except as noted in HPI and [facility] Medical History: Medical History (Last Reviewed 06/26/24 @ 05:49 by Yenny Rodriguez PA-C) Alcohol use disorder abstained since May 2024 Anxiety Avascular necrosis of bone of right hip Cervical cancer Chronic obstructive pulmonary disease Chronic right hip pain Chronic venous insufficiency of lower extremity Cirrhosis of liver Depression Mixed hyperlipidemia Suicide attempt Tobacco use disorder Type 2 diabetes mellitus with diabetic neuropathy Surgical History: Surgical History (Last Reviewed 06/26/24 @ 05:49 by Yenny Rodriguez PA-C) History of ear surgery History of esophagogastroduodenoscopy History of radical hysterectomy Onset Date: 2008 for cervical cancer History of total right hip arthroplasty Onset Date: 2004 secondary to avascular necrosis Family History: Family History (Last Reviewed 06/26/24 @ 05:49 by Yenny Rodriguez PA-C) Other Adopted Unknown family medical history - Social History Social History: Social History (Last Reviewed 06/26/24 @ 05:49 by Yenny Rodriguez PA-C) Alcohol Use: Alcohol intake: current Drinks per week: 30 Substance Use: Substance use: never Substance use type: does not use Others: Spiritual care concerns: No Agree to blood products: Yes Living Arrangements: Living arrangements: with family Oppucation/Education: Occupation/Education: occupation Smoking Status: Smoking status: Current every day smoker Tobacco type: cigarettes Smoking Pack-years: Smoking packs per day: 0.5 Smoking cigarettes per day: 10.0 Years smoked: 30 Smoking pack-years: 30.00 Comments: Additional smoking assessment comments: Started smoking at age 17 Social Determinants of Health: Do You Feel Safe in your Home?: Yes Has the Lack of Transportation Kept You From Medical Appointments or From Getting Medications?: No Within the Past 12 Months, Were You Worried Whether Your Food Would Run Out Before You Got Money to Buy More?: Never True What is Your Housing Situation Today?: I Have Housing Are You Worried That in the Next 2 Months, You May Not Have Your Own Housing to Live In?: No Do You Have Trouble Paying Your Heating Or Electricity Bill?: No Do You Have Trouble Paying For Medicines?: No Are You Currently Unemployed and Looking for Work?: Yes Highest Level of Education Completed: Associate Degree Do You Have Trouble With Childcare or the Care of a Family Member?: No Exam - Vital Signs Vital Signs - 24 hr 06/27/24 21:00 06/27/24 21:28 06/27/24 22:00 Temperature 36.6 C Pulse Rate 69 69 69 Respiratory Rate 18 Blood Pressure 109/49 L Pulse Oximetry 97 97 Oxygen Delivery Room Air 06/28/24 06:00 06/28/24 09:02 06/28/24 08:55 Temperature 36.3 C L Pulse Rate 75 82 Respiratory Rate 20 Blood Pressure 108/52 L Pulse Oximetry 100 Oxygen Delivery Room Air 06/28/24 14:00 Temperature 35.9 C L Pulse Rate 62 Respiratory Rate 16 Blood Pressure 108/51 L Pulse Oximetry 100 Oxygen Delivery - Exam HEENT: EOMI, mucous membranes moist and pink Neck: supple Lungs: clear to auscultation, normal air movement Heart: no murmurs, gallops, or rubs, regular rhythm, regular rate Abdomen: abdomen soft, normal bowel sounds, distended Extremities: normal pulses Integumentary: no abnormalities Neurological: normal speech Psychological: mental status NL, mood NL - Lab Results Laboratory Last Values WBC 6.7 K/mm3 (4.5-10.0) 06/28/24 10:13 RBC 2.30 M/mm3 (4.2-5.4) L 06/28/24 10:13 Hgb 8.8 g/dL (12.0-15.0) L 06/28/24 10:13 Hct 24.7 % (37.0-47.0) L 06/28/24 10:13 MCV 107.4 fl (80-100) H 06/28/24 10:13 MCH 38.3 pg (26-34) H 06/28/24 10:13 MCHC 35.6 g/dl (32-36) 06/28/24 10:13 RDW 20.9 % (11.5-14.5) H 06/28/24 10:13 Plt Count 23 k/mm3 (150-375) L* 06/28/24 10:13 MPV 12.7 fl (7.4-10.4) H 06/28/24 10:13 Immature Gran % (Auto) 1.3 % (0-0.5) H 06/27/24 05:34 Neut % (Auto) 83.6 % (45.5-73.1) H 06/27/24 05:34 Lymph % (Auto) 5.2 % (18.3-44.2) L 06/27/24 05:34 [place] % (Auto) 9.7 % (2.6-8.5) H 06/27/24 05:34 Eos % (Auto) 0.0 % (0-4.4) 06/27/24 05:34 Baso % (Auto) 0.2 % (0.2-1.2) 06/27/24 05:34 Lymph # (Auto) 0.32 K/mm3 (0.9-3.2) L 06/27/24 05:34 [place] # (Auto) 0.6 K/mm3 (0.1-0.6) 06/27/24 05:34 Eos # (Auto) 0.0 K/mm3 (0-0.3) 06/27/24 05:34 Baso # (Auto) 0.0 K/mm3 (0.0-0.1) 06/27/24 05:34 Abs Immat Gran (auto) 0.08 K/mm3 (0.00-0.031) H 06/27/24 05:34 Absolute Neuts (auto) 5.2 K/mm3 (1.3-6.7) 06/27/24 05:34 Absolute Nucleated RBC 0.000 K/mm3 (0.0-0.012) 06/27/24 05:34 Nucleated RBC % 0.0 % (0.0-0.2) 06/27/24 05:34 Platelet Estimate Decreased (Adequate) 06/27/24 05:34 % Immature Plt Fraction 10.3 % (0.9-11.2) 06/28/24 10:13 Poikilocytosis 1+ 06/25/24 19:52 Anisocytosis 2+ 06/25/24 19:52 Microcytosis 1+ (NORMAL) 06/25/24 19:52 Macrocytosis 1+ (NORMAL) 06/27/24 05:34 [place] Cells 2+ 06/25/24 19:52 Crenated Cell 2+ 06/27/24 05:34 Acanthocytes (Spur) 1+ 06/27/24 05:34 Schistocytes None seen 06/27/24 05:34 PT 29.7 Seconds (11.1-14.7) H 06/25/24 19:52 INR 2.8 06/25/24 19:52 APTT 41.2 Seconds (22.3-36.8) H 06/25/24 19:52 Sodium 133 mmol/L (137-145) L 06/28/24 10:13 Potassium 4.9 mmol/L (3.4-5.0) 06/28/24 10:13 Chloride 103 mmol/L (98-107) 06/28/24 10:13 Carbon Dioxide 21 mmol/L (22-30) L 06/28/24 10:13 Anion Gap 9 mmol/L (4-12) 06/28/24 10:13 BUN 37 mg/dL (7-17) H 06/28/24 10:13 Creatinine 1.20 mg/dL (0.7-1.0) H 06/28/24 10:13 Estim Creat Clear Calc 64 ml/min 06/28/24 10:13 Estimated GFR 57 (59-) L 06/28/24 10:13 Glucose 321 mg/dL (65-110) H 06/28/24 10:13 POC Capillary Glucose 370 mg/dl (65-105) H 06/28/24 16:44 Hemoglobin A1c 5.6 % (<5.7) 06/25/24 19:52 Calcium 9.7 mg/dL (8.4-10.2) 06/28/24 10:13 Magnesium 1.6 mg/dL (1.6-2.3) 06/27/24 05:34 Iron 128 ug/dL (37-170) 06/26/24 05:20 TIBC 175 ug/dL (261-462) L 06/26/24 05:20 % Saturation 73 % (20-50) H 06/26/24 05:20 Total Bilirubin 14.7 mg/dL (0.2-1.3) H 06/28/24 10:13 AST 46 U/L (14-36) H 06/28/24 10:13 ALT 135 U/L (6-35) H 06/28/24 10:13 Alkaline Phosphatase 304 U/L (38-126) H 06/28/24 10:13 Total Protein 7.0 g/dL (6.3-8.2) 06/28/24 10:13 Albumin 2.9 g/dL (3.5-5.1) L 06/28/24 10:13 Vitamin B12 > 1000.0 pg/mL (239-931) H 06/26/24 05:20 Folate 12.5 ng/mL (2.76->20) 06/26/24 05:20 Meds Home Medications Medication Instructions Recorded Confirmed Type mecobalamin (vitamin B12) 1,000 1,000 mcg PO DAILY 03/19/23 06/26/24 History mcg chewable tablet (B12 Active) folic acid 1 mg tablet 1 mg PO DAILY #90 tabs 06/09/23 06/26/24 Rx metformin 500 mg tablet,extended 1,000 mg PO DAILY #180 tabs 09/03/23 06/26/24 Rx release 24 hr metoprolol tartrate 25 mg tablet 12.5 mg PO BID #90 tabs 09/03/23 06/26/24 Rx thiamine HCl (vitamin B1) 100 mg 100 mg PO DAILY #90 tabs 09/03/23 06/26/24 Rx tablet albuterol sulfate 90 mcg/actuation 1 inh inhalation Q4H PRN Shortness 03/03/24 06/26/24 Rx aerosol inhaler Of Breath Or Wheezing #9 grams tramadol 50 mg tablet 50 mg PO Q8H PRN Pain (Scale Score 06/01/24 06/26/24 History 4-6) venlafaxine 37.5 mg 37.5 mg PO HS 06/01/24 06/26/24 History capsule,extended release 24 hr fluticasone 250 mcg-salmeterol 50 1 inh inhalation Q12H 06/02/24 06/26/24 History mcg/dose blistr powdr for inhalation (Advair Diskus) prednisone 20 mg tablet 40 mg PO DAILY@0800 #60 tabs 06/10/24 06/26/24 Rx spironolactone 25 mg tablet 50 mg PO QAM #60 tabs 06/10/24 06/26/24 Rx furosemide 20 mg tablet 20 mg PO QAM 06/26/24 06/26/24 History gabapentin 300 mg capsule 300 mg PO Q5H 06/26/24 06/26/24 History (Neurontin) lactulose 20 gram/30 mL oral 20 g PO Q12H 06/26/24 06/26/24 History solution Allergies Allergy/AdvReac Type Severity Reaction Status Date / Time NSAIDS (Non-Steroidal Allergy Severe LIVER Verified 06/21/24 10:08 Anti-Inflamma CIRRHOSIS morphine AdvReac Itching Verified 06/21/24 10:08 Results - Labs CBC & Chem 7: 06/28/24 10:13 06/28/24 10:13 Labs: Short CBC 06/28/24 Range/Units 10:13 WBC 6.7 (4.5-10.0) K/mm3 Hgb 8.8 L (12.0-15.0) g/dL Hct 24.7 L (37.0-47.0) % Plt Count 23 L* (150-375) k/mm3 BMP 06/28/24 10:13 Sodium 133 L Potassium 4.9 Chloride 103 Carbon Dioxide 21 L BUN 37 H Creatinine 1.20 H Glucose 321 H Calcium 9.7 Liver Function 06/28/24 Range/Units 10:13 Total Bilirubin 14.7 H (0.2-1.3) mg/dL AST 46 H (14-36) U/L ALT 135 H (6-35) U/L Alkaline Phosphatase 304 H (38-126) U/L Albumin 2.9 L (3.5-5.1) g/dL Assessment and Plan - Additional Plan Thrombocytopenia. Patient is the 53-year-old female with history of alcohol abuse and was diagnosed with liver cirrhosis. She came [place] [address]. She is asymptomatic without any bleeding but does have some bruising in the upper extremity. Other workup showed elevated vitamin B12 level and iron studies as well as elevated liver enzymes consistent with liver cirrhosis. She has quit drinking just at the time of admission. I have recommended abstinence from drinking. No further workup including bone marrow biopsy is needed. I have strongly recommended to follow up with chemical lab supervisor at [facility]. I will follow-up in the office for repeat blood test in 2 week. She will be able to go home if the platelet count remains above 20,000 tomorrow morning. I have answered all the questions to patient's satisfaction.
[2024-06-28 20:35] LABS: Glucose Point of Care 324 mg/dl (65-105)
[2024-06-28 21:27] VITALS: BP 123/65; PULSE 86; RESP 16; TEMP 36.3; O2SAT 100
[2024-06-28 22:05] VITALS: PULSE 86
[2024-06-28] MEDS: VENLAFAXINE HCL XR 37.5 MG CAP PO (22:05)
[2024-06-28] MEDS: CALCIUM CARBONATE (TUMS) 500 MG (200 MG ELEMENTAL) PO (22:05)
[2024-06-29] MEDS: GABAPENTIN 300 MG CAPSULE PO ×3 (03:24→11:59)
[2024-06-29 06:00] VITALS: BP 115/65; PULSE 87; RESP 16; TEMP 36.6; O2SAT 98
[2024-06-29 06:31] LABS: Eosinophils Percent Auto 0.1 % (0-4.4); Immature Granulocyte Absolute 0.11 K/mm3 (0.00-0.031); Immature Granulocyte Percent A 1.4 % (0-0.5); Lymphocytes Absolute Auto 0.39 K/mm3 (0.9-3.2); Lymphocytes Percent Auto 5.1 % (18.3-44.2); Mean Corpuscular HGB Conc 34.8 g/dl (32-36); Mean Corpuscular Hemoglobin 37.2 pg (26-34); Mean Platelet Volume 12.8 fl (7.4-10.4); Monocytes Absolute Auto 0.7 K/mm3 (0.1-0.6); Monocytes Percent Auto 9.6 % (2.6-8.5); Neutrophils Absolute Auto 6.4 K/mm3 (1.3-6.7); Neutrophils Percent Auto 83.8 % (45.5-73.1); Red Blood Count 2.15 M/mm3 (4.2-5.4); Red Cell Distribution Width 20.4 % (11.5-14.5); White Blood Count 7.7 K/mm3 (4.5-10.0)
[2024-06-29 06:39] LABS: Alanine Aminotransferase 115 U/L (6-35); Albumin Level 2.6 g/dL (3.5-5.1); Alkaline Phosphatase 263 U/L (38-126); Anion Gap 6 mmol/L (4-12); Aspartate Amino Transferase 39 U/L (14-36); Bilirubin,Total 13.9 mg/dL (0.2-1.3); Blood Urea Nitrogen 39 mg/dL (7-17); Calcium 9.6 mg/dL (8.4-10.2); Carbon Dioxide 22 mmol/L (22-30); Chloride 104 mmol/L (98-107); Estimated CRCL calculation 64 ml/min; Estimated Glomerular Filt Rate 57; Glucose 303 mg/dL (65-110); Magnesium 1.5 mg/dL (1.6-2.3); Potassium 5.2 mmol/L (3.4-5.0); Sodium 132 mmol/L (137-145)
[2024-06-29 07:07] LABS: Platelet Count Result 23 k/mm3 (150-375)
[2024-06-29 07:09] LABS: Acanthocytes 1+; Anisocytosis 2+; Crenated RBC 2+; Platelet Estimate Decreased (Adequate); Schistocytes None Seen
[2024-06-29] MEDS: FLUTICASONE/SALMETEROL 115-21 MCG INHALER 1 PUFF 2 PUFF INHALATION (07:42)
[2024-06-29 08:52] LABS: Glucose Point of Care 274 mg/dl (65-105)
[2024-06-29] MEDS: INSULIN ASPART (*BKC) 100 UNITS/ML SUB-Q ×2 (09:29→11:59)
[2024-06-29] MEDS: FOLIC ACID 1 MG TABLET PO (09:30)
[2024-06-29] MEDS: LACTULOSE 20 GM/30 ML UDC PO (09:30)
[2024-06-29] MEDS: NICOTINE (*PBKC) 21 MG PATCH 1 PATCH TRANSDERM (09:30)
[2024-06-29] MEDS: metFORMIN HCL XR 500 MG TAB.SR.24H 1000 MG PO (09:30)
[2024-06-29] MEDS: THIAMINE HCL 100 MG TABLET PO (09:30)
[2024-06-29] MEDS: predniSONE 20 MG TABLET 40 MG PO (09:30)
[2024-06-29] MEDS: CYANOCOBALAMIN 1,000 MCG TABLET 1000 MCG PO (09:30)
[2024-06-29 09:32] VITALS: PULSE 78
[2024-06-29] MEDS: FUROSEMIDE 20 MG TABLET PO (09:32)
[2024-06-29] MEDS: METOPROLOL TARTRATE 12.5 MG TABLET PO (09:32)
[2024-06-29] MEDS: SPIRONOLACTONE 25 MG TABLET 50 MG PO (09:32)
[2024-06-29 11:49] LABS: Glucose Point of Care 297 mg/dl (65-105)
[2024-06-29 14:00] VITALS: BP 117/50; PULSE 73; RESP 16; TEMP 36.1; O2SAT 92
[2024-06-29] MEDS: MAGNESIUM SULF 2 GM/WATER 50ML 2 GM/50 ML BAG IVPB (14:46)
[2024-06-29 17:05] LABS: Glucose Point of Care 259 mg/dl (65-105)
[2024-06-29 17:21] LABS: Potassium 5.1 mmol/L (3.4-5.0)
--- NOTE | 2024-06-29 18:05 | P.DS_ITS ---
DS: Admitting Diagnosis Discharge Date 06/29/24 Admitting Diagnosis Low platelet count. 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 use: without m48 m60 armor crewman use Qualified Code(s): E11.40 - Type 2 diabetes mellitus with diabetic neuropathy, unspecified Code(s): E11.40 - Type 2 diabetes mellitus with diabetic neuropathy, unspecified Status: Acute (6) COPD (chronic obstructive pulmonary disease): Qualifiers: COPD type: unspecified COPD Qualified Code(s): J44.9 - Chronic obstructive pulmonary disease, unspecified Code(s): J44.9 - Chronic obstructive pulmonary disease, unspecified Status: Chronic (7) Alcoholic cirrhosis: Qualifiers: Ascites presence: unspecified Qualified Code(s): K70.30 - Alcoholic cirrhosis of liver without ascites Code(s): K70.30 - Alcoholic cirrhosis of liver without ascites Status: Acute DS: Summary Hospital Course Hospital Course: Rodríguez Alfaro is a 53 year old female with past medical history of liver cirrhosis due to alcohol abuse, type 2 diabetes, peripheral neuropathy, hyperlipidemia and COPD presented to the hospital with the low platelet count. with some bruising in the right upper extremity but there was no bleeding, She quit drinking since her last the admission to the hospital. Patient has a long history of drinking alcohol on a daily basis. She is scheduled to be seen by the software developer intern at [facility]. [place] labs [place] [address] with hemoglobin of 9.2. Patient had previously MRI abdomen done that showed liver cirrhosis. She denies any other new complaints[place] [address] and there is no complaints of d or bruising, patient is clinically stable, will discharge patient today. Time Spent with Patient Time attestation: Total time spent providing and/or coordinating discharge services: Exam Narrative: Patient is comfortable, NAD HEENT: eyes are clear and none icteric LUNGS:CTA HEART: RR S1S2 ABD: BS+, Soft and nontender Lower extremities: no edema SKIN: nonjaundiced Neuro: grossly intact. DS: Data Data Completed and Pending Labs on day of discharge: Labs from last 24 hours 06/29/24 06/29/24 06/29/24 16:50 11:32 08:32 WBC RBC Hgb Hct MCV MCH MCHC RDW Plt Count MPV Immature Gran % (Auto) Neut % (Auto) Lymph % (Auto) Pender % (Auto) Eos % (Auto) Baso % (Auto) Lymph # (Auto) Pender # (Auto) Eos # (Auto) Baso # (Auto) Abs Immat Gran (auto) Absolute Neuts (auto) Absolute Nucleated RBC Nucleated RBC % Platelet Estimate % Immature Plt Fraction Anisocytosis Crenated Cell Acanthocytes (Spur) Schistocytes Sodium Potassium 5.1 H Chloride Carbon Dioxide Anion Gap BUN Creatinine Estim Creat Clear Calc Estimated GFR Glucose POC Capillary Glucose 259 H 297 H 274 H Calcium Magnesium 2.0 Iron TIBC % Saturation Ferritin Total Bilirubin AST ALT Alkaline Phosphatase Total Protein Albumin 06/29/24 06/28/24 06/26/24 06:20 20:27 05:20 WBC 7.7 RBC 2.15 L Hgb 8.0 L Hct 23.0 L MCV 107.0 H MCH 37.2 H MCHC 34.8 RDW 20.4 H Plt Count 23 L* MPV 12.8 H Immature Gran % (Auto) 1.4 H Neut % (Auto) 83.8 H Lymph % (Auto) 5.1 L Pender % (Auto) 9.6 H Eos % (Auto) 0.1 Baso % (Auto) 0.0 L Lymph # (Auto) 0.39 L Pender # (Auto) 0.7 H Eos # (Auto) 0.0 Baso # (Auto) 0.0 Abs Immat Gran (auto) 0.11 H Absolute Neuts (auto) 6.4 Absolute Nucleated RBC 0.000 Nucleated RBC % 0.0 Platelet Estimate Decreased % Immature Plt Fraction 12.0 H Anisocytosis 2+ Crenated Cell 2+ Acanthocytes (Spur) 1+ Schistocytes None seen Sodium 132 L Potassium 5.2 H Chloride 104 Carbon Dioxide 22 Anion Gap 6 BUN 39 H Creatinine 1.20 H Estim Creat Clear Calc 64 Estimated GFR 57 L Glucose 303 H POC Capillary Glucose 324 H Calcium 9.6 Magnesium 1.5 L Iron 128 TIBC 175 L % Saturation 73 H Ferritin 1050.00 H Total Bilirubin 13.9 H AST 39 H ALT 115 H Alkaline Phosphatase 263 H Total Protein 7.0 Albumin 2.6 L Discharge Plan Discharge Attending physician on discharge: Mo Boyd V. Consulting providers: Rah Coles; Yenny Rodriguez; Jeri Rascon; Philip Abrams; Hesham Tarango V. Discharging Clinician: Treasure Pitts Patient Disposition: Home, Self-Care Activity: as tolerated Diet: heart healthy and low sodium Discharge Instructions: Per Care Coordination, patient to resume home health services with [facility] ([phone]) for PT and long-term services. Agency will call to arrange resumption visit after discharge. patient to follow up with her software developer intern at [facility] for liver biopsy, patient to follow up with her pasta press operator Dr Coles, patient to follow up with her primary care provider as soon as possible, patient is instructed is any symptoms worsen to go to nearest ER. Patient Instructions: Antibiotic Form, Type 2 Diabetes Management for Adults (GEN) Stand Alone Forms: General Discharge Information Follow-up/Referrals: Rah Coles MD [Physician] - Chuckie Talley MD [Primary Care Provider] - Discharge Medications: New nicotine [Nicoderm CQ] 21 mg/24 hr Patch 24 Hour 1 patch transdermal DAILY Qty: 28 0RF Continued metformin 500 mg tablet extended release 24 hr 1,000 mg PO DAILY Qty: 180 1RF Rx Instructions: NEEDS APPOINTMENT FOR FURTHER REFILLS thiamine HCl (vitamin B1) 100 mg tablet 100 mg PO DAILY Qty: 90 2RF metoprolol tartrate 25 mg tablet 12.5 mg PO BID Qty: 90 2RF albuterol sulfate 90 mcg/actuation HFA aerosol inhaler 1 inh INHALATION Q4H PRN (Reason: Shortness Of Breath Or Wheezing) Qty: 9 2RF folic acid 1 mg tablet 1 mg PO DAILY Qty: 90 3RF mecobalamin (vitamin B12) [B12 Active] 1,000 mcg Tablet,Chewable 1,000 mcg PO DAILY gabapentin [Neurontin] 300 mg capsule 300 mg PO Q5H furosemide 20 mg tablet 20 mg PO QAM lactulose 20 gram/30 mL solution 20 g PO Q12H venlafaxine 37.5 mg capsule,extended release 24hr 37.5 mg PO HS tramadol 50 mg tablet 50 mg PO Q8H PRN (Reason: Pain (Scale Score 4-6)) fluticasone propion-salmeterol [Advair Diskus] 250-50 mcg/dose blister with device 1 inh INHALATION Q12H Patient Comments: Patient rarely uses this. prednisone 20 mg Tablet 40 mg PO DAILY@0800 Qty: 60 0RF spironolactone 25 mg Tablet 50 mg PO QAM Qty: 60 0RF Date of admission: 06/28/24 17:51 Primary Care Provider: Chuckie Talley Admitting Provider: Neto Tiwari Attending physician on admission: Treasure Pitts Condition: Stable
== END 2024-06-29 19:30 | disposition home or self-care (01) | DRG 661 ==
LOC: ANHED 23:51 → ANH3MED 06-26 00:38
PROVIDERS: Internal Medicine; Physician Assistant; Admitting Provider Internal Medicine; Emergency Provider Emergency Medicine; PCP Family Medicine; Visit Provider Family Medicine
DX: D69.59 Other secondary thrombocytopenia (principal); E83.42 Hypomagnesemia; D61.818 Other pancytopenia; E78.2 Mixed hyperlipidemia; K70.30 Alcoholic cirrhosis of liver without ascites; K70.10 Alcoholic hepatitis without ascites; E11.40 Type 2 diabetes mellitus with diabetic neuropathy, unspecified; E11.65 Type 2 diabetes mellitus with hyperglycemia; J44.9 Chronic obstructive pulmonary disease, unspecified; F41.9 Anxiety disorder, unspecified; F17.210 Nicotine dependence, cigarettes, uncomplicated; Z96.641 Presence of right artificial hip joint; Z85.41 Personal history of malignant neoplasm of cervix uteri; Z90.710 Acquired absence of both cervix and uterus; Z79.84 Long term (current) use of oral hypoglycemic drugs
CPT/HCPCS: 36415; 80053; 82607; 82728; 82746; 82948; 83036; 83540; 83550; 83735; 84132; 85025; 85027; 85055; 85610; 85730; 93970; 94640; 96374; 99199; 99285; A9270; G0378; G0379; J1815; J3475; J7512

== ENCOUNTER 2024-07-08 14:26 | Emergency (ER) | payer OTHER, SELFPAY ==
[2024-07-08] VITALS (26 sets, daily range): BP systolic 73–127; BP diastolic 29–57; PULSE 77–107; RESP 13–21; TEMP 36.2–38.4; O2SAT 97–100
--- NOTE | ~2024-07-08 | XR_ITS ---
XR chest 1V portable Ordering provider: Deandre Mendes MD History: 53 years Female with . AMS . Comparison: None. FINDINGS: MEDIASTINUM: The cardiac silhouette is slightly enlarged. Congestive jennifer. LUNGS: No infiltrates, effusions or pneumothorax. Bilateral interstitial changes suggestive of pulmon jose edema. OTHER: No free air under the diaphragm. IMPRESSION: Cardiomegaly with bilateral interstitial changes suggestive of pulmonary edema. Pneumonitis is not ex cluded. Reviewed, dictated and finalized at location A. ROLL CATCHER IMPRESSION: Cardiomegaly with bilateral interstitial changes suggestive of pulmonary edema. Pneumonitis is not excluded.
--- NOTE | ~2024-07-08 | CT_ITS ---
CT brain wo con Ordering provider: Deandre Mendes MD History: 53 years Female with . AMS . Comparison: None. Technique: CT of the head without contrast. Radiation reduction technique utilized.The dose-length pr oduct was 681 mGy-cm. FINDINGS: BRAIN PARENCHYMA AND CSF SPACES: Mild leukoaraiosis and diffuse cortical atrophy. Mild atheromatous d isease. No midline shift, mass effect or hemorrhage. The brain parenchyma and CSF spaces are otherwi se normal. VISUALIZED PARANASAL SINUSES: Well aerated. MASTOIDS: Well aerated. BONES: The bones appear intact. SOFT TISSUES: Visualized nasopharynx is normal. Superficial soft tissues are normal. IMPRESSION: No acute intracranial findings. Reviewed, dictated and finalized at location A. GN CHIEF
--- NOTE | ~2024-07-08 | CT_ITS ---
CT abdomen pelvis wo con Ordering provider: Deandre Mendes MD History: 53 years Female with . epigastric pain . Comparison: None. Technique: CT abdomen and pelvis without IV and without oral contrast. Automated exposure control and iterative reconstruction technique were employed. The dose-length product was 1506.64 mGy-cm. Findings: VISUALIZED LOWER CHEST: Minimal atelectatic changes. Trace of effusion bilaterally is not excluded. S light cardiomegaly. UPPER ABDOMINAL ORGANS: Liver: Lobulated outline of the liver suggestive of liver cirrhosis. Slight hepatomegaly. Gallbladder: Cholelithiasis. Spleen: Normal. Stomach/duodenum: Normal. Pancreas: Normal. Adrenals: Normal. Kidneys: Normal. PELVIC ORGANS: The bladder is underfilled with thickened wall. BOWEL AND MESENTERY: Colon: No definite evidence of diverticulitis. Appendix is not demonstrated. Small Bowel: Normal. No obstruction. Peritoneum/mesentery: No free air. Gross ascites is noted.. No mesenteric lymphadenopathy. Fat strand ing of the mesentery is noted with minimal fluid seen around the pancreas.. RETROPERITONEUM: Mild atheromatous disease of the abdominal aorta. retroperitoneal lymphadenopathy is noted with the largest in the left parieto-occipital area measuring 3.4 cm.. MUSCULOSKELETAL: Superficial soft tissues: Edema in the subcutaneous tissues more prominent laterally is noted in the anterior abdominal wall. Fat-containing umbilical hernia is noted. Otherwise, The superficial soft ti ssues are normal. Bones: Age appropriate degenerative changes of the spine. Right hip arthroplasty. IMPRESSION: 1. Gross ascites. 2. Highly suggestive liver cirrhosis. 3. Cholelithiasis. 4. Hepatomegaly. 5. Retroperitoneal lymphadenopathy. 6. Edema in the subcutaneous tissues. Reviewed, dictated and finalized at location A. [facility]
--- NOTE | 2024-07-08 14:40 | PC.NURSE ---
EDP made aware of Pt BP on arrival, gave VORB to continue NS that was started by EMS. Pt received the full Liter of NS
--- NOTE | 2024-07-08 14:44 | ECG_ITS ---
Test Date: 2024-07-08 14:37:12 Measurements Intervals [place] Rate: 102 P: -43 FL: 132 QRS: -43 QRSD: 106 T: 59 QT: 354 QTc: 463 Interpretive Statements SINUS TACHYCARDIA WITH FREQUENT ATRIAL PREMATURE COMPLEXES LEFT AXIS DEVIATION LEFT VENTRICULAR HYPERTROPHY AND ST-T CHANGE MINIMAL Q WAVES- HIGH LATERAL LEADS ABNORMAL ECG Compared to ECG 06/01/2024 20:33:17 HEART RATE HAS INCREASED ATRIAL PREMATURE COMPLEXES NOW PRESENT Electronically Signed On 07-08-2024 17:52:00 PIPE FITTER by Ming Hernandez D.O.
[2024-07-08 14:56] LABS: Basophils Percent Auto 0.2 % (0.2-1.2); Eosinophils Percent Auto 0.2 % (0-4.4); Immature Granulocyte Absolute 0.08 K/mm3 (0.00-0.031); Immature Platelet Fraction Pct 7.4 % (0.9-11.2); Lymphocytes Absolute Auto 0.91 K/mm3 (0.9-3.2); Lymphocytes Percent Auto 11.1 % (18.3-44.2); Mean Corpuscular HGB Conc 34.6 g/dl (32-36); Mean Corpuscular Hemoglobin 39.8 pg (26-34); Mean Corpuscular Volume 114.9 fl (80-100); Mean Platelet Volume 13.3 fl (7.4-10.4); Monocytes Absolute Auto 0.6 K/mm3 (0.1-0.6); Monocytes Percent Auto 7.3 % (2.6-8.5); Neutrophils Absolute Auto 6.6 K/mm3 (1.3-6.7); Neutrophils Percent Auto 80.2 % (45.5-73.1); Nucleated Red Blood Cells Perc 0.2 % (0.0-0.2); Red Blood Count 1.61 M/mm3 (4.2-5.4); Red Cell Distribution Width 18.2 % (11.5-14.5); White Blood Count 8.2 K/mm3 (4.5-10.0)
[2024-07-08 15:07] LABS: Albumin Level 2.2 g/dL (3.5-5.1); Alkaline Phosphatase 185 U/L (38-126); Aspartate Amino Transferase 45 U/L (14-36); Blood Urea Nitrogen 52 mg/dL (7-17); Calcium 8.5 mg/dL (8.4-10.2); Carbon Dioxide 12 mmol/L (22-30); Chloride 105 mmol/L (98-107); Estimated CRCL calculation 34 ml/min; Estimated Glomerular Filt Rate 28
[2024-07-08 15:08] LABS: Anion Gap 15 mmol/L (4-12); Bilirubin,Total 13.9 mg/dL (0.2-1.3); Glucose 214 mg/dL (65-110); Potassium 4.4 mmol/L (3.4-5.0); Sodium 132 mmol/L (137-145)
[2024-07-08 15:09] LABS: Lactic Acid Reflex 6.8 mmol/L (0.7-2.0)
[2024-07-08 15:16] LABS: Alanine Aminotransferase 65 U/L (6-35)
[2024-07-08] MEDS: SODIUM CHLORIDE 0.9% IV 1,000 ML 999 ML IV CONT ×2 (15:19)
[2024-07-08 15:25] LABS: INR 4.2; Prothrombin Time 40.8 Seconds (11.1-14.7)
[2024-07-08 15:26] LABS: Partial Thromboplastin Time 51.3 Seconds (22.3-36.8)
--- NOTE | 2024-07-08 15:28 | ED.AMS ---
HPI - Altered Mental Status General Chief Complaint: Altered Mental Status <Deandre James MD - Last Filed: 07/13/24 08:23> Stated Complaint: AMS <Deandre James MD - Last Filed: 07/13/24 08:23> Time Seen by Provider: 07/08/24 14:52 <Deandre James MD - Last Filed: 07/13/24 08:23> History of Present Illness HPI narrative: Patient is a 53-year-old female who presents ER with altered mental status. Parents went out to get her to go to [employer] dinner and she would not wake up or move for them. Patient found to be febrile here. Patient with known cirrhosis of the liver from alcoholic liver disease. She is pancytopenic with her platelets around 20,000. There are no reports of trauma. Patient is oriented to self and place. She cannot provide any history but does say that she has pain in her abdomen. <Deandre James MD - Last Filed: 07/13/24 08:23> Related Data Home Medications: Home Medications Medication Instructions Recorded Confirmed mecobalamin (vitamin B12) 1,000 1,000 mcg PO DAILY 03/19/23 06/26/24 mcg chewable tablet (B12 Active) tramadol 50 mg tablet 50 mg PO Q8H PRN Pain (Scale Score 06/01/24 06/26/24 4-6) venlafaxine 37.5 mg 37.5 mg PO HS 06/01/24 06/26/24 capsule,extended release 24 hr fluticasone 250 mcg-salmeterol 50 1 inh inhalation Q12H 06/02/24 06/26/24 mcg/dose blistr powdr for inhalation (Advair Diskus) furosemide 20 mg tablet 20 mg PO QAM 06/26/24 06/26/24 gabapentin 300 mg capsule 300 mg PO Q5H 06/26/24 06/26/24 (Neurontin) lactulose 20 gram/30 mL oral 20 g PO Q12H 06/26/24 06/26/24 solution <Deandre James MD - Last Filed: 07/13/24 08:23> Allergies/Adverse Reactions: Allergies Allergy/AdvReac Type Severity Reaction Status Date / Time NSAIDS (Non-Steroidal Allergy Severe LIVER Verified 07/08/24 14:42 Anti-Inflamma CIRRHOSIS morphine AdvReac Itching Verified 07/08/24 14:42 <Deandre James MD - Last Filed: 07/13/24 08:23> Review of Systems Review of Systems: ROS unobtainable: Yes unobtainable due to mental status <Deandre James MD - Last Filed: 07/13/24 08:23> [facility] Past Medical History Medical History: Medical History Alcohol use disorder abstained since May 2024 Anxiety Avascular necrosis of bone of right hip Cervical cancer Chronic obstructive pulmonary disease Chronic right hip pain Chronic venous insufficiency of lower extremity Cirrhosis of liver Depression Mixed hyperlipidemia Suicide attempt Tobacco use disorder Type 2 diabetes mellitus with diabetic neuropathy <Deandre James MD - Last Filed: 07/13/24 08:23> Surgical History Surgical History: Surgical History History of ear surgery History of esophagogastroduodenoscopy History of radical hysterectomy (2008) for cervical cancer History of total right hip arthroplasty (2004) secondary to avascular necrosis <Deandre James MD - Last Filed: 07/13/24 08:23> Family History Family History: Family History Other Adopted Unknown family medical history <Deandre James MD - Last Filed: 07/13/24 08:23> Social History Social History: Social History Social History: Surrogate medical decision maker: Charis Alfaro, mother. Code status: Smoking packs per day: 0.5 Smoking cigarettes per day: 10.0 Years smoked: 30 Smoking pack-years: 15.00 Smoking status: Current every day smoker Tobacco type: cigarettes Additional smoking assessment comments: Started smoking at age 17 Alcohol intake: current Drinks per week: 30 Substance use: never Substance use type: does not use Do You Feel Safe in your Home?: Yes Lack of Transportation: No Lack of Food: Never True Current Housing: I Have Housing Concerned About Future Housing: No Difficulty Paying Gas/Electric Bills: No Difficulty Paying for Meds: No Currently Unemployed: YES Education: Associate Degree Difficulty w/ Childcare or Family Care: No Living arrangements: with family Occupation/Education: occupation Spiritual care concerns: No Agree to blood products: Yes <Deandre James MD - Last Filed: 07/13/24 08:23> Exam Narrative: GENERAL: Chronically ill-appearing, well-nourished,, and sleeping. HEAD: Normocephalic, atraumatic. EYES: PERRL and EOMI. scleral icterus ENT: Mucous membranes moist. CHEST: Clear to auscultation. No respiratory distress. HEART: Regular rate and rhythm. Normal peripheral pulses. ABDOMEN: Soft, mild epigastric tenderness without guarding, nondistended. EXTREMITIES: Normal range of motion. +2 edema. SKIN: Warm, dry, Jaundice. Scattered spider hemangiomas NEURO: alert orient x2. <Deandre James MD - Last Filed: 07/13/24 08:23> Course Course Emergency Course: 162: Patient is critically ill. I have discussed this with the parents of the patient. I have also discussed this with the youngest son of the patient. Patient has no POA. They are trying to determine whether we go ahead with aggressive treatment or hospice. Meld score 40 with 71% chance of in 3 months. Lactic acid 6.8. 1642: I have spoken with the patient's son Andrew and her daughter Dorota. They would like everything done at this time. I will proceed with placing a central line. Patient will be started on Levophed when that is completed. I am also starting the patient on IV Zosyn as well as vancomycin for potential SBP as I have no other source of infection. I am going to reach out to [facility] for transfer as a feel patient would benefit from hepatology and MICU. Patient has had 30 milliliter/kilogram IV fluid bolus. She is starting to wake up and her blood pressure is 92/45 mm Hg. 175: CVC placed. Accepted by Dr. Schulte in the MICU at [facility]. Also discussed with Dr. Cornejo with Hepatology who will consult on the patient. Family updated on the progress. Awaiting a bed and then we will arranged transport. Will start Levophed, extra lab work and cultures drawn. Abx to be started as well. Procedure delayed by need to clean a bowel movement. Femoral site chosen due to coagulopathy and low platelets. <Deandre James MD - Last Filed: 07/13/24 08:23> Vital Signs Vital signs: Vital Signs Temperature 101.1 F H 07/08/24 14:27 Pulse Rate 107 H 07/08/24 14:27 Respiratory Rate 21 H 07/08/24 14:27 Blood Pressure 73/36 L 07/08/24 14:27 Pulse Oximetry 100 07/08/24 14:27 Oxygen Delivery Room Air 07/08/24 14:27 Temperature 97.4 F L 07/08/24 23:15 Pulse Rate 95 07/08/24 23:38 Respiratory Rate 16 07/08/24 23:38 Blood Pressure 120/54 L 07/08/24 23:38 Pulse Oximetry 100 07/08/24 23:38 Oxygen Delivery Room Air 07/08/24 15:12 <Deandre James MD - Last Filed: 07/13/24 08:23> Vital Signs Temperature 101.1 F H 07/08/24 14:27 Pulse Rate 107 H 07/08/24 14:27 Respiratory Rate 21 H 07/08/24 14:27 Blood Pressure 73/36 L 07/08/24 14:27 Pulse Oximetry 100 07/08/24 14:27 Oxygen Delivery Room Air 07/08/24 14:27 Temperature 97.4 F L 07/08/24 23:15 Pulse Rate 95 07/08/24 23:38 Respiratory Rate 16 07/08/24 23:38 Blood Pressure 120/54 L 07/08/24 23:38 Pulse Oximetry 100 07/08/24 23:38 Oxygen Delivery Room Air 07/08/24 15:12 <Tayo Messina MD - Last Filed: 07/08/24 18:33> Procedures Central Line Placement Right Femoral: Central Line Date: 07/08/24 <Deandre James MD - Last Filed: 07/13/24 08:23> Discussed w/ the patient/family/POA,the placement of a central venous catheter, including its clinical necessity/indication & associated potential risks, benifits and alternatives.: Yes <Deandre James MD - Last Filed: 07/13/24 08:23> The patient/family/POA understand(s) and acknowledge(s) the need to proceed with central venous catheter insertion as an important element of the patient's clinical management.: Yes <Deandre James MD - Last Filed: 07/13/24 08:23> Time Out Performed: Yes <Deandre James MD - Last Filed: 07/13/24 08:23> Patient Placed on Monitor/Pulse Ox: Yes <Deandre James MD - Last Filed: 07/13/24 08:23> Max. Sterile Barrier Technique: Caps, large sterile sheet and hand hygiene <Deandre James MD - Last Filed: 07/13/24 08:23> Central Line Prep: 2% chlorhexidine scrub and sterile drapes applied <Deandre James MD - Last Filed: 07/13/24 08:23> Technique: US-Guided <Deandre James MD - Last Filed: 07/13/24 08:23> Local Anesthetic: lidocaine 1% <Deandre James MD - Last Filed: 07/13/24 08:23> Amount of anesthesia used (mL): 3 <Deandre James MD - Last Filed: 07/13/24 08:23> Ultrasound Used for Placement: Yes <Deandre James MD - Last Filed: 07/13/24 08:23> Central Line Lumen Inserted: triple <Deandre James MD - Last Filed: 07/13/24 08:23> Post Procedure: sutured in place, good blood return, all ports aspirated, flushed, capped and sterile dressing applied <Deandre James MD - Last Filed: 07/13/24 08:23> Patient Tolerated Procedure: well <Deandre James MD - Last Filed: 07/13/24 08:23> MDM - Altered Mental Status MDM Narrative Medical decision making narrative: PATIENT WAS SIGNED OUT TO ME BY DR. JAMES AT 7:00 P.M., PATIENT WAS ACCEPTED TO BE TRANSFERRE TO [facility], WAITING FOR A BED AVAILABILITY. <Tayo Messina MD - Last Filed: 07/08/24 18:33> Lab Data Result diagrams: 07/08/24 14:47 07/08/24 14:47 <Deandre James MD - Last Filed: 07/13/24 08:23> Labs: Lab Results 07/08/24 07/08/24 07/08/24 Range/Units 14:47 15:28 17:58 WBC 8.2 (4.5-10.0) K/mm3 RBC 1.61 L (4.2-5.4) M/mm3 Hgb 6.4 L* (12.0-15.0) g/dL Hct 18.5 L* (37.0-47.0) % MCV 114.9 H (80-100) fl MCH 39.8 H (26-34) pg MCHC 34.6 (32-36) g/dl RDW 18.2 H (11.5-14.5) % Plt Count 24 L* (150-375) k/mm3 MPV 13.3 H (7.4-10.4) fl Immature Gran % (Auto) 1.0 H (0-0.5) % Neut % (Auto) 80.2 H (45.5-73.1) % Lymph % (Auto) 11.1 L (18.3-44.2) % Mccracken % (Auto) 7.3 (2.6-8.5) % Eos % (Auto) 0.2 (0-4.4) % Baso % (Auto) 0.2 (0.2-1.2) % Lymph # (Auto) 0.91 (0.9-3.2) K/mm3 M[place]racken # (Auto) 0.6 (0.1-0.6) K/mm3 Eos # (Auto) 0.0 (0-0.3) K/mm3 Baso # (Auto) 0.0 (0.0-0.1) K/mm3 Abs Immat Gran (auto) 0.08 H (0.00-0.031) K/mm3 Absolute Neuts (auto) 6.6 (1.3-6.7) K/mm3 Absolute Nucleated RBC 0.020 H (0.0-0.012) K/mm3 Nucleated RBC % 0.2 (0.0-0.2) % Platelet Estimate Decreased (Adequate) % Immature Plt Fraction 7.4 (0.9-11.2) % Anisocytosis 1+ Macrocytosis 2+ (NORMAL) [place] Cells 2+ Acanthocytes (Spur) 1+ Schistocytes None seen PT 40.8 H (11.1-14.7) Seconds INR 4.2 APTT 51.3 H (22.3-36.8) Seconds Sodium 132 L (137-145) mmol/L Potassium 4.4 (3.4-5.0) mmol/L Chloride 105 (98-107) mmol/L Carbon Dioxide 12 L (22-30) mmol/L Anion Gap 15 H (4-12) mmol/L BUN 52 H D (7-17) mg/dL Creatinine 2.20 H (0.7-1.0) mg/dL Estim Creat Clear Calc 34 ml/min Estimated GFR 28 L (59 - ) Glucose 214 H (65-110) mg/dL Lactic Acid 6.8 H* 7.3 H* (0.7-2.0) mmol/L Calcium 8.5 (8.4-10.2) mg/dL Total Bilirubin 13.9 H (0.2-1.3) mg/dL AST 45 H (14-36) U/L ALT 65 H (6-35) U/L Alkaline Phosphatase 185 H (38-126) U/L Ammonia 83 H (9-30) umol/L Total Protein 5.0 L (6.3-8.2) g/dL Albumin 2.2 L (3.5-5.1) g/dL Urine Color Dark yellow (Yellow) Urine Appearance Cloudy H (Clear) Urine pH 5.0 (5.0-9.0) Ur Specific [place] 1.016 (1.001-1.035) Urine Protein Trace (Negative) mg/dL Urine Glucose (UA) Negative (Negative) mg/dL Urine Ketones Negative (Negative) mg/dL Ur Blood (Man) Negative (Negative) Urine Nitrate Positive H (Negative) Urine Bilirubin 2+ H (Negative) Urine Urobilinogen 2.0 H (<2.0) mg/dL Add Ur Microanalysis Reviewed Leukocyte Esterase Rfl 1+ H (Negative) MORTEZA/UL Urine RBC 6-10 H (0-2) /hpf Urine WBC 0-5 (0-3) /hpf Ur Squamous Epith Cells Occasional (Few) /hpf Urine Bacteria 4+ H /hpf Urine Casts 0-2 Nasal MRSA (PCR) (NOT DETECTE) Acetaminophen < 10 L (10-30) ug/mL Ethyl Alcohol < 10 (<10) mg/dL Influenza A (RT-PCR) Negative (Negative) Influenza B (RT-PCR) Negative (Negative) RSV (RT-PCR) Negative (Negative) SARS-CoV-2 RNA (RT-PCR) Negative (Negative) Blood Type Antibody Screen Crossmatch 07/08/24 Range/Units 18:01 WBC (4.5-10.0) K/mm3 RBC (4.2-5.4) M/mm3 Hgb (12.0-15.0) g/dL Hct (37.0-47.0) % MCV (80-100) fl MCH (26-34) pg MCHC (32-36) g/dl RDW (11.5-14.5) % Plt Count (150-375) k/mm3 MPV (7.4-10.4) fl Immature Gran % (Auto) (0-0.5) % Neut % (Auto) (45.5-73.1) % Lymph % (Auto) (18.3-44.2) % Mccracken % (Auto) (2.6-8.5) % Eos % (Auto) (0-4.4) % Baso % (Auto) (0.2-1.2) % Lymph # (Auto) (0.9-3.2) K/mm3 Mccracken # (Auto) (0.1-0.6) K/mm3 Eos # (Auto) (0-0.3) K/mm3 Baso # (Auto) (0.0-0.1) K/mm3 Abs Immat Gran (auto) (0.00-0.031) K/mm3 Absolute Neuts (auto) (1.3-6.7) K/mm3 Absolute Nucleated RBC (0.0-0.012) K/mm3 Nucleated RBC % (0.0-0.2) % Platelet Estimate (Adequate) % Immature Plt Fraction (0.9-11.2) % Anisocytosis Macrocytosis (NORMAL) [place] Cells Acanthocytes (Spur) Schistocytes PT (11.1-14.7) Seconds INR APTT (22.3-36.8) Seconds Sodium (137-145) mmol/L Potassium (3.4-5.0) mmol/L Chloride (98-107) mmol/L Carbon Dioxide (22-30) mmol/L Anion Gap (4-12) mmol/L BUN (7-17) mg/dL Creatinine (0.7-1.0) mg/dL Estim Creat Clear Calc ml/min Estimated GFR (59 - ) Glucose (65-110) mg/dL Lactic Acid (0.7-2.0) mmol/L Calcium (8.4-10.2) mg/dL Total Bilirubin (0.2-1.3) mg/dL AST (14-36) U/L ALT (6-35) U/L Alkaline Phosphatase (38-126) U/L Ammonia (9-30) umol/L Total Protein (6.3-8.2) g/dL Albumin (3.5-5.1) g/dL Urine Color (Yellow) Urine Appearance (Clear) Urine pH (5.0-9.0) Ur Specific [place] (1.001-1.035) Urine Protein (Negative) mg/dL Urine Glucose (UA) (Negative) mg/dL Urine Ketones (Negative) mg/dL Ur Blood (Man) (Negative) Urine Nitrate (Negative) Urine Bilirubin (Negative) Urine Urobilinogen (<2.0) mg/dL Add Ur Microanalysis Leukocyte Esterase Rfl (Negative) MORTEZA/UL Urine RBC (0-2) /hpf Urine WBC (0-3) /hpf Ur Squamous Epith Cells (Few) /hpf Urine Bacteria /hpf Urine Casts Nasal MRSA (PCR) Not detected (NOT DETECTE) Acetaminophen (10-30) ug/mL Ethyl Alcohol (<10) mg/dL Influenza A (RT-PCR) (Negative) Influenza B (RT-PCR) (Negative) RSV (RT-PCR) (Negative) SARS-CoV-2 RNA (RT-PCR) (Negative) Blood Type B Positive Antibody Screen Negative Crossmatch See Detail <Deandre James MD - Last Filed: 07/13/24 08:23> Lab Results 07/08/24 07/08/24 07/08/24 Range/Units 14:47 15:28 17:58 WBC 8.2 (4.5-10.0) K/mm3 RBC 1.61 L (4.2-5.4) M/mm3 Hgb 6.4 L* (12.0-15.0) g/dL Hct 18.5 L* (37.0-47.0) % MCV 114.9 H (80-100) fl MCH 39.8 H (26-34) pg MCHC 34.6 (32-36) g/dl RDW 18.2 H (11.5-14.5) % Plt Count 24 L* (150-375) k/mm3 MPV 13.3 H (7.4-10.4) fl Immature Gran % (Auto) 1.0 H (0-0.5) % Neut % (Auto) 80.2 H (45.5-73.1) % Lymph % (Auto) 11.1 L (18.3-44.2) % Mccracken % (Auto) 7.3 (2.6-8.5) % Eos % (Auto) 0.2 (0-4.4) % Baso % (Auto) 0.2 (0.2-1.2) % Lymph # (Auto) 0.91 (0.9-3.2) K/mm3 M[place]racken # (Auto) 0.6 (0.1-0.6) K/mm3 Eos # (Auto) 0.0 (0-0.3) K/mm3 Baso # (Auto) 0.0 (0.0-0.1) K/mm3 Abs Immat Gran (auto) 0.08 H (0.00-0.031) K/mm3 Absolute Neuts (auto) 6.6 (1.3-6.7) K/mm3 Absolute Nucleated RBC 0.020 H (0.0-0.012) K/mm3 Nucleated RBC % 0.2 (0.0-0.2) % Platelet Estimate Decreased (Adequate) % Immature Plt Fraction 7.4 (0.9-11.2) % Anisocytosis 1+ Macrocytosis 2+ (NORMAL) [place] Cells 2+ Acanthocytes (Spur) 1+ Schistocytes None seen PT 40.8 H (11.1-14.7) Seconds INR 4.2 APTT 51.3 H (22.3-36.8) Seconds Sodium 132 L (137-145) mmol/L Potassium 4.4 (3.4-5.0) mmol/L Chloride 105 (98-107) mmol/L Carbon Dioxide 12 L (22-30) mmol/L Anion Gap 15 H (4-12) mmol/L BUN 52 H D (7-17) mg/dL Creatinine 2.20 H (0.7-1.0) mg/dL Estim Creat Clear Calc 34 ml/min Estimated GFR 28 L (59 - ) Glucose 214 H (65-110) mg/dL Lactic Acid 6.8 H* 7.3 H* (0.7-2.0) mmol/L Calcium 8.5 (8.4-10.2) mg/dL Total Bilirubin 13.9 H (0.2-1.3) mg/dL AST 45 H (14-36) U/L ALT 65 H (6-35) U/L Alkaline Phosphatase 185 H (38-126) U/L Ammonia 83 H (9-30) umol/L Total Protein 5.0 L (6.3-8.2) g/dL Albumin 2.2 L (3.5-5.1) g/dL Urine Color Dark yellow (Yellow) Urine Appearance Cloudy H (Clear) Urine pH 5.0 (5.0-9.0) Ur Specific [place] 1.016 (1.001-1.035) Urine Protein Trace (Negative) mg/dL Urine Glucose (UA) Negative (Negative) mg/dL Urine Ketones Negative (Negative) mg/dL Ur Blood (Man) Negative (Negative) Urine Nitrate Positive H (Negative) Urine Bilirubin 2+ H (Negative) Urine Urobilinogen 2.0 H (<2.0) mg/dL Add Ur Microanalysis Reviewed Leukocyte Esterase Rfl 1+ H (Negative) MORTEZA/UL Urine RBC 6-10 H (0-2) /hpf Urine WBC 0-5 (0-3) /hpf Ur Squamous Epith Cells Occasional (Few) /hpf Urine Bacteria 4+ H /hpf Urine Casts 0-2 Nasal MRSA (PCR) (NOT DETECTE) Acetaminophen < 10 L (10-30) ug/mL Ethyl Alcohol < 10 (<10) mg/dL Influenza A (RT-PCR) Negative (Negative) Influenza B (RT-PCR) Negative (Negative) RSV (RT-PCR) Negative (Negative) SARS-CoV-2 RNA (RT-PCR) Negative (Negative) Blood Type Antibody Screen Crossmatch 07/08/24 Range/Units 18:01 WBC (4.5-10.0) K/mm3 RBC (4.2-5.4) M/mm3 Hgb (12.0-15.0) g/dL Hct (37.0-47.0) % MCV (80-100) fl MCH (26-34) pg MCHC (32-36) g/dl RDW (11.5-14.5) % Plt Count (150-375) k/mm3 MPV (7.4-10.4) fl Immature Gran % (Auto) (0-0.5) % Neut % (Auto) (45.5-73.1) % Lymph % (Auto) (18.3-44.2) % Mccracken % (Auto) (2.6-8.5) % Eos % (Auto) (0-4.4) % Baso % (Auto) (0.2-1.2) % Lymph # (Auto) (0.9-3.2) K/mm3 M[place]racken # (Auto) (0.1-0.6) K/mm3 Eos # (Auto) (0-0.3) K/mm3 Baso # (Auto) (0.0-0.1) K/mm3 Abs Immat Gran (auto) (0.00-0.031) K/mm3 Absolute Neuts (auto) (1.3-6.7) K/mm3 Absolute Nucleated RBC (0.0-0.012) K/mm3 Nucleated RBC % (0.0-0.2) % Platelet Estimate (Adequate) % Immature Plt Fraction (0.9-11.2) % Anisocytosis Macrocytosis (NORMAL) Mg Cells Acanthocytes (Spur) Schistocytes PT (11.1-14.7) Seconds INR APTT (22.3-36.8) Seconds Sodium (137-145) mmol/L Potassium (3.4-5.0) mmol/L Chloride (98-107) mmol/L Carbon Dioxide (22-30) mmol/L Anion Gap (4-12) mmol/L BUN (7-17) mg/dL Creatinine (0.7-1.0) mg/dL Estim Creat Clear Calc ml/min Estimated GFR (59 - ) Glucose (65-110) mg/dL Lactic Acid (0.7-2.0) mmol/L Calcium (8.4-10.2) mg/dL Total Bilirubin (0.2-1.3) mg/dL AST (14-36) U/L ALT (6-35) U/L Alkaline Phosphatase (38-126) U/L Ammonia (9-30) umol/L Total Protein (6.3-8.2) g/dL Albumin (3.5-5.1) g/dL Urine Color (Yellow) Urine Appearance (Clear) Urine pH (5.0-9.0) Ur Specific [place] (1.001-1.035) Urine Protein (Negative) mg/dL Urine Glucose (UA) (Negative) mg/dL Urine Ketones (Negative) mg/dL Ur Blood (Man) (Negative) Urine Nitrate (Negative) Urine Bilirubin (Negative) Urine Urobilinogen (<2.0) mg/dL Add Ur Microanalysis Leukocyte Esterase Rfl (Negative) MORTEZA/UL Urine RBC (0-2) /hpf Urine WBC (0-3) /hpf Ur Squamous Epith Cells (Few) /hpf Urine Bacteria /hpf Urine Casts Nasal MRSA (PCR) Not detected (NOT DETECTE) Acetaminophen (10-30) ug/mL Ethyl Alcohol (<10) mg/dL Influenza A (RT-PCR) (Negative) Influenza B (RT-PCR) (Negative) RSV (RT-PCR) (Negative) SARS-CoV-2 RNA (RT-PCR) (Negative) Blood Type B Positive Antibody Screen Negative Crossmatch See Detail <Tayo Messina MD - Last Filed: 07/08/24 18:33> Imaging Data Radiologist's impression: ITS Impressions Head CT 07/08/24 15:57 IMPRESSION: No acute intracranial findings. Abdomen/Pelvis CT 07/08/24 16:01 IMPRESSION: 1. Gross ascites. 2. Highly suggestive liver cirrhosis. 3. Cholelithiasis. 4. Hepatomegaly. 5. Retroperitoneal lymphadenopathy. 6. Edema in the subcutaneous tissues. Chest X-Ray 07/08/24 16:28 IMPRESSION: Cardiomegaly with bilateral interstitial changes suggestive of pulmonary edema. Pneumonitis is not excluded. <Deandre James MD - Last Filed: 07/13/24 08:23> ECG Data EKG #1: ECG completion date: 07/08/24 <Deandre James MD - Last Filed: 07/13/24 08:23> ECG completion time: 14:37 <Deandre James MD - Last Filed: 07/13/24 08:23> EKG Interpretation: tachycardia (102), sinus rhythm, non-specific ST changes, normal QRS, normal QT and left axis <Deandre James MD - Last Filed: 07/13/24 08:23> Critical Care Time Critical Care Time Critical Care Time: Yes <Deandre James MD - Last Filed: 07/13/24 08:23> Total Critical Care Time: 45 <Deandre Jmaes MD - Last Filed: 07/13/24 08:23> Discharge Plan Discharge Clinical Impression: Severe sepsis, Anemia, Encephalopathy, End-stage liver disease, WILLY (acute kidney injury), Thrombocytopenia, Urinary tract infection, Alcoholic cirrhosis of liver with ascites <Deandre James MD - Last Filed: 07/13/24 08:23> Patient Disposition: Acute Care Hospital <Deandre James MD - Last Filed: 07/13/24 08:23> Condition: Critical <Deandre James MD - Last Filed: 07/13/24 08:23> Prescriptions: No Action metformin 500 mg tablet extended release 24 hr 1,000 mg PO DAILY Qty: 180 1RF Rx Instructions: NEEDS APPOINTMENT FOR FURTHER REFILLS thiamine HCl (vitamin B1) 100 mg tablet 100 mg PO DAILY Qty: 90 2RF metoprolol tartrate 25 mg tablet 12.5 mg PO BID Qty: 90 2RF albuterol sulfate 90 mcg/actuation HFA aerosol inhaler 1 inh INHALATION Q4H PRN (Reason: Shortness Of Breath Or Wheezing) Qty: 9 2RF folic acid 1 mg tablet 1 mg PO DAILY Qty: 90 3RF mecobalamin (vitamin B12) [B12 Active] 1,000 mcg Tablet,Chewable 1,000 mcg PO DAILY gabapentin [Neurontin] 300 mg capsule 300 mg PO Q5H furosemide 20 mg tablet 20 mg PO QAM lactulose 20 gram/30 mL solution 20 g PO Q12H nicotine [Nicoderm CQ] 21 mg/24 hr Patch 24 Hour 1 patch transdermal DAILY Qty: 28 0RF venlafaxine 37.5 mg capsule,extended release 24hr 37.5 mg PO HS tramadol 50 mg tablet 50 mg PO Q8H PRN (Reason: Pain (Scale Score 4-6)) fluticasone propion-salmeterol [Advair Diskus] 250-50 mcg/dose blister with device 1 inh INHALATION Q12H Patient Comments: Patient rarely uses this. prednisone 20 mg Tablet 40 mg PO DAILY@0800 Qty: 60 0RF spironolactone 25 mg Tablet 50 mg PO QAM Qty: 60 0RF <Deandre James MD - Last Filed: 07/13/24 08:23> Follow-up/Referrals: Chuckie Talley MD [Primary Care Provider] - <Deandre James MD - Last Filed: 07/13/24 08:23>
[2024-07-08 15:47] LABS: Hematocrit 18.5 % (37.0-47.0); Hemoglobin 6.4 g/dL (12.0-15.0)
[2024-07-08 15:48] LABS: Platelet Count Result 24 k/mm3 (150-375)
[2024-07-08 15:56] LABS: Macrocytosis 2+ (NORMAL); Platelet Estimate Decreased (Adequate)
[2024-07-08 15:57] LABS: Burr Cells 2+; Schistocytes None Seen
[2024-07-08 16:00] LABS: Acanthocytes 1+
[2024-07-08 16:01] LABS: Add Urine Microscopic? YES; Appearance Urine Cloudy (Clear); Bacteria Urine 4+ /hpf; Bilirubin Urine 2+ (Negative); Blood Urine Negative (Negative); Color Urine Dark Yellow (Yellow); Glucose Urine UA Negative (Negative); Ketones Urine Negative (Negative); Leukocyte Esterase Ur 1+ LEU/UL (Negative); Need Manual Microscopic Reviewed; Nitrate Urine Positive (Negative); Non Pathogenic Casts 0-2; Protein Urine Trace mg/dL (Negative); Specific Grav Ur 1.016 (1.001-1.035); Squamous Epithelial Cell Urine Occasional /hpf (Few); WBC Urine 0-5 /hpf (0-3)
[2024-07-08 16:02] LABS: Anisocytosis 1+
[2024-07-08 16:09] LABS: Influenza A QL RT-PCR Negative (Negative); Influenza B QL RT-PCR Negative (Negative); RSV RNA, RT-PCR Negative (Negative); SARS-CoV-2 RNA PCR Negative (Negative)
--- NOTE | 2024-07-08 16:18 | PC.NURSE ---
Pt refusing additional blood work at this time, EDP made aware
[2024-07-08 17:51] LABS: Acetaminophen < 10 ug/mL (10-30); Ethanol < 10 mg/dL (<10)
[2024-07-08 17:52] LABS: Reflex Lactic Acid Yes or No Add Lactic
--- NOTE | 2024-07-08 17:57 | PC.NURSE ---
Second set of blood cultures was obtained from EDP from pt central line placement
[2024-07-08] MEDS: PIPERACILLIN/TAZ 4.5G/NS 100ML 4.5 GM/100 ML BAG IVPB (18:10)
[2024-07-08] MEDS: NOREPINEPHRINE 8 MG/D5W 250 ML 8 MG/250 ML BAG 9.38 MG IV CONT (18:11)
[2024-07-08 18:15] LABS: Ammonia 83 umol/L (9-30)
[2024-07-08 18:23] LABS: Lactic Acid 7.3 mmol/L (0.7-2.0)
--- NOTE | 2024-07-08 18:24 | PC.NURSE ---
RN spoke with Sanjiv at [facility] who stated the pt was assigned a bed at [facility], room 429, and that report could be called to [phone]
--- NOTE | 2024-07-08 18:32 | PC.NURSE ---
RN attempted to call report on pt to [facility] who stated the room was not yet clean and that they would call when the room was free and clean that they would call back for report
[2024-07-08] MEDS: VANCOMYCIN 1,250 MG/NS 250 ML 1,250 MG/250 ML BAG 166.67 MG IVPB ×2 (18:42→20:25)
--- NOTE | 2024-07-08 18:50 | PC.NURSE ---
Pt Son Andrew Valladares requests to be called when mother is transferred and leaving this hospital. Andrew Valladares Pt gives verbal consent for pt son to be called with updates
[2024-07-08 19:16] LABS: MRSA (PCR) NOT DETECTED (NOT DETECTE)
[2024-07-08] MEDS: SODIUM CHLORIDE 0.9% IV 250 ML 30 ML IV CONT (19:44)
[2024-07-08] MEDS: TUBING, BLOOD SET 1 EACH XX ×2 (19:44→21:29)
[2024-07-08] MEDS: SODIUM CHLORIDE 0.9% IV 250 ML 30 ML (21:29)
== END 2024-07-08 23:44 | disposition short-term general hospital (02) ==
PROVIDERS: Emergency Medicine; Emergency Provider Emergency Medicine; PCP Family Medicine
DX: A41.9 Sepsis, unspecified organism (principal); N39.0 Urinary tract infection, site not specified; N17.9 Acute kidney failure, unspecified; K72.10 Chronic hepatic failure without coma; K70.31 Alcoholic cirrhosis of liver with ascites; D69.6 Thrombocytopenia, unspecified; G93.40 Encephalopathy, unspecified; D64.9 Anemia, unspecified; Z20.822 Contact with and (suspected) exposure to COVID-19; I87.2 Venous insufficiency (chronic) (peripheral); E78.2 Mixed hyperlipidemia; E11.40 Type 2 diabetes mellitus with diabetic neuropathy, unspecified; J44.9 Chronic obstructive pulmonary disease, unspecified; F17.210 Nicotine dependence, cigarettes, uncomplicated; F10.90 Alcohol use, unspecified, uncomplicated; Y90.0 Blood alcohol level of less than 20 mg/100 ml; Z96.641 Presence of right artificial hip joint; Z85.41 Personal history of malignant neoplasm of cervix uteri; Z90.710 Acquired absence of both cervix and uterus; Z79.84 Long term (current) use of oral hypoglycemic drugs; Z79.899 Other long term (current) drug therapy; Z79.52 Long term (current) use of systemic steroids; K80.20 Calculus of gallbladder without cholecystitis without obstruction; I51.7 Cardiomegaly; R91.8 Other nonspecific abnormal finding of lung field; R00.0 Tachycardia, unspecified; I49.1 Atrial premature depolarization
CPT/HCPCS: 36415; 36430; 36556; 70450; 71045; 74176; 80053; 80143; 81001; 82077; 82140; 83605; 85025; 85055; 85610; 85730; 86850; 86900; 86901; 86923; 87040; 87077; 87086; 87186; 87637; 87641; 93005; 96365; 96366; 96367; 99291; C1751; J2543; J3370; J7030; J7050; P9016